=== PATIENT | female | born 1955 | race Caucasian/White ===

== ENCOUNTER → 2018-05-05 07:55 | Outpatient (CLI) | payer OTHER, SELFPAY ==
--- NOTE | 2018-05-05 | DI.MG.S_ITS ---
BILATERAL DIGITAL SCREENING MAMMOGRAM 3D/2D WITH CAD: 05/05/2018 CLINICAL: Routine screening. Family history of breast cancer. Comparison is made to exams dated: 10/22/2016 mammogram and 11/15/2014 mammogram - [facility]. There are scattered fibroglandular elements in both breasts. Current study was also evaluated with a Computer Aided Detection (CAD) system. No significant masses, calcifications, or other findings are seen in either breast. There has been no significant interval change. IMPRESSION: NEGATIVE There is no mammographic evidence of malignancy. A 1 year screening mammogram is recommended. This exam was interpreted at Station ID: [id number]. NOTE: For mammograms, a report in lay terms will be sent to the patient. Approximately 15% of breast malignancies will not be visualized mammographically. In the management of a palpable breast mass, a negative mammogram must not discourage biopsy of a clinically suspicious lesion. Electronically Signed By: Amber ledesma/jodie:05/05/2018 08:57:08 letter sent: Normal Exam ACR BI-RADS Category 1: Negative 3341F
== END ==
PROVIDERS: Family Provider Family Medicine; PCP Family Medicine; Visit Provider Family Medicine
DX: Z12.31 Encounter for screening mammogram for malignant neoplasm of breast (principal); Z80.3 Family history of malignant neoplasm of breast
CPT/HCPCS: 77063; 77067

== ENCOUNTER → 2018-06-30 09:10 | Outpatient (CLI) | payer OTHER, SELFPAY ==
[2018-06-30 09:17] LABS: Bacteria Urine None Seen; RBC Urine None Seen (0-5/HPF)
[2018-06-30 10:08] LABS: Add Manual Diff / Slide Review NO; Eosinophils Percent Auto 2.9 % (2-4); Hematocrit 41.7 % (36-46); Hemoglobin 14.1 g/dL (12.0-16.0); Mean Corpuscular HGB Conc 33.9 % (30-36); Mean Corpuscular Hemoglobin 31.7 PG (26-34); Mean Corpuscular Volume 93.6 fL (80-100); Monocytes Percent Auto 7.4 % (3-14); Neutrophils Absolute Auto 3500 /uL (3000-5900); Neutrophils Percent Auto 55.7 % (50-75); Platelet Count 223 X10^3/uL (150-400); Red Blood Cell Count 4.45 X10^6/uL (4.0-5.2); Red Cell Distribution Width 13.2 % (11.6-14.8); White Blood Cell Count 6.4 X10^3/uL (4.5-11.0)
[2018-06-30 10:52] LABS: Vitamin D 25 Hydroxy (D3) 51.1 ng/mL (30.0-100.0)
[2018-06-30 12:19] LABS: Hemoglobin A1C% w Est Avg Glu 5.8 % (4.0-6.0)
[2018-06-30 12:41] LABS: Thyroid Stimulating Hormone 1.97 uIU/mL (0.47-4.68)
[2018-06-30 12:47] LABS: Ferritin 43.7 ng/mL (11.1-264)
[2018-06-30 13:07] LABS: Free T3, Triiodothyronine Free 3.32 pg/mL (2.77-5.27); Free T4, Direct Thyroxine 1.06 ng/dL (0.78-2.19)
[2018-06-30 13:41] LABS: Appearance Urine UA CLEAR; Bilirubin Urine UA NEGATIVE (NEGATIVE); Color Urine UA YELLOW; Glucose Urine UA NEGATIVE (Normal); Ketones Urine UA NEGATIVE (NEGATIVE); Leukocyte Esterase Urine UA 2+ (NEGATIVE); Nitrite Urine UA NEGATIVE (Negative); Occult Blood Urine UA NEGATIVE (Negative); Protein Urine UA NEGATIVE (Negative); Specific Gravity Urine UA <=1.005 (1.000-1.035); Urobilinogen Urine UA 0.2 E.U./dL (0.2)
[2018-06-30 13:53] LABS: Culture Indicated Urine Specimen Cultured; Squamous Epithelial Cell Urine 1-5 /HPF; WBC Urine 1-5/HPF (0-5/HPF)
[2018-07-01 15:35] LABS: Thyroglobulin Antibodies < 1 IU/mL (< 2); Thyroglobulin Level 36.7 ng/mL (2.8-40.9); Thyroid Peroxidase Antibodies < 1 IU/mL (< 9)
== END ==
PROVIDERS: PCP Family Medicine; Visit Provider Family Medicine
DX: Z00.00 Encounter for general adult medical examination without abnormal findings (principal); E66.9 Obesity, unspecified; M81.0 Age-related osteoporosis without current pathological fracture; Z13.0 Encounter for screening for diseases of the blood and blood-forming organs and certain disorders involving the immune mechanism; Z13.21 Encounter for screening for nutritional disorder; Z13.220 Encounter for screening for lipoid disorders; Z13.29 Encounter for screening for other suspected endocrine disorder
CPT/HCPCS: 36415; 81001; 82306; 82728; 83036; 84432; 84439; 84443; 84481; 85025; 86376; 86800; 87086

== ENCOUNTER → 2018-07-07 07:21 | Outpatient (CLI) | payer OTHER, SELFPAY ==
[2018-07-07 08:37] LABS: Alanine Aminotransferase 34 IU/L (9-52); Albumin 4.2 g/dL (3.5-5.0); Albumin Globulin Ratio 1.4 (1.0-2.8); Alkaline Phosphatase 81 U/L (38-126); Aspartate Aminotransferase 30 IU/L (14-36); BUN Creatinine Ratio 24.3 (6-22); Bilirubin Total 0.4 mg/dL (0.2-1.3); Blood Urea Nitrogen 17 mg/dL (7-17); Calcium 8.9 mg/dL (8.4-10.2); Carbon Dioxide 30 mmol/L (22-32); Chloride 100 mmol/L (98-107); Cholesterol 196 mg/dL (140-199); Estimated Glomerular Filt Rate > 60.0 mL/min (>60); Glucose 90 mg/dL (80-110); HDL Cholesterol 75 mg/dL (40-60); HEMOLYSIS 17 (0-50); LDL Cholesterol Calculated 108 mg/dL (<100); Potassium 3.7 mmol/L (3.4-5.1); Sodium 138 mmol/L (137-145); Total Protein 7.2 g/dL (6.3-8.2); Triglycerides 67 mg/dL (35-150)
== END ==
PROVIDERS: PCP Family Medicine; Visit Provider Family Medicine
DX: Z00.00 Encounter for general adult medical examination without abnormal findings (principal)
CPT/HCPCS: 36415; 80053; 80061

== ENCOUNTER → 2019-06-08 13:56 | Outpatient (CLI) | payer MEDICARE, OTHER, SELFPAY | PROVIDERS: Family Provider Naturopath; PCP Family Medicine; Visit Provider Family Medicine | DX: M81.0 Age-related osteoporosis without current pathological fracture (principal); Z78.0 Asymptomatic menopausal state; Z82.62 Family history of osteoporosis | CPT/HCPCS: 77080 ==

== ENCOUNTER → 2019-07-09 07:27 | Outpatient (CLI) | payer MEDICARE, OTHER, SELFPAY ==
[2019-07-09 07:56] LABS: Hemoglobin A1C% w Est Avg Glu 5.5 % (4.0-6.0)
== END ==
PROVIDERS: Family Medicine; Family Provider Naturopath; PCP Family Medicine; Visit Provider Family Medicine
DX: R73.03 Prediabetes (principal); E55.9 Vitamin D deficiency, unspecified; M81.0 Age-related osteoporosis without current pathological fracture
CPT/HCPCS: 36415; 82306; 83036

== ENCOUNTER → 2019-08-20 07:26 | Outpatient (CLI) | payer MEDICARE, OTHER, SELFPAY | PROVIDERS: Family Provider Naturopath; PCP Family Medicine; Visit Provider Family Medicine | DX: M81.0 Age-related osteoporosis without current pathological fracture (principal) | CPT/HCPCS: 82523; 82570 ==

== ENCOUNTER → 2020-04-26 14:48 | Outpatient (CLI) | payer MEDICARE, OTHER, SELFPAY ==
--- NOTE | 2020-04-26 15:04 | DI.MG.S_ITS ---
Patient Name: HALLE BARNETT date: 1955 Sex: F Attending Physician: Kyra Indications: Date: 04/26/2020 14:56 At the request of: SANJUANITA HOPKINS Procedure: MM screening mammo BI BILATERAL DIGITAL SCREENING MAMMOGRAM 3D/2D WITH CAD: 04/26/2020 CLINICAL: Routine screening. Family history of breast cancer. Comparison is made to exams dated: 05/05/2018 mammogram - [facility], 10/22/2016 mammogram, and 11/15/2014 mammogram - [facility]. There are scattered fibroglandular elements in both breasts. Current study was also evaluated with a Computer Aided Detection (CAD) system. No significant masses, calcifications, or other findings are seen in either breast. There has been no significant interval change. IMPRESSION: NEGATIVE There is no mammographic evidence of malignancy. A 1 year screening mammogram is recommended. This exam was interpreted at Station ID: [id number]. NOTE: For mammograms, a report in lay terms will be sent to the patient. Approximately 15% of breast malignancies will not be visualized mammographically. In the management of a palpable breast mass, a negative mammogram must not discourage biopsy of a clinically suspicious lesion. Electronically Signed By: Glen woods/jodie:04/29/2020 08:46:29 letter sent: Normal Exam ACR BI-RADS Category 1: Negative 3341F
== END ==
PROVIDERS: Family Provider Naturopath; PCP Family Medicine; Referring Provider Family Medicine; Visit Provider Family Medicine
DX: Z12.31 Encounter for screening mammogram for malignant neoplasm of breast (principal); Z80.3 Family history of malignant neoplasm of breast
CPT/HCPCS: 77063; 77067

== ENCOUNTER → 2020-05-27 12:28 | Outpatient (CLI) | payer MEDICARE, OTHER, SELFPAY ==
--- NOTE | 2020-05-27 12:29 | DI.MRI.S_ITS ---
BREAST MRI OF BOTH BREASTS: 05/27/2020 CLINICAL: Breast mass. PROCEDURE: MR BREAST BI WO/W CON INDICATIONS: 6 o'clock lump, family history breast cancer, abnormal thermography TECHNIQUE: The patient was placed prone in a dedicated breast imaging coil. Precontrast axial STIR and 3D FLASH without fat saturation sequences were obtained. Both before and after bolus injection of contrast, sequential 1-minute axial 3D FLASH with fat saturation sequences for 3 time points, with subtraction images and maximum intensity projections (MIP's) generated. Delayed sagittal FLASH images with fat saturation were also obtained. Computer-aided detection, including computer algorithm analysis of MRI image data for lesion detection and characterization, pharmacokinetic analysis, with further physician review for interpretation, was performed. CONTRAST: 20 cc ProHance. COMPARISON: [facility], SCREENING MAMMO BI, 04/26/2020, 15:04. [facility], MM SCREENING MAMMO BI, 05/05/2018, 8:27. Outside Facility, , BILATERAL SCREENING MAMMOGRAM, 10/22/2016, 8:22. Outside Facility, , BILATERAL SCREEING MAMMOGRAM W/ CAD, 11/15/2014, 15:10. Outside Facility, , BILATERAL SCREEING MAMMOGRAM W/ CAD, 01/29/2013, 15:16. FINDINGS: Image quality: Excellent. There is minimal background parenchymal enhancement. Right breast: No mass or significant enhancement. Small T2 hyperintense tiny cysts. Small intramammary lymph node. Left breast: No mass or significant enhancement. Small T2 hyperintense tiny cysts. Small intramammary lymph node. Miscellaneous: No enlarged axillary adenopathy. IMPRESSION: INCOMPLETE: NEEDS ADDITIONAL IMAGING EVALUATION 1. No mass or significant enhancement. A few small cysts. 2. No enlarged adenopathy. BIRADS 0. History reports a lump at 6 o'clock. Laterality is not defined. Although unlikely for a mass to be seen on ultrasound and not on MRI, if there is a palpable abnormality recommend completion of diagnostic workup with targeted ultrasound. Additional diagnostic mammographic views could also be obtained if clinically indicated. COMMENT: The imaging literature indicates that a negative contrast breast MRI examination has a high sensitivity and a moderate specificity for detecting and excluding invasive carcinomas to a detection threshold of 3-5 mm; nonetheless, appropriate clinical and mammographic follow-up are recommended. MRI is not sensitive for detecting DCIS (ductal carcinoma in situ) and may not detect large invasive neoplasms that show only minimal enhancement such as mucinous carcinoma. If there are suspicious calcifications or clinically worrisome palpable masses, then biopsy should still be considered. Invasive neoplasms can be hidden by co-existent and benign enhancement caused by mastitis, hormone therapy effects, radiation therapy, , and recent biopsy or surgery. False positive examinations can occur in a number of circumstances, including breasts that have recently been subject to invasive procedures and those that contain atypical ductal hyperplasia, hormonally stimulated glandular tissue, fat necrosis, or radial scars. Dictated by: Jordan Claudio M.D. on 05/27/2020 at 16:09 This exam was interpreted at Station ID: [id number]. Electronically Signed By: Jordan Claudio M.D. slc/:05/27/2020 16:47:35 letter sent: Additional Imaging Needed ACR BI-RADS Category 0: Incomplete 3340F
== END ==
PROVIDERS: Family Provider Naturopath; PCP Family Medicine; Referring Provider Family Medicine; Visit Provider Family Medicine
DX: N63.0 Unspecified lump in unspecified breast (principal); N60.01 Solitary cyst of right breast; N60.02 Solitary cyst of left breast
CPT/HCPCS: 77049; A9579

== ENCOUNTER → 2020-06-03 14:21 | Outpatient (CLI) | payer MEDICARE, OTHER, SELFPAY ==
--- NOTE | 2020-06-03 14:22 | DI.US.S_ITS ---
LIMITED ULTRASOUND OF LEFT BREAST: 06/03/2020 CLINICAL: Patient returns today to evaluate asymmetry in left breast. Comparison is made to exams dated: 05/27/2020 breast MRI, 04/26/2020 mammogram, and 05/05/2018 mammogram - [facility]. Ultrasound of the left breast 5-7 o'clock region was performed on the area of interest. IMPRESSION: NEGATIVE There is no sonographic evidence of malignancy. There is no mammographic, sonographic, or breast MRI abnormality seen in the left breast to correspond with the palpable abnormality, however, clinical followup is recommended. Return to annual mammogram screening schedule is recommended. This exam was interpreted at Station ID: [id number]. Electronically Signed By: Amber Aburto M.D. lk/:06/03/2020 15:45:50 letter sent: Clinical Evaluation Ultrasound BI-RADS: 1 Negative
== END ==
PROVIDERS: Family Provider Naturopath; PCP Family Medicine; Referring Provider Family Medicine; Visit Provider Family Medicine
DX: N64.89 Other specified disorders of breast (principal); Z80.3 Family history of malignant neoplasm of breast
CPT/HCPCS: 76642

== ENCOUNTER → 2020-09-25 09:47 | Outpatient (CLI) | payer MEDICARE, OTHER, SELFPAY ==
[2020-09-25 10:18] LABS: COVID19 -Nasal RAPID Negative (Negative)
== END ==
PROVIDERS: Family Provider Naturopath; PCP Family Medicine; Visit Provider Surgery
DX: Z01.812 Encounter for preprocedural laboratory examination (principal); Z20.822 Contact with and (suspected) exposure to COVID-19
CPT/HCPCS: 87635; C9803

== ENCOUNTER 2020-09-26 06:28 | Day surgery (SDC) | payer MEDICARE, OTHER, SELFPAY ==
[2020-09-26] VITALS (8 sets, daily range): BP systolic 96–120; BP diastolic 51–71; PULSE 70–80; RESP 11–14; TEMP 36.4; O2SAT 98–100; BMI 19.1
[2020-09-26] MEDS: SODIUM CHLORIDE 0.9% 1,000 ML 200 ML IV (07:18)
--- NOTE | 2020-09-26 07:45 | PM.HP.1 ---
History of Present Illness History of Present Illness Date Patient Seen: 09/26/20 Time Patient Seen: 07:45 Chief complaint: SCREENING COLONOSCOPY Narrative: This is a 64-year-old woman with personal history of colon polyps. She had her last colonoscopy 5 years ago, which some polyps were removed and she was recommended to have a repeat scope in 5 years. She has not had any new symptoms in 5 years, and specifically she denies any melena, hematochezia, unexplained abdominal pain, unexplained weight loss. She reports no family history of colon cancer. She does have a family history of colon polyps. She has a problem with constipation, which she is ?trying to address? with dietary changes and seeing a senior software systems engineer. ROS: Positive for constipation, urinary frequency/urgency, headaches, anxiety. Thirteen system review is otherwise negative other than as mentioned below and in HPI. PE: GENERAL: Well groomed and cooperative. Appears stated age. Answers questions promptly and appropriately. Vital signs noted. HENT: Normocephalic, atraumatic. Hearing intact. EYES: Conjunctiva pink, sclera white, no periorbital swelling. CARDIOVASCULAR: Regular rate. No pedal edema. RESPIRATORY: Non-tachypneic, breathing comfortably on room air. GASTROINTESTINAL: Abdomen soft and non-distended GENITALURINARY: No flank tenderness. MUSCULOSKELETAL: Equal tone and mass bilaterally. SKIN: Warm, dry, soft, appropriate color for ethnicity. No other lesions, rashes, or wounds. NEURO: Alert and Oriented X 3. No gross sensory deficits, or cognitive issues. PSYCH: Appropriate affect and mood. Patient History Medical History Abnormal Pap smear of cervix (~1998) Ankle fracture (~2014) Anxiety (~2003) Benign essential tremor Chicken pox Colon polyps (~2014) Hemorrhoid Measles Mumps Osteopenia Osteoporosis Plantar warts Scoliosis Tinnitus Family & Social History Family History Grandfather Heart disease Grandmother Cancer Grandfather Cancer Social History: household members significant other lives independently Yes caregiver/support person No Tobacco & Substance use: Smoking Status Never smoker alcohol intake current alcohol intake frequency holiday/special occasion Substance Use Type does not use Meds Home Medications and Allergies Home Medications Medication Instructions Recorded Confirmed Type [bone support] 2 tab PO BEDTIME #0 10/13/17 12/14/20 History cyanocobalamin (vitamin B-12) 1 mcg PO DAILY #0 06/03/17 09/26/20 History magnesium oxide 400 mg PO DAILY #0 06/03/17 08/04/20 History progesterone 1 tab PO DAILY 05/12/20 09/26/20 History estradiol 10 mcg vaginal tablet 10 mcg VAGINAL 2XW #24 each 08/04/20 09/26/20 Rx Allergies Allergy/AdvReac Type Severity Reaction Status Date / Time No Known Drug Allergies Allergy Verified 09/26/20 07:10 Exam Vital Signs (past 8 hours): - 09/26/20 07:18 Temperature 97.5 F L Pulse Rate 71 Respiratory Rate 14 Blood Pressure 120/71 Pulse Oximetry 100 Oxygen Delivery Method Room Air Assessment & Plan Assessment and plan (1) Personal history of colonic polyps: Status: Acute (2) Constipation: Status: Acute Assessment & Plan narrative: Risks and benefits of screening colonoscopy and possible polypectomy were discussed with the patient including risk of bleeding, perforation, need for additional procedures, risks of anesthesia. The patient desires to proceed with the colonoscopy procedure. COVID-19 COVID-19 status: Negative Result date/Date tested (Pos, Neg/Pending): 09/25/20 Time Spent With Patient Time with patient: 15-24 minutes Quality VTE Deep Vein Thrombosis/Pulmonary Embolism Present on Admission: No
--- NOTE | 2020-09-26 07:55 | P.OP.ENDO_ITS ---
Operative Date/Time/Diagnoses Date of procedure: 09/26/20 Time of procedure: 07:55 Pre-op diagnosis: personal history of colon polyps Post-op diagnosis: other (No polyps found on today's exam) Procedure & Clinicians Study performed: Colonoscopy procedural sedation performed by the endoscopist Same procedure as scheduled: Yes Indications: Personal history of colon polyps; due for surviellance scope Surgeon: Sabrina Tena Procedure Notes SCOAP/Timeout: Performed Procedure in detail: The patient was brought to the room and placed in left lateral decubitus position with all bony prominences padded. A time-out was performed and then the patient was given procedural sedation starting with 3 mg of Versed and 100 mcg of fentanyl. A total of 4 mg of Versed and 150 micro g of fentanyl were given for the entire procedure. Vitals were monitored throughout the procedure and remained stable. Once adequately sedated, the procedure was begun. A rectal exam was performed revealing no abnormalities. The colonoscope was then introduced to the rectum and advanced to the cecum in the usual fashion. The cecum was identified by the appendiceal orifice, the mucosal tri- fold, and the ileocecal valve. The scope was then retracted while rotating side to side and examining each mucosal fold. At the conclusion of the procedure small grade 1-2 internal hemorrhoids without stigmata of bleeding were seen. The scope was then withdrawn from the rectum the procedure was concluded. The patient tolerated the procedure well and was transferred to the PACU in stable condition. Scope withdrawal time: 9 Sedation minutes: 23 Specimen(s): none sent Complications: none Impression: No polyps found on today's exam Post-procedure Recommendations: Colonscopy in 5 years (Due to personal history of colon polyps) Follow up: as needed Disposition: PACU
[2020-09-26] MEDS: fentaNYL 250 MCG/5 ML INJ IV (08:01)
[2020-09-26] MEDS: MIDAZOLAM 5 MG/5 ML VIAL IV (08:01)
== END 2020-09-26 09:00 | disposition home or self-care (01) ==
PROVIDERS: Family Provider Naturopath; PCP Family Medicine; Referring Provider Family Medicine; Visit Provider Surgery
PROC: 0DJD8ZZ Inspection of Lower Intestinal Tract, Via Natural or Artificial Opening Endoscopic (ICD-10-PCS; CPT 45378; principal; 2020-09-26 07:45)
DX: Z12.11 Encounter for screening for malignant neoplasm of colon (principal); Z86.010 Personal history of colon polyps; K64.0 First degree hemorrhoids
CPT/HCPCS: G0105; 99152; J2250; J3010

== ENCOUNTER 2020-10-22 14:15 | Outpatient (RCR) | payer MEDICARE, OTHER, SELFPAY ==
--- NOTE | 2020-09-19 11:46 | PT.OTN ---
Current Diagnoses Other female genital prolapse (09/19/20) Physical Therapy Treatment Note PT-OP-A Visit Information Start: 09/19/20 08:57 Freq: Status: Active Protocol: Document 09/19/20 11:00 AMB (Rec: 09/19/20 11:46 AMB [email or web address]) Out-Patient Physical Therapy Visit Information Visit Information Visit Type Initial Evaluation Visit Start Time 11:00 Visit Stop Time 11:50 Total Visit Minutes 50 Visit Number 1 PT-OP-B Current Condition Start: 09/19/20 08:57 Freq: Status: Active Protocol: Document 09/19/20 10:15 AMB (Rec: 09/19/20 10:32 AMB [id number]) Current Condition History of Current Condition Onset Date chronic Current Complaints pelvic heaviness, urgency History of Current Condition Feels heaviness in pelvic floor, hard to relax because of heaviness. Does have difficulty with urgency. Hasn 't found a trigger per se. No child history, but does have chronic constipation. [place] has been painful, is taking estradiol. Prior Functional Status Baseline Function- ADL's Independent Baseline Function- Mobility Independent Personal Factors Other Personal Factors That May Effect Osteoporosis Therapy/Recovery PT-OP-C Subjective Start: 09/19/20 08:57 Freq: Status: Active Protocol: Document 09/19/20 11:00 AMB (Rec: 09/19/20 11:46 AMB [email or web address]) Patient Questionnaires Pelvic Pain and Urgency/Frequency Patient Symptom Scale Pelvic Pain Score 15 PT-OP-I Pelvic Floor Start: 09/19/20 08:57 Freq: Status: Active Protocol: Document 09/19/20 11:00 AMB (Rec: 09/19/20 11:46 AMB [email or web address]) Pelvic Floor Assessment Urine Pelvic Floor Surgery No Urinary Symptoms Urge Sensation,Prolapse Leakage Size Small Leakage Cause Urge Other Leakage Causes very infrequent, denies triggers Nocturia 1 Bowel Bowel Symptoms Constipation Pelvic Clock Pelvic Clock 12-3 Tightness Pelvic Clock 3-6 Tightness Pelvic Clock 6-9 Tightness Pelvic Clock 9-12 Tightness Pelvic Clock Other mild tightness throughout, pt denies pain Prolapse Urethrocele Grade 2 Perineal Descent Resting Absent Bearing Present Contraction Ability Voluntary Contraction Weak Voluntary Relaxation Weak Manual Muscle Testing Left 2 Manual Muscle Testing Right 2 Manual Muscle Testing Anterior 2 Manual Muscle Testing Posterior 2 Muscle Endurance (Seconds) 5 Number of Quick Contractions In 10 3 Seconds Comments Pelvic Floor Comments Tends to over use adductors PT-OP-T Assessment and Plan Start: 09/19/20 08:57 Freq: Status: Active Protocol: Document 09/19/20 11:00 AMB (Rec: 09/19/20 11:46 AMB [email or web address]) Physical Therapy Assessment Rehab Potential Rehabilitation Potential Good Evaluation Complexity Number of Personal Factors/Comorbidities 1-2 Number of Body Systems Impaired 3 Clinical Presentation at Evaluation Stable Impairments Impairments Activity Tolerance,Functional Activities,Functional Mobility Goals Two Impairment Prolapse Short Term Goal (STG) Olivia will be consistent and independent with an exercise program to improve her pelvic floor strength. STG Duration 4 weeks Crabbing Machine Operator Goal (LTG) Olivia will report decreased pelvic heaviness with Robin Chi and Chi Gong. LTG Duration 8 weeks One Impairment Urgency Short Term Goal (STG) Olivia will increase the time between voids to at least 2 hours. STG Duration 4 weeks Assessment Summary Assessment Olivia attends physical therapy with a history of pelvic heaviness. She was able to contract her pelvic floor, but did tend to overuse her adductors. She also has a history of urgency, but was unable to describe triggers that cause her to feel urgent, may be more of a frequency issue. She did have mild tension, but no pain upon assessment. She will benefit from physical therapy to improve her pelvic floor strength to decrease her heaviness and behavioral treatment to decrease her frequency/urgency. Physical Therapy Plan Frequency and Duration Frequency of Treatment 1x/Week Duration of Treatment 8 weeks Plan of Care Start Date 09/19/20 Plan of Care End Date 11/14/20 Therapeutic Interventions Therapeutic Interventions Home Exercise Program,Manual Therapy,Neuromuscular Re- education,Self-Care/Home Management,Therapeutic Activities,Therapeutic Exercises Modalities Biofeedback,Electric Stimulation Next Visit Focus/Plan Next Note Type Treatment Note Next Visit Plan sEMG progress HEP, follow up on urgency, size of voids
--- NOTE | 2020-09-19 11:47 | PT.OPPOC ---
Physical, Occupational & Speech Therapy At [facility] Current Diagnoses Other female genital prolapse (09/19/20) Visit Care Team Role Provider Type Shahzad Sauceda ND Family Provider Non-Staff Specialty: Naturopathy Address: [address] [place], [address] Email: Queta Rae MD Attending Provider Physician Primary Care Provider Referring Provider Specialty: Family Practice Address: [facility], [facility] [place], [address] Email: [email or web address] Plan Of Care PT-OP-T Assessment and Plan Start: 09/19/20 08:57 Freq: Status: Active Protocol: Document 09/19/20 11:00 AMB (Rec: 09/19/20 11:46 AMB [email or web address]) Physical Therapy Assessment Rehab Potential Rehabilitation Potential Good Evaluation Complexity Number of Personal Factors/Comorbidities 1-2 Number of Body Systems Impaired 3 Clinical Presentation at Evaluation Stable Impairments Impairments Activity Tolerance,Functional Activities,Functional Mobility Goals Two Impairment Prolapse Short Term Goal (STG) Olivia will be consistent and independent with an exercise program to improve her pelvic floor strength. STG Duration 4 weeks Respiratory Assistant Goal (LTG) Olivia will report decreased pelvic heaviness with Robin Chi and Chi Gong. LTG Duration 8 weeks One Impairment Urgency Short Term Goal (STG) Olivia will increase the time between voids to at least 2 hours. STG Duration 4 weeks Assessment Summary Assessment Olivia attends physical therapy with a history of pelvic heaviness. She was able to contract her pelvic floor, but did tend to overuse her adductors. She also has a history of urgency, but was unable to describe triggers that cause her to feel urgent, may be more of a frequency issue. She did have mild tension, but no pain upon assessment. She will benefit from physical therapy to improve her pelvic floor strength to decrease her heaviness and behavioral treatment to decrease her frequency/urgency. Physical Therapy Plan Frequency and Duration Frequency of Treatment 1x/Week Duration of Treatment 8 weeks Plan of Care Start Date 09/19/20 Plan of Care End Date 11/14/20 Therapeutic Interventions Therapeutic Interventions Home Exercise Program,Manual Therapy,Neuromuscular Re- education,Self-Care/Home Management,Therapeutic Activities,Therapeutic Exercises Modalities Biofeedback,Electric Stimulation Next Visit Focus/Plan Next Note Type Treatment Note Next Visit Plan sEMG progress HEP, follow up on urgency, size of voids Plan of Care Dates Plan of Care Start Date 09/19/20 Plan of Care End Date 11/14/20 Electronically Signed by: Mariah Thurston, PT 09/19/20 1052 Please Sign and Return: I have reviewed this Plan of Care and certify that the skilled therapy services above are required to meet the patient?s needs. Physician Signature Date Printed Name and Credentials Clinical Instructor Signature Printed Name and Credentials
--- NOTE | 2020-09-19 15:37 | PT.OIE ---
Current Diagnoses Other female genital prolapse (09/19/20) Past Medical History (Last Reviewed 09/26/20 @ 07:48 by Sabrina Tena MD) Abnormal Pap smear of cervix (~1998) Ankle fracture (~2014) Anxiety (~2003) Benign essential tremor Chicken pox Colon polyps (~2014) Hemorrhoid Measles Mumps Osteopenia Osteoporosis Plantar warts Scoliosis Tinnitus Visit Care Team Role Provider Type Shahzad Sauceda ND Family Provider Non-Staff Specialty: Naturopathy Address: [address] [place], [address] Email: Queta Rae MD Attending Provider Physician Primary Care Provider Referring Provider Specialty: Family Practice Address: [facility], [place], [address] Email: [email or web address] Physical Therapy Initial Evaluation PT-OP-A Visit Information Start: 09/19/20 08:57 Freq: Status: Active Protocol: Document 09/19/20 11:00 AMB (Rec: 09/19/20 11:46 AMB [email or web address]) Out-Patient Physical Therapy Visit Information Visit Information Visit Type Initial Evaluation Visit Start Time 11:00 Visit Stop Time 11:50 Total Visit Minutes 50 Visit Number 1 PT-OP-B Current Condition Start: 09/19/20 08:57 Freq: Status: Active Protocol: Document 09/19/20 10:15 AMB (Rec: 09/19/20 10:32 AMB [id number]) Current Condition History of Current Condition Onset Date chronic Current Complaints pelvic heaviness, urgency History of Current Condition Feels heaviness in pelvic floor, hard to relax because of heaviness. Does have difficulty with urgency. Hasn 't found a trigger per se. No child history, but does have chronic constipation. [place] has been painful, is taking estradiol. Prior Functional Status Baseline Function- ADL's Independent Baseline Function- Mobility Independent Personal Factors Other Personal Factors That May Effect Osteoporosis Therapy/Recovery PT-OP-C Subjective Start: 09/19/20 08:57 Freq: Status: Active Protocol: Document 09/19/20 11:00 AMB (Rec: 09/19/20 11:46 AMB [email or web address]) Patient Questionnaires Pelvic Pain and Urgency/Frequency Patient Symptom Scale Pelvic Pain Score 15 PT-OP-I Pelvic Floor Start: 09/19/20 08:57 Freq: Status: Active Protocol: Document 09/19/20 11:00 AMB (Rec: 09/19/20 11:46 AMB [email or web address]) Pelvic Floor Assessment Urine Pelvic Floor Surgery No Urinary Symptoms Urge Sensation,Prolapse Leakage Size Small Leakage Cause Urge Other Leakage Causes very infrequent, denies triggers Nocturia 1 Bowel Bowel Symptoms Constipation Pelvic Clock Pelvic Clock 12-3 Tightness Pelvic Clock 3-6 Tightness Pelvic Clock 6-9 Tightness Pelvic Clock 9-12 Tightness Pelvic Clock Other mild tightness throughout, pt denies pain Prolapse Urethrocele Grade 2 Perineal Descent Resting Absent Bearing Present Contraction Ability Voluntary Contraction Weak Voluntary Relaxation Weak Manual Muscle Testing Left 2 Manual Muscle Testing Right 2 Manual Muscle Testing Anterior 2 Manual Muscle Testing Posterior 2 Muscle Endurance (Seconds) 5 Number of Quick Contractions In 10 3 Seconds Comments Pelvic Floor Comments Tends to over use adductors PT-OP-T Assessment and Plan Start: 09/19/20 08:57 Freq: Status: Active Protocol: Document 09/19/20 11:00 AMB (Rec: 09/19/20 11:46 AMB [email or web address]) Physical Therapy Assessment Rehab Potential Rehabilitation Potential Good Evaluation Complexity Number of Personal Factors/Comorbidities 1-2 Number of Body Systems Impaired 3 Clinical Presentation at Evaluation Stable Impairments Impairments Activity Tolerance,Functional Activities,Functional Mobility Goals Two Impairment Prolapse Short Term Goal (STG) Olivia will be consistent and independent with an exercise program to improve her pelvic floor strength. STG Duration 4 weeks Mcc Goal (LTG) Olivia will report decreased pelvic heaviness with Robin Chi and Chi Gong. LTG Duration 8 weeks One Impairment Urgency Short Term Goal (STG) Olivia will increase the time between voids to at least 2 hours. STG Duration 4 weeks Assessment Summary Assessment Olivia attends physical therapy with a history of pelvic heaviness. She was able to contract her pelvic floor, but did tend to overuse her adductors. She also has a history of urgency, but was unable to describe triggers that cause her to feel urgent, may be more of a frequency issue. She did have mild tension, but no pain upon assessment. She will benefit from physical therapy to improve her pelvic floor strength to decrease her heaviness and behavioral treatment to decrease her frequency/urgency. Physical Therapy Plan Frequency and Duration Frequency of Treatment 1x/Week Duration of Treatment 8 weeks Plan of Care Start Date 09/19/20 Plan of Care End Date 11/14/20 Therapeutic Interventions Therapeutic Interventions Home Exercise Program,Manual Therapy,Neuromuscular Re- education,Self-Care/Home Management,Therapeutic Activities,Therapeutic Exercises Modalities Biofeedback,Electric Stimulation Next Visit Focus/Plan Next Note Type Treatment Note Next Visit Plan sEMG progress HEP, follow up on urgency, size of voids
--- NOTE | 2020-10-01 15:50 | PT.OTN ---
Current Diagnoses Other female genital prolapse (10/01/20) Physical Therapy Treatment Note PT-OP-A Visit Information Start: 09/19/20 08:57 Freq: Status: Active Protocol: Document 10/01/20 07:30 AMB (Rec: 10/01/20 08:19 AMB [id number]) Out-Patient Physical Therapy Visit Information Visit Information Visit Type Treatment Note Visit Start Time 07:30 Visit Stop Time 08:15 PT-OP-B Current Condition Start: 09/19/20 08:57 Freq: Status: Active Protocol: Document 09/19/20 10:15 AMB (Rec: 09/19/20 10:32 AMB [id number]) Current Condition History of Current Condition Onset Date chronic Current Complaints pelvic heaviness, urgency History of Current Condition Feels heaviness in pelvic floor, hard to relax because of heaviness. Does have difficulty with urgency. Hasn 't found a trigger per se. No child history, but does have chronic constipation. [place] has been painful, is taking estradiol. Prior Functional Status Baseline Function- ADL's Independent Baseline Function- Mobility Independent Personal Factors Other Personal Factors That May Effect Osteoporosis Therapy/Recovery PT-OP-C Subjective Start: 09/19/20 08:57 Freq: Status: Active Protocol: Document 10/01/20 07:30 AMB (Rec: 10/01/20 15:50 AMB [id number]) OP-PT Subjective Patient Comments Patient Comments Olivia has been doing her exercises at least 2 if not 3 times a day. PT-OP-I Pelvic Floor Start: 09/19/20 08:57 Freq: Status: Active Protocol: Document 09/19/20 11:00 AMB (Rec: 09/19/20 11:46 AMB [email or web address]) Pelvic Floor Assessment Urine Pelvic Floor Surgery No Urinary Symptoms Urge Sensation,Prolapse Leakage Size Small Leakage Cause Urge Other Leakage Causes very infrequent, denies triggers Nocturia 1 Bowel Bowel Symptoms Constipation Pelvic Clock Pelvic Clock 12-3 Tightness Pelvic Clock 3-6 Tightness Pelvic Clock 6-9 Tightness Pelvic Clock 9-12 Tightness Pelvic Clock Other mild tightness throughout, pt denies pain Prolapse Urethrocele Grade 2 Perineal Descent Resting Absent Bearing Present Contraction Ability Voluntary Contraction Weak Voluntary Relaxation Weak Manual Muscle Testing Left 2 Manual Muscle Testing Right 2 Manual Muscle Testing Anterior 2 Manual Muscle Testing Posterior 2 Muscle Endurance (Seconds) 5 Number of Quick Contractions In 10 3 Seconds Comments Pelvic Floor Comments Tends to over use adductors PT-OP-Q Treatments Start: 09/19/20 08:57 Freq: Status: Active Protocol: Document 10/01/20 07:30 AMB (Rec: 10/01/20 15:50 AMB [id number]) Therapeutic Exercises Supine Exercises 1 Supine Exercise Name quick flicks and long holds Comments supine and then seated Sitting Exercises 1 Sitting Exercise Name roll in Comments challenging Standing Exercises 1 Standing Exercise Name partial squat with pelvic floor contraction Comments challenging PT-OP-T Assessment and Plan Start: 09/19/20 08:57 Freq: Status: Active Protocol: Document 10/01/20 07:30 AMB (Rec: 10/01/20 15:50 AMB [id number]) Physical Therapy Assessment Assessment Summary Assessment Progressed Olivia's HEP today but did not do sEMG because of time limitations. Pt with good understanding of concept of continuing to work on pelvic floor during functional activities/ has been doing yoga previously. Physical Therapy Plan Next Visit Focus/Plan Next Note Type Treatment Note Next Visit Plan sEMG progress HEP, follow up on urgency, pt's main concern is prolapse
--- NOTE | 2020-10-08 15:46 | PT.OTN ---
Current Diagnoses Other female genital prolapse (10/08/20) Physical Therapy Treatment Note PT-OP-A Visit Information Start: 09/19/20 08:57 Freq: Status: Active Protocol: Document 10/08/20 13:30 AMB (Rec: 10/08/20 14:06 AMB [id number]) Out-Patient Physical Therapy Visit Information Visit Information Visit Type Treatment Note Visit Start Time 13:30 Visit Stop Time 14:15 Total Visit Minutes 45 Visit Number 3 PT-OP-B Current Condition Start: 09/19/20 08:57 Freq: Status: Active Protocol: Document 09/19/20 10:15 AMB (Rec: 09/19/20 10:32 AMB [id number]) Current Condition History of Current Condition Onset Date chronic Current Complaints pelvic heaviness, urgency History of Current Condition Feels heaviness in pelvic floor, hard to relax because of heaviness. Does have difficulty with urgency. Hasn 't found a trigger per se. No child history, but does have chronic constipation. [place] has been painful, is taking estradiol. Prior Functional Status Baseline Function- ADL's Independent Baseline Function- Mobility Independent Personal Factors Other Personal Factors That May Effect Osteoporosis Therapy/Recovery PT-OP-C Subjective Start: 09/19/20 08:57 Freq: Status: Active Protocol: Document 10/08/20 13:30 AMB (Rec: 10/10/20 15:46 AMB [email or web address]) OP-PT Subjective Patient Comments Patient Comments Pt has been very mindful of her exercises and is having a hard time utilizing all of her pelvic floor muscles, most aware of 6 and 12 oclock. PT-OP-I Pelvic Floor Start: 09/19/20 08:57 Freq: Status: Active Protocol: Document 09/19/20 11:00 AMB (Rec: 09/19/20 11:46 AMB [email or web address]) Pelvic Floor Assessment Urine Pelvic Floor Surgery No Urinary Symptoms Urge Sensation,Prolapse Leakage Size Small Leakage Cause Urge Other Leakage Causes very infrequent, denies triggers Nocturia 1 Bowel Bowel Symptoms Constipation Pelvic Clock Pelvic Clock 12-3 Tightness Pelvic Clock 3-6 Tightness Pelvic Clock 6-9 Tightness Pelvic Clock 9-12 Tightness Pelvic Clock Other mild tightness throughout, pt denies pain Prolapse Urethrocele Grade 2 Perineal Descent Resting Absent Bearing Present Contraction Ability Voluntary Contraction Weak Voluntary Relaxation Weak Manual Muscle Testing Left 2 Manual Muscle Testing Right 2 Manual Muscle Testing Anterior 2 Manual Muscle Testing Posterior 2 Muscle Endurance (Seconds) 5 Number of Quick Contractions In 10 3 Seconds Comments Pelvic Floor Comments Tends to over use adductors PT-OP-Q Treatments Start: 09/19/20 08:57 Freq: Status: Active Protocol: Document 10/08/20 13:30 AMB (Rec: 10/10/20 15:46 AMB [email or web address]) Therapeutic Exercises Supine Exercises 2 Supine Exercise Name long holds with NMES Comments 10 second hold 1 Supine Exercise Name quick flicks and long holds Comments with sEMG Sitting Exercises 1 Sitting Exercise Name roll in/ roll out Comments challenging with breath PT-OP-T Assessment and Plan Start: 09/19/20 08:57 Freq: Status: Active Protocol: Document 10/08/20 13:30 AMB (Rec: 10/08/20 14:06 AMB [id number]) Physical Therapy Assessment Assessment Summary Assessment Avg 16.1, max 27.7 with sEMG- did not find NMES especially more helpful to utilize all pelvic floor muscles. Did like roll in roll out exercises. Physical Therapy Plan Next Visit Focus/Plan Next Note Type Treatment Note Next Visit Plan sEMG progress HEP, follow up on urgency, pt's main concern is prolapse
--- NOTE | 2020-10-15 16:18 | PT.OTN ---
Current Diagnoses Other female genital prolapse (10/15/20) Physical Therapy Treatment Note PT-OP-A Visit Information Start: 09/19/20 08:57 Freq: Status: Active Protocol: Document 10/15/20 14:15 AMB (Rec: 10/15/20 15:31 AMB [id number]) Out-Patient Physical Therapy Visit Information Visit Information Visit Type Treatment Note Visit Start Time 14:15 Visit Stop Time 15:00 Total Visit Minutes 45 Visit Number 4 PT-OP-B Current Condition Start: 09/19/20 08:57 Freq: Status: Active Protocol: Document 09/19/20 10:15 AMB (Rec: 09/19/20 10:32 AMB [id number]) Current Condition History of Current Condition Onset Date chronic Current Complaints pelvic heaviness, urgency History of Current Condition Feels heaviness in pelvic floor, hard to relax because of heaviness. Does have difficulty with urgency. Hasn 't found a trigger per se. No child history, but does have chronic constipation. [place] has been painful, is taking estradiol. Prior Functional Status Baseline Function- ADL's Independent Baseline Function- Mobility Independent Personal Factors Other Personal Factors That May Effect Osteoporosis Therapy/Recovery PT-OP-C Subjective Start: 09/19/20 08:57 Freq: Status: Active Protocol: Document 10/15/20 14:15 AMB (Rec: 10/15/20 15:31 AMB [id number]) OP-PT Subjective Patient Comments Patient Comments Pt had a bit more urgency in the last week, had increased sx after using sensor without lubricant at last visit because didn't want to have our lubricant with parabens in it. PT-OP-I Pelvic Floor Start: 09/19/20 08:57 Freq: Status: Active Protocol: Document 09/19/20 11:00 AMB (Rec: 09/19/20 11:46 AMB [email or web address]) Pelvic Floor Assessment Urine Pelvic Floor Surgery No Urinary Symptoms Urge Sensation,Prolapse Leakage Size Small Leakage Cause Urge Other Leakage Causes very infrequent, denies triggers Nocturia 1 Bowel Bowel Symptoms Constipation Pelvic Clock Pelvic Clock 12-3 Tightness Pelvic Clock 3-6 Tightness Pelvic Clock 6-9 Tightness Pelvic Clock 9-12 Tightness Pelvic Clock Other mild tightness throughout, pt denies pain Prolapse Urethrocele Grade 2 Perineal Descent Resting Absent Bearing Present Contraction Ability Voluntary Contraction Weak Voluntary Relaxation Weak Manual Muscle Testing Left 2 Manual Muscle Testing Right 2 Manual Muscle Testing Anterior 2 Manual Muscle Testing Posterior 2 Muscle Endurance (Seconds) 5 Number of Quick Contractions In 10 3 Seconds Comments Pelvic Floor Comments Tends to over use adductors PT-OP-Q Treatments Start: 09/19/20 08:57 Freq: Status: Active Protocol: Document 10/15/20 14:15 AMB (Rec: 10/15/20 16:18 AMB [id number]) Therapeutic Exercises Standing Exercises 2 Standing Exercise Name partial lunge Comments with quick flick/long hold- more challenging 1 Standing Exercise Name partial squat with pelvic floor contraction Comments better Other Exercises 1 Other Exercise Name cat/cow Comments with long hold PT-OP-T Assessment and Plan Start: 09/19/20 08:57 Freq: Status: Active Protocol: Document 10/15/20 14:15 AMB (Rec: 10/15/20 16:18 AMB [id number]) Physical Therapy Assessment Assessment Summary Assessment Spent considerable time today educating Olivia on nature of pelvic floor education, expectations of future prolapse sx. Added cat cow and lunges with pelvic floor contract to HEP. Physical Therapy Plan Next Visit Focus/Plan Next Note Type Treatment Note Next Visit Plan Consider d/c next visit if doing well, either way, recheck pelvic floor/ prolapse sx.
--- NOTE | 2020-10-22 16:00 | PT.OTN ---
Current Diagnoses Other female genital prolapse (10/22/20) Physical Therapy Treatment Note PT-OP-A Visit Information Start: 09/19/20 08:57 Freq: Status: Active Protocol: Document 10/22/20 14:15 AMB (Rec: 10/24/20 08:11 AMB [email or web address]) Out-Patient Physical Therapy Visit Information Visit Information Visit Type Discharge Summary Visit Start Time 14:15 Visit Stop Time 15:00 Total Visit Minutes 45 Visit Number 5 PT-OP-B Current Condition Start: 09/19/20 08:57 Freq: Status: Active Protocol: Document 09/19/20 10:15 AMB (Rec: 09/19/20 10:32 AMB [id number]) Current Condition History of Current Condition Onset Date chronic Current Complaints pelvic heaviness, urgency History of Current Condition Feels heaviness in pelvic floor, hard to relax because of heaviness. Does have difficulty with urgency. Hasn 't found a trigger per se. No child history, but does have chronic constipation. [place] has been painful, is taking estradiol. Prior Functional Status Baseline Function- ADL's Independent Baseline Function- Mobility Independent Personal Factors Other Personal Factors That May Effect Osteoporosis Therapy/Recovery PT-OP-C Subjective Start: 09/19/20 08:57 Freq: Status: Active Protocol: Document 10/22/20 14:15 AMB (Rec: 10/24/20 08:11 AMB [email or web address]) OP-PT Subjective Patient Comments Patient Comments Olivia feels ready to be discharged, she is able to do her exercises and is going to find ways to incorporate them into her daily activities. PT-OP-I Pelvic Floor Start: 09/19/20 08:57 Freq: Status: Active Protocol: Document 09/19/20 11:00 AMB (Rec: 09/19/20 11:46 AMB [email or web address]) Pelvic Floor Assessment Urine Pelvic Floor Surgery No Urinary Symptoms Urge Sensation,Prolapse Leakage Size Small Leakage Cause Urge Other Leakage Causes very infrequent, denies triggers Nocturia 1 Bowel Bowel Symptoms Constipation Pelvic Clock Pelvic Clock 12-3 Tightness Pelvic Clock 3-6 Tightness Pelvic Clock 6-9 Tightness Pelvic Clock 9-12 Tightness Pelvic Clock Other mild tightness throughout, pt denies pain Prolapse Urethrocele Grade 2 Perineal Descent Resting Absent Bearing Present Contraction Ability Voluntary Contraction Weak Voluntary Relaxation Weak Manual Muscle Testing Left 2 Manual Muscle Testing Right 2 Manual Muscle Testing Anterior 2 Manual Muscle Testing Posterior 2 Muscle Endurance (Seconds) 5 Number of Quick Contractions In 10 3 Seconds Comments Pelvic Floor Comments Tends to over use adductors PT-OP-Q Treatments Start: 09/19/20 08:57 Freq: Status: Active Protocol: Document 10/22/20 14:15 AMB (Rec: 10/24/20 08:11 AMB [email or web address]) Therapeutic Exercises Sitting Exercises 1 Sitting Exercise Name roll in/ roll out Comments challenging with breath Standing Exercises 2 Standing Exercise Name partial lunge Comments with quick flick/long hold- more challenging 1 Standing Exercise Name partial squat with pelvic floor contraction Comments better Neuro Re-Education Treatment Other Activities 1 Details sEMG Comments long holds and quick flicks- continued difficulty holding strong contraction for length of long hold PT-OP-T Assessment and Plan Start: 09/19/20 08:57 Freq: Status: Active Protocol: Document 10/22/20 14:24 AMB (Rec: 10/22/20 15:06 AMB [id number]) Physical Therapy Assessment Goals Two Impairment Prolapse Short Term Goal (STG) Olivia will be consistent and independent with an exercise program to improve her pelvic floor strength. STG Duration MET Snf Goal (LTG) Olivia will report decreased pelvic heaviness with Robin Chi and Chi Gong. LTG Duration MET One Impairment Urgency Short Term Goal (STG) Olivia will increase the time between voids to at least 2 hours. STG Duration intermittent Assessment Summary Assessment Pt feels ready to be discharged at this time. Her sx are better, although her strength has not improved considerably. Physical Therapy Plan Discharge Physical Therapy Discharge Reasons Goals Met
--- NOTE | 2020-10-24 08:11 | PT.OTN ---
Current Diagnoses Other female genital prolapse (10/22/20) Physical Therapy Treatment Note PT-OP-A Visit Information Start: 09/19/20 08:57 Freq: Status: Active Protocol: Document 10/22/20 14:15 AMB (Rec: 10/24/20 08:11 AMB [email or web address]) Out-Patient Physical Therapy Visit Information Visit Information Visit Type Discharge Summary Visit Start Time 14:15 Visit Stop Time 15:00 Total Visit Minutes 45 Visit Number 5 PT-OP-B Current Condition Start: 09/19/20 08:57 Freq: Status: Active Protocol: Document 09/19/20 10:15 AMB (Rec: 09/19/20 10:32 AMB [id number]) Current Condition History of Current Condition Onset Date chronic Current Complaints pelvic heaviness, urgency History of Current Condition Feels heaviness in pelvic floor, hard to relax because of heaviness. Does have difficulty with urgency. Hasn 't found a trigger per se. No child history, but does have chronic constipation. [place] has been painful, is taking estradiol. Prior Functional Status Baseline Function- ADL's Independent Baseline Function- Mobility Independent Personal Factors Other Personal Factors That May Effect Osteoporosis Therapy/Recovery PT-OP-C Subjective Start: 09/19/20 08:57 Freq: Status: Active Protocol: Document 10/22/20 14:15 AMB (Rec: 10/24/20 08:11 AMB [email or web address]) OP-PT Subjective Patient Comments Patient Comments Olivia feels ready to be discharged, she is able to do her exercises and is going to find ways to incorporate them into her daily activities. PT-OP-I Pelvic Floor Start: 09/19/20 08:57 Freq: Status: Active Protocol: Document 09/19/20 11:00 AMB (Rec: 09/19/20 11:46 AMB [email or web address]) Pelvic Floor Assessment Urine Pelvic Floor Surgery No Urinary Symptoms Urge Sensation,Prolapse Leakage Size Small Leakage Cause Urge Other Leakage Causes very infrequent, denies triggers Nocturia 1 Bowel Bowel Symptoms Constipation Pelvic Clock Pelvic Clock 12-3 Tightness Pelvic Clock 3-6 Tightness Pelvic Clock 6-9 Tightness Pelvic Clock 9-12 Tightness Pelvic Clock Other mild tightness throughout, pt denies pain Prolapse Urethrocele Grade 2 Perineal Descent Resting Absent Bearing Present Contraction Ability Voluntary Contraction Weak Voluntary Relaxation Weak Manual Muscle Testing Left 2 Manual Muscle Testing Right 2 Manual Muscle Testing Anterior 2 Manual Muscle Testing Posterior 2 Muscle Endurance (Seconds) 5 Number of Quick Contractions In 10 3 Seconds Comments Pelvic Floor Comments Tends to over use adductors PT-OP-Q Treatments Start: 09/19/20 08:57 Freq: Status: Active Protocol: Document 10/22/20 14:15 AMB (Rec: 10/24/20 08:11 AMB [email or web address]) Therapeutic Exercises Sitting Exercises 1 Sitting Exercise Name roll in/ roll out Comments challenging with breath Standing Exercises 2 Standing Exercise Name partial lunge Comments with quick flick/long hold- more challenging 1 Standing Exercise Name partial squat with pelvic floor contraction Comments better Neuro Re-Education Treatment Other Activities 1 Details sEMG Comments long holds and quick flicks- continued difficulty holding strong contraction for length of long hold PT-OP-T Assessment and Plan Start: 09/19/20 08:57 Freq: Status: Active Protocol: Document 10/22/20 14:24 AMB (Rec: 10/22/20 15:06 AMB [id number]) Physical Therapy Assessment Goals Two Impairment Prolapse Short Term Goal (STG) Olivia will be consistent and independent with an exercise program to improve her pelvic floor strength. STG Duration MET Shelter Goal (LTG) Olivia will report decreased pelvic heaviness with Robin Chi and Chi Gong. LTG Duration MET One Impairment Urgency Short Term Goal (STG) Olivia will increase the time between voids to at least 2 hours. STG Duration intermittent Assessment Summary Assessment Pt feels ready to be discharged at this time. Her sx are better, although her strength has not improved considerably. Physical Therapy Plan Discharge Physical Therapy Discharge Reasons Goals Met
== END 2020-10-24 11:35 | disposition home or self-care (01) ==
LOC: PHYS 14:15
PROVIDERS: Family Provider Naturopath; PCP Family Medicine; Referring Provider Family Medicine; Visit Provider Family Medicine
DX: N81.89 Other female genital prolapse (principal)
CPT/HCPCS: 97110; 97112; 97161

== ENCOUNTER → 2020-11-17 07:09 | Outpatient (CLI) | payer MEDICARE, OTHER, SELFPAY ==
[2020-11-17 07:57] LABS: Hematocrit 39.1 % (36-46); Hemoglobin 13.1 g/dL (12.0-16.0); Mean Corpuscular HGB Conc 33.4 % (30-36); Mean Corpuscular Hemoglobin 31.7 PG (26-34); Platelet Count 213 X10^3/uL (150-400); Red Blood Cell Count 4.11 X10^6/uL (4.0-5.2); Red Cell Distribution Width 12.5 % (11.6-14.8); White Blood Cell Count 8.6 X10^3/uL (4.5-11.0)
[2020-11-17 08:07] LABS: Hemoglobin A1C% w Est Avg Glu 5.5 % (4.0-6.0)
[2020-11-17 08:18] LABS: Neutrophils Absolute Manual 4558 /uL (3000-5900); Total Cells Counted 100
[2020-11-17 08:19] LABS: RBC Morphology Normal Morphology
[2020-11-17 08:21] LABS: Alanine Aminotransferase 22 IU/L (<35); Albumin 4.3 g/dL (3.5-5.0); Albumin Globulin Ratio 1.3 (1.0-2.8); Alkaline Phosphatase 97 U/L (38-126); Aspartate Aminotransferase 31 IU/L (14-36); BUN Creatinine Ratio 19.2 (6-22); Bilirubin Total 0.4 mg/dL (0.2-1.3); Blood Urea Nitrogen 14 mg/dL (7-17); Calcium 9.4 mg/dL (8.4-10.2); Carbon Dioxide 29 mmol/L (22-32); Chloride 100 mmol/L (98-107); Cholesterol 184 mg/dL (140-199); Estimated Glomerular Filt Rate > 60.0 mL/min (>60); Globulin 3.2 g/dL (1.7-4.1); Glucose 102 mg/dL (80-110); HDL Cholesterol 94 mg/dL (40-60); HEMOLYSIS < 15 (0-50); LDL Cholesterol Calculated 76 mg/dL (<100); Magnesium 2.2 mg/dL (1.6-2.3); Potassium 3.9 mmol/L (3.4-5.1); Sodium 137 mmol/L (137-145); Total Protein 7.5 g/dL (6.3-8.2); Triglycerides 69 mg/dL (35-150)
[2020-11-17 08:38] LABS: Free T3, Triiodothyronine Free 3.47 pg/mL (2.77-5.27); Free T4, Direct Thyroxine 1.21 ng/dL (0.78-2.19)
[2020-11-17 08:51] LABS: Thyroid Stimulating Hormone 4.51 uIU/mL (0.47-4.68)
[2020-11-17 09:09] LABS: Vitamin B12 > 1000 pg/mL (239-931)
== END ==
PROVIDERS: Family Provider Naturopath; PCP Family Medicine; Referring Provider Family Medicine; Visit Provider Family Medicine
DX: E16.2 Hypoglycemia, unspecified (principal); R63.4 Abnormal weight loss; R20.2 Paresthesia of skin
CPT/HCPCS: 36415; 80053; 80061; 82607; 83036; 83735; 84439; 84443; 84481; 85025

== ENCOUNTER → 2020-12-29 10:12 | Outpatient (CLI) | payer MEDICARE, OTHER, SELFPAY ==
[2020-12-29 11:53] LABS: High Sensitivity CRP - Cardiac 0.7 mg/L (1.0-3.0)
[2020-12-30 05:14] LABS: IGA 311 mg/dL (87-352); IGG 1004 mg/dL (586-1602); IGM 79 mg/dL (26-217)
[2020-12-30 12:53] LABS: EBV Virus IgM Ab < 36.0 U/mL (0.0-35.9)
[2020-12-30 17:12] LABS: Arsenic 2 ug/L (2-23); Cadmium, Blood None Detected ug/L (0.0-1.2); Lead, Blood < 1 ug/dL (0-4); Mercury, Blood 1.1 ug/L (0.0-14.9)
[2021-01-01 15:04] LABS: B. henselae IgG Negative titer (Neg:<1:320); B. henselae IgM Negative titer (Neg:<1:100); B. quintana IgG Negative titer (Neg:<1:320); B. quintana IgM Negative titer (Neg:<1:100); Babesia microti IgG <1:10 (Neg:<1:10); Babesia microti IgM <1:10 (Neg:<1:10)
[2021-01-05 15:05] LABS: M pneumoniae IgG Ab 193
[2021-01-05 23:48] LABS: 18 kD IgG Band Absent (.); 23 kD IgG Band Absent (.); 28 kD IgG Band Absent (.); 30 kD IgG Band Absent (.); 39 kD IgG Band Absent (.); 41 kD IgG Bands Present (.); 45 kD IgG Band Absent (.); 58 kD IgG Band Absent (.); 66 kD IgG Band Absent (.); IgG P93 AB Absent (.); IgM P23 AB Present (.); IgM P39 AB Absent (.); IgM P41 AB Absent (.); Lyme IgG Line Blot Interpretat Negative (.); Lyme IgM Line Blot Interpretat Negative (.)
[2021-01-06 13:34] LABS: EBV Early Antigen AB,IgG >150.0
[2021-01-08 14:00] LABS: B burgdorferi PCR SEE LYME BLOT RESULT
== END ==
PROVIDERS: Family Provider Naturopath; PCP Family Medicine; Referring Provider Family Medicine; Visit Provider Family Medicine
DX: G47.9 Sleep disorder, unspecified (principal); R25.1 Tremor, unspecified; F41.9 Anxiety disorder, unspecified; R53.83 Other fatigue
CPT/HCPCS: 36415; 82175; 82300; 82784; 83655; 83825; 86140; 86611; 86617; 86663; 86664; 86665; 86738; 86753; 86790; 87471; 87476; 87798

== ENCOUNTER → 2021-01-01 09:58 | Outpatient (CLI) | payer MEDICARE, OTHER, SELFPAY ==
--- NOTE | 2021-01-01 16:49 | DIET.PN ---
Dietary Progress Note Assessment: 65y F c severe acute bout of anxiety attending nutrition visit for help with recent weight loss secondary to her anxiety. HT: 5'3 WT: 101# (-8% in 3mo, severe) UBW:110-112# BMI: 17.9 (underweight) Pt attends visit c her . Pt reports having crippling anxiety for the past 2mo c resulting 10# weight loss because of loss of appetite and slow gut motility. Pt has loved to cook her entire life but does not have the energy or focus to cook since October. Pt has not been exercising like normal because of sensory overload. Pt has seen pullman car repairer in [place] who suggests bitters to stimulate appetite among other recommendations. 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 Pt has always had trouble eating at restaurants or friends houses over lack of control of the ingredients and cooking methods. Pt has never participated in formal therapy to address this. At baseline pt has BMI of 18.5 and exercises several times per day with mostly plant-based diet (no gluten or dairy). Pt used to exercise 2-3hours daily and now taking a walk maybe once daily. Before this anxiety situation pt would eat three meals per day and spend hours making food from scratch. Pt has little desire to eat and does not feel sensory pleasure from food. Pt is constipated and using Miralax daily which she does not feel happy about. Pt is worried she has malabsorption. RD Impression: Pt is having sx of anxiety which limits her desire to eat and pleasure with eating. 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 Pt desires to gain back the weight she has lost and wants guidance on doing it in a healthy way. Pt desires energy to cook at home again. Nutrition Diagnosis: Severe Acute Protein Calorie Malnutrition r/t reduced appetite and desire to eat secondary to anxiety aeb 8% unintentional weight loss in 8w (severe), BMI 17.9 (severe for age), pt eating high fiber plant based diet. Interventions: 1. Discussed role of appetite stimulant to assist pt c appetite until she starts to get her appetite back. Pt resistant to more medications but would like to discuss this with her doctor as she desires to not lose more weight. Discussed some medications as a temporary tool to achieve goals. 2. Discussed pt focusing intake on protein foods and liquid plant fats/nut butters to support her PCM and encourage caloric excess without indulging in unhealthy foods. Provided handout on protein content of foods with goal of 55-65g/d. Encouraged pt to eat on a schedule for now and to snack on tablespoon of nut butter to support intake. 3. Educated pt on role of excessive fiber blocking nutrient absorption and leading to early satiety and total satisfaction. Encouraged pt to simplify diet and to make high fiber foods secondary to high PRO/fat foods for now until appetite returns. 4. Fielded questions on soaking grains and nuts. Encouraged pt to be gentle with herself and her food rules in order to focus on not losing further weight. Introduced pt and spouse to [email or web address] program in case they need assistance with healthy, organic meal delivery service. 5. Encouraged pt to resume Natural Calm magnesium supplement to help with her stress, sleep, and loosening her bowels. Pt would prefer this to taking daily Miralax. Monitoring/Evaluations: Pt will implement suggestions and check in c her doctor and this RD as needed.
== END ==
PROVIDERS: Family Provider Naturopath; PCP Family Medicine; Referring Provider Family Medicine; Visit Provider Family Medicine
DX: E43 Unspecified severe protein-calorie malnutrition (principal); Z68.1 Body mass index [BMI] 19.9 or less, adult
CPT/HCPCS: 97802

== ENCOUNTER → 2021-01-27 06:58 | Outpatient (CLI) | payer MEDICARE, OTHER, SELFPAY ==
[2021-01-27 09:12] LABS: Vitamin D 25 Hydroxy (D3) 60.2 ng/mL (30.0-100.0)
[2021-01-27 09:22] LABS: Cortisol AM (Before 10AM) 14.1 ug/dL (4.46-22.7)
== END ==
PROVIDERS: Family Provider Naturopath; PCP Family Medicine; Referring Provider Family Medicine; Visit Provider Family Medicine
DX: E63.9 Nutritional deficiency, unspecified (principal); F41.9 Anxiety disorder, unspecified; G47.9 Sleep disorder, unspecified
CPT/HCPCS: 36415; 82306; 82533

== ENCOUNTER → 2021-01-27 12:38 | Outpatient (CLI) | payer MEDICARE, OTHER, SELFPAY ==
--- NOTE | 2021-01-27 13:25 | DIET.PN ---
Dietary Progress Note 65y F followed by ROQUE, integrative MD, PCP family doc, and therapist through [facility] program attending f/u nutrition visit for help with IBS type symptoms. Pt understands her anxiety is strong factor in alternating constipation/diarrhea c bloating sx, her partner is doing a low FODMAP diet for SIBO and they would like further instruction in them being able to eat the same meals to sooth GI sx while promoting weight gain for her. Interventions: 1. Provided pt Niurka Nicole RD website and cookbook information for recipes for low FODMAP diet with instructions for her to modify recipes to double animal proteins and plant based fats (olive and avocado oil) and to eat high end of acceptable nuts/seeds/nut butters to promote weight gain. 2. Discussed current fiber supplement which pt feels is necessary for more normal BM. Psyllium is low FODMAP and pt can eat up to 2 TBS flaxseeds daily. 3. Reiterated pt not worrying about other food rules while dealing with this crisis situation as weight gain and anxiety management are imperative to her health. Discussed bringing her back to a more plant based diet with more scratch cooking once she feels better regulated weight and emotion antonio. Pt and spouse happy with advice and resources. Will schedule f/u's as needed to support healthy weight gain.
== END ==
PROVIDERS: Family Provider Naturopath; PCP Family Medicine; Referring Provider Family Medicine; Visit Provider Family Medicine
DX: F41.9 Anxiety disorder, unspecified (principal); K59.00 Constipation, unspecified; R19.7 Diarrhea, unspecified; R14.0 Abdominal distension (gaseous); Z71.3 Dietary counseling and surveillance
CPT/HCPCS: 97803

== ENCOUNTER → 2021-02-11 11:09 | Outpatient (CLI) | payer MEDICARE, OTHER, SELFPAY | PROVIDERS: Family Provider Naturopath; PCP Family Medicine; Referring Provider Family Medicine; Visit Provider Family Medicine | DX: F41.9 Anxiety disorder, unspecified (principal); G47.9 Sleep disorder, unspecified; K59.00 Constipation, unspecified | CPT/HCPCS: 82533 ==

== ENCOUNTER → 2021-02-19 15:57 | Outpatient (CLI) | payer MEDICARE, OTHER, SELFPAY ==
--- NOTE | 2021-02-19 16:01 | DI.MRI.S_ITS ---
PROCEDURE: MR HEAD/BRAIN WO CON INDICATIONS: tremors TECHNIQUE: Noncontrast axial T1 spin echo, axial T2 fast spin echo, sagittal and axial FLAIR, coronal T2 fast spin echo, axial gradient echo, axial diffusion and ADC through the brain. COMPARISON: None. FINDINGS: Image quality: Excellent. CSF Spaces: Basal cisterns are patent. No extra-axial fluid collections. Ventricles are normal in size and shape. Brain: No intracranial masses or hemorrhage. Rehman/white matter interface is normal. Brainstem appears normal. Diffusion-weighted images demonstrate no acute ischemic insult. No chronic ischemic insults. Normal intravascular flow voids are present. Skull and face: Calvarium has normal marrow signal. Orbits appear normal. Sinuses: Sinuses and mastoids are clear. IMPRESSION: 1. No acute intracranial process. Dictated by: Noy Bang M.D. on 02/19/2021 at 17:09 Approved by: Noy Bang M.D. on 02/19/2021 at 17:09
== END ==
PROVIDERS: Family Provider Naturopath; PCP Family Medicine; Referring Provider Family Medicine; Visit Provider Family Medicine
DX: R25.1 Tremor, unspecified (principal)
CPT/HCPCS: 70551

== ENCOUNTER → 2021-02-24 12:43 | Outpatient (CLI) | payer MEDICARE, OTHER, SELFPAY | PROVIDERS: Family Provider Naturopath; PCP Family Medicine; Visit Provider Family Medicine | DX: N89.8 Other specified noninflammatory disorders of vagina (principal) | CPT/HCPCS: 87070; 87205; 87210 ==

== ENCOUNTER → 2021-03-11 19:44 | Outpatient (CLI) | payer MEDICARE, OTHER, SELFPAY | PROVIDERS: Family Provider Naturopath; PCP Family Medicine; Referring Provider Physician Assistant; Visit Provider Physician Assistant | DX: R35.0 Frequency of micturition (principal) | CPT/HCPCS: 87086 ==

== ENCOUNTER → 2021-03-16 12:42 | Outpatient (CLI) | payer MEDICARE, OTHER, SELFPAY | PROVIDERS: Family Provider Naturopath; PCP Family Medicine; Referring Provider Family Medicine; Visit Provider Family Medicine | DX: M81.0 Age-related osteoporosis without current pathological fracture (principal); Z78.0 Asymptomatic menopausal state; Z82.62 Family history of osteoporosis | CPT/HCPCS: 77080 ==

== ENCOUNTER → 2021-03-20 07:11 | Outpatient (CLI) | payer MEDICARE, OTHER, SELFPAY ==
[2021-03-20 09:40] LABS: Cortisol AM (Before 10AM) 1.88 ug/dL (4.46-22.7)
[2021-03-27 20:07] LABS: Dexamethasone, Serum 204 ng/dL (.)
== END ==
PROVIDERS: Family Provider Naturopath; PCP Family Medicine; Referring Provider Internal Medicine; Visit Provider Internal Medicine
DX: R79.89 Other specified abnormal findings of blood chemistry (principal); R94.7 Abnormal results of other endocrine function studies
CPT/HCPCS: 36415; 80375; 82533

== ENCOUNTER → 2021-03-23 13:03 | Outpatient (CLI) | payer MEDICARE, OTHER, SELFPAY ==
--- NOTE | 2021-03-23 13:05 | DI.RAD.S_ITS ---
PROCEDURE: XR LUMBAR SPINE 2-3V INDICATIONS: low back pain, severe osteoporosis TECHNIQUE: 3 views of the lumbar spine were acquired. COMPARISON: None. FINDINGS: There are age-indeterminate compression deformities of the L3 and L4 vertebral bodies. There is also some anterior wedging at L1 which is age indeterminate. Diffuse osseous demineralization is noted. Lumbar scoliosis is present. No significant listhesis identified. Degenerative changes at every level in the lumbar spine, overall moderate. IMPRESSION: Age-indeterminate compression deformities at L1, L3, and L4. Correlate for point tenderness. Consider an MRI to assess for bone marrow edema which would indicate acuity as well as assessing for associated spinal canal or neural foraminal narrowing. Dictated by: Stone Harrison M.D. on 03/23/2021 at 15:26 Approved by: Stone Harrison M.D. on 03/23/2021 at 15:29
--- NOTE | 2021-03-23 13:05 | DI.RAD.S_ITS ---
PROCEDURE: XR HIP W PEL IF DONE LT 2V COMPARISON: None. INDICATIONS: left hip pain, severe osteoporosis FINDINGS: AP view of the pelvis and lateral view of the left hip was performed. There is no fracture or dislocation. Both hips have mild degenerative changes. Pelvic phleboliths are seen. A large amount of stool is seen throughout the large bowel consistent with severe constipation. IMPRESSION: 1. Mild degenerative changes of both hips. 2. Severe constipation. Dictated by: Andrea Lopez M.D. on 03/23/2021 at 16:28 Approved by: Andrea Lopez M.D. on 03/23/2021 at 16:29
== END ==
PROVIDERS: Family Provider Naturopath; PCP Family Medicine; Referring Provider Family Medicine; Visit Provider Family Medicine
DX: M81.0 Age-related osteoporosis without current pathological fracture (principal); M54.5 Low back pain; M25.552 Pain in left hip; K59.00 Constipation, unspecified
CPT/HCPCS: 72100; 73502

== ENCOUNTER → 2021-03-27 13:35 | Outpatient (CLI) | payer MEDICARE, OTHER, SELFPAY ==
[2021-03-27 14:28] LABS: Calcium 9.3 mg/dL (8.4-10.2)
[2021-03-28 21:41] LABS: Deamidated Gliadin Ab IgA 5 units (0-19); Deamidated Gliadin Ab IgG <1 units (0-19); Immunoglobulin A,Qn 277 mg/dL (87-352); t-Transglutaminase IgA <2 U/mL (0-3)
[2021-03-30 14:08] LABS: Albumin 3.5 g/dL (2.9-4.4); Alpha-1-Globulin 0.2 g/dL (0.0-0.4); Alpha-2-Globulin 0.8 g/dL (0.4-1.0); Gamma Globulin 0.9 g/dL (0.4-1.8); Protein, Total 6.5 g/dL (6.0-8.5)
== END ==
PROVIDERS: Family Provider Naturopath; PCP Family Medicine; Referring Provider Family Medicine; Visit Provider Family Medicine
DX: Z13.820 Encounter for screening for osteoporosis (principal)
CPT/HCPCS: 36415; 82310; 82397; 82784; 83516; 84100; 84155; 84165

== ENCOUNTER → 2021-03-28 11:32 | Outpatient (CLI) | payer MEDICARE, OTHER, SELFPAY | PROVIDERS: Family Provider Naturopath; PCP Family Medicine; Referring Provider Family Medicine; Visit Provider Family Medicine | DX: S32.000A Wedge compression fracture of unspecified lumbar vertebra, initial encounter for closed fracture (principal); Z53.9 Procedure and treatment not carried out, unspecified reason ==

== ENCOUNTER 2021-03-28 11:43 | Emergency (ER) | payer MEDICARE, OTHER, SELFPAY ==
[2021-03-28] VITALS (12 sets, daily range): BP systolic 98–109; BP diastolic 54–60; PULSE 60–74; RESP 14–17; TEMP 36.5; O2SAT 97–100; BMI 18.3
--- NOTE | 2021-03-28 11:59 | ED.ABDPAIN ---
HPI - Abdominal Pain General Chief Complaint: Abdominal Pain Stated Complaint: constipation/over drugged ?/ not sleeping Time Seen by Provider: 03/28/21 11:53 Source: patient Mode of arrival: Ambulatory Limitations: no limitations History of Present Illness HPI narrative: 65-year-old female nonsmoker presents with a chief complaint of multiple symptoms over the past weeks to months. Patient states that over quite some time she has been having increased difficulties which have thus far been related to the possibility of underlying anxiety and various medications that she has tried of thus far proven unsuccessful. She continues to have difficulty with sleep and at times goes the entire night without sleeping. Additionally, she has had increasing difficulty producing stools and has developed mild but persistent generalized abdominal discomfort. She has had no fever or chills. She denies any dysuria, frequency or urgency. She has been taking stool softeners without much in the way of relief. Related Data Home Medications Medication Instructions Recorded Confirmed [bone support] 2 tab PO BEDTIME #0 06/03/17 03/30/21 cyanocobalamin (vitamin B-12) 1 mcg PO DAILY #0 06/03/17 03/30/21 1,000 mcg tablet,extended release progesterone 2 tab PO DAILY 03/25/21 03/30/21 trazodone 50 mg tablet See Rx Instructions PO BEDTIME PRN 03/25/21 03/30/21 tab Previous Rx's Medication Instructions Recorded estradiol 10 mcg vaginal tablet 10 mcg VAGINAL 2XW #24 each 11/27/20 (Yuvafem) estradiol 1 g VAGINAL DAILY #42.5 g 02/25/21 fluoxetine 10 mg tablet 10 mg PO DAILY #30 tab 03/06/21 clonazepam 1 mg tablet 2 mg PO BEDTIME #60 tab 03/19/21 Allergies Allergy/AdvReac Type Severity Reaction Status Date / Time No Known Drug Allergies Allergy Verified 03/25/21 09:21 Review of Systems Review of Systems Narrative: GENERAL: See HPI HEENT: Denies sinus pain, ear pain, sore throat, difficulty swallowing, dizziness. RESPIRATORY: Denies dyspnea, cough, wheezing, hemoptysis, sputum. CARDIOVASCULAR: Denies chest pain, palpitations, orthopnea, edema, GASTROINTESTINAL: See HPI : Denies dysuria, frequency, incontinence, hematuria, urinary retention. MUSCULOSKELETAL: denies weakness, joint pain, or bony pain SKIN: Denies rash, skin lesions, or other NEUROLOGIC: Denies weakness, headache, numbness, change in speech, confusion, seizures, incoordination. PSYCHIATRIC: See HPI 12 point review of systems is negative except for those stated above Patient History Medical History Abnormal Pap smear of cervix (~1998) Ankle fracture (~2014) Anxiety (~2003) Benign essential tremor Cervical somatic dysfunction Chicken pox Chronic left shoulder pain Chronic pain of left elbow Colon polyps (~2014) Hemorrhoid Measles Mumps Osteopenia Osteoporosis Plantar warts Postmenopausal atrophic vaginitis Scoliosis Tinnitus Upper extremity somatic dysfunction Family History Grandfather Heart disease Grandmother Cancer Grandfather Cancer Social History marital status: unmarried,living together number of children: 0 household members: significant other lives independently: Yes caregiver/support person: No housing: house Smoking Status: Never smoker second hand exposure: No alcohol intake: current substance use type: does not use Smoking Status: Never smoker alcohol intake frequency: holidays/special occasions only Substance Use Type: does not use Exam Narrative Exam Narrative: GENERAL: [65] year old patient appears stated age. Well-developed patient, in mild distress. Appears tired, fatigued and frustrated HEAD: Atraumatic. Normocephalic. EYES: Pupils equal round and reactive. Extraocular motions intact. No scleral icterus. No injection or drainage. ENT: Nose without bleeding, purulent drainage. Throat without erythema, tonsillar hypertrophy or exudate. Airway patent. NECK: Trachea midline. Non tender CARDIOVASCULAR: Regular rate and rhythm without murmurs, gallops, or rubs. RESPIRATORY: Clear to auscultation. Breath sounds equal bilaterally. No wheezes, rales, or rhonchi. GASTROINTESTINAL: Abdomen soft, non-tender, nondistended. Bowel sounds present in all 4 quadrants EXTREMITIES: No edema or joint tenderness. BACK: Nontender without deformity or crepitance. No flank tenderness. NEURO: AOx3. SKIN: No rash or erythema of visible areas Initial Vital Signs Initial Vital Signs: Vital Signs Temperature 97.7 F 03/28/21 11:48 Pulse Rate 62 03/28/21 11:48 Respiratory Rate 14 03/28/21 11:48 Blood Pressure 109/57 L 03/28/21 11:48 Pulse Oximetry 100 03/28/21 11:48 Course Orders Ordered: Discontinued Medications Bisacodyl (Bisacodyl 10 Mg Supp) 10 mg MS NOW ONE Stop: 03/28/21 13:30 Last Admin: 03/28/21 13:46 Dose: 10 mg Documented by: RADHA Sodium Chloride (Normal Saline 0.9%) 1,000 mls @ 1,000 mls/hr IV BOLUS ONE Stop: 03/28/21 14:28 Last Infusion: 03/28/21 14:35 Dose: 0 mls/hr Documented by: Admin: 03/28/21 13:47 Dose: 1,000 mls/hr Documented by: RADHA Reevaluation(s) Reevaluation #1: Patient did produce a moderate stool with above-stated therapies. Vital Signs Vital signs: Vital Signs - 8 hr 03/28/21 11:48 03/28/21 11:49 03/28/21 11:50 Temperature 97.7 F Pulse Rate 62 74 Respiratory Rate 14 Blood Pressure 109/57 L 109/57 L Pulse Oximetry 100 99 03/28/21 12:00 03/28/21 12:01 03/28/21 12:37 Temperature Pulse Rate 65 64 60 Respiratory Rate Blood Pressure 100/54 L Pulse Oximetry 100 99 97 03/28/21 13:00 03/28/21 13:10 03/28/21 13:30 Temperature Pulse Rate 60 61 63 Respiratory Rate Blood Pressure 101/58 L 100/56 L Pulse Oximetry 99 99 97 03/28/21 13:51 03/28/21 14:58 Temperature Pulse Rate 70 Respiratory Rate Blood Pressure 98/55 L 103/59 L Pulse Oximetry 97 100 MDM - Abdominal Pain Lab Data Result diagrams: 03/28/21 11:57 03/28/21 11:57 Labs: Lab Results 03/28/21 03/28/21 Range/Units 11:57 11:57 WBC 8.9 (4.5-11.0) X10^3/uL RBC 4.09 (4.0-5.2) X10^6/uL Hgb 12.9 (12.0-16.0) g/dL Hct 38.5 (36-46) % MCV 94.2 (80-100) fL MCH 31.6 (26-34) PG MCHC 33.5 (30-36) % RDW 12.5 (11.6-14.8) % Plt Count 247 (150-400) X10^3/uL Neut % (Auto) 68.6 (50-75) % Lymph % (Auto) 22.4 L (25-40) % [place] % (Auto) 6.8 (3-14) % Eos % (Auto) 1.4 L (2-4) % Baso % (Auto) 0.8 (0-2) % Neut # (Auto) 6100 (8358-4939) /uL Lymph # (Auto) 2000 (6876-1813) /uL [place] # (Auto) 600 (0-900) /uL Eos # (Auto) 100 (0-450) /uL Baso # (Auto) 100 (0-100) /uL Sodium 134 L (137-145) mmol/L Potassium 4.5 (3.4-5.1) mmol/L Chloride 98 (98-107) mmol/L Carbon Dioxide 31 (22-32) mmol/L BUN 17 (7-17) mg/dL Creatinine 0.80 (0.52-1.04) mg/dL Estimated GFR > 60.0 (>60) mL/min BUN/Creatinine Ratio 21.3 (6-22) Glucose 105 (80-110) mg/dL Calcium 9.5 (8.4-10.2) mg/dL Point of care testing: Urine Dip Bedside Urine Glucose Negative Bedside Urine Bilirubin - Negative Bedside Urine Ketone - Negative Urine Specific [place] 1.010 Bedside Urine Occult Blood - Negative Bedside Urine pH 6.5 Bedside Urine Protein - Negative Bedside Urine Urobilinogen - Negative Bedside Urine Nitrite - Negative Bedside Urine Leukocytes - Negative Esterase Imaging Data Abdominal x-ray: Radiologist's Impression: [address] [id number] ReportSigned Patient: Olivia Kennedy [facility]#: [id number]: 4Acct:[id number]/Sex: 65 / FDate of Service: 03/28/21Loc: EDAccession Number: [id number] Procedure: XR acute abdomen series Ordering Provider: Woodrow Alexis D.O. PROCEDURE: XR ACUTE ABDOMEN SERIES INDICATIONS: constipation, abdominal pain TECHNIQUE: One view chest and two views of the abdomen were acquired. COMPARISON: [facility], CR, XR HIP W PEL IF DONE LT 2V, 03/23/2021, 13:13. [facility], CR, XR LUMBAR SPINE 2-3V, 03/23/2021, 13:13. FINDINGS: Surgical changes and devices: None. Chest: Lungs are clear. Heart size is normal. No pleural effusions. No pneumoperitoneum. Abdomen: Bowel gas pattern is normal. There is a moderate amount of stool seen within the ascending colon. No suspicious calcifications. Visualized solid organ contours appear normal. Bones: No suspicious bony lesions. S-shaped scoliotic curvature is seen. Age-appropriate bony degenerative changes are seen. IMPRESSION: A moderate amount of stool is seen within the ascending colon, which is consistent with the given clinical history of constipation. Dictated by: Armani Kay M.D. on 03/28/2021 at 11:39 Approved by: Armani Kay M.D. on 03/28/2021 at 11:40 MDM Narrative Medical decision making narrative: 65-year-old female presents with concerns about her chronic medications playing a role with her difficulties with sleep, bowel movements and generally feeling unwell. Her physical exam, labs and imaging are reassuring. There does not appear to be any immediate life-threatening underlying cause which would require specific intervention. We discussed at length the (likely) multifactorial presentation she has and how the combination of medications, stress and others are likely feeding into this cycle. We discussed possible [id number] regimens for helping with her bowels including staying well hydrated, increasing her activity, foods high in fiber and various laxatives. Return precautions have been given and questions were answered to her apparent satisfaction Discharge Plan Departure Patient Disposition: Home Clinical Impression: Constipation Qualifiers: Constipation type: unspecified constipation type Qualified Code(s): K59.00 - Constipation, unspecified Instructions: DI for Constipation Activity Restrictions/Additional Instructions: *You have been diagnosed with [ abdominal pain due to constipation ] *What to do: *Take over the counter medications as directed: 1. Metamucil - is a bulk forming laxative and adds fiber 2. Colace - softens your stool 3. Dulcolax suppository - stimulates your bowels *Follow up with your primary care provider in 2-3 days, call for appointment *Return to ER if you should have any new, worsening or concerning symptoms *Drink plenty of water and eat foods high in fiber *Stay as active as you can as this helps move your bowels as well Prescriptions: No Action progesterone 100 mg capsule 2 tab PO DAILY RF: 0 fluoxetine 10 mg tablet 10 mg PO DAILY Qty: 30 RF: 2 [bone support] 2 tab PO BEDTIME Qty: 0 RF: 0 cyanocobalamin (vitamin B-12) 1,000 MCG tablet extended release 1 mcg PO DAILY Qty: 0 RF: 0 estradiol [Yuvafem] 10 mcg tablet 10 mcg Vaginal 2XW Qty: 24 RF: 3 clonazepam 1 mg tablet 2 mg PO BEDTIME Qty: 60 RF: 0 estradiol 0.01 % (0.1 mg/gram) cream 1 g vaginal DAILY Qty: 42.5 RF: 2 trazodone 50 mg tablet See Rx Instructions PO BEDTIME PRN (Reason: insomnia) RF: 0 Referrals: Queta Rae MD [Primary Care Provider] -
[2021-03-28 13:43] LABS: BUN Creatinine Ratio 21.3 (6-22); Blood Urea Nitrogen 17 mg/dL (7-17); Calcium 9.5 mg/dL (8.4-10.2); Carbon Dioxide 31 mmol/L (22-32); Chloride 98 mmol/L (98-107); Estimated Glomerular Filt Rate > 60.0 mL/min (>60); Glucose 105 mg/dL (80-110); HEMOLYSIS 21 (0-50); Potassium 4.5 mmol/L (3.4-5.1); Sodium 134 mmol/L (137-145)
[2021-03-28 13:45] LABS: Add Manual Diff / Slide Review NO; Basophils Absolute Auto 100 /uL (0-100); Basophils Percent Auto 0.8 % (0-2); Eosinophils Absolute Auto 100 /uL (0-450); Eosinophils Percent Auto 1.4 % (2-4); Hematocrit 38.5 % (36-46); Hemoglobin 12.9 g/dL (12.0-16.0); Lymphocytes Absolute Auto 2000 /uL (1100-4500); Lymphocytes Percent Auto 22.4 % (25-40); Mean Corpuscular HGB Conc 33.5 % (30-36); Mean Corpuscular Hemoglobin 31.6 PG (26-34); Mean Corpuscular Volume 94.2 fL (80-100); Monocytes Absolute Auto 600 /uL (0-900); Monocytes Percent Auto 6.8 % (3-14); Neutrophils Absolute Auto 6100 /uL (1500-7000); Neutrophils Percent Auto 68.6 % (50-75); Platelet Count 247 X10^3/uL (150-400); Red Blood Cell Count 4.09 X10^6/uL (4.0-5.2); Red Cell Distribution Width 12.5 % (11.6-14.8); White Blood Cell Count 8.9 X10^3/uL (4.5-11.0)
[2021-03-28] MEDS: BISACODYL 10 MG SUPP PR (13:46)
[2021-03-28] MEDS: SODIUM CHLORIDE 0.9% 1,000 ML 1000 ML IV (13:47)
== END 2021-03-28 16:31 | disposition home or self-care (01) ==
PROVIDERS: Emergency Provider Emergency Medicine; Family Provider Naturopath; PCP Family Medicine
DX: K59.00 Constipation, unspecified (principal)
CPT/HCPCS: 36415; 74022; 80048; 81003; 85025; 96360; 99284

== ENCOUNTER → 2021-03-30 11:41 | Outpatient (CLI) | payer MEDICARE, OTHER, SELFPAY ==
[2021-03-30 15:08] LABS: Collection Time Urine 24 Hours; Creatinine 24 Hour Urine 904 mg/day (800-1800); Creatinine Urine Random 24.1 mg/dL; Total Volume Urine 3750 mL
[2021-03-30 15:26] LABS: Calcium 24 Hour Urine 308 mg/day (100-300); Calcium Urine Random 8.2 mg/dL; Collection Time Urine 24 Hours; Total Volume Urine 3750 mL
[2021-04-01 12:36] LABS: Albumin 33.7 % (.); M-Spike % Not Observed % (Not Observed); Protein, Total, 24 hr urine <150 mg/24 hr (30-150); Total Urine Protein < 4.0 mg/dL (Not Estab.)
== END ==
PROVIDERS: Family Provider Naturopath; PCP Family Medicine; Referring Provider Family Medicine; Visit Provider Family Medicine
DX: Z13.820 Encounter for screening for osteoporosis (principal)
CPT/HCPCS: 82340; 82570; 84156; 84166

== ENCOUNTER → 2021-04-02 15:28 | Outpatient (CLI) | payer MEDICARE, OTHER, SELFPAY ==
--- NOTE | 2021-04-02 16:33 | DI.MRI.S_ITS ---
PROCEDURE: MR LUMBAR SPINE WO/W CON INDICATIONS: low back pain TECHNIQUE: Noncontrast sagittal T1 spin echo and T2 fast spin echo, sagittal STIR, axial T1 and T2 fast spin echo through the lumbar spine. In cases with scoliosis, additional coronal T2 fast spin echo may be performed. After the administration of contrast, sagittal and axial T1 spin echo with fat saturation through the lumbar spine. COMPARISON: [facility], CR, XR ACUTE ABDOMEN SERIES, 03/28/2021, 12:18. [facility], CR, XR LUMBAR SPINE 2-3V, 03/23/2021, 13:13. FINDINGS: These images demonstrate acute compression fractures at L1, L3, and L4. At L1, there is a mild superior endplate compression deformity posteriorly resulting in no greater than 10% height loss. At L3, there is approximately 40% height loss centrally with extensive marrow edema. At L4 there is also approximately 40% height loss with diffuse edema in the vertebral body. The edema slightly extends into the pedicles on the left at L3 and L4. Postcontrast images demonstrate enhancement throughout the vertebral bodies corresponding to the areas of edema. There is no suspicious focal low T1 marrow signal intensity or suspicious focal enhancement to suggest metastatic disease. Alignment is within normal limits. Normal position and appearance of the conus. Prevertebral and paraspinous soft tissues are within normal limits. The included retroperitoneal visceral structures demonstrate no acute abnormality. T12-L1: No spinal canal or neural foraminal stenosis. L1-L2: No spinal canal or neural foraminal stenosis. L2-L3: Diffuse disc bulge flattens the ventral thecal sac. No mass effect upon the traversing L3 nerve roots. Foraminal components of the disc bulge contribute to mild bilateral neural foraminal narrowing. L3-L4: Diffuse disc bulge and a superimposed broad-based posterior disc protrusion result in overall moderate-severe spinal canal stenosis with displacement of the descending L4 nerve roots. There is contribution from bulky facet hypertrophy and buckling of the ligamentum flavum. There is overall mild bilateral neural foraminal narrowing due to foraminal components of the disc bulge and facet hypertrophy. L4-L5: Diffuse disc bulge flattens the ventral thecal sac with displacement of the descending L5 nerve roots in both subarticular zones, with overall mild subarticular zone and spinal canal stenosis. Mild bilateral neural foraminal narrowing. L5-S1: Diffuse disc bulge with displacement of the descending S1 nerve roots bilaterally. Mild bilateral neural foraminal stenosis. IMPRESSION: Acute compression fractures at L1, L3, and L4, with edematous marrow signal at each level. No associated osseous retropulsion. No underlying low T1 signal intensity or suspicious enhancement to suggest metastatic disease or pathologic element to the fractures. Overall moderate lower lumbar spine degenerative changes with areas of potential focal nerve root impingement. Findings are worst at L3-L4 with there is moderate-severe spinal canal stenosis. Dictated by: Stone Harrison M.D. on 04/02/2021 at 16:44 Approved by: Stone Harrison M.D. on 04/02/2021 at 16:51
== END ==
PROVIDERS: Family Provider Family Medicine; PCP Family Medicine; Referring Provider Family Medicine; Visit Provider Family Medicine
DX: M54.5 Low back pain (principal); M48.56XA Collapsed vertebra, not elsewhere classified, lumbar region, initial encounter for fracture; M47.816 Spondylosis without myelopathy or radiculopathy, lumbar region
CPT/HCPCS: 72158; A9579

== ENCOUNTER → 2021-04-07 14:18 | Outpatient (CLI) | payer MEDICARE, OTHER, SELFPAY ==
--- NOTE | 2021-04-07 14:22 | DI.RAD.S_ITS ---
PROCEDURE: XR ACUTE ABDOMEN SERIES INDICATIONS: constipation TECHNIQUE: One view chest and two views of the abdomen were acquired. COMPARISON: [facility], , XR ACUTE ABDOMEN SERIES, 03/28/2021, 12:18. FINDINGS: Surgical changes and devices: None. Chest: Lungs are abnormal with a 1.5 cm faint Ann marginated radiodensity within the lateral left midlung, seen in retrospect on the prior plain film imaging from 03/28/21.. Heart size is normal. No pleural effusions. No pneumoperitoneum. Abdomen: Bowel gas pattern is normal. No suspicious calcifications. Visualized solid organ contours appear normal. Bones: No suspicious bony lesions. IMPRESSION: Nonspecific bowel gas pattern, no evidence of intestinal obstruction or perforation. No significant colonic obstipation is found. There is mild convex rightward lumbosacral scoliosis and mild convex leftward thoracolumbar spine levoscoliosis. Possible lateral left midlung mass, superimposed on the outer aspect of the lung parenchyma. This is faint in its visualization and can be seen in retrospect to a slight degree on the comparison study from 1 week earlier. Dedicated two view chest is recommended to confirm presence of this abnormality and if it persists follow-up CT scanning may become necessary. Dictated by: Guy Bojorquez M.D. on 04/07/2021 at 15:41 Approved by: Guy Bojorquez M.D. on 04/07/2021 at 15:44
== END ==
PROVIDERS: PCP Family Medicine; Referring Provider Family Medicine; Visit Provider Family Medicine
DX: K59.00 Constipation, unspecified (principal); M41.87 Other forms of scoliosis, lumbosacral region; M41.85 Other forms of scoliosis, thoracolumbar region
CPT/HCPCS: 74022

== ENCOUNTER → 2021-04-08 11:29 | Outpatient (CLI) | payer MEDICARE, OTHER, SELFPAY ==
--- NOTE | 2021-04-08 11:31 | DI.RAD.S_ITS ---
PROCEDURE: XR CHEST 2V INDICATIONS: abnormal CXR TECHNIQUE: 2 views of the chest were acquired. COMPARISON: [facility], CR, XR ACUTE ABDOMEN SERIES, 04/07/2021, 14:21. FINDINGS: Surgical changes and devices: None. Lungs and pleura: Lungs are clear, aside from mid left lung nodular opacity.. No pleural effusions or pneumothorax. Mediastinum: Mediastinal contours are normal. Heart size is normal. Bones and chest wall: No suspicious bony abnormalities. Soft tissues appear unremarkable. IMPRESSION: Persistent mid left lung nodular opacity. Lung mass cannot be excluded and chest CT is recommended for further characterization. Dictated by: Rishabh Joaquin RR Interpreted: Guy Bojorquez MD on 04/08/2021 at 11:58 Transcribed by: JOAO on 04/08/2021 at 12:00 Approved by: Guy Bojorquez M.D. on 04/08/2021 at 13:36
== END ==
PROVIDERS: PCP Family Medicine; Referring Provider Family Medicine; Visit Provider Family Medicine
DX: R91.8 Other nonspecific abnormal finding of lung field (principal)
CPT/HCPCS: 71046

== ENCOUNTER → 2021-04-13 15:14 | Outpatient (CLI) | payer MEDICARE, OTHER, SELFPAY ==
[2021-04-13 17:09] LABS: BUN Creatinine Ratio 21.9 (6-22); Blood Urea Nitrogen 14 mg/dL (7-17); Calcium 9.6 mg/dL (8.4-10.2); Carbon Dioxide 31 mmol/L (22-32); Chloride 100 mmol/L (98-107); Estimated Glomerular Filt Rate > 60.0 mL/min (>60); Glucose 114 mg/dL (80-110); HEMOLYSIS < 15 (0-50); Potassium 3.7 mmol/L (3.4-5.1); Sodium 137 mmol/L (137-145)
== END ==
PROVIDERS: PCP Family Medicine; Referring Provider Family Medicine; Visit Provider Family Medicine
DX: Z01.812 Encounter for preprocedural laboratory examination (principal)
CPT/HCPCS: 36415; 80048

== ENCOUNTER → 2021-04-14 11:38 | Outpatient (CLI) | payer MEDICARE, OTHER, SELFPAY ==
--- NOTE | 2021-04-14 11:48 | DI.CT.S_ITS ---
PROCEDURE: CT CHEST W CON INDICATIONS: left lung mass on chest XR TECHNIQUE: After the administration of intravenous contrast, 5 mm thick sections acquired from the pulmonary apices to the posterior costophrenic angles. 1 mm axial lung, 5 mm thick coronal and sagittal reformats and 7 mm axial MIP were acquired. For radiation dose reduction, the following was used: automated exposure control, adjustment of mA and/or kV according to patient size. COMPARISON: [facility], CR, XR LUMBAR SPINE 2-3V, 03/23/2021, 13:13. [facility], CR, XR CHEST 2V, 04/08/2021, 11:34. FINDINGS: Image quality: Excellent. Lungs and pleura: No acute air space opacities. No pleural effusions or pneumothorax. Central and peripheral airways are patent and normal in caliber. Mediastinum: Heart size is normal. No pericardial effusion. No mediastinal or hilar adenopathy by size criteria. Thoracic aorta and central pulmonary arteries are normal in size. Esophagus is normal in caliber. No hiatal hernia. Bones and chest wall: No suspicious bony lesions. Mild L1 vertebral body compression fracture. No axillary or supraclavicular adenopathy by size criteria. Thyroid gland is normal. Abdomen: Visualized upper abdominal solid organs appear normal. Upper abdominal bowel loops are normal in caliber. IMPRESSION: 1. No pulmonary mass to suggest lung cancer. 2. The nodular density seen on the chest x-ray in the left chest is likely caused by a subacute fracture with callus formation involving the anterior aspect of the left 5th rib. 3. Mild compression fracture of L1 of indeterminate chronicity. If clinically indicated, MRI may be helpful. Dictated by: Patel Buck M.D. on 04/14/2021 at 16:56 Approved by: Patel Buck M.D. on 04/14/2021 at 17:06
== END ==
PROVIDERS: PCP Family Medicine; Referring Provider Family Medicine; Visit Provider Family Medicine
DX: R91.8 Other nonspecific abnormal finding of lung field (principal); M48.56XA Collapsed vertebra, not elsewhere classified, lumbar region, initial encounter for fracture
CPT/HCPCS: 71260; Q9967

== ENCOUNTER → 2021-05-02 13:23 | Outpatient (CLI) | payer MEDICARE, OTHER, SELFPAY ==
--- NOTE | 2021-05-02 13:24 | DI.MG.S_ITS ---
BILATERAL DIGITAL SCREENING MAMMOGRAM 3D/2D WITH CAD: 05/02/2021 CLINICAL: Routine screening. Family history of breast cancer. Comparison is made to exams dated: 05/27/2020 breast MRI, 04/26/2020 mammogram, and 05/05/2018 mammogram - [facility]. There are scattered fibroglandular elements in both breasts. Current study was also evaluated with a Computer Aided Detection (CAD) system. There is a mole marker on the left breast. No significant masses, calcifications, or other findings are seen in either breast. There has been no significant interval change. IMPRESSION: NEGATIVE There is no mammographic evidence of malignancy. A 1 year screening mammogram is recommended. This exam was interpreted at Station ID: [id number]. NOTE: For mammograms, a report in lay terms will be sent to the patient. Approximately 15% of breast malignancies will not be visualized mammographically. In the management of a palpable breast mass, a negative mammogram must not discourage biopsy of a clinically suspicious lesion. Electronically Signed By: Andrea Lopez acr/jodie:05/04/2021 08:08:12 letter sent: Normal Exam ACR BI-RADS Category 1: Negative [id number]
== END ==
PROVIDERS: PCP Family Medicine; Referring Provider Family Medicine; Visit Provider Family Medicine
DX: Z12.31 Encounter for screening mammogram for malignant neoplasm of breast (principal); Z80.3 Family history of malignant neoplasm of breast
CPT/HCPCS: 77063; 77067

== ENCOUNTER 2021-05-14 09:45 | Outpatient (RCR) | payer MEDICARE, OTHER, SELFPAY ==
--- NOTE | 2021-04-15 17:28 | PT.OIE ---
Current Diagnoses Low back pain (04/15/21) Past Medical History (Last Reviewed 03/30/21 @ 13:45 by Woodrow Alexis DO) Abnormal Pap smear of cervix (~1998) Ankle fracture (~2014) Anxiety (~2003) Benign essential tremor Cervical somatic dysfunction Chicken pox Chronic left shoulder pain Chronic pain of left elbow Colon polyps (~2014) Hemorrhoid Measles Mumps Osteopenia Osteoporosis Plantar warts Postmenopausal atrophic vaginitis Scoliosis Tinnitus Upper extremity somatic dysfunction Visit Care Team Role Provider Type Queta Rae MD Attending Provider Physician Primary Care Provider Referring Provider Specialty: Family Practice Address: [address] [place] [address], [facility] Email: [email or web address] Physical Therapy Initial Evaluation PT-OP-A Visit Information Start: 04/15/21 16:16 Freq: Status: Active Protocol: Document 04/15/21 16:32 (Rec: 04/15/21 17:26 [email or web address]) Out-Patient Physical Therapy Visit Information Visit Information Visit Type Initial Evaluation Visit Note attended session Visit Start Time 14:30 Visit Stop Time 15:15 Total Visit Minutes 45 Visit Number 09/09 Number of SCIENTIFIC EDITOR Visits 0 Evaluation Information Evaluation Date 04/15/21 Precautions Precautions osteoporosis Tscore =-3.5 depression anxiety insomnia PT-OP-B Current Condition Start: 04/15/21 16:16 Freq: Status: Active Protocol: Document 04/15/21 16:32 (Rec: 04/15/21 17:26 [email or web address]) Current Condition History of Current Condition Onset Date since october Current Complaints generalized pain @shoulder and back, decreased in balance History of Current Condition Olivia is a 65 yo female here for generalized pain at shoulders and back and decrease in balance. Pt has been treated by different providers for ongoing her anxiety, insomnia. Her Dexa scan shows T-score at -3.5 on 03/16/21 = osteoporotic with high fracture risk. She also recently dx with compression fx at L1-L3 via L/S MRI on 08/11. Her major c/o at this point localized back pain across lumbar spine. Denies tingling and numbness/ radiating pain. Transfer such as supine to sit/ change of position tend to increase her back pain. Her balance has been getting worse since early this year, along with new onset of tremors R >L. Her PCP is aware of that as pt stated . She states she is very wobbly and can only climb stairs with step to pattern and use of railing. Pt also c/ o increase in fatigue level who cannot tolerate much of physical activity. She also has lost 13 lbs since early this year. Pt was very active before October as she stated who was able to participate yoga 3x/wk, walk couple miles a day and hiking occasionally. Prior Treatments and Tests T score= -3.5 (february) L1-L3 compression fx (04/02/21) see EMR Pt participated an online PT class for balance training which includes, walking in tandem, heel raises, heel walking, toe walking, squat with dumbell, snow lele. Future Testing and Treatments Planned schedule neuro psychological eval with Dr. Cailin Delacruz in June. Treatment Goals Patient/Caregiver Goals 1. to know which movements are safe to do without causing fracture. 2. to strengthen her LE muscles 3. to improve her overall balance Prior Functional Status Baseline Function- Other Pt was very active before October as she stated who was able to participate yoga 3x/wk , walk couple miles a day and hiking occasionally. Current Functional Impairments (Reported) Functional Limitations- Other Patient/partner report that patient continues to be forgetful and experiencing cognitive challenges which include difficulty reading, tremors, poor balance, changes in writing, difficulty tracking finances, etc, and that overall this is worse in the morning and a bit improved in the afternoon - Personal Factors Other Personal Factors That May Effect osteoporosis Tscore =-3.5 Therapy/Recovery depression anxiety insomnia medication list [bone support] 2 tab PO BEDTIME #0 06/03/17 [History Confirmed 03/30/21] cyanocobalamin (vitamin B-12) 1,000 mcg tablet,extended release 1 mcg PO DAILY #0 [History Confirmed 03/30] estradiol 10 mcg vaginal tablet (Yuvafem) 10 mcg VAGINAL 2XW #24 each 11/27/20 [Rx Confirmed 03/30/21] estradiol 1 g VAGINAL DAILY # 42.5 g 02/25/21 [Rx Confirmed 03/30/21] fluoxetine 10 mg tablet 10 mg PO DAILY #30 tab 03/06/21 [Rx Confirmed 03/30/21] clonazepam 1 mg tablet 2 mg PO BEDTIME #60 tab 03/19/21 [Rx Confirmed 03/30/21] progesterone 2 tab PO DAILY [History Confirmed 05/12] trazodone 50 mg tablet See Rx Instructions PO BEDTIME PRN # 60 tab 04/15/21 [Rx] PT-OP-C Subjective Start: 04/15/21 16:16 Freq: Status: Active Protocol: Document 04/15/21 16:32 (Rec: 04/15/21 17:26 [email or web address]) Patient Questionnaires Oswestry Low Back Index Oswestry Score 44 Oswestry Impairment 40 to 59% Impaired (Score 40- 59) OP-PT Pain Assessment Location generalized pain Pain Location Details bilateral hips, L/S, bilateral shoulders Intensity 4 Scale Used Numeric (0 - 10) Description Aching,Tightness Frequency Frequent Pain Aggravating Factors Position,Activity,Exercise, Standing,Walking,Bending, Lifting Pain Alleviating Factors Inactivity PT-OP-D Balance Start: 04/15/21 16:16 Freq: Status: Active Protocol: Document 04/15/21 16:32 (Rec: 04/15/21 17:26 [email or web address]) Balance Tests Romberg Romberg WFL Single Limb Standing Single Limb- Right >30, less stable Single Limb- Left >30 Tandem Tandem Standing >60, less stable with L foot placed in front Other Other Balance Tests Performed EC in romberg = excessive sway SLS with EC = < 3s PT-OP-H Neuro Start: 04/15/21 16:16 Freq: Status: Active Protocol: Document 04/15/21 16:32 (Rec: 04/15/21 17:26 [email or web address]) Sensation Evaluation Gross Sensation Gross Sensation WNL Deep Tendon Reflex & Clonus Assessment Deep Tendon Reflex Bilateral Achilles Deep Tendon Reflex 2+ Normal Bilateral Patellar Deep Tendon Reflex 2+ Normal Muscle Tone Tone Assessment Right Lower Extremity Muscle Tone Comments tremors noted during resistive LE mvoements. worse than L Left Upper Extremity Muscle Tone Comments tremors noted during fine motor movements Left Lower Extremity Muscle Tone Comments tremors noted during resistive LE movements.. Right Upper Extremity Muscle Tone Comments tremors noted during fine motor movements. worse than L PT-OP-K Range of Motion Start: 04/15/21 16:16 Freq: Status: Active Protocol: Document 04/15/21 16:32 HH (Rec: 04/15/21 17:26 [email or web address]) Hip Goniometric Range of Motion Hip Right Active Hip ROM WFL Yes Left Active Hip ROM WFL Yes PT-OP-M Strength Start: 04/15/21 16:16 Freq: Status: Active Protocol: Document 04/15/21 16:32 HH (Rec: 04/15/21 17:26 [email or web address]) Hip Strength Hip Manual Muscle Testing Right Flexion (L2) 3+ Fair+ Extension (S1) 3+ Fair+ Abduction 3+ Fair+ Adduction 3+ Fair+ Left Flexion (L2) 4- Good- Extension (S1) 4- Good- Abduction 4- Good- Adduction 4- Good- Knee Strength Knee Manual Muscle Testing Right Flexion (S2) 3+ Fair+ Extension (L3) 3+ Fair+ Comments tremors during resistive movements. Left Flexion (S2) 4- Good- Extension (L3) 4- Good- Ankle/Foot Strength Ankle and Foot Manual Muscle Testing Right Dorsiflexion (L4) 4+ Good+ Plantarflexion (S1) 4+ Good+ Left Dorsiflexion (L4) 4+ Good+ Plantarflexion (S1) 4+ Good+ PT-OP-Q Treatments Start: 04/15/21 16:16 Freq: Status: Active Protocol: Document 04/15/21 16:32 HH (Rec: 04/15/21 17:26 [email or web address]) Therapeutic Activity Therapeutic Activity hip hinge Comments to reduce trunk flexion during bending over activities. bed mobility Name log roll Comments pt reports reduced back pain after using log roll Self-Care/Home Management Treatment Education Patient Education Body Mechanics,Home Exercise Program,Joint Protection,Pain Management,Posture,Safety Other Education spent time educating pt on managing osteoporosis by 1. avoiding high intensity and high impact activities. 2. building muscle strength through low impact exercises 3 . minimize movements at lumbar spine and promote trunk stabilization for her compression fx at L1-L3 4. using log roll and hip hinge pattern for pain management during transfer and bend over activities. PT-OP-T Assessment and Plan Start: 04/15/21 16:16 Freq: Status: Active Protocol: Document 04/15/21 16:32 HH (Rec: 04/15/21 17:26 [email or web address]) Physical Therapy Assessment Rehab Potential Rehabilitation Potential Good Evaluation Complexity Number of Personal Factors/Comorbidities 3 or More Number of Body Systems Impaired 4 or More Clinical Presentation at Evaluation Stable Impairments Impairments Activity Tolerance,Balance, Functional Activities, Functional Mobility,Gait,Pain, Posture,ROM,Soft Tissue Mobility,Strength,Transfers Goals LE strength Impairment bilateral LE weakness R>L Short Term Goal (STG) pt will show increase in LE strength by 1 MMT grade by performing low impact exercises. STG Duration 4 weeks Fpc Goal (LTG) Pt will show improved LE strength and balance to be able to climb stairs reciprocally without the use of railing LTG Duration 8 weeks return to hobby Impairment unable to participate long walks, yoga, taichi Short Term Goal (STG) pt will show improved activity tolerance to be able to walk 2 miles up to 3 times a week. STG Duration 5 weeks Manager Nicu Goal (LTG) pt will show improved activity tolerance to be able to tolerate a combination of 2 miles walking and yoga up to 4 per week. LTG Duration 10 weeks oswestry Impairment pt scores 44 on Owestry Short Term Goal (STG) pt will show overall improvements of her quality of life by scoring <35 on Owestry STG Duration 5 weeks Fpc Goal (LTG) pt will show overall improvements of her quality of life by scoring <25 on Owestry LTG Duration 10 weeks Assessment Summary Assessment Olivia is a 65 yo female with a history of anxiety, insomnia and Osteoporosis who is here for generalized pain at shoulders and back and decrease in balance. Pt has been treated by different providers for ongoing her anxiety, insomnia and will have neuro consult for her decrease in attention, memory and tremors R>L. Her Dexa recent scan shows T-score at - 3.5 on 03/16/21 ( osteoporotic with high fracture risk. ) She also recently dx with compression fx at L1-L3 via L/ S MRI on 04/02/21. Upon assessment, pt overall has good flexibility but does have LE weakness R>L, tender at lumbar paraspinals and upper trap, along with decrease in balance.(particularly in SL stance/ EC) She appears to be very discouraging at this point with her current condition compared to her prior active lifestyle. I spent time educating pt regarding joint protection, body mechanics during transfers, building muscle/bone strength via low impact exercises. Pt shows good understanding and I believe pt can benefit from skilled therapy to address aforementioned impairment but this can be a long course of rehab d/t her other personal factors. Physical Therapy Plan Frequency and Duration Frequency of Treatment 1-2x/wk Duration of Treatment 10 weeks Plan of Care Start Date 04/15/21 Plan of Care End Date 06/29/21 Therapeutic Interventions Therapeutic Interventions Aquatic Therapy,Balance Training,Gait Training,Home Exercise Program,Joint Mobilizations,Manual Therapy, Neuromuscular Re-education, Patient/Caregiver Education, Self-Care/Home Management,Soft Tissue Mobilization,Taping, Therapeutic Activities, Therapeutic Exercises Modalities Cold Pack/Ice Massage,Electric Stimulation,Hot Packs, Infrared Therapy,Ultrasound Next Visit Focus/Plan Next Note Type Treatment Note Next Visit Plan STM to paraspinals if needed OP education on body mechanics , joint protection during activity, backpack carrying, lifting initiate low impact ex, biking , body weight ex, leg press if yuri
--- NOTE | 2021-04-15 17:30 | PT.OPPOC ---
Physical, Occupational & Speech Therapy At [facility] Current Diagnoses Low back pain (04/15/21) Visit Care Team Role Provider Type Queta Rae MD Attending Provider Physician Primary Care Provider Referring Provider Specialty: Family Practice Address: [address] [place] [address], [place], [address] Email: [email or web address] Plan Of Care PT-OP-T Assessment and Plan Start: 04/15/21 16:16 Freq: Status: Active Protocol: Document 04/15/21 16:32 HH (Rec: 04/15/21 17:26 HH [email or web address]) Physical Therapy Assessment Rehab Potential Rehabilitation Potential Good Evaluation Complexity Number of Personal Factors/Comorbidities 3 or More Number of Body Systems Impaired 4 or More Clinical Presentation at Evaluation Stable Impairments Impairments Activity Tolerance,Balance, Functional Activities, Functional Mobility,Gait,Pain, Posture,ROM,Soft Tissue Mobility,Strength,Transfers Goals LE strength Impairment bilateral LE weakness R>L Short Term Goal (STG) pt will show increase in LE strength by 1 MMT grade by performing low impact exercises. STG Duration 4 weeks Senior Care Goal (LTG) Pt will show improved LE strength and balance to be able to climb stairs reciprocally without the use of railing LTG Duration 8 weeks return to hobby Impairment unable to participate long walks, yoga, taichi Short Term Goal (STG) pt will show improved activity tolerance to be able to walk 2 miles up to 3 times a week. STG Duration 5 weeks Retail Product Demo Specialist Goal (LTG) pt will show improved activity tolerance to be able to tolerate a combination of 2 miles walking and yoga up to 4 per week. LTG Duration 10 weeks oswestry Impairment pt scores 44 on Owestry Short Term Goal (STG) pt will show overall improvements of her quality of life by scoring <35 on Owestry STG Duration 5 weeks Retail Product Demo Specialist Goal (LTG) pt will show overall improvements of her quality of life by scoring <25 on Owestry LTG Duration 10 weeks Assessment Summary Assessment Olivia is a 65 yo female with a history of anxiety, insomnia and Osteoporosis who is here for generalized pain at shoulders and back and decrease in balance. Pt has been treated by different providers for ongoing her anxiety, insomnia and will have neuro consult for her decrease in attention, memory and tremors R>L. Her Dexa recent scan shows T-score at - 3.5 on 03/16/21 ( osteoporotic with high fracture risk. ) She also recently dx with compression fx at L1-L3 via L/ S MRI on 04/02/21. Upon assessment, pt overall has good flexibility but does have LE weakness R>L, tender at lumbar paraspinals and upper trap, along with decrease in balance. She appears to be very discouraging at this point compared to her prior active lifestyle. I spent time educating pt regarding joint protection, body mechanics during transfers, building muscle/bone strength via low impact exercises. Pt shows good understandning and I believe pt can benefit from skilled therapy to address aforementioned impairment but this can be a long course of rehab d/t her other personal factors. Physical Therapy Plan Frequency and Duration Frequency of Treatment 1-2x/wk Duration of Treatment 10 weeks Plan of Care Start Date 04/15/21 Plan of Care End Date 06/29/21 Therapeutic Interventions Therapeutic Interventions Aquatic Therapy,Balance Training,Gait Training,Home Exercise Program,Joint Mobilizations,Manual Therapy, Neuromuscular Re-education, Patient/Caregiver Education, Self-Care/Home Management,Soft Tissue Mobilization,Taping, Therapeutic Activities, Therapeutic Exercises Modalities Cold Pack/Ice Massage,Electric Stimulation,Hot Packs, Infrared Therapy,Ultrasound Next Visit Focus/Plan Next Note Type Treatment Note Next Visit Plan STM to paraspinals if needed OP education on body mechanics , joint protection during activity, backpack carrying, lifting initiate low impact ex, biking , body weight ex, leg press if yuri Plan of Care Dates Plan of Care Start Date 04/15/21 Plan of Care End Date 06/29/21 Electronically Signed by: Melissa Huddleston, PT 04/15/21 0239 Please Sign and Return: I have reviewed this Plan of Care and certify that the skilled therapy services above are required to meet the patient?s needs. Physician Signature Date Printed Name and Credentials Clinical Instructor Signature Printed Name and Credentials
--- NOTE | 2021-04-22 15:08 | PT.OTN ---
Current Diagnoses Low back pain (04/22/21) Physical Therapy Treatment Note PT-OP-A Visit Information Start: 04/15/21 16:16 Freq: Status: Active Protocol: Document 04/22/21 10:15 AMB (Rec: 04/22/21 12:00 AMB [id number]) Out-Patient Physical Therapy Visit Information Visit Information Visit Type Treatment Note Visit Start Time 10:15 Visit Stop Time 11:05 Total Visit Minutes 50 Visit Number 2 PT-OP-B Current Condition Start: 04/15/21 16:16 Freq: Status: Active Protocol: Document 04/15/21 16:32 HH (Rec: 04/15/21 17:26 HH [email or web address]) Current Condition History of Current Condition Onset Date since october Current Complaints generalized pain @shoulder and back, decreased in balance History of Current Condition Olivia is a 65 yo female here for generalized pain at shoulders and back and decrease in balance. Pt has been treated by different providers for ongoing her anxiety, insomnia. Her Dexa scan shows T-score at -3.5 on 03/16/21 = osteoporotic with high fracture risk. She also recently dx with compression fx at L1-L3 via L/S MRI on 08/11. Her major c/o at this point localized back pain across lumbar spine. Denies tingling and numbness/ radiating pain. Transfer such as supine to sit/ change of position tend to increase her back pain. Her balance has been getting worse since early this year, along with new onset of tremors R >L. Her PCP is aware of that as pt stated . She states she is very wobbly and can only climb stairs with step to pattern and use of railing. Pt also c/ o increase in fatigue level who cannot tolerate much of physical activity. She also has lost 13 lbs since early this year. Pt was very active before October as she stated who was able to participate yoga 3x/wk, walk couple miles a day and hiking occasionally. Prior Treatments and Tests T score= -3.5 (february) L1-L3 compression fx (04/02/21) see EMR Pt participated an online PT class for balance training which includes, walking in tandem, heel raises, heel walking, toe walking, squat with dumbell, snow lele. Future Testing and Treatments Planned schedule neuro psychological eval with Dr. Cailin Delacruz in June. Treatment Goals Patient/Caregiver Goals 1. to know which movements are safe to do without causing fracture. 2. to strengthen her LE muscles 3. to improve her overall balance Prior Functional Status Baseline Function- Other Pt was very active before October as she stated who was able to participate yoga 3x/wk , walk couple miles a day and hiking occasionally. Current Functional Impairments (Reported) Functional Limitations- Other Patient/partner report that patient continues to be forgetful and experiencing cognitive challenges which include difficulty reading, tremors, poor balance, changes in writing, difficulty tracking finances, etc, and that overall this is worse in the morning and a bit improved in the afternoon - Personal Factors Other Personal Factors That May Effect osteoporosis Tscore =-3.5 Therapy/Recovery depression anxiety insomnia medication list [bone support] 2 tab PO BEDTIME #0 06/03/17 [History Confirmed 03/30/21] cyanocobalamin (vitamin B-12) 1,000 mcg tablet,extended release 1 mcg PO DAILY #0 [History Confirmed 03/30] estradiol 10 mcg vaginal tablet (Yuvafem) 10 mcg VAGINAL 2XW #24 each 11/27/20 [Rx Confirmed 03/30/21] estradiol 1 g VAGINAL DAILY # 42.5 g 02/25/21 [Rx Confirmed 03/30/21] fluoxetine 10 mg tablet 10 mg PO DAILY #30 tab 03/06/21 [Rx Confirmed 03/30/21] clonazepam 1 mg tablet 2 mg PO BEDTIME #60 tab 03/19/21 [Rx Confirmed 03/30/21] progesterone 2 tab PO DAILY [History Confirmed 05/12] trazodone 50 mg tablet See Rx Instructions PO BEDTIME PRN # 60 tab 04/15/21 [Rx] PT-OP-C Subjective Start: 04/15/21 16:16 Freq: Status: Active Protocol: Document 04/22/21 10:15 AMB (Rec: 04/22/21 15:07 AMB [email or web address]) OP-PT Subjective Patient Comments Patient Comments Brie brings in an exercise sheet that she has been doing a little bit of, but feels weak and concerned about her balance. PT-OP-D Balance Start: 04/15/21 16:16 Freq: Status: Active Protocol: Document 04/15/21 16:32 HH (Rec: 04/15/21 17:26 [email or web address]) Balance Tests Romberg Romberg WFL Single Limb Standing Single Limb- Right >30, less stable Single Limb- Left >30 Tandem Tandem Standing >60, less stable with L foot placed in front Other Other Balance Tests Performed EC in romberg = excessive sway SLS with EC = < 3s PT-OP-H Neuro Start: 04/15/21 16:16 Freq: Status: Active Protocol: Document 04/15/21 16:32 HH (Rec: 04/15/21 17:26 [email or web address]) Sensation Evaluation Gross Sensation Gross Sensation WNL Deep Tendon Reflex & Clonus Assessment Deep Tendon Reflex Bilateral Achilles Deep Tendon Reflex 2+ Normal Bilateral Patellar Deep Tendon Reflex 2+ Normal Muscle Tone Tone Assessment Right Lower Extremity Muscle Tone Comments tremors noted during resistive LE mvoements. worse than L Left Upper Extremity Muscle Tone Comments tremors noted during fine motor movements Left Lower Extremity Muscle Tone Comments tremors noted during resistive LE movements.. Right Upper Extremity Muscle Tone Comments tremors noted during fine motor movements. worse than L PT-OP-K Range of Motion Start: 04/15/21 16:16 Freq: Status: Active Protocol: Document 04/15/21 16:32 HH (Rec: 04/15/21 17:26 [email or web address]) Hip Goniometric Range of Motion Hip Right Active Hip ROM WFL Yes Left Active Hip ROM WFL Yes PT-OP-M Strength Start: 04/15/21 16:16 Freq: Status: Active Protocol: Document 04/15/21 16:32 HH (Rec: 04/15/21 17:26 [email or web address]) Hip Strength Hip Manual Muscle Testing Right Flexion (L2) 3+ Fair+ Extension (S1) 3+ Fair+ Abduction 3+ Fair+ Adduction 3+ Fair+ Left Flexion (L2) 4- Good- Extension (S1) 4- Good- Abduction 4- Good- Adduction 4- Good- Knee Strength Knee Manual Muscle Testing Right Flexion (S2) 3+ Fair+ Extension (L3) 3+ Fair+ Comments tremors during resistive movements. Left Flexion (S2) 4- Good- Extension (L3) 4- Good- Ankle/Foot Strength Ankle and Foot Manual Muscle Testing Right Dorsiflexion (L4) 4+ Good+ Plantarflexion (S1) 4+ Good+ Left Dorsiflexion (L4) 4+ Good+ Plantarflexion (S1) 4+ Good+ PT-OP-Q Treatments Start: 04/15/21 16:16 Freq: Status: Active Protocol: Document 04/22/21 10:15 AMB (Rec: 04/22/21 15:07 AMB [email or web address]) Therapeutic Exercises Supine Exercises pec stretch Supine Exercise Name 30x2 Side bilateral hamstring stretch Supine Exercise Name 30x4 Side bilateral hip flexor stretch Supine Exercise Name 30x4 Side bilateral Standing Exercises rows Standing Exercise Name t band Side bilateral Resistance #3 Reps/Minutes 2x10 Therapeutic Activity Therapeutic Activity hip hinge Comments to reduce trunk flexion during bending over activities, extensive education in avoiding bending and lifting activities bed mobility Name log roll PT-OP-T Assessment and Plan Start: 04/15/21 16:16 Freq: Status: Active Protocol: Document 04/22/21 10:15 AMB (Rec: 04/22/21 12:00 AMB [id number]) Physical Therapy Assessment Assessment Summary Assessment Brie had significant questions regarding body mechanics. Answered, but pt requesting written information on activities to avoid, will need to provide next visit. Physical Therapy Plan Next Visit Focus/Plan Next Note Type Treatment Note Next Visit Plan HEP: t band rows, standing hip flexor stretch, standing pec stretch
--- NOTE | 2021-04-24 12:03 | PT.OTN ---
Current Diagnoses Low back pain (04/24/21) Physical Therapy Treatment Note PT-OP-A Visit Information Start: 04/15/21 16:16 Freq: Status: Active Protocol: Document 04/24/21 11:00 AMB (Rec: 04/24/21 12:02 AMB [email or web address]) Out-Patient Physical Therapy Visit Information Visit Information Visit Type Treatment Note Visit Note attended session Visit Start Time 11:00 Visit Stop Time 11:50 Total Visit Minutes 50 Visit Number 3 PT-OP-B Current Condition Start: 04/15/21 16:16 Freq: Status: Active Protocol: Document 04/15/21 16:32 HH (Rec: 04/15/21 17:26 HH [email or web address]) Current Condition History of Current Condition Onset Date since october Current Complaints generalized pain @shoulder and back, decreased in balance History of Current Condition Olivia is a 65 yo female here for generalized pain at shoulders and back and decrease in balance. Pt has been treated by different providers for ongoing her anxiety, insomnia. Her Dexa scan shows T-score at -3.5 on 03/16/21 = osteoporotic with high fracture risk. She also recently dx with compression fx at L1-L3 via L/S MRI on 08/11. Her major c/o at this point localized back pain across lumbar spine. Denies tingling and numbness/ radiating pain. Transfer such as supine to sit/ change of position tend to increase her back pain. Her balance has been getting worse since early this year, along with new onset of tremors R >L. Her PCP is aware of that as pt stated . She states she is very wobbly and can only climb stairs with step to pattern and use of railing. Pt also c/ o increase in fatigue level who cannot tolerate much of physical activity. She also has lost 13 lbs since early this year. Pt was very active before October as she stated who was able to participate yoga 3x/wk, walk couple miles a day and hiking occasionally. Prior Treatments and Tests T score= -3.5 (february) L1-L3 compression fx (04/02/21) see EMR Pt participated an online PT class for balance training which includes, walking in tandem, heel raises, heel walking, toe walking, squat with dumbell, snow lele. Future Testing and Treatments Planned schedule neuro psychological eval with Dr. Cailin Delacruz in June. Treatment Goals Patient/Caregiver Goals 1. to know which movements are safe to do without causing fracture. 2. to strengthen her LE muscles 3. to improve her overall balance Prior Functional Status Baseline Function- Other Pt was very active before October as she stated who was able to participate yoga 3x/wk , walk couple miles a day and hiking occasionally. Current Functional Impairments (Reported) Functional Limitations- Other Patient/partner report that patient continues to be forgetful and experiencing cognitive challenges which include difficulty reading, tremors, poor balance, changes in writing, difficulty tracking finances, etc, and that overall this is worse in the morning and a bit improved in the afternoon - Personal Factors Other Personal Factors That May Effect osteoporosis Tscore =-3.5 Therapy/Recovery depression anxiety insomnia medication list [bone support] 2 tab PO BEDTIME #0 06/03/17 [History Confirmed 03/30/21] cyanocobalamin (vitamin B-12) 1,000 mcg tablet,extended release 1 mcg PO DAILY #0 [History Confirmed 03/30] estradiol 10 mcg vaginal tablet (Yuvafem) 10 mcg VAGINAL 2XW #24 each 11/27/20 [Rx Confirmed 03/30/21] estradiol 1 g VAGINAL DAILY # 42.5 g 02/25/21 [Rx Confirmed 03/30/21] fluoxetine 10 mg tablet 10 mg PO DAILY #30 tab 03/06/21 [Rx Confirmed 03/30/21] clonazepam 1 mg tablet 2 mg PO BEDTIME #60 tab 03/19/21 [Rx Confirmed 03/30/21] progesterone 2 tab PO DAILY [History Confirmed 05/12] trazodone 50 mg tablet See Rx Instructions PO BEDTIME PRN # 60 tab 04/15/21 [Rx] PT-OP-C Subjective Start: 04/15/21 16:16 Freq: Status: Active Protocol: Document 04/24/21 11:00 AMB (Rec: 04/24/21 12:02 AMB [email or web address]) OP-PT Subjective Patient Comments Patient Comments Brie and her have a lot of questions in regards to what activities are safe for her PT-OP-D Balance Start: 04/15/21 16:16 Freq: Status: Active Protocol: Document 04/15/21 16:32 HH (Rec: 04/15/21 17:26 HH [email or web address]) Balance Tests Romberg Romberg WFL Single Limb Standing Single Limb- Right >30, less stable Single Limb- Left >30 Tandem Tandem Standing >60, less stable with L foot placed in front Other Other Balance Tests Performed EC in romberg = excessive sway SLS with EC = < 3s PT-OP-H Neuro Start: 04/15/21 16:16 Freq: Status: Active Protocol: Document 04/15/21 16:32 HH (Rec: 04/15/21 17:26 [email or web address]) Sensation Evaluation Gross Sensation Gross Sensation WNL Deep Tendon Reflex & Clonus Assessment Deep Tendon Reflex Bilateral Achilles Deep Tendon Reflex 2+ Normal Bilateral Patellar Deep Tendon Reflex 2+ Normal Muscle Tone Tone Assessment Right Lower Extremity Muscle Tone Comments tremors noted during resistive LE mvoements. worse than L Left Upper Extremity Muscle Tone Comments tremors noted during fine motor movements Left Lower Extremity Muscle Tone Comments tremors noted during resistive LE movements.. Right Upper Extremity Muscle Tone Comments tremors noted during fine motor movements. worse than L PT-OP-K Range of Motion Start: 04/15/21 16:16 Freq: Status: Active Protocol: Document 04/15/21 16:32 HH (Rec: 04/15/21 17:26 [email or web address]) Hip Goniometric Range of Motion Hip Right Active Hip ROM WFL Yes Left Active Hip ROM WFL Yes PT-OP-M Strength Start: 04/15/21 16:16 Freq: Status: Active Protocol: Document 04/15/21 16:32 HH (Rec: 04/15/21 17:26 [email or web address]) Hip Strength Hip Manual Muscle Testing Right Flexion (L2) 3+ Fair+ Extension (S1) 3+ Fair+ Abduction 3+ Fair+ Adduction 3+ Fair+ Left Flexion (L2) 4- Good- Extension (S1) 4- Good- Abduction 4- Good- Adduction 4- Good- Knee Strength Knee Manual Muscle Testing Right Flexion (S2) 3+ Fair+ Extension (L3) 3+ Fair+ Comments tremors during resistive movements. Left Flexion (S2) 4- Good- Extension (L3) 4- Good- Ankle/Foot Strength Ankle and Foot Manual Muscle Testing Right Dorsiflexion (L4) 4+ Good+ Plantarflexion (S1) 4+ Good+ Left Dorsiflexion (L4) 4+ Good+ Plantarflexion (S1) 4+ Good+ PT-OP-Q Treatments Start: 04/15/21 16:16 Freq: Status: Active Protocol: Document 04/24/21 11:00 AMB (Rec: 04/24/21 12:02 AMB [email or web address]) Therapeutic Exercises Supine Exercises pec stretch Supine Exercise Name 30x2 Side bilateral Standing Exercises rows Standing Exercise Name t band Side bilateral Resistance #3 Reps/Minutes 2x10 Therapeutic Activity Therapeutic Activity 1 Name lifting training Comments challenged by 5#, able to lift 2# from floor to waist. Extensive education re safety with lifting groceries, body mechanics, and transfers re hip hinge vs spinal flexion PT-OP-T Assessment and Plan Start: 04/15/21 16:16 Freq: Status: Active Protocol: Document 04/24/21 11:00 AMB (Rec: 04/24/21 12:02 AMB [email or web address]) Physical Therapy Assessment Assessment Summary Assessment Pt quite anxious today, but encouraged it is ok to move, and there is a difference between loaded spinal flexion and moving off of the couch, but to be mindful of body mechanics and either raise things up or squat down rather than flexing spine. Physical Therapy Plan Next Visit Focus/Plan Next Note Type Treatment Note Next Visit Plan HEP: t band rows, standing hip flexor stretch, standing pec stretch Balance assessment next visit
--- NOTE | 2021-04-28 11:57 | PT.OTN ---
Current Diagnoses Low back pain (04/28/21) Physical Therapy Treatment Note PT-OP-A Visit Information Start: 04/15/21 16:16 Freq: Status: Active Protocol: Document 04/28/21 09:45 AMB (Rec: 04/28/21 10:30 AMB [id number]) Out-Patient Physical Therapy Visit Information Visit Information Visit Type Treatment Note Visit Start Time 09:45 Visit Stop Time 10:30 Total Visit Minutes 45 Visit Number 4 PT-OP-B Current Condition Start: 04/15/21 16:16 Freq: Status: Active Protocol: Document 04/15/21 16:32 HH (Rec: 04/15/21 17:26 HH [email or web address]) Current Condition History of Current Condition Onset Date since october Current Complaints generalized pain @shoulder and back, decreased in balance History of Current Condition Olivia is a 65 yo female here for generalized pain at shoulders and back and decrease in balance. Pt has been treated by different providers for ongoing her anxiety, insomnia. Her Dexa scan shows T-score at -3.5 on 03/16/21 = osteoporotic with high fracture risk. She also recently dx with compression fx at L1-L3 via L/S MRI on 08/11. Her major c/o at this point localized back pain across lumbar spine. Denies tingling and numbness/ radiating pain. Transfer such as supine to sit/ change of position tend to increase her back pain. Her balance has been getting worse since early this year, along with new onset of tremors R >L. Her PCP is aware of that as pt stated . She states she is very wobbly and can only climb stairs with step to pattern and use of railing. Pt also c/ o increase in fatigue level who cannot tolerate much of physical activity. She also has lost 13 lbs since early this year. Pt was very active before October as she stated who was able to participate yoga 3x/wk, walk couple miles a day and hiking occasionally. Prior Treatments and Tests T score= -3.5 (february) L1-L3 compression fx (04/02/21) see EMR Pt participated an online PT class for balance training which includes, walking in tandem, heel raises, heel walking, toe walking, squat with dumbell, snow lele. Future Testing and Treatments Planned schedule neuro psychological eval with Dr. Cailin Delacruz in June. Treatment Goals Patient/Caregiver Goals 1. to know which movements are safe to do without causing fracture. 2. to strengthen her LE muscles 3. to improve her overall balance Prior Functional Status Baseline Function- Other Pt was very active before October as she stated who was able to participate yoga 3x/wk , walk couple miles a day and hiking occasionally. Current Functional Impairments (Reported) Functional Limitations- Other Patient/partner report that patient continues to be forgetful and experiencing cognitive challenges which include difficulty reading, tremors, poor balance, changes in writing, difficulty tracking finances, etc, and that overall this is worse in the morning and a bit improved in the afternoon - Personal Factors Other Personal Factors That May Effect osteoporosis Tscore =-3.5 Therapy/Recovery depression anxiety insomnia medication list [bone support] 2 tab PO BEDTIME #0 06/03/17 [History Confirmed 03/30/21] cyanocobalamin (vitamin B-12) 1,000 mcg tablet,extended release 1 mcg PO DAILY #0 [History Confirmed 03/30] estradiol 10 mcg vaginal tablet (Yuvafem) 10 mcg VAGINAL 2XW #24 each 11/27/20 [Rx Confirmed 03/30/21] estradiol 1 g VAGINAL DAILY # 42.5 g 02/25/21 [Rx Confirmed 03/30/21] fluoxetine 10 mg tablet 10 mg PO DAILY #30 tab 03/06/21 [Rx Confirmed 03/30/21] clonazepam 1 mg tablet 2 mg PO BEDTIME #60 tab 03/19/21 [Rx Confirmed 03/30/21] progesterone 2 tab PO DAILY [History Confirmed 05/12] trazodone 50 mg tablet See Rx Instructions PO BEDTIME PRN # 60 tab 04/15/21 [Rx] PT-OP-C Subjective Start: 04/15/21 16:16 Freq: Status: Active Protocol: Document 04/28/21 09:45 AMB (Rec: 04/28/21 11:56 AMB [email or web address]) OP-PT Subjective Patient Comments Patient Comments Brie had difficulty doing hip flexor stretch at home. Wondering about positioning for mammogram. PT-OP-D Balance Start: 04/15/21 16:16 Freq: Status: Active Protocol: Document 04/15/21 16:32 HH (Rec: 04/15/21 17:26 HH [email or web address]) Balance Tests Romberg Romberg WFL Single Limb Standing Single Limb- Right >30, less stable Single Limb- Left >30 Tandem Tandem Standing >60, less stable with L foot placed in front Other Other Balance Tests Performed EC in romberg = excessive sway SLS with EC = < 3s PT-OP-H Neuro Start: 04/15/21 16:16 Freq: Status: Active Protocol: Document 04/15/21 16:32 (Rec: 04/15/21 17:26 [email or web address]) Sensation Evaluation Gross Sensation Gross Sensation WNL Deep Tendon Reflex & Clonus Assessment Deep Tendon Reflex Bilateral Achilles Deep Tendon Reflex 2+ Normal Bilateral Patellar Deep Tendon Reflex 2+ Normal Muscle Tone Tone Assessment Right Lower Extremity Muscle Tone Comments tremors noted during resistive LE mvoements. worse than L Left Upper Extremity Muscle Tone Comments tremors noted during fine motor movements Left Lower Extremity Muscle Tone Comments tremors noted during resistive LE movements.. Right Upper Extremity Muscle Tone Comments tremors noted during fine motor movements. worse than L PT-OP-K Range of Motion Start: 04/15/21 16:16 Freq: Status: Active Protocol: Document 04/15/21 16:32 (Rec: 04/15/21 17:26 [email or web address]) Hip Goniometric Range of Motion Hip Right Active Hip ROM WFL Yes Left Active Hip ROM WFL Yes PT-OP-M Strength Start: 04/15/21 16:16 Freq: Status: Active Protocol: Document 04/15/21 16:32 (Rec: 04/15/21 17:26 [email or web address]) Hip Strength Hip Manual Muscle Testing Right Flexion (L2) 3+ Fair+ Extension (S1) 3+ Fair+ Abduction 3+ Fair+ Adduction 3+ Fair+ Left Flexion (L2) 4- Good- Extension (S1) 4- Good- Abduction 4- Good- Adduction 4- Good- Knee Strength Knee Manual Muscle Testing Right Flexion (S2) 3+ Fair+ Extension (L3) 3+ Fair+ Comments tremors during resistive movements. Left Flexion (S2) 4- Good- Extension (L3) 4- Good- Ankle/Foot Strength Ankle and Foot Manual Muscle Testing Right Dorsiflexion (L4) 4+ Good+ Plantarflexion (S1) 4+ Good+ Left Dorsiflexion (L4) 4+ Good+ Plantarflexion (S1) 4+ Good+ PT-OP-Q Treatments Start: 04/15/21 16:16 Freq: Status: Active Protocol: Document 04/28/21 09:45 AMB (Rec: 04/28/21 11:56 AMB [email or web address]) Therapeutic Exercises Standing Exercises hip extension Standing Exercise Name t band Resistance #2 Reps/Minutes 2x10 hip flexor stretch Standing Exercise Name standing with UE support Reps/Minutes 30x2 Neuro Re-Education Treatment Balance Activities 1 Details tandem Comments horizontal head turns- pt subjectively feels head turns are challenging but looks appropriate Other Activities 1 Details DGI Comments PT-OP-T Assessment and Plan Start: 04/15/21 16:16 Freq: Status: Active Protocol: Document 04/28/21 09:45 AMB (Rec: 04/28/21 11:56 AMB [email or web address]) Physical Therapy Assessment Assessment Summary Assessment Reassurred Brie that her balance is ok. DGI score of 22/24 today with stairs and stop and turn being the biggest issues. mCTSB also ok with shaking with 30 seconds eyes closed on foam, but able to complete. Reassured her that she can go on walks without holding her husbands hand as long as they are walking on even terrain. Physical Therapy Plan Next Visit Focus/Plan Next Note Type Treatment Note Next Visit Plan HEP: hip extension t band, standing hip flexor stretch, standing balance (modified tandem head turns.)
--- NOTE | 2021-05-01 10:35 | PT.OTN ---
Current Diagnoses Low back pain (05/01/21) Physical Therapy Treatment Note PT-OP-A Visit Information Start: 04/15/21 16:16 Freq: Status: Active Protocol: Document 05/01/21 09:00 AMB (Rec: 05/01/21 09:35 AMB [id number]) Out-Patient Physical Therapy Visit Information Visit Information Visit Type Treatment Note Visit Start Time 09:00 Visit Stop Time 09:45 Total Visit Minutes 45 Visit Number 5 PT-OP-B Current Condition Start: 04/15/21 16:16 Freq: Status: Active Protocol: Document 04/15/21 16:32 HH (Rec: 04/15/21 17:26 HH [email or web address]) Current Condition History of Current Condition Onset Date since october Current Complaints generalized pain @shoulder and back, decreased in balance History of Current Condition Olivia is a 65 yo female here for generalized pain at shoulders and back and decrease in balance. Pt has been treated by different providers for ongoing her anxiety, insomnia. Her Dexa scan shows T-score at -3.5 on 03/16/21 = osteoporotic with high fracture risk. She also recently dx with compression fx at L1-L3 via L/S MRI on 08/11. Her major c/o at this point localized back pain across lumbar spine. Denies tingling and numbness/ radiating pain. Transfer such as supine to sit/ change of position tend to increase her back pain. Her balance has been getting worse since early this year, along with new onset of tremors R >L. Her PCP is aware of that as pt stated . She states she is very wobbly and can only climb stairs with step to pattern and use of railing. Pt also c/ o increase in fatigue level who cannot tolerate much of physical activity. She also has lost 13 lbs since early this year. Pt was very active before October as she stated who was able to participate yoga 3x/wk, walk couple miles a day and hiking occasionally. Prior Treatments and Tests T score= -3.5 (february) L1-L3 compression fx (04/02/21) see EMR Pt participated an online PT class for balance training which includes, walking in tandem, heel raises, heel walking, toe walking, squat with dumbell, snow lele. Future Testing and Treatments Planned schedule neuro psychological eval with Dr. Cailin Delacruz in June. Treatment Goals Patient/Caregiver Goals 1. to know which movements are safe to do without causing fracture. 2. to strengthen her LE muscles 3. to improve her overall balance Prior Functional Status Baseline Function- Other Pt was very active before October as she stated who was able to participate yoga 3x/wk , walk couple miles a day and hiking occasionally. Current Functional Impairments (Reported) Functional Limitations- Other Patient/partner report that patient continues to be forgetful and experiencing cognitive challenges which include difficulty reading, tremors, poor balance, changes in writing, difficulty tracking finances, etc, and that overall this is worse in the morning and a bit improved in the afternoon - Personal Factors Other Personal Factors That May Effect osteoporosis Tscore =-3.5 Therapy/Recovery depression anxiety insomnia medication list [bone support] 2 tab PO BEDTIME #0 06/03/17 [History Confirmed 03/30/21] cyanocobalamin (vitamin B-12) 1,000 mcg tablet,extended release 1 mcg PO DAILY #0 [History Confirmed 03/30] estradiol 10 mcg vaginal tablet (Yuvafem) 10 mcg VAGINAL 2XW #24 each 11/27/20 [Rx Confirmed 03/30/21] estradiol 1 g VAGINAL DAILY # 42.5 g 02/25/21 [Rx Confirmed 03/30/21] fluoxetine 10 mg tablet 10 mg PO DAILY #30 tab 03/06/21 [Rx Confirmed 03/30/21] clonazepam 1 mg tablet 2 mg PO BEDTIME #60 tab 03/19/21 [Rx Confirmed 03/30/21] progesterone 2 tab PO DAILY [History Confirmed 05/12] trazodone 50 mg tablet See Rx Instructions PO BEDTIME PRN # 60 tab 04/15/21 [Rx] PT-OP-C Subjective Start: 04/15/21 16:16 Freq: Status: Active Protocol: Document 05/01/21 09:00 AMB (Rec: 05/01/21 09:35 AMB [id number]) OP-PT Subjective Patient Comments Patient Comments Pt continues to have fatigue. PT-OP-D Balance Start: 04/15/21 16:16 Freq: Status: Active Protocol: Document 04/15/21 16:32 HH (Rec: 04/15/21 17:26 HH [email or web address]) Balance Tests Romberg Romberg WFL Single Limb Standing Single Limb- Right >30, less stable Single Limb- Left >30 Tandem Tandem Standing >60, less stable with L foot placed in front Other Other Balance Tests Performed EC in romberg = excessive sway SLS with EC = < 3s PT-OP-H Neuro Start: 04/15/21 16:16 Freq: Status: Active Protocol: Document 04/15/21 16:32 HH (Rec: 04/15/21 17:26 [email or web address]) Sensation Evaluation Gross Sensation Gross Sensation WNL Deep Tendon Reflex & Clonus Assessment Deep Tendon Reflex Bilateral Achilles Deep Tendon Reflex 2+ Normal Bilateral Patellar Deep Tendon Reflex 2+ Normal Muscle Tone Tone Assessment Right Lower Extremity Muscle Tone Comments tremors noted during resistive LE mvoements. worse than L Left Upper Extremity Muscle Tone Comments tremors noted during fine motor movements Left Lower Extremity Muscle Tone Comments tremors noted during resistive LE movements.. Right Upper Extremity Muscle Tone Comments tremors noted during fine motor movements. worse than L PT-OP-K Range of Motion Start: 04/15/21 16:16 Freq: Status: Active Protocol: Document 04/15/21 16:32 HH (Rec: 04/15/21 17:26 [email or web address]) Hip Goniometric Range of Motion Hip Right Active Hip ROM WFL Yes Left Active Hip ROM WFL Yes PT-OP-M Strength Start: 04/15/21 16:16 Freq: Status: Active Protocol: Document 04/15/21 16:32 HH (Rec: 04/15/21 17:26 [email or web address]) Hip Strength Hip Manual Muscle Testing Right Flexion (L2) 3+ Fair+ Extension (S1) 3+ Fair+ Abduction 3+ Fair+ Adduction 3+ Fair+ Left Flexion (L2) 4- Good- Extension (S1) 4- Good- Abduction 4- Good- Adduction 4- Good- Knee Strength Knee Manual Muscle Testing Right Flexion (S2) 3+ Fair+ Extension (L3) 3+ Fair+ Comments tremors during resistive movements. Left Flexion (S2) 4- Good- Extension (L3) 4- Good- Ankle/Foot Strength Ankle and Foot Manual Muscle Testing Right Dorsiflexion (L4) 4+ Good+ Plantarflexion (S1) 4+ Good+ Left Dorsiflexion (L4) 4+ Good+ Plantarflexion (S1) 4+ Good+ PT-OP-Q Treatments Start: 04/15/21 16:16 Freq: Status: Active Protocol: Document 05/01/21 10:30 AMB (Rec: 05/01/21 10:33 AMB [email or web address]) Therapeutic Exercises Supine Exercises SLR Supine Exercise Name with TA and PF Reps/Minutes 10 Self-Care/Home Management Treatment Education Other Education Reviewed MRI compression fractures and disc bulges that are compression on nerve roots. Educated more in body mechanics. Reviewed HEP Activities Self-Care/Home Management Activities Sleeping postures for back/hip pain relief. PT-OP-T Assessment and Plan Start: 04/15/21 16:16 Freq: Status: Active Protocol: Document 05/01/21 09:00 AMB (Rec: 05/01/21 09:35 AMB [id number]) Physical Therapy Assessment Assessment Summary Assessment Brie did well with positioning for back pain relief, better understanding of body mechanics. Physical Therapy Plan Next Visit Focus/Plan Next Note Type Treatment Note Next Visit Plan HEP: hip extension t band, standing hip flexor stretch, standing balance (modified tandem head turns.)
--- NOTE | 2021-05-04 16:10 | PT.OTN ---
Current Diagnoses Low back pain (05/04/21) Physical Therapy Treatment Note PT-OP-A Visit Information Start: 04/15/21 16:16 Freq: Status: Active Protocol: Document 05/04/21 09:45 AMB (Rec: 05/04/21 16:10 AMB [email or web address]) Out-Patient Physical Therapy Visit Information Visit Information Visit Type Treatment Note Visit Start Time 09:45 Visit Stop Time 10:30 Total Visit Minutes 45 Visit Number 6 PT-OP-B Current Condition Start: 04/15/21 16:16 Freq: Status: Active Protocol: Document 04/15/21 16:32 HH (Rec: 04/15/21 17:26 HH [email or web address]) Current Condition History of Current Condition Onset Date since october Current Complaints generalized pain @shoulder and back, decreased in balance History of Current Condition Olivia is a 65 yo female here for generalized pain at shoulders and back and decrease in balance. Pt has been treated by different providers for ongoing her anxiety, insomnia. Her Dexa scan shows T-score at -3.5 on 03/16/21 = osteoporotic with high fracture risk. She also recently dx with compression fx at L1-L3 via L/S MRI on 08/11. Her major c/o at this point localized back pain across lumbar spine. Denies tingling and numbness/ radiating pain. Transfer such as supine to sit/ change of position tend to increase her back pain. Her balance has been getting worse since early this year, along with new onset of tremors R >L. Her PCP is aware of that as pt stated . She states she is very wobbly and can only climb stairs with step to pattern and use of railing. Pt also c/ o increase in fatigue level who cannot tolerate much of physical activity. She also has lost 13 lbs since early this year. Pt was very active before October as she stated who was able to participate yoga 3x/wk, walk couple miles a day and hiking occasionally. Prior Treatments and Tests T score= -3.5 (february) L1-L3 compression fx (04/02/21) see EMR Pt participated an online PT class for balance training which includes, walking in tandem, heel raises, heel walking, toe walking, squat with dumbell, snow lele. Future Testing and Treatments Planned schedule neuro psychological eval with Dr. Cailin Delacruz in June. Treatment Goals Patient/Caregiver Goals 1. to know which movements are safe to do without causing fracture. 2. to strengthen her LE muscles 3. to improve her overall balance Prior Functional Status Baseline Function- Other Pt was very active before October as she stated who was able to participate yoga 3x/wk , walk couple miles a day and hiking occasionally. Current Functional Impairments (Reported) Functional Limitations- Other Patient/partner report that patient continues to be forgetful and experiencing cognitive challenges which include difficulty reading, tremors, poor balance, changes in writing, difficulty tracking finances, etc, and that overall this is worse in the morning and a bit improved in the afternoon - Personal Factors Other Personal Factors That May Effect osteoporosis Tscore =-3.5 Therapy/Recovery depression anxiety insomnia medication list [bone support] 2 tab PO BEDTIME #0 06/03/17 [History Confirmed 03/30/21] cyanocobalamin (vitamin B-12) 1,000 mcg tablet,extended release 1 mcg PO DAILY #0 [History Confirmed 03/30] estradiol 10 mcg vaginal tablet (Yuvafem) 10 mcg VAGINAL 2XW #24 each 11/27/20 [Rx Confirmed 03/30/21] estradiol 1 g VAGINAL DAILY # 42.5 g 02/25/21 [Rx Confirmed 03/30/21] fluoxetine 10 mg tablet 10 mg PO DAILY #30 tab 03/06/21 [Rx Confirmed 03/30/21] clonazepam 1 mg tablet 2 mg PO BEDTIME #60 tab 03/19/21 [Rx Confirmed 03/30/21] progesterone 2 tab PO DAILY [History Confirmed 05/12] trazodone 50 mg tablet See Rx Instructions PO BEDTIME PRN # 60 tab 04/15/21 [Rx] PT-OP-C Subjective Start: 04/15/21 16:16 Freq: Status: Active Protocol: Document 05/04/21 09:45 AMB (Rec: 05/04/21 16:10 AMB [email or web address]) OP-PT Subjective Patient Comments Patient Comments Brie is wondering about body mechanics for washing the dishes PT-OP-D Balance Start: 04/15/21 16:16 Freq: Status: Active Protocol: Document 04/15/21 16:32 HH (Rec: 04/15/21 17:26 HH [email or web address]) Balance Tests Romberg Romberg WFL Single Limb Standing Single Limb- Right >30, less stable Single Limb- Left >30 Tandem Tandem Standing >60, less stable with L foot placed in front Other Other Balance Tests Performed EC in romberg = excessive sway SLS with EC = < 3s PT-OP-H Neuro Start: 04/15/21 16:16 Freq: Status: Active Protocol: Document 04/15/21 16:32 HH (Rec: 04/15/21 17:26 [email or web address]) Sensation Evaluation Gross Sensation Gross Sensation WNL Deep Tendon Reflex & Clonus Assessment Deep Tendon Reflex Bilateral Achilles Deep Tendon Reflex 2+ Normal Bilateral Patellar Deep Tendon Reflex 2+ Normal Muscle Tone Tone Assessment Right Lower Extremity Muscle Tone Comments tremors noted during resistive LE mvoements. worse than L Left Upper Extremity Muscle Tone Comments tremors noted during fine motor movements Left Lower Extremity Muscle Tone Comments tremors noted during resistive LE movements.. Right Upper Extremity Muscle Tone Comments tremors noted during fine motor movements. worse than L PT-OP-K Range of Motion Start: 04/15/21 16:16 Freq: Status: Active Protocol: Document 04/15/21 16:32 HH (Rec: 04/15/21 17:26 [email or web address]) Hip Goniometric Range of Motion Hip Right Active Hip ROM WFL Yes Left Active Hip ROM WFL Yes PT-OP-M Strength Start: 04/15/21 16:16 Freq: Status: Active Protocol: Document 04/15/21 16:32 HH (Rec: 04/15/21 17:26 [email or web address]) Hip Strength Hip Manual Muscle Testing Right Flexion (L2) 3+ Fair+ Extension (S1) 3+ Fair+ Abduction 3+ Fair+ Adduction 3+ Fair+ Left Flexion (L2) 4- Good- Extension (S1) 4- Good- Abduction 4- Good- Adduction 4- Good- Knee Strength Knee Manual Muscle Testing Right Flexion (S2) 3+ Fair+ Extension (L3) 3+ Fair+ Comments tremors during resistive movements. Left Flexion (S2) 4- Good- Extension (L3) 4- Good- Ankle/Foot Strength Ankle and Foot Manual Muscle Testing Right Dorsiflexion (L4) 4+ Good+ Plantarflexion (S1) 4+ Good+ Left Dorsiflexion (L4) 4+ Good+ Plantarflexion (S1) 4+ Good+ PT-OP-Q Treatments Start: 04/15/21 16:16 Freq: Status: Active Protocol: Document 05/04/21 09:45 AMB (Rec: 05/04/21 16:10 AMB [email or web address]) Therapeutic Exercises Supine Exercises supine march Reps/Minutes 2x10 Standing Exercises bilat scap Standing Exercise Name scaption Side bilateral Resistance 2# Comments to shoulder height wall squat Reps/Minutes 4 Comments 15 hold heel raise Standing Exercise Name single leg Reps/Minutes 10 Therapeutic Activity Therapeutic Activity washing dishes Name squatting to get down to sink Comments avoiding lift/twist bend all in combo 1 Name floor transfer PT-OP-T Assessment and Plan Start: 04/15/21 16:16 Freq: Status: Active Protocol: Document 05/04/21 09:45 AMB (Rec: 05/04/21 16:10 AMB [email or web address]) Physical Therapy Assessment Assessment Summary Assessment Brie is very mindful about her movements to try to avoid further compression fractures. She continues to have hip pain at night. Physical Therapy Plan Next Visit Focus/Plan Next Note Type Treatment Note Next Visit Plan HEP: hip extension t band, standing hip flexor stretch, standing balance (modified tandem head turns.) Heel raise, wall squat, bilat scaption.
--- NOTE | 2021-05-06 15:30 | PT.OTN ---
Current Diagnoses Low back pain (05/06/21) Physical Therapy Treatment Note PT-OP-A Visit Information Start: 04/15/21 16:16 Freq: Status: Active Protocol: Document 05/06/21 14:30 AMB (Rec: 05/06/21 15:15 AMB [id number]) Out-Patient Physical Therapy Visit Information Visit Information Visit Type Treatment Note Visit Start Time 14:30 Visit Stop Time 15:15 Total Visit Minutes 45 Visit Number 7 PT-OP-B Current Condition Start: 04/15/21 16:16 Freq: Status: Active Protocol: Document 04/15/21 16:32 HH (Rec: 04/15/21 17:26 HH [email or web address]) Current Condition History of Current Condition Onset Date since october Current Complaints generalized pain @shoulder and back, decreased in balance History of Current Condition Olivia is a 65 yo female here for generalized pain at shoulders and back and decrease in balance. Pt has been treated by different providers for ongoing her anxiety, insomnia. Her Dexa scan shows T-score at -3.5 on 03/16/21 = osteoporotic with high fracture risk. She also recently dx with compression fx at L1-L3 via L/S MRI on 08/11. Her major c/o at this point localized back pain across lumbar spine. Denies tingling and numbness/ radiating pain. Transfer such as supine to sit/ change of position tend to increase her back pain. Her balance has been getting worse since early this year, along with new onset of tremors R >L. Her PCP is aware of that as pt stated . She states she is very wobbly and can only climb stairs with step to pattern and use of railing. Pt also c/ o increase in fatigue level who cannot tolerate much of physical activity. She also has lost 13 lbs since early this year. Pt was very active before October as she stated who was able to participate yoga 3x/wk, walk couple miles a day and hiking occasionally. Prior Treatments and Tests T score= -3.5 (february) L1-L3 compression fx (04/02/21) see EMR Pt participated an online PT class for balance training which includes, walking in tandem, heel raises, heel walking, toe walking, squat with dumbell, snow lele. Future Testing and Treatments Planned schedule neuro psychological eval with Dr. Cailin Delacruz in June. Treatment Goals Patient/Caregiver Goals 1. to know which movements are safe to do without causing fracture. 2. to strengthen her LE muscles 3. to improve her overall balance Prior Functional Status Baseline Function- Other Pt was very active before October as she stated who was able to participate yoga 3x/wk , walk couple miles a day and hiking occasionally. Current Functional Impairments (Reported) Functional Limitations- Other Patient/partner report that patient continues to be forgetful and experiencing cognitive challenges which include difficulty reading, tremors, poor balance, changes in writing, difficulty tracking finances, etc, and that overall this is worse in the morning and a bit improved in the afternoon - Personal Factors Other Personal Factors That May Effect osteoporosis Tscore =-3.5 Therapy/Recovery depression anxiety insomnia medication list [bone support] 2 tab PO BEDTIME #0 06/03/17 [History Confirmed 03/30/21] cyanocobalamin (vitamin B-12) 1,000 mcg tablet,extended release 1 mcg PO DAILY #0 [History Confirmed 03/30] estradiol 10 mcg vaginal tablet (Yuvafem) 10 mcg VAGINAL 2XW #24 each 11/27/20 [Rx Confirmed 03/30/21] estradiol 1 g VAGINAL DAILY # 42.5 g 02/25/21 [Rx Confirmed 03/30/21] fluoxetine 10 mg tablet 10 mg PO DAILY #30 tab 03/06/21 [Rx Confirmed 03/30/21] clonazepam 1 mg tablet 2 mg PO BEDTIME #60 tab 03/19/21 [Rx Confirmed 03/30/21] progesterone 2 tab PO DAILY [History Confirmed 05/12] trazodone 50 mg tablet See Rx Instructions PO BEDTIME PRN # 60 tab 04/15/21 [Rx] PT-OP-C Subjective Start: 04/15/21 16:16 Freq: Status: Active Protocol: Document 05/06/21 14:30 AMB (Rec: 05/06/21 15:15 AMB [id number]) OP-PT Subjective Patient Comments Patient Comments Left hip worse than right, difficult PT-OP-D Balance Start: 04/15/21 16:16 Freq: Status: Active Protocol: Document 04/15/21 16:32 HH (Rec: 04/15/21 17:26 HH [email or web address]) Balance Tests Romberg Romberg WFL Single Limb Standing Single Limb- Right >30, less stable Single Limb- Left >30 Tandem Tandem Standing >60, less stable with L foot placed in front Other Other Balance Tests Performed EC in romberg = excessive sway SLS with EC = < 3s PT-OP-H Neuro Start: 04/15/21 16:16 Freq: Status: Active Protocol: Document 04/15/21 16:32 HH (Rec: 04/15/21 17:26 [email or web address]) Sensation Evaluation Gross Sensation Gross Sensation WNL Deep Tendon Reflex & Clonus Assessment Deep Tendon Reflex Bilateral Achilles Deep Tendon Reflex 2+ Normal Bilateral Patellar Deep Tendon Reflex 2+ Normal Muscle Tone Tone Assessment Right Lower Extremity Muscle Tone Comments tremors noted during resistive LE mvoements. worse than L Left Upper Extremity Muscle Tone Comments tremors noted during fine motor movements Left Lower Extremity Muscle Tone Comments tremors noted during resistive LE movements.. Right Upper Extremity Muscle Tone Comments tremors noted during fine motor movements. worse than L PT-OP-K Range of Motion Start: 04/15/21 16:16 Freq: Status: Active Protocol: Document 04/15/21 16:32 HH (Rec: 04/15/21 17:26 [email or web address]) Hip Goniometric Range of Motion Hip Right Active Hip ROM WFL Yes Left Active Hip ROM WFL Yes PT-OP-M Strength Start: 04/15/21 16:16 Freq: Status: Active Protocol: Document 04/15/21 16:32 HH (Rec: 04/15/21 17:26 [email or web address]) Hip Strength Hip Manual Muscle Testing Right Flexion (L2) 3+ Fair+ Extension (S1) 3+ Fair+ Abduction 3+ Fair+ Adduction 3+ Fair+ Left Flexion (L2) 4- Good- Extension (S1) 4- Good- Abduction 4- Good- Adduction 4- Good- Knee Strength Knee Manual Muscle Testing Right Flexion (S2) 3+ Fair+ Extension (L3) 3+ Fair+ Comments tremors during resistive movements. Left Flexion (S2) 4- Good- Extension (L3) 4- Good- Ankle/Foot Strength Ankle and Foot Manual Muscle Testing Right Dorsiflexion (L4) 4+ Good+ Plantarflexion (S1) 4+ Good+ Left Dorsiflexion (L4) 4+ Good+ Plantarflexion (S1) 4+ Good+ PT-OP-Q Treatments Start: 04/15/21 16:16 Freq: Status: Active Protocol: Document 05/06/21 14:30 AMB (Rec: 05/06/21 15:30 AMB [email or web address]) Therapeutic Exercises Standing Exercises 1 Standing Exercise Name hip abd t band Reps/Minutes 2x10 bilat scap Standing Exercise Name scaption Side bilateral Resistance 2# Comments to shoulder height rows Standing Exercise Name t band Side bilateral Resistance #2 Reps/Minutes 2x10 Other Exercises 3 Other Exercise Name quadruped LE abd Comments challenging on L 2 Other Exercise Name quadruped LE extension Reps/Minutes 2x10 1 Other Exercise Name quadruped UE flexion Reps/Minutes 10 Therapeutic Activity Therapeutic Activity 2 Name body mechanics with floor transfer Neuro Re-Education Treatment Balance Activities 1 Details tandem Comments horizontal head turns, then no head turns but EC PT-OP-T Assessment and Plan Start: 04/15/21 16:16 Freq: Status: Active Protocol: Document 05/06/21 14:30 AMB (Rec: 05/06/21 15:30 AMB [email or web address]) Physical Therapy Assessment Goals LE strength Impairment bilateral LE weakness R>L Short Term Goal (STG) pt will show increase in LE strength by 1 MMT grade by performing low impact exercises. STG Duration 4 weeks Phosphoric Acid Operator Goal (LTG) Pt will show improved LE strength and balance to be able to climb stairs reciprocally without the use of railing LTG Duration 8 weeks return to hobby Impairment unable to participate long walks, yoga, taichi Short Term Goal (STG) pt will show improved activity tolerance to be able to walk 2 miles up to 3 times a week. STG Duration 5 weeks [facility] Goal (LTG) pt will show improved activity tolerance to be able to tolerate a combination of 2 miles walking and yoga up to 4 per week. LTG Duration 10 weeks oswestry Impairment pt scores 44 on [employer] Short Term Goal (STG) pt will show overall improvements of her quality of life by scoring <35 on [employer] STG Duration 5 weeks Phosphoric Acid Operator Goal (LTG) pt will show overall improvements of her quality of life by scoring <25 on [employer] LTG Duration 10 weeks Assessment Summary Assessment Added quadruped hip extension, t band hip abduction, and quadruped UE flexion to HEP. Physical Therapy Plan Next Visit Focus/Plan Next Note Type Treatment Note Next Visit Plan HEP: hip extension t band, standing hip flexor stretch, standing balance (modified tandem head turns.) Heel raise, wall squat, bilat scaption.
--- NOTE | 2021-05-11 14:02 | PT.OTN ---
Current Diagnoses Low back pain (05/11/21) Physical Therapy Treatment Note PT-OP-A Visit Information Start: 04/15/21 16:16 Freq: Status: Active Protocol: Document 05/11/21 11:15 AMB (Rec: 05/11/21 11:46 AMB [id number]) Out-Patient Physical Therapy Visit Information Visit Information Visit Type Treatment Note Visit Start Time 11:15 Visit Stop Time 12:00 Total Visit Minutes 45 Visit Number 8 PT-OP-B Current Condition Start: 04/15/21 16:16 Freq: Status: Active Protocol: Document 04/15/21 16:32 HH (Rec: 04/15/21 17:26 HH [email or web address]) Current Condition History of Current Condition Onset Date since october Current Complaints generalized pain @shoulder and back, decreased in balance History of Current Condition Olivia is a 65 yo female here for generalized pain at shoulders and back and decrease in balance. Pt has been treated by different providers for ongoing her anxiety, insomnia. Her Dexa scan shows T-score at -3.5 on 03/16/21 = osteoporotic with high fracture risk. She also recently dx with compression fx at L1-L3 via L/S MRI on 08/11. Her major c/o at this point localized back pain across lumbar spine. Denies tingling and numbness/ radiating pain. Transfer such as supine to sit/ change of position tend to increase her back pain. Her balance has been getting worse since early this year, along with new onset of tremors R >L. Her PCP is aware of that as pt stated . She states she is very wobbly and can only climb stairs with step to pattern and use of railing. Pt also c/ o increase in fatigue level who cannot tolerate much of physical activity. She also has lost 13 lbs since early this year. Pt was very active before October as she stated who was able to participate yoga 3x/wk, walk couple miles a day and hiking occasionally. Prior Treatments and Tests T score= -3.5 (february) L1-L3 compression fx (04/02/21) see EMR Pt participated an online PT class for balance training which includes, walking in tandem, heel raises, heel walking, toe walking, squat with dumbell, snow lele. Future Testing and Treatments Planned schedule neuro psychological eval with Dr. Cailin Delacruz in June. Treatment Goals Patient/Caregiver Goals 1. to know which movements are safe to do without causing fracture. 2. to strengthen her LE muscles 3. to improve her overall balance Prior Functional Status Baseline Function- Other Pt was very active before October as she stated who was able to participate yoga 3x/wk , walk couple miles a day and hiking occasionally. Current Functional Impairments (Reported) Functional Limitations- Other Patient/partner report that patient continues to be forgetful and experiencing cognitive challenges which include difficulty reading, tremors, poor balance, changes in writing, difficulty tracking finances, etc, and that overall this is worse in the morning and a bit improved in the afternoon - Personal Factors Other Personal Factors That May Effect osteoporosis Tscore =-3.5 Therapy/Recovery depression anxiety insomnia medication list [bone support] 2 tab PO BEDTIME #0 06/03/17 [History Confirmed 03/30/21] cyanocobalamin (vitamin B-12) 1,000 mcg tablet,extended release 1 mcg PO DAILY #0 [History Confirmed 03/30] estradiol 10 mcg vaginal tablet (Yuvafem) 10 mcg VAGINAL 2XW #24 each 11/27/20 [Rx Confirmed 03/30/21] estradiol 1 g VAGINAL DAILY # 42.5 g 02/25/21 [Rx Confirmed 03/30/21] fluoxetine 10 mg tablet 10 mg PO DAILY #30 tab 03/06/21 [Rx Confirmed 03/30/21] clonazepam 1 mg tablet 2 mg PO BEDTIME #60 tab 03/19/21 [Rx Confirmed 03/30/21] progesterone 2 tab PO DAILY [History Confirmed 05/12] trazodone 50 mg tablet See Rx Instructions PO BEDTIME PRN # 60 tab 04/15/21 [Rx] PT-OP-C Subjective Start: 04/15/21 16:16 Freq: Status: Active Protocol: Document 05/11/21 11:15 AMB (Rec: 05/11/21 11:46 AMB [id number]) OP-PT Subjective Patient Comments Patient Comments Noticing more upper back pain but better with low back while sleeping. PT-OP-D Balance Start: 04/15/21 16:16 Freq: Status: Active Protocol: Document 04/15/21 16:32 HH (Rec: 04/15/21 17:26 HH [email or web address]) Balance Tests Romberg Romberg WFL Single Limb Standing Single Limb- Right >30, less stable Single Limb- Left >30 Tandem Tandem Standing >60, less stable with L foot placed in front Other Other Balance Tests Performed EC in romberg = excessive sway SLS with EC = < 3s PT-OP-H Neuro Start: 04/15/21 16:16 Freq: Status: Active Protocol: Document 04/15/21 16:32 HH (Rec: 04/15/21 17:26 HH [email or web address]) Sensation Evaluation Gross Sensation Gross Sensation WNL Deep Tendon Reflex & Clonus Assessment Deep Tendon Reflex Bilateral Achilles Deep Tendon Reflex 2+ Normal Bilateral Patellar Deep Tendon Reflex 2+ Normal Muscle Tone Tone Assessment Right Lower Extremity Muscle Tone Comments tremors noted during resistive LE mvoements. worse than L Left Upper Extremity Muscle Tone Comments tremors noted during fine motor movements Left Lower Extremity Muscle Tone Comments tremors noted during resistive LE movements.. Right Upper Extremity Muscle Tone Comments tremors noted during fine motor movements. worse than L PT-OP-K Range of Motion Start: 04/15/21 16:16 Freq: Status: Active Protocol: Document 04/15/21 16:32 HH (Rec: 04/15/21 17:26 [email or web address]) Hip Goniometric Range of Motion Hip Right Active Hip ROM WFL Yes Left Active Hip ROM WFL Yes PT-OP-M Strength Start: 04/15/21 16:16 Freq: Status: Active Protocol: Document 04/15/21 16:32 HH (Rec: 04/15/21 17:26 [email or web address]) Hip Strength Hip Manual Muscle Testing Right Flexion (L2) 3+ Fair+ Extension (S1) 3+ Fair+ Abduction 3+ Fair+ Adduction 3+ Fair+ Left Flexion (L2) 4- Good- Extension (S1) 4- Good- Abduction 4- Good- Adduction 4- Good- Knee Strength Knee Manual Muscle Testing Right Flexion (S2) 3+ Fair+ Extension (L3) 3+ Fair+ Comments tremors during resistive movements. Left Flexion (S2) 4- Good- Extension (L3) 4- Good- Ankle/Foot Strength Ankle and Foot Manual Muscle Testing Right Dorsiflexion (L4) 4+ Good+ Plantarflexion (S1) 4+ Good+ Left Dorsiflexion (L4) 4+ Good+ Plantarflexion (S1) 4+ Good+ PT-OP-Q Treatments Start: 04/15/21 16:16 Freq: Status: Active Protocol: Document 05/11/21 11:15 AMB (Rec: 05/11/21 11:46 AMB [id number]) Therapeutic Exercises Supine Exercises 2 Supine Exercise Name scapular protraction Reps/Minutes 2x10 1 Supine Exercise Name counter top push up Reps/Minutes 10 pec stretch Supine Exercise Name 30x2 Side bilateral hamstring stretch Supine Exercise Name 30x4 Side bilateral Sidelying Exercises 1 Sidelying Exercise Name open book Reps/Minutes 30x2 Standing Exercises 1 Standing Exercise Name hip abd AROM Reps/Minutes 2x10 rows Standing Exercise Name t band Side bilateral Resistance #2 Reps/Minutes 2x10 Other Exercises 3 Other Exercise Name quadruped LE abd Comments challenging on L 2 Other Exercise Name quadruped LE extension Reps/Minutes 2x10 1 Other Exercise Name quadruped UE flexion Reps/Minutes 10 PT-OP-T Assessment and Plan Start: 04/15/21 16:16 Freq: Status: Active Protocol: Document 05/11/21 11:15 AMB (Rec: 05/11/21 11:46 AMB [id number]) Physical Therapy Assessment Assessment Summary Assessment Could do hip abd without the theraband if theraband is increasing hip pain. Pt instructed in upper back strengthening today. Pt interested in high level balance training. Physical Therapy Plan Next Visit Focus/Plan Next Note Type Treatment Note Next Visit Plan HEP: hip extension t band, standing hip flexor stretch, standing balance (modified tandem head turns.) Heel raise, wall squat, bilat scaption.
--- NOTE | 2021-05-14 14:52 | PT.OTN ---
Current Diagnoses Low back pain (05/14/21) Physical Therapy Treatment Note PT-OP-A Visit Information Start: 04/15/21 16:16 Freq: Status: Active Protocol: Document 05/14/21 09:45 AMB (Rec: 05/14/21 10:16 AMB [id number]) Out-Patient Physical Therapy Visit Information Visit Information Visit Type Treatment Note Visit Start Time 09:45 Visit Stop Time 10:30 Total Visit Minutes 45 Visit Number 9 PT-OP-B Current Condition Start: 04/15/21 16:16 Freq: Status: Active Protocol: Document 04/15/21 16:32 HH (Rec: 04/15/21 17:26 HH [email or web address]) Current Condition History of Current Condition Onset Date since october Current Complaints generalized pain @shoulder and back, decreased in balance History of Current Condition Olivia is a 65 yo female here for generalized pain at shoulders and back and decrease in balance. Pt has been treated by different providers for ongoing her anxiety, insomnia. Her Dexa scan shows T-score at -3.5 on 03/16/21 = osteoporotic with high fracture risk. She also recently dx with compression fx at L1-L3 via L/S MRI on 08/11. Her major c/o at this point localized back pain across lumbar spine. Denies tingling and numbness/ radiating pain. Transfer such as supine to sit/ change of position tend to increase her back pain. Her balance has been getting worse since early this year, along with new onset of tremors R >L. Her PCP is aware of that as pt stated . She states she is very wobbly and can only climb stairs with step to pattern and use of railing. Pt also c/ o increase in fatigue level who cannot tolerate much of physical activity. She also has lost 13 lbs since early this year. Pt was very active before October as she stated who was able to participate yoga 3x/wk, walk couple miles a day and hiking occasionally. Prior Treatments and Tests T score= -3.5 (february) L1-L3 compression fx (04/02/21) see EMR Pt participated an online PT class for balance training which includes, walking in tandem, heel raises, heel walking, toe walking, squat with dumbell, snow lele. Future Testing and Treatments Planned schedule neuro psychological eval with Dr. Cailin Delacruz in June. Treatment Goals Patient/Caregiver Goals 1. to know which movements are safe to do without causing fracture. 2. to strengthen her LE muscles 3. to improve her overall balance Prior Functional Status Baseline Function- Other Pt was very active before October as she stated who was able to participate yoga 3x/wk , walk couple miles a day and hiking occasionally. Current Functional Impairments (Reported) Functional Limitations- Other Patient/partner report that patient continues to be forgetful and experiencing cognitive challenges which include difficulty reading, tremors, poor balance, changes in writing, difficulty tracking finances, etc, and that overall this is worse in the morning and a bit improved in the afternoon - Personal Factors Other Personal Factors That May Effect osteoporosis Tscore =-3.5 Therapy/Recovery depression anxiety insomnia medication list [bone support] 2 tab PO BEDTIME #0 06/03/17 [History Confirmed 03/30/21] cyanocobalamin (vitamin B-12) 1,000 mcg tablet,extended release 1 mcg PO DAILY #0 [History Confirmed 03/30] estradiol 10 mcg vaginal tablet (Yuvafem) 10 mcg VAGINAL 2XW #24 each 11/27/20 [Rx Confirmed 03/30/21] estradiol 1 g VAGINAL DAILY # 42.5 g 02/25/21 [Rx Confirmed 03/30/21] fluoxetine 10 mg tablet 10 mg PO DAILY #30 tab 03/06/21 [Rx Confirmed 03/30/21] clonazepam 1 mg tablet 2 mg PO BEDTIME #60 tab 03/19/21 [Rx Confirmed 03/30/21] progesterone 2 tab PO DAILY [History Confirmed 05/12] trazodone 50 mg tablet See Rx Instructions PO BEDTIME PRN # 60 tab 04/15/21 [Rx] PT-OP-C Subjective Start: 04/15/21 16:16 Freq: Status: Active Protocol: Document 05/14/21 09:45 AMB (Rec: 05/14/21 10:16 AMB [id number]) OP-PT Subjective Patient Comments Patient Comments Hasn't slept very well which is challenging. PT-OP-D Balance Start: 04/15/21 16:16 Freq: Status: Active Protocol: Document 04/15/21 16:32 HH (Rec: 04/15/21 17:26 HH [email or web address]) Balance Tests Romberg Romberg WFL Single Limb Standing Single Limb- Right >30, less stable Single Limb- Left >30 Tandem Tandem Standing >60, less stable with L foot placed in front Other Other Balance Tests Performed EC in romberg = excessive sway SLS with EC = < 3s PT-OP-H Neuro Start: 04/15/21 16:16 Freq: Status: Active Protocol: Document 04/15/21 16:32 HH (Rec: 04/15/21 17:26 [email or web address]) Sensation Evaluation Gross Sensation Gross Sensation WNL Deep Tendon Reflex & Clonus Assessment Deep Tendon Reflex Bilateral Achilles Deep Tendon Reflex 2+ Normal Bilateral Patellar Deep Tendon Reflex 2+ Normal Muscle Tone Tone Assessment Right Lower Extremity Muscle Tone Comments tremors noted during resistive LE mvoements. worse than L Left Upper Extremity Muscle Tone Comments tremors noted during fine motor movements Left Lower Extremity Muscle Tone Comments tremors noted during resistive LE movements.. Right Upper Extremity Muscle Tone Comments tremors noted during fine motor movements. worse than L PT-OP-K Range of Motion Start: 04/15/21 16:16 Freq: Status: Active Protocol: Document 04/15/21 16:32 HH (Rec: 04/15/21 17:26 [email or web address]) Hip Goniometric Range of Motion Hip Right Active Hip ROM WFL Yes Left Active Hip ROM WFL Yes PT-OP-M Strength Start: 04/15/21 16:16 Freq: Status: Active Protocol: Document 04/15/21 16:32 HH (Rec: 04/15/21 17:26 [email or web address]) Hip Strength Hip Manual Muscle Testing Right Flexion (L2) 3+ Fair+ Extension (S1) 3+ Fair+ Abduction 3+ Fair+ Adduction 3+ Fair+ Left Flexion (L2) 4- Good- Extension (S1) 4- Good- Abduction 4- Good- Adduction 4- Good- Knee Strength Knee Manual Muscle Testing Right Flexion (S2) 3+ Fair+ Extension (L3) 3+ Fair+ Comments tremors during resistive movements. Left Flexion (S2) 4- Good- Extension (L3) 4- Good- Ankle/Foot Strength Ankle and Foot Manual Muscle Testing Right Dorsiflexion (L4) 4+ Good+ Plantarflexion (S1) 4+ Good+ Left Dorsiflexion (L4) 4+ Good+ Plantarflexion (S1) 4+ Good+ PT-OP-Q Treatments Start: 04/15/21 16:16 Freq: Status: Active Protocol: Document 05/14/21 09:45 AMB (Rec: 05/14/21 14:52 AMB [email or web address]) Therapeutic Exercises Sitting Exercises 1 Sitting Exercise Name toe tapping alternating Reps/Minutes 20 Standing Exercises 1 Standing Exercise Name hip abd t band Resistance #1 t band Reps/Minutes 2x10 heel raise Standing Exercise Name single leg Reps/Minutes 10 hip extension Standing Exercise Name t band Resistance #2 Reps/Minutes 2x10 Neuro Re-Education Treatment Balance Activities 1 Details tandem, semi tandem, NBOS Comments horizontal head turns, then no head turns but EC PT-OP-T Assessment and Plan Start: 04/15/21 16:16 Freq: Status: Active Protocol: Document 05/14/21 09:45 AMB (Rec: 05/14/21 11:01 AMB [email or web address]) Physical Therapy Assessment Assessment Summary Assessment Brie continues to be concerned about her balance, it sounds like the balance is the worst in the morning and the tremor contributes to it. She also had a more difficult time with VOR than I would have expected. She does feel like her vision has changed, but had an eye exam a few months ago and it was fine. Physical Therapy Plan Next Visit Focus/Plan Next Note Type Treatment Note Next Visit Plan Follow up on balance exercises
--- NOTE | 2021-05-26 10:18 | PT.OTN ---
Current Diagnoses Low back pain (05/26/21) Physical Therapy Treatment Note PT-OP-A Visit Information Start: 04/15/21 16:16 Freq: Status: Active Protocol: Document 05/26/21 09:01 AMB (Rec: 05/26/21 09:14 AMB [id number]) Out-Patient Physical Therapy Visit Information Visit Information Visit Type Progress Note Visit Start Time 09:00 Visit Stop Time 09:45 Total Visit Minutes 45 Visit Number 10 PT-OP-B Current Condition Start: 04/15/21 16:16 Freq: Status: Active Protocol: Document 04/15/21 16:32 HH (Rec: 04/15/21 17:26 HH [email or web address]) Current Condition History of Current Condition Onset Date since october Current Complaints generalized pain @shoulder and back, decreased in balance History of Current Condition Olivia is a 65 yo female here for generalized pain at shoulders and back and decrease in balance. Pt has been treated by different providers for ongoing her anxiety, insomnia. Her Dexa scan shows T-score at -3.5 on 03/16/21 = osteoporotic with high fracture risk. She also recently dx with compression fx at L1-L3 via L/S MRI on 08/11. Her major c/o at this point localized back pain across lumbar spine. Denies tingling and numbness/ radiating pain. Transfer such as supine to sit/ change of position tend to increase her back pain. Her balance has been getting worse since early this year, along with new onset of tremors R >L. Her PCP is aware of that as pt stated . She states she is very wobbly and can only climb stairs with step to pattern and use of railing. Pt also c/ o increase in fatigue level who cannot tolerate much of physical activity. She also has lost 13 lbs since early this year. Pt was very active before October as she stated who was able to participate yoga 3x/wk, walk couple miles a day and hiking occasionally. Prior Treatments and Tests T score= -3.5 (february) L1-L3 compression fx (04/02/21) see EMR Pt participated an online PT class for balance training which includes, walking in tandem, heel raises, heel walking, toe walking, squat with dumbell, snow lele. Future Testing and Treatments Planned schedule neuro psychological eval with Dr. Cailin Delacruz in June. Treatment Goals Patient/Caregiver Goals 1. to know which movements are safe to do without causing fracture. 2. to strengthen her LE muscles 3. to improve her overall balance Prior Functional Status Baseline Function- Other Pt was very active before October as she stated who was able to participate yoga 3x/wk , walk couple miles a day and hiking occasionally. Current Functional Impairments (Reported) Functional Limitations- Other Patient/partner report that patient continues to be forgetful and experiencing cognitive challenges which include difficulty reading, tremors, poor balance, changes in writing, difficulty tracking finances, etc, and that overall this is worse in the morning and a bit improved in the afternoon - Personal Factors Other Personal Factors That May Effect osteoporosis Tscore =-3.5 Therapy/Recovery depression anxiety insomnia medication list [bone support] 2 tab PO BEDTIME #0 06/03/17 [History Confirmed 03/30/21] cyanocobalamin (vitamin B-12) 1,000 mcg tablet,extended release 1 mcg PO DAILY #0 [History Confirmed 03/30] estradiol 10 mcg vaginal tablet (Yuvafem) 10 mcg VAGINAL 2XW #24 each 11/27/20 [Rx Confirmed 03/30/21] estradiol 1 g VAGINAL DAILY # 42.5 g 02/25/21 [Rx Confirmed 03/30/21] fluoxetine 10 mg tablet 10 mg PO DAILY #30 tab 03/06/21 [Rx Confirmed 03/30/21] clonazepam 1 mg tablet 2 mg PO BEDTIME #60 tab 03/19/21 [Rx Confirmed 03/30/21] progesterone 2 tab PO DAILY [History Confirmed 05/12] trazodone 50 mg tablet See Rx Instructions PO BEDTIME PRN # 60 tab 04/15/21 [Rx] PT-OP-C Subjective Start: 04/15/21 16:16 Freq: Status: Active Protocol: Document 05/26/21 09:01 AMB (Rec: 05/26/21 09:14 AMB [id number]) OP-PT Subjective Patient Comments Patient Comments Sleep has been very challenging over the last week . Back pain isn't as bad during the day, but at night it is still a limiting factor, mid back and left hip. PT-OP-D Balance Start: 04/15/21 16:16 Freq: Status: Active Protocol: Document 04/15/21 16:32 HH (Rec: 04/15/21 17:26 [email or web address]) Balance Tests Romberg Romberg WFL Single Limb Standing Single Limb- Right >30, less stable Single Limb- Left >30 Tandem Tandem Standing >60, less stable with L foot placed in front Other Other Balance Tests Performed EC in romberg = excessive sway SLS with EC = < 3s PT-OP-H Neuro Start: 04/15/21 16:16 Freq: Status: Active Protocol: Document 04/15/21 16:32 HH (Rec: 04/15/21 17:26 [email or web address]) Sensation Evaluation Gross Sensation Gross Sensation WNL Deep Tendon Reflex & Clonus Assessment Deep Tendon Reflex Bilateral Achilles Deep Tendon Reflex 2+ Normal Bilateral Patellar Deep Tendon Reflex 2+ Normal Muscle Tone Tone Assessment Right Lower Extremity Muscle Tone Comments tremors noted during resistive LE mvoements. worse than L Left Upper Extremity Muscle Tone Comments tremors noted during fine motor movements Left Lower Extremity Muscle Tone Comments tremors noted during resistive LE movements.. Right Upper Extremity Muscle Tone Comments tremors noted during fine motor movements. worse than L PT-OP-K Range of Motion Start: 04/15/21 16:16 Freq: Status: Active Protocol: Document 04/15/21 16:32 HH (Rec: 04/15/21 17:26 [email or web address]) Hip Goniometric Range of Motion Hip Right Active Hip ROM WFL Yes Left Active Hip ROM WFL Yes PT-OP-M Strength Start: 04/15/21 16:16 Freq: Status: Active Protocol: Document 04/15/21 16:32 HH (Rec: 04/15/21 17:26 [email or web address]) Hip Strength Hip Manual Muscle Testing Right Flexion (L2) 3+ Fair+ Extension (S1) 3+ Fair+ Abduction 3+ Fair+ Adduction 3+ Fair+ Left Flexion (L2) 4- Good- Extension (S1) 4- Good- Abduction 4- Good- Adduction 4- Good- Knee Strength Knee Manual Muscle Testing Right Flexion (S2) 3+ Fair+ Extension (L3) 3+ Fair+ Comments tremors during resistive movements. Left Flexion (S2) 4- Good- Extension (L3) 4- Good- Ankle/Foot Strength Ankle and Foot Manual Muscle Testing Right Dorsiflexion (L4) 4+ Good+ Plantarflexion (S1) 4+ Good+ Left Dorsiflexion (L4) 4+ Good+ Plantarflexion (S1) 4+ Good+ PT-OP-Q Treatments Start: 04/15/21 16:16 Freq: Status: Active Protocol: Document 05/26/21 09:00 AMB (Rec: 05/26/21 10:14 AMB [email or web address]) Therapeutic Exercises Standing Exercises standing Y Reps/Minutes 30 hamstring stretch Reps/Minutes 30x2 heel raise Standing Exercise Name single leg Reps/Minutes 10 Other Exercises 3 Other Exercise Name quadruped LE abd Comments challenging on L 2 Other Exercise Name quadruped LE extension Reps/Minutes 2x10 1 Other Exercise Name quadruped UE flexion Reps/Minutes 10 PT-OP-T Assessment and Plan Start: 04/15/21 16:16 Freq: Status: Active Protocol: Document 05/26/21 09:01 AMB (Rec: 05/26/21 09:14 AMB [id number]) Physical Therapy Assessment Goals LE strength Impairment bilateral LE weakness R>L Short Term Goal (STG) pt will show increase in LE strength by 1 MMT grade by performing low impact exercises. STG Duration - progress limited by lack of sleep Mcfp Goal (LTG) Pt will show improved LE strength and balance to be able to climb stairs reciprocally without the use of railing LTG Duration 8 weeks return to hobby Impairment unable to participate long walks, yoga, taichi Short Term Goal (STG) pt will show improved activity tolerance to be able to walk 2 miles up to 3 times a week. STG Duration 5 weeks Social Services Designee Goal (LTG) pt will show improved activity tolerance to be able to tolerate a combination of 2 miles walking and yoga up to 4 per week. LTG Duration 10 weeks oswestry Impairment pt scores 44 on Owestry Short Term Goal (STG) pt will show overall improvements of her quality of life by scoring <35 on Owestry STG Duration 5 weeks- low back pain worst with sleeping Social Services Designee Goal (LTG) pt will show overall improvements of her quality of life by scoring <25 on Owestry LTG Duration 10 weeks Assessment Summary Assessment Brie has shown some improvement so far in physical therapy. She continues to be limited by lack of sleep. She does have a better understanding of appropriate exercises and body mechanics. Her back pain is slightly improved. She would continue to benefit from physical therapy as she is anxious about side effects from her new osteoporosis medication and would benefit from continued progression of her exercise program. Physical Therapy Plan Next Visit Focus/Plan Next Note Type Treatment Note Next Visit Plan Follow up on balance exercises
--- NOTE | 2021-06-01 15:55 | PT.OTN ---
Current Diagnoses Low back pain (06/01/21) Physical Therapy Treatment Note PT-OP-A Visit Information Start: 04/15/21 16:16 Freq: Status: Active Protocol: Document 06/01/21 13:45 AMB (Rec: 06/01/21 14:16 AMB [id number]) Out-Patient Physical Therapy Visit Information Visit Information Visit Type Treatment Note Visit Start Time 13:45 Visit Stop Time 14:30 Total Visit Minutes 45 Visit Number 11 PT-OP-B Current Condition Start: 04/15/21 16:16 Freq: Status: Active Protocol: Document 04/15/21 16:32 HH (Rec: 04/15/21 17:26 HH [email or web address]) Current Condition History of Current Condition Onset Date since october Current Complaints generalized pain @shoulder and back, decreased in balance History of Current Condition Olivia is a 65 yo female here for generalized pain at shoulders and back and decrease in balance. Pt has been treated by different providers for ongoing her anxiety, insomnia. Her Dexa scan shows T-score at -3.5 on 03/16/21 = osteoporotic with high fracture risk. She also recently dx with compression fx at L1-L3 via L/S MRI on 08/11. Her major c/o at this point localized back pain across lumbar spine. Denies tingling and numbness/ radiating pain. Transfer such as supine to sit/ change of position tend to increase her back pain. Her balance has been getting worse since early this year, along with new onset of tremors R >L. Her PCP is aware of that as pt stated . She states she is very wobbly and can only climb stairs with step to pattern and use of railing. Pt also c/ o increase in fatigue level who cannot tolerate much of physical activity. She also has lost 13 lbs since early this year. Pt was very active before October as she stated who was able to participate yoga 3x/wk, walk couple miles a day and hiking occasionally. Prior Treatments and Tests T score= -3.5 (february) L1-L3 compression fx (04/02/21) see EMR Pt participated an online PT class for balance training which includes, walking in tandem, heel raises, heel walking, toe walking, squat with dumbell, snow lele. Future Testing and Treatments Planned schedule neuro psychological eval with Dr. Cailin Delacruz in June. Treatment Goals Patient/Caregiver Goals 1. to know which movements are safe to do without causing fracture. 2. to strengthen her LE muscles 3. to improve her overall balance Prior Functional Status Baseline Function- Other Pt was very active before October as she stated who was able to participate yoga 3x/wk , walk couple miles a day and hiking occasionally. Current Functional Impairments (Reported) Functional Limitations- Other Patient/partner report that patient continues to be forgetful and experiencing cognitive challenges which include difficulty reading, tremors, poor balance, changes in writing, difficulty tracking finances, etc, and that overall this is worse in the morning and a bit improved in the afternoon - Personal Factors Other Personal Factors That May Effect osteoporosis Tscore =-3.5 Therapy/Recovery depression anxiety insomnia medication list [bone support] 2 tab PO BEDTIME #0 06/03/17 [History Confirmed 03/30/21] cyanocobalamin (vitamin B-12) 1,000 mcg tablet,extended release 1 mcg PO DAILY #0 [History Confirmed 03/30] estradiol 10 mcg vaginal tablet (Yuvafem) 10 mcg VAGINAL 2XW #24 each 11/27/20 [Rx Confirmed 03/30/21] estradiol 1 g VAGINAL DAILY # 42.5 g 02/25/21 [Rx Confirmed 03/30/21] fluoxetine 10 mg tablet 10 mg PO DAILY #30 tab 03/06/21 [Rx Confirmed 03/30/21] clonazepam 1 mg tablet 2 mg PO BEDTIME #60 tab 03/19/21 [Rx Confirmed 03/30/21] progesterone 2 tab PO DAILY [History Confirmed 05/12] trazodone 50 mg tablet See Rx Instructions PO BEDTIME PRN # 60 tab 04/15/21 [Rx] PT-OP-C Subjective Start: 04/15/21 16:16 Freq: Status: Active Protocol: Document 06/01/21 13:45 AMB (Rec: 06/02/21 15:55 AMB [email or web address]) OP-PT Subjective Patient Comments Patient Comments Pt's partner had a small TX yesterday and he is at [facility] in [place] getting stents, so she didn't sleep at all last night. This makes exercise challenging. PT-OP-D Balance Start: 04/15/21 16:16 Freq: Status: Active Protocol: Document 04/15/21 16:32 HH (Rec: 04/15/21 17:26 [email or web address]) Balance Tests Romberg Romberg WFL Single Limb Standing Single Limb- Right >30, less stable Single Limb- Left >30 Tandem Tandem Standing >60, less stable with L foot placed in front Other Other Balance Tests Performed EC in romberg = excessive sway SLS with EC = < 3s PT-OP-H Neuro Start: 04/15/21 16:16 Freq: Status: Active Protocol: Document 04/15/21 16:32 HH (Rec: 04/15/21 17:26 [email or web address]) Sensation Evaluation Gross Sensation Gross Sensation WNL Deep Tendon Reflex & Clonus Assessment Deep Tendon Reflex Bilateral Achilles Deep Tendon Reflex 2+ Normal Bilateral Patellar Deep Tendon Reflex 2+ Normal Muscle Tone Tone Assessment Right Lower Extremity Muscle Tone Comments tremors noted during resistive LE mvoements. worse than L Left Upper Extremity Muscle Tone Comments tremors noted during fine motor movements Left Lower Extremity Muscle Tone Comments tremors noted during resistive LE movements.. Right Upper Extremity Muscle Tone Comments tremors noted during fine motor movements. worse than L PT-OP-K Range of Motion Start: 04/15/21 16:16 Freq: Status: Active Protocol: Document 04/15/21 16:32 HH (Rec: 04/15/21 17:26 [email or web address]) Hip Goniometric Range of Motion Hip Right Active Hip ROM WFL Yes Left Active Hip ROM WFL Yes PT-OP-M Strength Start: 04/15/21 16:16 Freq: Status: Active Protocol: Document 04/15/21 16:32 HH (Rec: 04/15/21 17:26 [email or web address]) Hip Strength Hip Manual Muscle Testing Right Flexion (L2) 3+ Fair+ Extension (S1) 3+ Fair+ Abduction 3+ Fair+ Adduction 3+ Fair+ Left Flexion (L2) 4- Good- Extension (S1) 4- Good- Abduction 4- Good- Adduction 4- Good- Knee Strength Knee Manual Muscle Testing Right Flexion (S2) 3+ Fair+ Extension (L3) 3+ Fair+ Comments tremors during resistive movements. Left Flexion (S2) 4- Good- Extension (L3) 4- Good- Ankle/Foot Strength Ankle and Foot Manual Muscle Testing Right Dorsiflexion (L4) 4+ Good+ Plantarflexion (S1) 4+ Good+ Left Dorsiflexion (L4) 4+ Good+ Plantarflexion (S1) 4+ Good+ PT-OP-Q Treatments Start: 04/15/21 16:16 Freq: Status: Active Protocol: Document 06/01/21 13:45 AMB (Rec: 06/02/21 15:55 AMB [email or web address]) Therapeutic Exercises Supine Exercises pec stretch Supine Exercise Name 30x2 Side bilateral Comments on foam roll Standing Exercises standing Y Comments off wall wall squat Reps/Minutes 4 Comments 15 hold heel raise Standing Exercise Name single leg Reps/Minutes 10 hip flexor stretch Standing Exercise Name standing with UE support Reps/Minutes 30x2 rows Standing Exercise Name t band Side bilateral Resistance #2 Reps/Minutes 2x10 Neuro Re-Education Treatment Balance Activities 1 Details tandem, semi tandem, NBOS Comments horizontal head turns, then no head turns but EC PT-OP-T Assessment and Plan Start: 04/15/21 16:16 Freq: Status: Active Protocol: Document 06/01/21 13:45 AMB (Rec: 06/02/21 15:55 AMB [email or web address]) Physical Therapy Assessment Assessment Summary Assessment Continued to encourage pt in keeping up her mobility and working as she can given her lack of sleep, she states she has lost a few more pounds, so this has not been helpful. Physical Therapy Plan Next Visit Focus/Plan Next Note Type Treatment Note Next Visit Plan Follow up on balance exercises
--- NOTE | 2021-06-09 16:01 | PT.OTN ---
Current Diagnoses Low back pain (06/09/21) Physical Therapy Treatment Note PT-OP-A Visit Information Start: 04/15/21 16:16 Freq: Status: Active Protocol: Document 06/09/21 13:45 AMB (Rec: 06/09/21 14:25 AMB [id number]) Out-Patient Physical Therapy Visit Information Visit Information Visit Type Treatment Note Visit Start Time 13:45 Visit Stop Time 14:30 Total Visit Minutes 45 Visit Number 12 PT-OP-B Current Condition Start: 04/15/21 16:16 Freq: Status: Active Protocol: Document 04/15/21 16:32 HH (Rec: 04/15/21 17:26 HH [email or web address]) Current Condition History of Current Condition Onset Date since october Current Complaints generalized pain @shoulder and back, decreased in balance History of Current Condition Olivia is a 65 yo female here for generalized pain at shoulders and back and decrease in balance. Pt has been treated by different providers for ongoing her anxiety, insomnia. Her Dexa scan shows T-score at -3.5 on 03/16/21 = osteoporotic with high fracture risk. She also recently dx with compression fx at L1-L3 via L/S MRI on 08/11. Her major c/o at this point localized back pain across lumbar spine. Denies tingling and numbness/ radiating pain. Transfer such as supine to sit/ change of position tend to increase her back pain. Her balance has been getting worse since early this year, along with new onset of tremors R >L. Her PCP is aware of that as pt stated . She states she is very wobbly and can only climb stairs with step to pattern and use of railing. Pt also c/ o increase in fatigue level who cannot tolerate much of physical activity. She also has lost 13 lbs since early this year. Pt was very active before October as she stated who was able to participate yoga 3x/wk, walk couple miles a day and hiking occasionally. Prior Treatments and Tests T score= -3.5 (february) L1-L3 compression fx (04/02/21) see EMR Pt participated an online PT class for balance training which includes, walking in tandem, heel raises, heel walking, toe walking, squat with dumbell, snow lele. Future Testing and Treatments Planned schedule neuro psychological eval with Dr. Cailin Delacruz in June. Treatment Goals Patient/Caregiver Goals 1. to know which movements are safe to do without causing fracture. 2. to strengthen her LE muscles 3. to improve her overall balance Prior Functional Status Baseline Function- Other Pt was very active before October as she stated who was able to participate yoga 3x/wk , walk couple miles a day and hiking occasionally. Current Functional Impairments (Reported) Functional Limitations- Other Patient/partner report that patient continues to be forgetful and experiencing cognitive challenges which include difficulty reading, tremors, poor balance, changes in writing, difficulty tracking finances, etc, and that overall this is worse in the morning and a bit improved in the afternoon - Personal Factors Other Personal Factors That May Effect osteoporosis Tscore =-3.5 Therapy/Recovery depression anxiety insomnia medication list [bone support] 2 tab PO BEDTIME #0 06/03/17 [History Confirmed 03/30/21] cyanocobalamin (vitamin B-12) 1,000 mcg tablet,extended release 1 mcg PO DAILY #0 [History Confirmed 03/30] estradiol 10 mcg vaginal tablet (Yuvafem) 10 mcg VAGINAL 2XW #24 each 11/27/20 [Rx Confirmed 03/30/21] estradiol 1 g VAGINAL DAILY # 42.5 g 02/25/21 [Rx Confirmed 03/30/21] fluoxetine 10 mg tablet 10 mg PO DAILY #30 tab 03/06/21 [Rx Confirmed 03/30/21] clonazepam 1 mg tablet 2 mg PO BEDTIME #60 tab 03/19/21 [Rx Confirmed 03/30/21] progesterone 2 tab PO DAILY [History Confirmed 05/12] trazodone 50 mg tablet See Rx Instructions PO BEDTIME PRN # 60 tab 04/15/21 [Rx] PT-OP-C Subjective Start: 04/15/21 16:16 Freq: Status: Active Protocol: Document 06/09/21 13:45 AMB (Rec: 06/09/21 14:25 AMB [id number]) OP-PT Subjective Patient Comments Patient Comments Pt notes continued weight loss and sleep disturbance. Most of the pain is at night. PT-OP-D Balance Start: 04/15/21 16:16 Freq: Status: Active Protocol: Document 04/15/21 16:32 HH (Rec: 04/15/21 17:26 HH [email or web address]) Balance Tests Romberg Romberg WFL Single Limb Standing Single Limb- Right >30, less stable Single Limb- Left >30 Tandem Tandem Standing >60, less stable with L foot placed in front Other Other Balance Tests Performed EC in romberg = excessive sway SLS with EC = < 3s PT-OP-H Neuro Start: 04/15/21 16:16 Freq: Status: Active Protocol: Document 04/15/21 16:32 HH (Rec: 04/15/21 17:26 [email or web address]) Sensation Evaluation Gross Sensation Gross Sensation WNL Deep Tendon Reflex & Clonus Assessment Deep Tendon Reflex Bilateral Achilles Deep Tendon Reflex 2+ Normal Bilateral Patellar Deep Tendon Reflex 2+ Normal Muscle Tone Tone Assessment Right Lower Extremity Muscle Tone Comments tremors noted during resistive LE mvoements. worse than L Left Upper Extremity Muscle Tone Comments tremors noted during fine motor movements Left Lower Extremity Muscle Tone Comments tremors noted during resistive LE movements.. Right Upper Extremity Muscle Tone Comments tremors noted during fine motor movements. worse than L PT-OP-K Range of Motion Start: 04/15/21 16:16 Freq: Status: Active Protocol: Document 04/15/21 16:32 HH (Rec: 04/15/21 17:26 [email or web address]) Hip Goniometric Range of Motion Hip Right Active Hip ROM WFL Yes Left Active Hip ROM WFL Yes PT-OP-M Strength Start: 04/15/21 16:16 Freq: Status: Active Protocol: Document 04/15/21 16:32 HH (Rec: 04/15/21 17:26 [email or web address]) Hip Strength Hip Manual Muscle Testing Right Flexion (L2) 3+ Fair+ Extension (S1) 3+ Fair+ Abduction 3+ Fair+ Adduction 3+ Fair+ Left Flexion (L2) 4- Good- Extension (S1) 4- Good- Abduction 4- Good- Adduction 4- Good- Knee Strength Knee Manual Muscle Testing Right Flexion (S2) 3+ Fair+ Extension (L3) 3+ Fair+ Comments tremors during resistive movements. Left Flexion (S2) 4- Good- Extension (L3) 4- Good- Ankle/Foot Strength Ankle and Foot Manual Muscle Testing Right Dorsiflexion (L4) 4+ Good+ Plantarflexion (S1) 4+ Good+ Left Dorsiflexion (L4) 4+ Good+ Plantarflexion (S1) 4+ Good+ PT-OP-Q Treatments Start: 04/15/21 16:16 Freq: Status: Active Protocol: Document 06/09/21 13:45 AMB (Rec: 06/09/21 15:59 AMB [email or web address]) Therapeutic Exercises Standing Exercises 4 Standing Exercise Name quad stretch Reps/Minutes 2x30 3 Standing Exercise Name [address] way biceps Reps/Minutes 3 pound dumbells 2 Standing Exercise Name shlder ER Resistance #2 Comments 10 shldr ext Standing Exercise Name band Side bilateral Resistance #2 Reps/Minutes 2x10 rows Standing Exercise Name t band Side bilateral Resistance #2 Reps/Minutes 2x10 PT-OP-T Assessment and Plan Start: 04/15/21 16:16 Freq: Status: Active Protocol: Document 06/09/21 13:45 AMB (Rec: 06/09/21 14:25 AMB [id number]) Physical Therapy Assessment Goals LE strength Impairment bilateral LE weakness R>L Short Term Goal (STG) pt will show increase in LE strength by 1 MMT grade by performing low impact exercises. STG Duration - progress limited by lack of sleep Chcf Goal (LTG) Pt will show improved LE strength and balance to be able to climb stairs reciprocally without the use of railing LTG Duration 8 weeks return to hobby Impairment unable to participate long walks, yoga, taichi Short Term Goal (STG) pt will show improved activity tolerance to be able to walk 2 miles up to 3 times a week. STG Duration 5 weeks Chcf Goal (LTG) pt will show improved activity tolerance to be able to tolerate a combination of 2 miles walking and yoga up to 4 per week. LTG Duration 10 weeks oswestry Impairment pt scores 44 on Owestry Short Term Goal (STG) pt will show overall improvements of her quality of life by scoring <35 on Owestry STG Duration 5 weeks- low back pain worst with sleeping Vice President Of Development Goal (LTG) pt will show overall improvements of her quality of life by scoring <25 on Owestry LTG Duration 10 weeks Assessment Summary Assessment Brie is continuing to do well with her form, but her energy level is a big issue for her with her ability to do her HEP . Physical Therapy Plan Next Visit Focus/Plan Next Note Type Treatment Note Next Visit Plan Finalize HEP
--- NOTE | 2021-06-16 16:00 | PT.OTN ---
Current Diagnoses Low back pain (06/16/21) Physical Therapy Treatment Note PT-OP-A Visit Information Start: 04/15/21 16:16 Freq: Status: Active Protocol: Document 06/16/21 13:47 AMB (Rec: 06/16/21 14:06 AMB [id number]) Out-Patient Physical Therapy Visit Information Visit Information Visit Type Treatment Note Visit Start Time 13:45 Visit Stop Time 14:30 Total Visit Minutes 45 Visit Number 13 PT-OP-B Current Condition Start: 04/15/21 16:16 Freq: Status: Active Protocol: Document 04/15/21 16:32 HH (Rec: 04/15/21 17:26 HH [email or web address]) Current Condition History of Current Condition Onset Date since october Current Complaints generalized pain @shoulder and back, decreased in balance History of Current Condition Olivia is a 65 yo female here for generalized pain at shoulders and back and decrease in balance. Pt has been treated by different providers for ongoing her anxiety, insomnia. Her Dexa scan shows T-score at -3.5 on 03/16/21 = osteoporotic with high fracture risk. She also recently dx with compression fx at L1-L3 via L/S MRI on 08/11. Her major c/o at this point localized back pain across lumbar spine. Denies tingling and numbness/ radiating pain. Transfer such as supine to sit/ change of position tend to increase her back pain. Her balance has been getting worse since early this year, along with new onset of tremors R >L. Her PCP is aware of that as pt stated . She states she is very wobbly and can only climb stairs with step to pattern and use of railing. Pt also c/ o increase in fatigue level who cannot tolerate much of physical activity. She also has lost 13 lbs since early this year. Pt was very active before October as she stated who was able to participate yoga 3x/wk, walk couple miles a day and hiking occasionally. Prior Treatments and Tests T score= -3.5 (february) L1-L3 compression fx (04/02/21) see EMR Pt participated an online PT class for balance training which includes, walking in tandem, heel raises, heel walking, toe walking, squat with dumbell, snow lele. Future Testing and Treatments Planned schedule neuro psychological eval with Dr. Cailin Delacruz in June. Treatment Goals Patient/Caregiver Goals 1. to know which movements are safe to do without causing fracture. 2. to strengthen her LE muscles 3. to improve her overall balance Prior Functional Status Baseline Function- Other Pt was very active before October as she stated who was able to participate yoga 3x/wk , walk couple miles a day and hiking occasionally. Current Functional Impairments (Reported) Functional Limitations- Other Patient/partner report that patient continues to be forgetful and experiencing cognitive challenges which include difficulty reading, tremors, poor balance, changes in writing, difficulty tracking finances, etc, and that overall this is worse in the morning and a bit improved in the afternoon - Personal Factors Other Personal Factors That May Effect osteoporosis Tscore =-3.5 Therapy/Recovery depression anxiety insomnia medication list [bone support] 2 tab PO BEDTIME #0 06/03/17 [History Confirmed 03/30/21] cyanocobalamin (vitamin B-12) 1,000 mcg tablet,extended release 1 mcg PO DAILY #0 [History Confirmed 03/30] estradiol 10 mcg vaginal tablet (Yuvafem) 10 mcg VAGINAL 2XW #24 each 11/27/20 [Rx Confirmed 03/30/21] estradiol 1 g VAGINAL DAILY # 42.5 g 02/25/21 [Rx Confirmed 03/30/21] fluoxetine 10 mg tablet 10 mg PO DAILY #30 tab 03/06/21 [Rx Confirmed 03/30/21] clonazepam 1 mg tablet 2 mg PO BEDTIME #60 tab 03/19/21 [Rx Confirmed 03/30/21] progesterone 2 tab PO DAILY [History Confirmed 05/12] trazodone 50 mg tablet See Rx Instructions PO BEDTIME PRN # 60 tab 04/15/21 [Rx] PT-OP-C Subjective Start: 04/15/21 16:16 Freq: Status: Active Protocol: Document 06/16/21 13:45 AMB (Rec: 06/18/21 09:39 AMB [email or web address]) OP-PT Subjective Patient Comments Patient Comments pt hasn't been walking as much due to the health concerns of her partner. PT-OP-D Balance Start: 04/15/21 16:16 Freq: Status: Active Protocol: Document 04/15/21 16:32 HH (Rec: 04/15/21 17:26 HH [email or web address]) Balance Tests Romberg Romberg WFL Single Limb Standing Single Limb- Right >30, less stable Single Limb- Left >30 Tandem Tandem Standing >60, less stable with L foot placed in front Other Other Balance Tests Performed EC in romberg = excessive sway SLS with EC = < 3s PT-OP-H Neuro Start: 04/15/21 16:16 Freq: Status: Active Protocol: Document 04/15/21 16:32 HH (Rec: 04/15/21 17:26 [email or web address]) Sensation Evaluation Gross Sensation Gross Sensation WNL Deep Tendon Reflex & Clonus Assessment Deep Tendon Reflex Bilateral Achilles Deep Tendon Reflex 2+ Normal Bilateral Patellar Deep Tendon Reflex 2+ Normal Muscle Tone Tone Assessment Right Lower Extremity Muscle Tone Comments tremors noted during resistive LE mvoements. worse than L Left Upper Extremity Muscle Tone Comments tremors noted during fine motor movements Left Lower Extremity Muscle Tone Comments tremors noted during resistive LE movements.. Right Upper Extremity Muscle Tone Comments tremors noted during fine motor movements. worse than L PT-OP-K Range of Motion Start: 04/15/21 16:16 Freq: Status: Active Protocol: Document 04/15/21 16:32 HH (Rec: 04/15/21 17:26 [email or web address]) Hip Goniometric Range of Motion Hip Right Active Hip ROM WFL Yes Left Active Hip ROM WFL Yes PT-OP-M Strength Start: 04/15/21 16:16 Freq: Status: Active Protocol: Document 04/15/21 16:32 HH (Rec: 04/15/21 17:26 [email or web address]) Hip Strength Hip Manual Muscle Testing Right Flexion (L2) 3+ Fair+ Extension (S1) 3+ Fair+ Abduction 3+ Fair+ Adduction 3+ Fair+ Left Flexion (L2) 4- Good- Extension (S1) 4- Good- Abduction 4- Good- Adduction 4- Good- Knee Strength Knee Manual Muscle Testing Right Flexion (S2) 3+ Fair+ Extension (L3) 3+ Fair+ Comments tremors during resistive movements. Left Flexion (S2) 4- Good- Extension (L3) 4- Good- Ankle/Foot Strength Ankle and Foot Manual Muscle Testing Right Dorsiflexion (L4) 4+ Good+ Plantarflexion (S1) 4+ Good+ Left Dorsiflexion (L4) 4+ Good+ Plantarflexion (S1) 4+ Good+ PT-OP-Q Treatments Start: 04/15/21 16:16 Freq: Status: Active Protocol: Document 06/16/21 13:45 AMB (Rec: 06/18/21 09:39 AMB [email or web address]) Therapeutic Exercises Supine Exercises IT band stretch Reps/Minutes 30x3 Comments with strap Standing Exercises shldr ext Standing Exercise Name band Side bilateral Resistance #2 Reps/Minutes 2x10 heel raise Standing Exercise Name single leg Reps/Minutes 10 hip flexor stretch Standing Exercise Name standing with UE support Reps/Minutes 30x2 rows Standing Exercise Name t band Side bilateral Resistance #2 Reps/Minutes 2x10 PT-OP-T Assessment and Plan Start: 04/15/21 16:16 Freq: Status: Active Protocol: Document 06/16/21 13:45 AMB (Rec: 06/18/21 09:39 AMB [email or web address]) Physical Therapy Assessment Goals LE strength Impairment bilateral LE weakness R>L Short Term Goal (STG) pt will show increase in LE strength by 1 MMT grade by performing low impact exercises. STG Duration - progress limited by lack of sleep Loom Tuner Goal (LTG) Pt will show improved LE strength and balance to be able to climb stairs reciprocally without the use of railing LTG Duration 8 weeks return to hobby Impairment unable to participate long walks, yoga, taichi Short Term Goal (STG) pt will show improved activity tolerance to be able to walk 2 miles up to 3 times a week. STG Duration 5 weeks Loom Tuner Goal (LTG) pt will show improved activity tolerance to be able to tolerate a combination of 2 miles walking and yoga up to 4 per week. LTG Duration 10 weeks oswestry Impairment pt scores 44 on Owestry Short Term Goal (STG) pt will show overall improvements of her quality of life by scoring <35 on Owestry STG Duration 5 weeks- low back pain worst with sleeping Loom Tuner Goal (LTG) pt will show overall improvements of her quality of life by scoring <25 on Owestry LTG Duration 10 weeks Assessment Summary Assessment Encouraged Brie in return to yoga, she feels like she has to modify everything so it would be difficult to do a class, but she could hire a personal financial representative if she feels like she needs that level of instruciton ,she has been instructed in a lot of exercises with PT at this point and says that she has plenty of exercises to keep her busy and work on her back pain which continues to be worst at night. Physical Therapy Plan Next Visit Focus/Plan Next Note Type Discharge Summary Next Visit Plan Reassess goals
--- NOTE | 2021-06-22 15:05 | PT.OTN ---
Current Diagnoses Low back pain (06/22/21) Physical Therapy Treatment Note PT-OP-A Visit Information Start: 04/15/21 16:16 Freq: Status: Active Protocol: Document 06/22/21 13:45 AMB (Rec: 06/22/21 15:39 AMB [email or web address]) Out-Patient Physical Therapy Visit Information Visit Information Visit Type Treatment Note Visit Start Time 13:45 Visit Stop Time 14:30 Total Visit Minutes 45 Visit Number 14 PT-OP-B Current Condition Start: 04/15/21 16:16 Freq: Status: Active Protocol: Document 04/15/21 16:32 HH (Rec: 04/15/21 17:26 HH [email or web address]) Current Condition History of Current Condition Onset Date since october Current Complaints generalized pain @shoulder and back, decreased in balance History of Current Condition Olivia is a 65 yo female here for generalized pain at shoulders and back and decrease in balance. Pt has been treated by different providers for ongoing her anxiety, insomnia. Her Dexa scan shows T-score at -3.5 on 03/16/21 = osteoporotic with high fracture risk. She also recently dx with compression fx at L1-L3 via L/S MRI on 08/11. Her major c/o at this point localized back pain across lumbar spine. Denies tingling and numbness/ radiating pain. Transfer such as supine to sit/ change of position tend to increase her back pain. Her balance has been getting worse since early this year, along with new onset of tremors R >L. Her PCP is aware of that as pt stated . She states she is very wobbly and can only climb stairs with step to pattern and use of railing. Pt also c/ o increase in fatigue level who cannot tolerate much of physical activity. She also has lost 13 lbs since early this year. Pt was very active before October as she stated who was able to participate yoga 3x/wk, walk couple miles a day and hiking occasionally. Prior Treatments and Tests T score= -3.5 (february) L1-L3 compression fx (04/02/21) see EMR Pt participated an online PT class for balance training which includes, walking in tandem, heel raises, heel walking, toe walking, squat with dumbell, snow lele. Future Testing and Treatments Planned schedule neuro psychological eval with Dr. Cailin Delacruz in June. Treatment Goals Patient/Caregiver Goals 1. to know which movements are safe to do without causing fracture. 2. to strengthen her LE muscles 3. to improve her overall balance Prior Functional Status Baseline Function- Other Pt was very active before October as she stated who was able to participate yoga 3x/wk , walk couple miles a day and hiking occasionally. Current Functional Impairments (Reported) Functional Limitations- Other Patient/partner report that patient continues to be forgetful and experiencing cognitive challenges which include difficulty reading, tremors, poor balance, changes in writing, difficulty tracking finances, etc, and that overall this is worse in the morning and a bit improved in the afternoon - Personal Factors Other Personal Factors That May Effect osteoporosis Tscore =-3.5 Therapy/Recovery depression anxiety insomnia medication list [bone support] 2 tab PO BEDTIME #0 06/03/17 [History Confirmed 03/30/21] cyanocobalamin (vitamin B-12) 1,000 mcg tablet,extended release 1 mcg PO DAILY #0 [History Confirmed 03/30] estradiol 10 mcg vaginal tablet (Yuvafem) 10 mcg VAGINAL 2XW #24 each 11/27/20 [Rx Confirmed 03/30/21] estradiol 1 g VAGINAL DAILY # 42.5 g 02/25/21 [Rx Confirmed 03/30/21] fluoxetine 10 mg tablet 10 mg PO DAILY #30 tab 03/06/21 [Rx Confirmed 03/30/21] clonazepam 1 mg tablet 2 mg PO BEDTIME #60 tab 03/19/21 [Rx Confirmed 03/30/21] progesterone 2 tab PO DAILY [History Confirmed 05/12] trazodone 50 mg tablet See Rx Instructions PO BEDTIME PRN # 60 tab 04/15/21 [Rx] PT-OP-C Subjective Start: 04/15/21 16:16 Freq: Status: Active Protocol: Document 06/22/21 13:45 AMB (Rec: 06/25/21 14:59 AMB [email or web address]) OP-PT Subjective Patient Comments Patient Comments Brie reports she is doing better as far as her pain goes , she is still having a lot of difficulty with her sleep. PT-OP-D Balance Start: 04/15/21 16:16 Freq: Status: Active Protocol: Document 04/15/21 16:32 HH (Rec: 04/15/21 17:26 HH [email or web address]) Balance Tests Romberg Romberg WFL Single Limb Standing Single Limb- Right >30, less stable Single Limb- Left >30 Tandem Tandem Standing >60, less stable with L foot placed in front Other Other Balance Tests Performed EC in romberg = excessive sway SLS with EC = < 3s PT-OP-H Neuro Start: 04/15/21 16:16 Freq: Status: Active Protocol: Document 04/15/21 16:32 HH (Rec: 04/15/21 17:26 [email or web address]) Sensation Evaluation Gross Sensation Gross Sensation WNL Deep Tendon Reflex & Clonus Assessment Deep Tendon Reflex Bilateral Achilles Deep Tendon Reflex 2+ Normal Bilateral Patellar Deep Tendon Reflex 2+ Normal Muscle Tone Tone Assessment Right Lower Extremity Muscle Tone Comments tremors noted during resistive LE mvoements. worse than L Left Upper Extremity Muscle Tone Comments tremors noted during fine motor movements Left Lower Extremity Muscle Tone Comments tremors noted during resistive LE movements.. Right Upper Extremity Muscle Tone Comments tremors noted during fine motor movements. worse than L PT-OP-K Range of Motion Start: 04/15/21 16:16 Freq: Status: Active Protocol: Document 04/15/21 16:32 HH (Rec: 04/15/21 17:26 [email or web address]) Hip Goniometric Range of Motion Hip Right Active Hip ROM WFL Yes Left Active Hip ROM WFL Yes PT-OP-M Strength Start: 04/15/21 16:16 Freq: Status: Active Protocol: Document 04/15/21 16:32 HH (Rec: 04/15/21 17:26 [email or web address]) Hip Strength Hip Manual Muscle Testing Right Flexion (L2) 3+ Fair+ Extension (S1) 3+ Fair+ Abduction 3+ Fair+ Adduction 3+ Fair+ Left Flexion (L2) 4- Good- Extension (S1) 4- Good- Abduction 4- Good- Adduction 4- Good- Knee Strength Knee Manual Muscle Testing Right Flexion (S2) 3+ Fair+ Extension (L3) 3+ Fair+ Comments tremors during resistive movements. Left Flexion (S2) 4- Good- Extension (L3) 4- Good- Ankle/Foot Strength Ankle and Foot Manual Muscle Testing Right Dorsiflexion (L4) 4+ Good+ Plantarflexion (S1) 4+ Good+ Left Dorsiflexion (L4) 4+ Good+ Plantarflexion (S1) 4+ Good+ PT-OP-Q Treatments Start: 04/15/21 16:16 Freq: Status: Active Protocol: Document 06/22/21 13:45 AMB (Rec: 06/25/21 14:59 AMB [email or web address]) Therapeutic Exercises Standing Exercises lateral step up Reps/Minutes 6, 2x10 2 Standing Exercise Name shlder ER Resistance #2 Comments 10 shldr ext Standing Exercise Name band Side bilateral Resistance #2 Reps/Minutes 2x10 rows Standing Exercise Name t band Side bilateral Resistance #2 Reps/Minutes 2x10 Neuro Re-Education Treatment Balance Activities 1 Details tandem, semi tandem, NBOS Comments horizontal head turns, then no head turns but EC PT-OP-T Assessment and Plan Start: 04/15/21 16:16 Freq: Status: Active Protocol: Document 06/22/21 13:45 AMB (Rec: 06/22/21 14:00 AMB [id number]) Physical Therapy Assessment Goals LE strength Impairment bilateral LE weakness R>L Short Term Goal (STG) pt will show increase in LE strength by 1 MMT grade by performing low impact exercises. STG Duration - progress limited by lack of sleep Mcfp Goal (LTG) Pt will show improved LE strength and balance to be able to climb stairs reciprocally without the use of railing LTG Duration MET return to hobby Impairment unable to participate long walks, yoga, taichi Short Term Goal (STG) pt will show improved activity tolerance to be able to walk 2 miles up to 3 times a week. STG Duration PROGRESS MADE Net Technical Architect Goal (LTG) pt will show improved activity tolerance to be able to tolerate a combination of 2 miles walking and yoga up to 4 per week. LTG Duration PROGRESS MADE oswestry Impairment pt scores 44 on Owestry Short Term Goal (STG) pt will show overall improvements of her quality of life by scoring <35 on Owestry STG Duration MET Net Technical Architect Goal (LTG) pt will show overall improvements of her quality of life by scoring <25 on Owestry 06/22: 22 LTG Duration MET Assessment Summary Assessment Pt's back and osteoporosis are currently managable for her. Her sleep is continuing to be a limiting factor with her energy level. She has been trained extensively in body mechanics for her strengthening with her osteoporosis diagnosis and an appropriate HEP. She is wanting to do physical therapy for her shoulder pain and would need a separate referral for that. Physical Therapy Plan Discharge Physical Therapy Discharge Reasons Patient Request
== END 2021-05-21 14:40 ==
LOC: PHYS 09:45
PROVIDERS: PCP Family Medicine; Referring Provider Family Medicine; Visit Provider Family Medicine
DX: M54.5 Low back pain (principal)
CPT/HCPCS: 97110; 97112; 97163; 97530; 97535

== ENCOUNTER → 2021-06-16 11:26 | Outpatient (CLI) | payer MEDICARE, OTHER, SELFPAY ==
[2021-06-16 13:16] LABS: BUN Creatinine Ratio 21.7 (6-22); Blood Urea Nitrogen 13 mg/dL (7-17); Calcium 9.6 mg/dL (8.4-10.2); Carbon Dioxide 32 mmol/L (22-32); Chloride 96 mmol/L (98-107); Estimated Glomerular Filt Rate > 60.0 mL/min (>60); Glucose 100 mg/dL (80-110); HEMOLYSIS < 15 (0-50); Potassium 4.3 mmol/L (3.4-5.1); Sodium 134 mmol/L (137-145)
== END ==
PROVIDERS: PCP Family Medicine; Referring Provider Internal Medicine; Visit Provider Internal Medicine
DX: M81.0 Age-related osteoporosis without current pathological fracture (principal)
CPT/HCPCS: 36415; 80048

== ENCOUNTER 2021-06-22 13:45 | Outpatient (RCR) | payer MEDICARE, OTHER, SELFPAY | END 2021-06-26 09:10 | LOC: PHYS 13:45 | PROVIDERS: PCP Family Medicine; Referring Provider Family Medicine; Visit Provider Family Medicine | DX: M54.50 Low back pain, unspecified (principal) | CPT/HCPCS: 97110 ==

== ENCOUNTER → 2021-08-03 15:25 | Outpatient (CLI) | payer MEDICARE, OTHER, SELFPAY ==
[2021-08-03 16:46] LABS: BUN Creatinine Ratio 16.5 (6-22); Blood Urea Nitrogen 15 mg/dL (7-17); Calcium 9.9 mg/dL (8.4-10.2); Carbon Dioxide 32 mmol/L (22-32); Chloride 101 mmol/L (98-107); Estimated Glomerular Filt Rate > 60.0 mL/min (>60); Glucose 100 mg/dL (80-110); HEMOLYSIS < 15 (0-50); Potassium 3.8 mmol/L (3.4-5.1); Sodium 137 mmol/L (137-145)
[2021-08-04 09:00] LABS: Parathyroid Hormone Int 20 pg/mL (15-65)
== END ==
PROVIDERS: PCP Family Medicine; Referring Provider Internal Medicine; Visit Provider Internal Medicine
DX: M81.0 Age-related osteoporosis without current pathological fracture (principal)
CPT/HCPCS: 36415; 80048; 83970

== ENCOUNTER → 2021-10-11 09:19 | Outpatient (CLI) | payer MEDICARE, OTHER, SELFPAY ==
[2021-10-11 09:47] LABS: COVID19 -Nasal RAPID Negative (Negative)
== END ==
PROVIDERS: PCP Family Medicine; Visit Provider Physician Assistant
DX: Z20.822 Contact with and (suspected) exposure to COVID-19 (principal)
CPT/HCPCS: 87635

== ENCOUNTER 2021-10-17 08:41 | Emergency (ER) | payer MEDICARE, OTHER, SELFPAY ==
[2021-10-17 09:02] VITALS: PULSE 99; RESP 23; O2SAT 96
[2021-10-17 09:05] VITALS: BP 111/57; PULSE 101; RESP 22; TEMP 36.1; O2SAT 99; BMI 17.1
--- NOTE | 2021-10-17 09:26 | DI.RAD.S_ITS ---
PROCEDURE: XR CHEST 1V INDICATIONS: chest pain TECHNIQUE: One view of the chest was acquired. COMPARISON: [facility], CT, CT CHEST W CON, 04/14/2021, 11:51. [facility], CR, XR CHEST 2V, 04/08/2021, 11:34. FINDINGS: Surgical changes and devices: None. Lungs and pleura: On this semiupright portable chest examination, no large pneumothorax or large pleural effusions are seen. No focal infiltrates are seen. Mediastinum: Mediastinal contours appear normal. Heart size is normal. Bones and chest wall: No suspicious bony lesions. Age-appropriate bony degenerative changes are seen. Levoconvex thoracolumbar scoliosis is seen. Overlying soft tissues appear unremarkable. IMPRESSION: No acute cardiopulmonary process is seen. Dictated by: Armani Kay M.D. on 10/17/2021 at 9:23 Approved by: Armani Kay M.D. on 10/17/2021 at 9:24
[2021-10-17 09:30] VITALS: BP 109/61; PULSE 84; RESP 22; O2SAT 95
[2021-10-17 09:47] LABS: Add Manual Diff / Slide Review NO; Basophils Absolute Auto 100 /uL (0-100); Basophils Percent Auto 0.8 % (0-2); Eosinophils Absolute Auto 0 /uL (0-450); Eosinophils Percent Auto 0.5 % (2-4); Hemoglobin 13.8 g/dL (12.0-16.0); Lymphocytes Absolute Auto 1500 /uL (1100-4500); Mean Corpuscular HGB Conc 33.7 % (30-36); Mean Corpuscular Hemoglobin 32.1 PG (26-34); Mean Corpuscular Volume 95.2 fL (80-100); Monocytes Absolute Auto 500 /uL (0-900); Monocytes Percent Auto 5.3 % (3-14); Neutrophils Absolute Auto 6600 /uL (1500-7000); Neutrophils Percent Auto 76.4 % (50-75); Platelet Count 243 X10^3/uL (150-400); Red Cell Distribution Width 13.3 % (11.6-14.8); White Blood Cell Count 8.7 X10^3/uL (4.5-11.0)
[2021-10-17 09:49] LABS: Alanine Aminotransferase 27 IU/L (<35); Albumin 4.5 g/dL (3.5-5.0); Albumin Globulin Ratio 1.3 (1.0-2.8); Alkaline Phosphatase 49 U/L (38-126); Aspartate Aminotransferase 35 IU/L (14-36); BUN Creatinine Ratio 29.5 (6-22); Bilirubin Total 0.3 mg/dL (0.2-1.3); Blood Urea Nitrogen 18 mg/dL (7-17); Calcium 9.2 mg/dL (8.4-10.2); Carbon Dioxide 29 mmol/L (22-32); Chloride 102 mmol/L (98-107); Creatine Kinase 24 U/L (30-135); Estimated Glomerular Filt Rate > 60.0 mL/min (>60); Globulin 3.4 g/dL (1.7-4.1); Glucose 158 mg/dL (80-110); HEMOLYSIS < 15 (0-50); Lipase 74 U/L (23-300); Magnesium 2.3 mg/dL (1.6-2.3); Potassium 3.9 mmol/L (3.4-5.1); Sodium 136 mmol/L (137-145); Total Protein 7.9 g/dL (6.3-8.2)
[2021-10-17 10:00] VITALS: BP 111/58; PULSE 80; RESP 15; O2SAT 97
[2021-10-17 10:00] LABS: Troponin I < 0.012 ng/mL (0.01-0.034)
--- NOTE | 2021-10-17 10:05 | ED.CHESTPAIN ---
HPI - Chest Pain General Chief Complaint: Chest Pain Stated Complaint: Chills, sweats , stomach pain Time Seen by Provider: 10/17/21 08:58 Source: patient Mode of arrival: Family Vehicle Limitations: no limitations Limitations: no limitations History of Present Illness HPI narrative: This is a 65-year-old female comes in with 10 days of, sweats, nausea but no vomiting, epigastric pain that radiates up to her chest and feels similar to prior GERD. Patient has not had any shortness of breath. She states that she had similar symptoms prior to taking omeprazole. That seemed to resolve the symptoms but she stopped taking it. She denies any lower abdominal or back discomfort. She had some intermittent diarrhea for several days but that has resolved and she is having normal stools now. No melena hematochezia. No dysuria, urgency or frequency. No vaginal bleeding or discharge. No passing out. Patient notes that she had significant depression about a year ago, she was on multiple psychiatric medications and medications to help with insomnia. She has stopped majority these except for her clonazepam which she takes 1 mg daily she was decreasing her dosage by 0.1 mg per week over the past 10 weeks. She also takes Lunesta. And she does Prolia injections for osteoporosis. Patient is also on a low-dose naltrexone prescribed by her an atrial path/GROUP SALES COORDINATOR in [place].since she has been feeling ill for the last 10 days she has had increasing insomnia again. She does note that she self enrolled in a sleep study through [facility]. States that since she has been feeling her depression feels like it has been flaring but she actually thought she had improved significantly she states before she was nonfunctional not even able to drive. Patient primary care is Sherin salazar, she was feeling Dr. Licona but no longer sees her. She has stopped all the psychiatric medications that she was taking. She denies other medical issues but notes weight loss over several months. No prior surgeries. No allergies to medications. No tobacco, no alcohol or illicit. She is accompanied by her . Related Data Home Medications Medication Instructions Recorded Confirmed [bone support] 2 tab PO BEDTIME #0 06/03/17 10/06/21 cyanocobalamin (vitamin B-12) 1 mcg PO DAILY #0 06/03/17 10/06/21 1,000 mcg tablet,extended release omeprazole 40 mg capsule,delayed 40 mg PO DAILY 04/21/21 10/06/21 release naltrexone 50 mg tablet 50 mg PO DAILY 04/30/21 10/06/21 eszopiclone 1 mg tablet (Lunesta) 1 mg PO BEDTIME 05/25/21 10/06/21 tizanidine 2 mg capsule 2 mg PO BEDTIME 05/25/21 10/06/21 Previous Rx's Medication Instructions Recorded trazodone 50 mg tablet See Rx Instructions PO BEDTIME PRN 04/22/21 #60 tab fluoxetine 10 mg capsule 10 mg PO DAILY #30 cap 05/11/21 clonazepam 1 mg tablet 2 mg PO BEDTIME #60 tab 05/20/21 estradiol 1 g VAGINAL DAILY #42.5 g 07/10/21 estradiol 10 mcg vaginal tablet 10 mcg VAGINAL 2XW #24 each 07/10/21 (Yuvafem) Allergies Allergy/AdvReac Type Severity Reaction Status Date / Time No Known Drug Allergies Allergy Verified 10/17/21 09:31 Review of Systems Review of Systems ROS Unobtainable: All systems reviewed & are unremarkable except as noted in HPI and below Patient History Medical History Abnormal Pap smear of cervix (~1998) Ankle fracture (~2014) Anxiety (~2003) Benign essential tremor Cervical somatic dysfunction Chicken pox Chronic left shoulder pain Chronic pain of left elbow Colon polyps (~2014) GERD (gastroesophageal reflux disease) Hemorrhoid Measles Mumps Osteopenia Osteoporosis Plantar warts Postmenopausal atrophic vaginitis Scoliosis Tinnitus Upper extremity somatic dysfunction Family History Grandfather Heart disease Grandmother Cancer Grandfather Cancer Social History marital status: unmarried,living together number of children: 0 household members: significant other lives independently: Yes caregiver/support person: No housing: house Smoking Status: Never smoker second hand exposure: No alcohol intake: current substance use type: does not use Smoking Status: Never smoker alcohol intake frequency: holidays/special occasions only Substance Use Type: does not use Exam Narrative Exam Narrative: GENERAL: Alert and oriented x three, thin female in mild distress. HEENT: Head normocephalic, atraumatic, EOMI, pupils reactive, face symmetric, moist mucous membranes NECK: Supple, full range of motion CARDIOVASCULAR: Regular rate and rhythm without murmurs, rubs or gallops. RESPIRATORY: Breath sounds equal bilaterally, no wheezes rales or rhonchi. ABDOMEN: Soft, nontender. Normoactive bowel sounds all 4 quadrants. No guarding or rebound, rigidity, no mass : No CVA tenderness EXTREMITIES: Normal range of motion, no edema. Neurovascularly intact. NEUROLOGICAL: Cranial nerves II through XII grossly intact. Moving all extremities. Normal gait. SKIN: Warm, dry, no petechiae, no rashes or lesions. PSYCH: Patient expresses depressive thoughts but not persistent depression of symptoms recently. Insomnia. No thoughts of harming self or others. Initial Vital Signs Initial Vital Signs: Vital Signs Pulse Rate 99 H 10/17/21 09:02 Respiratory Rate 23 10/17/21 09:02 Pulse Oximetry 96 10/17/21 09:02 Course Orders Ordered: ED Orders 10/17/21 09:00 Complete Blood Count AUTO DIFF Stat Comprehensive Metabolic Panel Stat Lipase Stat Magnesium Stat TSH [Thyroid Stimulating Hormone] Stat Troponin & CK Cardiac Panel Stat 10/17/21 09:04 COVID19 -Nasal swab/Pre-Proc Stat 10/17/21 09:26 XR chest 1V Stat EKG-12 Lead Stat Reevaluation(s) Reevaluation #1: Reviewed patient's labs, imaging and findings today. We discussed I suspect some of her symptoms are from GERD reflux and possibly restart her omeprazole as this seemed to be helpful in the past. In terms of her insomnia possibly needing with CBT which she was told would be helpful she met with someone but they told her to stop her medications and then return to see them. She stopped all of them except for her clonazepam and has been weaning this down to 1 mg with a plan to wean down by 0.1 mg weekly which I think is very appropriate. We discussed may be returning to see them she is in active counseling as well. Also discussed that continuing to look for other organic causes and if she is having persistent upper GI discomfort an EGD or even colonoscopy and further evaluation. They expressed interest in following up with the Internal Medicine physician specifically and referral was given. Time: 11:01 Vital Signs Vital signs: Vital Signs - 8 hr 10/17/21 09:02 10/17/21 09:05 10/17/21 09:30 Temperature 96.9 F L Pulse Rate 99 H 101 H 84 Respiratory Rate 23 22 22 Blood Pressure 111/57 L 109/61 Pulse Oximetry 96 99 95 10/17/21 10:00 10/17/21 11:26 Temperature Pulse Rate 80 75 Respiratory Rate 15 Blood Pressure 111/58 L 117/61 Pulse Oximetry 97 94 MDM - Chest Pain Lab Data Result diagrams: 10/17/21 09:00 10/17/21 09:00 Labs: Lab Results 10/17/21 10/17/21 10/17/21 Range/Units 09:00 09:00 09:00 WBC 8.7 (4.5-11.0) X10^3/uL RBC 4.30 (4.0-5.2) X10^6/uL Hgb 13.8 (12.0-16.0) g/dL Hct 41.0 (36-46) % MCV 95.2 (80-100) fL MCH 32.1 (26-34) PG MCHC 33.7 (30-36) % RDW 13.3 (11.6-14.8) % Plt Count 243 (150-400) X10^3/uL Neut % (Auto) 76.4 H (50-75) % Lymph % (Auto) 17.0 L (25-40) % [place] % (Auto) 5.3 (3-14) % Eos % (Auto) 0.5 L (2-4) % Baso % (Auto) 0.8 (0-2) % Neut # (Auto) 6600 (2554-5215) /uL Lymph # (Auto) 1500 (9764-6381) /uL [place] # (Auto) 500 (0-900) /uL Eos # (Auto) 0 (0-450) /uL Baso # (Auto) 100 (0-100) /uL Sodium 136 L (137-145) mmol/L Potassium 3.9 (3.4-5.1) mmol/L Chloride 102 (98-107) mmol/L Carbon Dioxide 29 (22-32) mmol/L BUN 18 H (7-17) mg/dL Creatinine 0.61 (0.52-1.04) mg/dL Estimated GFR > 60.0 (>60) mL/min BUN/Creatinine Ratio 29.5 H (6-22) Glucose 158 H (80-110) mg/dL Calcium 9.2 (8.4-10.2) mg/dL Magnesium 2.3 (1.6-2.3) mg/dL Total Bilirubin 0.3 (0.2-1.3) mg/dL AST 35 (14-36) IU/L ALT 27 (<35) IU/L Alkaline Phosphatase 49 (38-126) U/L Total Creatine Kinase 24 L (30-135) U/L CK-MB (CK-2) TNP CK-MB (CK-2) Rel Index TNP Troponin I < 0.012 (0.01-0.034) ng/mL Total Protein 7.9 (6.3-8.2) g/dL Albumin 4.5 (3.5-5.0) g/dL Globulin 3.4 (1.7-4.1) g/dL Albumin/Globulin Ratio 1.3 (1.0-2.8) Lipase 74 (23-300) U/L TSH 1.78 (0.47-4.68) uIU/mL SARS-CoV-2 (PCR) (Negative) 10/17/21 Range/Units 09:04 WBC (4.5-11.0) X10^3/uL RBC (4.0-5.2) X10^6/uL Hgb (12.0-16.0) g/dL Hct (36-46) % MCV (80-100) fL MCH (26-34) PG MCHC (30-36) % RDW (11.6-14.8) % Plt Count (150-400) X10^3/uL Neut % (Auto) (50-75) % Lymph % (Auto) (25-40) % [place] % (Auto) (3-14) % Eos % (Auto) (2-4) % Baso % (Auto) (0-2) % Neut # (Auto) (4735-7233) /uL Lymph # (Auto) (2120-9686) /uL [place] # (Auto) (0-900) /uL Eos # (Auto) (0-450) /uL Baso # (Auto) (0-100) /uL Sodium (137-145) mmol/L Potassium (3.4-5.1) mmol/L Chloride (98-107) mmol/L Carbon Dioxide (22-32) mmol/L BUN (7-17) mg/dL Creatinine (0.52-1.04) mg/dL Estimated GFR (>60) mL/min BUN/Creatinine Ratio (6-22) Glucose (80-110) mg/dL Calcium (8.4-10.2) mg/dL Magnesium (1.6-2.3) mg/dL Total Bilirubin (0.2-1.3) mg/dL AST (14-36) IU/L ALT (<35) IU/L Alkaline Phosphatase (38-126) U/L Total Creatine Kinase (30-135) U/L CK-MB (CK-2) CK-MB (CK-2) Rel Index Troponin I (0.01-0.034) ng/mL Total Protein (6.3-8.2) g/dL Albumin (3.5-5.0) g/dL Globulin (1.7-4.1) g/dL Albumin/Globulin Ratio (1.0-2.8) Lipase (23-300) U/L TSH (0.47-4.68) uIU/mL SARS-CoV-2 (PCR) Negative (Negative) Urine Dip Bedside Urine Glucose Negative Bedside Urine Bilirubin - Negative Bedside Urine Ketone - Negative Urine Specific [place] 1.005 Bedside Urine Occult Blood - Negative Bedside Urine pH 6.0 Bedside Urine Protein - Negative Bedside Urine Urobilinogen - Negative Bedside Urine Nitrite - Negative Bedside Urine Leukocytes - Negative Esterase ECG Data Attestation: I personally reviewed and interpreted this ECG as follows: Prior ECG tracings: not available for review Interpretation: Sinus rhythm rate of 78 MI 114 QRS 84 and QTC 442. No acute ST changes appreciated. No priors available for comparison. MDM Narrative Medical decision making narrative: This is a 65-year-old who comes in with complaint of chronic insomnia and history of significant major depression. Patient had improved but has had epigastric GI symptoms consistent with what she had in the past. She had found omeprazole helpful but stopped it trying to decrease her medications. She has been weaning down her clonazepam but very slowly and is less likely cause of her symptomatology. Patient EKG and labs do not show any other causes, her abdominal labs are reassuring today. I would recommend patient return to her omeprazole or similar medication. Follow-up with her physician or preferred provider. I would also recommend CBT if patient has not pursued this as she is reluctant to pursue any psychiatric medications for her depression or additional medications for her insomnia. Patient is open to adding her omeprazole. We discussed Carafate but she would like to defer at this time. We discussed if she thought CBT would be helpful she does see a counselor and had met with someone at that time they counseled her that she should stop her other medications before receiving CBT therapy and patient and I discussed this would likely be appropriate at this time. We also discussed following up for other organic causes all questions answered. Patient feels that her insomnia is adding to her depressive symptoms but does not feel significantly depressed at this time. Discharge Plan Departure Patient Disposition: Home Clinical Impression: Nausea, Insomnia Instructions: DI for Nausea -- Adult Activity Restrictions/Additional Instructions: I would recommend returning to your omeprazole to see if this is helpful for your epigastric discomfort. You can start at 20 mg daily but can increase to 40 mg or 2 tablets. Your labs today show some mild dehydration but no other major changes. This medication typically takes several weeks to be fully effective. Please return for new chest pain, shortness of breath, lightheadedness or passing out, persistent worsening abdominal, back or flank pain, persistent vomiting, black or bloody stools or other new or concerning symptoms. Prescriptions: No Action eszopiclone [Lunesta] 1 mg tablet 1 mg PO BEDTIME 0RF tizanidine 2 mg capsule 2 mg PO BEDTIME 0RF [bone support] 2 tab PO BEDTIME Qty: 0 0RF cyanocobalamin (vitamin B-12) 1,000 MCG tablet extended release 1 mcg PO DAILY Qty: 0 0RF omeprazole 40 mg capsule,delayed release(DR/EC) 40 mg PO DAILY 0RF trazodone 50 mg tablet See Rx Instructions PO BEDTIME PRN (Reason: insomnia) Qty: 60 0RF Rx Instructions: Take 2 at bedtime as needed for sleep...PATIENT IS NOW WEANING DOWN USING TRAZADONE DROPS TO DECREASE DOSE BY 10% EVERY 5 DAYS 04/21/21 naltrexone 50 mg tablet 50 mg PO DAILY 0RF Label Comments: This is prescribed by Bridget Gomez GROUP SALES COORDINATOR 5mg/ml taking .1ml nightly for 1 week, increasing by .1ml nightly each week until taking .9mls nightly per [facility] 04/30/21 fluoxetine 10 mg capsule 10 mg PO DAILY Qty: 30 2RF clonazepam 1 mg tablet 2 mg PO BEDTIME Qty: 60 0RF Rx Instructions: administer 30 minutes before bedtime estradiol [Yuvafem] 10 mcg tablet 10 mcg Vaginal 2XW Qty: 24 3RF estradiol 0.01 % (0.1 mg/gram) cream 1 g vaginal DAILY Qty: 42.5 2RF Rx Instructions: Apply a small dab of cream to the opening of the urethra each evening at bedtime Referrals: Salvador Velazquez MD [Non-Staff] - Queta Rae MD [Primary Care Provider] -
[2021-10-17 10:09] LABS: COVID19 -Nasal RAPID Negative (Negative)
[2021-10-17 10:30] LABS: Thyroid Stimulating Hormone 1.78 uIU/mL (0.47-4.68)
[2021-10-17 11:26] VITALS: BP 117/61; PULSE 75; O2SAT 94
== END 2021-10-17 11:44 | disposition home or self-care (01) ==
PROVIDERS: Emergency Provider Emergency Medicine; PCP Family Medicine
DX: R10.13 Epigastric pain (principal); R11.0 Nausea; G47.00 Insomnia, unspecified; R03.1 Nonspecific low blood-pressure reading; Z20.822 Contact with and (suspected) exposure to COVID-19
CPT/HCPCS: 36415; 71045; 80053; 81003; 82550; 83690; 83735; 84443; 84484; 85025; 87635; 93005; 99283; 99284; C9803

== ENCOUNTER 2021-10-19 10:30 | Outpatient (RCR) | payer MEDICARE, OTHER, SELFPAY ==
--- NOTE | 2021-07-15 16:23 | PT.OIE ---
Current Diagnoses Other chronic pain (07/15/21) Pain in left shoulder (07/15/21) Pain in left elbow (07/15/21) Past Medical History (Last Updated 05/20/21 @ 02:22 by Shefali Solis) Abnormal Pap smear of cervix (~1998) Ankle fracture (~2014) Anxiety (~2003) Benign essential tremor Cervical somatic dysfunction Chicken pox Chronic left shoulder pain Chronic pain of left elbow Colon polyps (~2014) GERD (gastroesophageal reflux disease) Hemorrhoid Measles Mumps Osteopenia Osteoporosis Plantar warts Postmenopausal atrophic vaginitis Scoliosis Tinnitus Upper extremity somatic dysfunction Visit Care Team Role Provider Type Queta Rae MD Primary Care Provider Physician Specialty: [facility] Practice Address: [address] [place] [address], [facility] Email: [email or web address] Fabiano Jimenez DO Attending Provider Physician Referring Provider Specialty: [facility] Address: [address] [place] [address], [facility] Email: Physical Therapy Initial Evaluation PT-OP-A Visit Information Start: 07/15/21 08:16 Freq: Status: Active Protocol: Document 07/15/21 08:15 AMB (Rec: 07/15/21 10:29 AMB [email or web address]) Out-Patient Physical Therapy Visit Information Visit Information Visit Type Treatment Note Visit Start Time 08:15 Visit Stop Time 09:00 Total Visit Minutes 45 Visit Number 1 PT-OP-B Current Condition Start: 07/15/21 08:16 Freq: Status: Active Protocol: Document 07/15/21 08:15 AMB (Rec: 07/15/21 08:25 AMB [id number]) Current Condition History of Current Condition Onset Date 10 months ago Current Complaints L shoulder pain History of Current Condition 10 months ago shoulder pain started, now interfering with strengthening. Worsening over the last 10 months. Interferes with sleep- sleeping on that arm is painful. Deep ache with and reaching, driving- putting the seat belt on. Weightbearing and theraband exercises have stopped because of the pain. Treatment Goals Patient/Caregiver Goals Drive, reach without pain Prior Functional Status Baseline Function- ADL's Modified Independent Baseline Function- Mobility Modified Independent Personal Factors Other Personal Factors That May Effect osteoporosis, recent weight Therapy/Recovery loss PT-OP-C Subjective Start: 07/15/21 08:16 Freq: Status: Active Protocol: Document 07/15/21 08:15 AMB (Rec: 07/15/21 16:03 AMB [email or web address]) Patient Questionnaires Quick Dash- Upper Extremity Quick Dash UE Score 36 Quick Dash UE Impairment 20 to 39% Impaired (Score 20- 39) OP-PT Pain Assessment Comments Pain Comments -02/28 PT-OP-J Posture/Palpation/Skin Start: 07/15/21 08:16 Freq: Status: Active Protocol: Document 07/15/21 08:15 AMB (Rec: 07/15/21 16:03 AMB [email or web address]) Posture Evaluation Comments Posture Comments forward head, increased thoracic kyphosis Palpation Assessment Location One Palpation Location L shoulder Palpation Details Tenderness at posterior and anterior GH joint, over biceps tendon, 1st rib, pain tends to radiate down arm but more tenderness at GH joint than at elbow. PT-OP-K Range of Motion Start: 07/15/21 08:16 Freq: Status: Active Protocol: Document 07/15/21 08:15 AMB (Rec: 07/15/21 08:36 AMB [id number]) Shoulder Goniometric Range of Motion Shoulder Left Passive Testing Position Supine Flexion 130 Abduction 88 External Rotation at 90 degrees 13 Abduction Internal Rotation 45 PT-OP-M Strength Start: 07/15/21 08:16 Freq: Status: Active Protocol: Document 07/15/21 08:15 AMB (Rec: 07/15/21 16:03 AMB [email or web address]) Shoulder Strength Shoulder Manual Muscle Testing Left Flexion 4 Good Extension 4+ Good+ Abduction (C5) 3 Fair External Rotation 3- Fair- Internal Rotation 3- Fair- Elbow/Forearm Strength Elbow and Forearm Manual Muscle Testing Left Flexion (C6) 5 Normal Extension (C7) 5 Normal PT-OP-T Assessment and Plan Start: 07/15/21 08:16 Freq: Status: Active Protocol: Document 07/15/21 08:15 AMB (Rec: 07/15/21 16:20 AMB [email or web address]) Physical Therapy Assessment Rehab Potential Rehabilitation Potential Good Evaluation Complexity Number of Personal Factors/Comorbidities 1-2 Number of Body Systems Impaired 4 or More Clinical Presentation at Evaluation Evolving Impairments Impairments Pain,Posture,ROM,Soft Tissue Mobility,Strength Goals Two Impairment Pain Short Term Goal (STG) Brie will sleep on her left shoulder without an increase in pain. STG Duration 4 weeks Product Architect Goal (LTG) Brie will lift a plate into her cabinet without shoulder pain. LTG Duration 8 weeks One Impairment ROM Short Term Goal (STG) Brie will improve her left shoulder flexion PROM to 150 degrees. STG Duration 4 weeks Product Architect Goal (LTG) Brie will improve her left shoulder abduction PROM to 120 degrees. LTG Duration 8 weeks Assessment Summary Assessment Brie attends physical therapy with 10 month history of worsening left shoulder pain that is now limiting her ability to raise her arm or lift much. She has significantly restricted passive range of motion, worst into external rotation and weakness in the shoulder as well. The pain seems to be radiating from the shoulder down the arm. She will benefit from physical therapy to improve her ROM and reduce her pain. Physical Therapy Plan Frequency and Duration Frequency of Treatment 2x/Week Duration of Treatment 10 weeks Plan of Care Start Date 07/15/21 Plan of Care End Date 09/23/21 Therapeutic Interventions Therapeutic Interventions Home Exercise Program,Joint Mobilizations,Manual Therapy, Neuromuscular Re-education, Self-Care/Home Management,Soft Tissue Mobilization, Therapeutic Activities, Therapeutic Exercises Modalities Cold Pack/Ice Massage,Electric Stimulation,Hot Packs, Ultrasound Next Visit Focus/Plan Next Note Type Treatment Note Next Visit Plan written HEP
--- NOTE | 2021-07-15 16:24 | PT.OPPOC ---
Physical, Occupational & Speech Therapy At [facility] Current Diagnoses Other chronic pain (07/15/21) Pain in left shoulder (07/15/21) Pain in left elbow (07/15/21) Visit Care Team Role Provider Type Queta Rae MD Primary Care Provider Physician Specialty: Family Practice Address: [address] [place] [address], [place], [address] Email: [email or web address] Fabiano Jimenez DO Attending Provider Physician Referring Provider Specialty: [facility] Address: [address] [place] [address], [id number] Email: Plan Of Care PT-OP-T Assessment and Plan Start: 07/15/21 08:16 Freq: Status: Active Protocol: Document 07/15/21 08:15 AMB (Rec: 07/15/21 16:20 AMB [email or web address]) Physical Therapy Assessment Rehab Potential Rehabilitation Potential Good Evaluation Complexity Number of Personal Factors/Comorbidities 1-2 Number of Body Systems Impaired 4 or More Clinical Presentation at Evaluation Evolving Impairments Impairments Pain,Posture,ROM,Soft Tissue Mobility,Strength Goals Two Impairment Pain Short Term Goal (STG) Brie will sleep on her left shoulder without an increase in pain. STG Duration 4 weeks Mcc Goal (LTG) Brie will lift a plate into her cabinet without shoulder pain. LTG Duration 8 weeks One Impairment ROM Short Term Goal (STG) Brie will improve her left shoulder flexion PROM to 150 degrees. STG Duration 4 weeks Counting Machine Operator Goal (LTG) Brie will improve her left shoulder abduction PROM to 120 degrees. LTG Duration 8 weeks Assessment Summary Assessment Brie attends physical therapy with 10 month history of worsening left shoulder pain that is now limiting her ability to raise her arm or lift much. She has significantly restricted passive range of motion, worst into external rotation and weakness in the shoulder as well. The pain seems to be radiating from the shoulder down the arm. She will benefit from physical therapy to improve her ROM and reduce her pain. Physical Therapy Plan Frequency and Duration Frequency of Treatment 2x/Week Duration of Treatment 10 weeks Plan of Care Start Date 07/15/21 Plan of Care End Date 09/23/21 Therapeutic Interventions Therapeutic Interventions Home Exercise Program,Joint Mobilizations,Manual Therapy, Neuromuscular Re-education, Self-Care/Home Management,Soft Tissue Mobilization, Therapeutic Activities, Therapeutic Exercises Modalities Cold Pack/Ice Massage,Electric Stimulation,Hot Packs, Ultrasound Next Visit Focus/Plan Next Note Type Treatment Note Next Visit Plan written HEP Plan of Care Dates Plan of Care Start Date 07/15/21 Plan of Care End Date 09/23/21 Electronically Signed by: Mariah Thurston, PT 07/15/21 [id number] Please Sign and Return: I have reviewed this Plan of Care and certify that the skilled therapy services above are required to meet the patient?s needs. Physician Signature Date Printed Name and Credentials Clinical Instructor Signature Printed Name and Credentials
--- NOTE | 2021-07-20 15:50 | PT.OTN ---
Current Diagnoses Other chronic pain (07/20/21) Pain in left shoulder (07/20/21) Pain in left elbow (07/20/21) Physical Therapy Treatment Note PT-OP-A Visit Information Start: 07/15/21 08:16 Freq: Status: Active Protocol: Document 07/20/21 14:34 AMB (Rec: 07/20/21 15:13 AMB [id number]) Out-Patient Physical Therapy Visit Information Visit Information Visit Type Treatment Note Visit Start Time 14:30 Visit Stop Time 15:15 Total Visit Minutes 45 Visit Number 2 PT-OP-B Current Condition Start: 07/15/21 08:16 Freq: Status: Active Protocol: Document 07/15/21 08:15 AMB (Rec: 07/15/21 08:25 AMB [id number]) Current Condition History of Current Condition Onset Date 10 months ago Current Complaints L shoulder pain History of Current Condition 10 months ago shoulder pain started, now interfering with strengthening. Worsening over the last 10 months. Interferes with sleep- sleeping on that arm is painful. Deep ache with and reaching, driving- putting the seat belt on. Weightbearing and theraband exercises have stopped because of the pain. Treatment Goals Patient/Caregiver Goals Drive, reach without pain Prior Functional Status Baseline Function- ADL's Modified Independent Baseline Function- Mobility Modified Independent Personal Factors Other Personal Factors That May Effect osteoporosis, recent weight Therapy/Recovery loss PT-OP-C Subjective Start: 07/15/21 08:16 Freq: Status: Active Protocol: Document 07/20/21 14:34 AMB (Rec: 07/20/21 15:13 AMB [id number]) OP-PT Subjective Patient Comments Patient Comments A little sore after last visit , doing wall crawl, Robin Chi, PT-OP-J Posture/Palpation/Skin Start: 07/15/21 08:16 Freq: Status: Active Protocol: Document 07/15/21 08:15 AMB (Rec: 07/15/21 16:03 AMB [email or web address]) Posture Evaluation Comments Posture Comments forward head, increased thoracic kyphosis Palpation Assessment Location One Palpation Location L shoulder Palpation Details Tenderness at posterior and anterior GH joint, over biceps tendon, 1st rib, pain tends to radiate down arm but more tenderness at GH joint than at elbow. PT-OP-K Range of Motion Start: 07/15/21 08:16 Freq: Status: Active Protocol: Document 07/15/21 08:15 AMB (Rec: 07/15/21 08:36 AMB [id number]) Shoulder Goniometric Range of Motion Shoulder Left Passive Testing Position Supine Flexion 130 Abduction 88 External Rotation at 90 degrees 13 Abduction Internal Rotation 45 PT-OP-M Strength Start: 07/15/21 08:16 Freq: Status: Active Protocol: Document 07/15/21 08:15 AMB (Rec: 07/15/21 16:03 AMB [email or web address]) Shoulder Strength Shoulder Manual Muscle Testing Left Flexion 4 Good Extension 4+ Good+ Abduction (C5) 3 Fair External Rotation 3- Fair- Internal Rotation 3- Fair- Elbow/Forearm Strength Elbow and Forearm Manual Muscle Testing Left Flexion (C6) 5 Normal Extension (C7) 5 Normal PT-OP-Q Treatments Start: 07/15/21 08:16 Freq: Status: Active Protocol: Document 07/20/21 14:30 AMB (Rec: 07/20/21 15:50 AMB [email or web address]) Therapeutic Exercises Supine Exercises 1 Supine Exercise Name supine punch at 90 degrees flexion Reps/Minutes 2x10 Sidelying Exercises ER AROM Reps/Minutes 2x10 Sitting Exercises 1 Sitting Exercise Name IR isometric Reps/Minutes 5x5 Manual Therapy Treatment Joint Mobilizations GH AP Grade II Manual Traction shoulder Comments with shoulder flexion, abduction PT-OP-T Assessment and Plan Start: 07/15/21 08:16 Freq: Status: Active Protocol: Document 07/20/21 14:30 AMB (Rec: 07/20/21 15:50 AMB [email or web address]) Physical Therapy Assessment Goals Two Impairment Pain Short Term Goal (STG) Brie will sleep on her left shoulder without an increase in pain. STG Duration 4 weeks Mine Boss Goal (LTG) Brie will lift a plate into her cabinet without shoulder pain. LTG Duration 8 weeks One Impairment ROM Short Term Goal (STG) Brie will improve her left shoulder flexion PROM to 150 degrees. STG Duration 4 weeks Mine Boss Goal (LTG) Brie will improve her left shoulder abduction PROM to 120 degrees. LTG Duration 8 weeks Assessment Summary Assessment Brie did well with joint distraction with stretching, pain with abduction, but tolerated isometric IR and ER AROM well. ER isometric seemed to increase pain. Physical Therapy Plan Next Visit Focus/Plan Next Visit Plan Follow up on tolerance to kinesiotape, written HEP of isometric IR and ER AROM
--- NOTE | 2021-07-23 11:02 | PT.OTN ---
Current Diagnoses Other chronic pain (07/23/21) Pain in left shoulder (07/23/21) Pain in left elbow (07/23/21) Physical Therapy Treatment Note PT-OP-A Visit Information Start: 07/15/21 08:16 Freq: Status: Active Protocol: Document 07/23/21 08:15 AMB (Rec: 07/23/21 09:02 AMB [id number]) Out-Patient Physical Therapy Visit Information Visit Information Visit Type Treatment Note Visit Start Time 08:15 Visit Stop Time 09:00 Total Visit Minutes 45 Visit Number 3 PT-OP-B Current Condition Start: 07/15/21 08:16 Freq: Status: Active Protocol: Document 07/15/21 08:15 AMB (Rec: 07/15/21 08:25 AMB [id number]) Current Condition History of Current Condition Onset Date 10 months ago Current Complaints L shoulder pain History of Current Condition 10 months ago shoulder pain started, now interfering with strengthening. Worsening over the last 10 months. Interferes with sleep- sleeping on that arm is painful. Deep ache with and reaching, driving- putting the seat belt on. Weightbearing and theraband exercises have stopped because of the pain. Treatment Goals Patient/Caregiver Goals Drive, reach without pain Prior Functional Status Baseline Function- ADL's Modified Independent Baseline Function- Mobility Modified Independent Personal Factors Other Personal Factors That May Effect osteoporosis, recent weight Therapy/Recovery loss PT-OP-C Subjective Start: 07/15/21 08:16 Freq: Status: Active Protocol: Document 07/23/21 10:15 AMB (Rec: 07/23/21 11:02 AMB [email or web address]) OP-PT Subjective Patient Comments Patient Comments Wondering about quadruped activities PT-OP-J Posture/Palpation/Skin Start: 07/15/21 08:16 Freq: Status: Active Protocol: Document 07/15/21 08:15 AMB (Rec: 07/15/21 16:03 AMB [email or web address]) Posture Evaluation Comments Posture Comments forward head, increased thoracic kyphosis Palpation Assessment Location One Palpation Location L shoulder Palpation Details Tenderness at posterior and anterior GH joint, over biceps tendon, 1st rib, pain tends to radiate down arm but more tenderness at GH joint than at elbow. PT-OP-K Range of Motion Start: 07/15/21 08:16 Freq: Status: Active Protocol: Document 07/15/21 08:15 AMB (Rec: 07/15/21 08:36 AMB [id number]) Shoulder Goniometric Range of Motion Shoulder Left Passive Testing Position Supine Flexion 130 Abduction 88 External Rotation at 90 degrees 13 Abduction Internal Rotation 45 PT-OP-M Strength Start: 07/15/21 08:16 Freq: Status: Active Protocol: Document 07/15/21 08:15 AMB (Rec: 07/15/21 16:03 AMB [email or web address]) Shoulder Strength Shoulder Manual Muscle Testing Left Flexion 4 Good Extension 4+ Good+ Abduction (C5) 3 Fair External Rotation 3- Fair- Internal Rotation 3- Fair- Elbow/Forearm Strength Elbow and Forearm Manual Muscle Testing Left Flexion (C6) 5 Normal Extension (C7) 5 Normal PT-OP-Q Treatments Start: 07/15/21 08:16 Freq: Status: Active Protocol: Document 07/23/21 10:15 AMB (Rec: 07/23/21 11:02 AMB [email or web address]) Therapeutic Exercises Supine Exercises 2 Supine Exercise Name flexion AAROM then AROM controlling down Reps/Minutes 10 1 Supine Exercise Name supine punch at 90 degrees flexion Reps/Minutes 2x10 Sidelying Exercises 1 Sidelying Exercise Name abduction- small range AROM Reps/Minutes 10 Comments 0-30 degrees ER AROM Reps/Minutes 2x10 Sitting Exercises 1 Sitting Exercise Name IR isometric Reps/Minutes 5x5 Other Exercises 1 Other Exercise Name quadruped on ball Comments to decrease pain Manual Therapy Treatment Soft Tissue Mobilization 1 Body Location scapula Mobilization Type Myofascial Release,Strumming, Sustained Pressure Intensity/Depth Superficial Body Position Sidelying Joint Mobilizations GH AP Grade II Manual Traction shoulder Comments with shoulder flexion, abduction PT-OP-T Assessment and Plan Start: 07/15/21 08:16 Freq: Status: Active Protocol: Document 07/23/21 10:15 AMB (Rec: 07/23/21 11:02 AMB [email or web address]) Physical Therapy Assessment Goals Two Impairment Pain Short Term Goal (STG) Brie will sleep on her left shoulder without an increase in pain. STG Duration 4 weeks Consultative Sales Associate Goal (LTG) Brie will lift a plate into her cabinet without shoulder pain. LTG Duration 8 weeks One Impairment ROM Short Term Goal (STG) Brie will improve her left shoulder flexion PROM to 150 degrees. STG Duration 4 weeks Custodial Goal (LTG) Brie will improve her left shoulder abduction PROM to 120 degrees. LTG Duration 8 weeks Assessment Summary Assessment Brie continues to have pain/ weakness but is able to do her exercises without significant pain. Physical Therapy Plan Next Visit Focus/Plan Next Note Type Treatment Note Next Visit Plan follow up on new exercises of shoulder flexion and abduction
--- NOTE | 2021-07-27 16:00 | PT.OTN ---
Current Diagnoses Other chronic pain (07/27/21) Pain in left shoulder (07/27/21) Pain in left elbow (07/27/21) Physical Therapy Treatment Note PT-OP-A Visit Information Start: 07/15/21 08:16 Freq: Status: Active Protocol: Document 07/27/21 14:30 AMB (Rec: 07/29/21 10:15 AMB [email or web address]) Out-Patient Physical Therapy Visit Information Visit Information Visit Type Treatment Note Visit Start Time 14:40 Visit Stop Time 15:20 Total Visit Minutes 40 Visit Number 4 PT-OP-B Current Condition Start: 07/15/21 08:16 Freq: Status: Active Protocol: Document 07/15/21 08:15 AMB (Rec: 07/15/21 08:25 AMB [id number]) Current Condition History of Current Condition Onset Date 10 months ago Current Complaints L shoulder pain History of Current Condition 10 months ago shoulder pain started, now interfering with strengthening. Worsening over the last 10 months. Interferes with sleep- sleeping on that arm is painful. Deep ache with and reaching, driving- putting the seat belt on. Weightbearing and theraband exercises have stopped because of the pain. Treatment Goals Patient/Caregiver Goals Drive, reach without pain Prior Functional Status Baseline Function- ADL's Modified Independent Baseline Function- Mobility Modified Independent Personal Factors Other Personal Factors That May Effect osteoporosis, recent weight Therapy/Recovery loss PT-OP-C Subjective Start: 07/15/21 08:16 Freq: Status: Active Protocol: Document 07/27/21 14:30 AMB (Rec: 07/29/21 10:15 AMB [email or web address]) OP-PT Subjective Patient Comments Patient Comments Feels like range improving a bit, still painful though PT-OP-J Posture/Palpation/Skin Start: 07/15/21 08:16 Freq: Status: Active Protocol: Document 07/15/21 08:15 AMB (Rec: 07/15/21 16:03 AMB [email or web address]) Posture Evaluation Comments Posture Comments forward head, increased thoracic kyphosis Palpation Assessment Location One Palpation Location L shoulder Palpation Details Tenderness at posterior and anterior GH joint, over biceps tendon, 1st rib, pain tends to radiate down arm but more tenderness at GH joint than at elbow. PT-OP-K Range of Motion Start: 07/15/21 08:16 Freq: Status: Active Protocol: Document 07/15/21 08:15 AMB (Rec: 07/15/21 08:36 AMB [id number]) Shoulder Goniometric Range of Motion Shoulder Left Passive Testing Position Supine Flexion 130 Abduction 88 External Rotation at 90 degrees 13 Abduction Internal Rotation 45 PT-OP-M Strength Start: 07/15/21 08:16 Freq: Status: Active Protocol: Document 07/15/21 08:15 AMB (Rec: 07/15/21 16:03 AMB [email or web address]) Shoulder Strength Shoulder Manual Muscle Testing Left Flexion 4 Good Extension 4+ Good+ Abduction (C5) 3 Fair External Rotation 3- Fair- Internal Rotation 3- Fair- Elbow/Forearm Strength Elbow and Forearm Manual Muscle Testing Left Flexion (C6) 5 Normal Extension (C7) 5 Normal PT-OP-Q Treatments Start: 07/15/21 08:16 Freq: Status: Active Protocol: Document 07/27/21 14:30 AMB (Rec: 07/29/21 10:15 AMB [email or web address]) Therapeutic Exercises Supine Exercises 1 Supine Exercise Name supine punch at 90 degrees flexion Reps/Minutes 2x10 Sidelying Exercises 1 Sidelying Exercise Name abduction- small range AROM Reps/Minutes 10 Comments 0-30 degrees ER AROM Reps/Minutes 2x10 Manual Therapy Treatment Soft Tissue Mobilization 1 Body Location scapula Mobilization Type Myofascial Release,Strumming, Sustained Pressure Intensity/Depth Superficial Body Position Sidelying Joint Mobilizations 1 Joint inferior glides Grade IV GH AP Grade IV Manual Traction shoulder Comments with shoulder flexion, abduction Manual Techniques 1 Type GH PROM Body Position Hooklying PT-OP-T Assessment and Plan Start: 07/15/21 08:16 Freq: Status: Active Protocol: Document 07/27/21 14:30 AMB (Rec: 07/29/21 10:15 AMB [email or web address]) Physical Therapy Assessment Goals Two Impairment Pain Short Term Goal (STG) Brie will sleep on her left shoulder without an increase in pain. STG Duration 4 weeks [facility] Goal (LTG) Brie will lift a plate into her cabinet without shoulder pain. LTG Duration 8 weeks One Impairment ROM Short Term Goal (STG) Brie will improve her left shoulder flexion PROM to 150 degrees. STG Duration 4 weeks Sliver Handler Goal (LTG) Brie will improve her left shoulder abduction PROM to 120 degrees. LTG Duration 8 weeks Assessment Summary Assessment Encouraged pt in forearm, biceps exercises. Was more agressive with manual therapy today, so pt might be sore but encouraged in icing to manage any inflammatory response and continue to move shoulder as possible. Physical Therapy Plan Next Visit Focus/Plan Next Note Type Treatment Note Next Visit Plan follow up on new exercises of shoulder flexion and abduction
--- NOTE | 2021-07-30 15:43 | PT.OTN ---
Current Diagnoses Other chronic pain (07/30/21) Pain in left shoulder (07/30/21) Pain in left elbow (07/30/21) Physical Therapy Treatment Note PT-OP-A Visit Information Start: 07/15/21 08:16 Freq: Status: Active Protocol: Document 07/30/21 14:30 AMB (Rec: 07/30/21 15:28 AMB [id number]) Out-Patient Physical Therapy Visit Information Visit Information Visit Type Treatment Note Visit Start Time 14:30 Visit Stop Time 15:15 Total Visit Minutes 40 Visit Number 5 PT-OP-B Current Condition Start: 07/15/21 08:16 Freq: Status: Active Protocol: Document 07/15/21 08:15 AMB (Rec: 07/15/21 08:25 AMB [id number]) Current Condition History of Current Condition Onset Date 10 months ago Current Complaints L shoulder pain History of Current Condition 10 months ago shoulder pain started, now interfering with strengthening. Worsening over the last 10 months. Interferes with sleep- sleeping on that arm is painful. Deep ache with and reaching, driving- putting the seat belt on. Weightbearing and theraband exercises have stopped because of the pain. Treatment Goals Patient/Caregiver Goals Drive, reach without pain Prior Functional Status Baseline Function- ADL's Modified Independent Baseline Function- Mobility Modified Independent Personal Factors Other Personal Factors That May Effect osteoporosis, recent weight Therapy/Recovery loss PT-OP-C Subjective Start: 07/15/21 08:16 Freq: Status: Active Protocol: Document 07/30/21 14:30 AMB (Rec: 07/30/21 15:43 AMB [email or web address]) OP-PT Subjective Patient Comments Patient Comments Feels better after her massage . PT-OP-J Posture/Palpation/Skin Start: 07/15/21 08:16 Freq: Status: Active Protocol: Document 07/15/21 08:15 AMB (Rec: 07/15/21 16:03 AMB [email or web address]) Posture Evaluation Comments Posture Comments forward head, increased thoracic kyphosis Palpation Assessment Location One Palpation Location L shoulder Palpation Details Tenderness at posterior and anterior GH joint, over biceps tendon, 1st rib, pain tends to radiate down arm but more tenderness at GH joint than at elbow. PT-OP-K Range of Motion Start: 07/15/21 08:16 Freq: Status: Active Protocol: Document 07/15/21 08:15 AMB (Rec: 07/15/21 08:36 AMB [id number]) Shoulder Goniometric Range of Motion Shoulder Left Passive Testing Position Supine Flexion 130 Abduction 88 External Rotation at 90 degrees 13 Abduction Internal Rotation 45 PT-OP-M Strength Start: 07/15/21 08:16 Freq: Status: Active Protocol: Document 07/15/21 08:15 AMB (Rec: 07/15/21 16:03 AMB [email or web address]) Shoulder Strength Shoulder Manual Muscle Testing Left Flexion 4 Good Extension 4+ Good+ Abduction (C5) 3 Fair External Rotation 3- Fair- Internal Rotation 3- Fair- Elbow/Forearm Strength Elbow and Forearm Manual Muscle Testing Left Flexion (C6) 5 Normal Extension (C7) 5 Normal PT-OP-Q Treatments Start: 07/15/21 08:16 Freq: Status: Active Protocol: Document 07/30/21 14:30 AMB (Rec: 07/30/21 15:43 AMB [email or web address]) Therapeutic Exercises Supine Exercises 1 Supine Exercise Name supine punch at 90 degrees flexion Reps/Minutes 2x10 Sitting Exercises mechelle Comments flexion and scaption Standing Exercises 3 Standing Exercise Name IR wiht dowel Reps/Minutes 10 2 Standing Exercise Name t band IR Equipment Used #2 Reps/Minutes 10 1 Standing Exercise Name t band ER Equipment Used #2 Reps/Minutes 10 Manual Therapy Treatment Soft Tissue Mobilization 1 Body Location scapula Mobilization Type Myofascial Release,Strumming, Sustained Pressure Intensity/Depth Superficial Body Position Sidelying Joint Mobilizations 1 Joint inferior glides Grade IV GH AP Grade IV Manual Techniques 1 Type GH PROM Body Position Hooklying PT-OP-T Assessment and Plan Start: 07/15/21 08:16 Freq: Status: Active Protocol: Document 07/30/21 14:30 AMB (Rec: 07/30/21 15:43 AMB [email or web address]) Physical Therapy Assessment Assessment Summary Assessment Brie came in and had not done many exercises yet today, so upon initial ROM measurement measured 130 of flexion and 82 of abduction. Did improve after manual therapy and exercise to 90 degrees of abduction. Physical Therapy Plan Next Visit Focus/Plan Next Note Type Treatment Note Next Visit Plan follow up on new exercises of t band ER and IR
--- NOTE | 2021-08-03 15:34 | PT.OTN ---
Current Diagnoses Other chronic pain (08/03/21) Pain in left shoulder (08/03/21) Pain in left elbow (08/03/21) Physical Therapy Treatment Note PT-OP-A Visit Information Start: 07/15/21 08:16 Freq: Status: Active Protocol: Document 08/03/21 14:31 AMB (Rec: 08/03/21 15:14 AMB [id number]) Out-Patient Physical Therapy Visit Information Visit Information Visit Type Treatment Note Visit Start Time 14:30 Visit Stop Time 15:15 Total Visit Minutes 45 Visit Number 6 PT-OP-B Current Condition Start: 07/15/21 08:16 Freq: Status: Active Protocol: Document 07/15/21 08:15 AMB (Rec: 07/15/21 08:25 AMB [id number]) Current Condition History of Current Condition Onset Date 10 months ago Current Complaints L shoulder pain History of Current Condition 10 months ago shoulder pain started, now interfering with strengthening. Worsening over the last 10 months. Interferes with sleep- sleeping on that arm is painful. Deep ache with and reaching, driving- putting the seat belt on. Weightbearing and theraband exercises have stopped because of the pain. Treatment Goals Patient/Caregiver Goals Drive, reach without pain Prior Functional Status Baseline Function- ADL's Modified Independent Baseline Function- Mobility Modified Independent Personal Factors Other Personal Factors That May Effect osteoporosis, recent weight Therapy/Recovery loss PT-OP-C Subjective Start: 07/15/21 08:16 Freq: Status: Active Protocol: Document 08/03/21 14:31 AMB (Rec: 08/03/21 15:14 AMB [id number]) OP-PT Subjective Patient Comments Patient Comments [place] ok after last tx, got a massage this morning. PT-OP-J Posture/Palpation/Skin Start: 07/15/21 08:16 Freq: Status: Active Protocol: Document 07/15/21 08:15 AMB (Rec: 07/15/21 16:03 AMB [email or web address]) Posture Evaluation Comments Posture Comments forward head, increased thoracic kyphosis Palpation Assessment Location One Palpation Location L shoulder Palpation Details Tenderness at posterior and anterior GH joint, over biceps tendon, 1st rib, pain tends to radiate down arm but more tenderness at GH joint than at elbow. PT-OP-K Range of Motion Start: 07/15/21 08:16 Freq: Status: Active Protocol: Document 07/15/21 08:15 AMB (Rec: 07/15/21 08:36 AMB [id number]) Shoulder Goniometric Range of Motion Shoulder Left Passive Testing Position Supine Flexion 130 Abduction 88 External Rotation at 90 degrees 13 Abduction Internal Rotation 45 PT-OP-M Strength Start: 07/15/21 08:16 Freq: Status: Active Protocol: Document 07/15/21 08:15 AMB (Rec: 07/15/21 16:03 AMB [email or web address]) Shoulder Strength Shoulder Manual Muscle Testing Left Flexion 4 Good Extension 4+ Good+ Abduction (C5) 3 Fair External Rotation 3- Fair- Internal Rotation 3- Fair- Elbow/Forearm Strength Elbow and Forearm Manual Muscle Testing Left Flexion (C6) 5 Normal Extension (C7) 5 Normal PT-OP-Q Treatments Start: 07/15/21 08:16 Freq: Status: Active Protocol: Document 08/03/21 14:31 AMB (Rec: 08/03/21 15:14 AMB [id number]) Cardio Equipment Upper Body Ergometer (UBE) Duration (Minutes) 5 Other fwd/backward Therapeutic Exercises Sitting Exercises mechelle Reps/Minutes 5 min Comments flexion and scaption Standing Exercises 2 Standing Exercise Name t band IR Equipment Used #2 Reps/Minutes 2xx10 1 Standing Exercise Name t band ER Equipment Used #2 Reps/Minutes 2x10 Manual Therapy Treatment Joint Mobilizations 1 Joint inferior glides Grade IV GH AP Grade IV Manual Techniques 1 Type GH PROM Body Position Hooklying PT-OP-T Assessment and Plan Start: 07/15/21 08:16 Freq: Status: Active Protocol: Document 08/03/21 14:31 AMB (Rec: 08/03/21 15:14 AMB [id number]) Physical Therapy Assessment Assessment Summary Assessment Continues to have reduced ROM in above shoulder height, but did well with pulleys and UBE. Better after manual and exercise wiht active flexion. Physical Therapy Plan Next Visit Focus/Plan Next Note Type Treatment Note
--- NOTE | 2021-08-06 16:00 | PT.OTN ---
Current Diagnoses Other chronic pain (08/06/21) Pain in left shoulder (08/06/21) Pain in left elbow (08/06/21) Physical Therapy Treatment Note PT-OP-A Visit Information Start: 07/15/21 08:16 Freq: Status: Active Protocol: Document 08/06/21 13:00 AMB (Rec: 08/06/21 13:49 AMB [id number]) Out-Patient Physical Therapy Visit Information Visit Information Visit Type Treatment Note Visit Start Time 13:00 Visit Stop Time 13:45 Total Visit Minutes 45 Visit Number 7 PT-OP-B Current Condition Start: 07/15/21 08:16 Freq: Status: Active Protocol: Document 07/15/21 08:15 AMB (Rec: 07/15/21 08:25 AMB [id number]) Current Condition History of Current Condition Onset Date 10 months ago Current Complaints L shoulder pain History of Current Condition 10 months ago shoulder pain started, now interfering with strengthening. Worsening over the last 10 months. Interferes with sleep- sleeping on that arm is painful. Deep ache with and reaching, driving- putting the seat belt on. Weightbearing and theraband exercises have stopped because of the pain. Treatment Goals Patient/Caregiver Goals Drive, reach without pain Prior Functional Status Baseline Function- ADL's Modified Independent Baseline Function- Mobility Modified Independent Personal Factors Other Personal Factors That May Effect osteoporosis, recent weight Therapy/Recovery loss PT-OP-C Subjective Start: 07/15/21 08:16 Freq: Status: Active Protocol: Document 08/06/21 13:00 AMB (Rec: 08/07/21 09:44 AMB [id number]) OP-PT Subjective Patient Comments Patient Comments Brie tried to push her range and has been sore since. PT-OP-J Posture/Palpation/Skin Start: 07/15/21 08:16 Freq: Status: Active Protocol: Document 07/15/21 08:15 AMB (Rec: 07/15/21 16:03 AMB [email or web address]) Posture Evaluation Comments Posture Comments forward head, increased thoracic kyphosis Palpation Assessment Location One Palpation Location L shoulder Palpation Details Tenderness at posterior and anterior GH joint, over biceps tendon, 1st rib, pain tends to radiate down arm but more tenderness at GH joint than at elbow. PT-OP-K Range of Motion Start: 07/15/21 08:16 Freq: Status: Active Protocol: Document 07/15/21 08:15 AMB (Rec: 07/15/21 08:36 AMB [id number]) Shoulder Goniometric Range of Motion Shoulder Left Passive Testing Position Supine Flexion 130 Abduction 88 External Rotation at 90 degrees 13 Abduction Internal Rotation 45 PT-OP-M Strength Start: 07/15/21 08:16 Freq: Status: Active Protocol: Document 07/15/21 08:15 AMB (Rec: 07/15/21 16:03 AMB [email or web address]) Shoulder Strength Shoulder Manual Muscle Testing Left Flexion 4 Good Extension 4+ Good+ Abduction (C5) 3 Fair External Rotation 3- Fair- Internal Rotation 3- Fair- Elbow/Forearm Strength Elbow and Forearm Manual Muscle Testing Left Flexion (C6) 5 Normal Extension (C7) 5 Normal PT-OP-Q Treatments Start: 07/15/21 08:16 Freq: Status: Active Protocol: Document 08/06/21 13:00 AMB (Rec: 08/08/21 10:46 AMB [id number]) Cardio Equipment Upper Body Ergometer (UBE) Duration (Minutes) 5 Other fwd/backward Therapeutic Exercises Supine Exercises 1 Supine Exercise Name supine punch at 90 degrees flexion Reps/Minutes 2x10 Sitting Exercises mechelle Reps/Minutes 5 min Comments flexion and scaption Standing Exercises 4 Standing Exercise Name rows Resistance #2 t band Reps/Minutes 2x10 2 Standing Exercise Name t band IR Equipment Used #2 Reps/Minutes 2xx10 1 Standing Exercise Name t band ER Equipment Used #2 Reps/Minutes 2x10 Manual Therapy Treatment Soft Tissue Mobilization 1 Body Location scapula Mobilization Type Myofascial Release,Strumming, Sustained Pressure Intensity/Depth Superficial Body Position Sidelying Manual Techniques 1 Type GH PROM Body Position Hooklying Comments becky working into abduction with stabilizing scap. PT-OP-T Assessment and Plan Start: 07/15/21 08:16 Freq: Status: Active Protocol: Document 08/06/21 13:00 AMB (Rec: 08/07/21 09:44 AMB [id number]) Physical Therapy Assessment Goals Two Impairment Pain Short Term Goal (STG) Brie will sleep on her left shoulder without an increase in pain. STG Duration 4 weeks Intermediate Goal (LTG) Brie will lift a plate into her cabinet without shoulder pain. LTG Duration 8 weeks One Impairment ROM Short Term Goal (STG) Brie will improve her left shoulder flexion PROM to 150 degrees. STG Duration 4 weeks Rn Clinical Appeals Goal (LTG) Brie will improve her left shoulder abduction PROM to 120 degrees. LTG Duration 8 weeks Assessment Summary Assessment Brie was sore with end range especially abduction today. Encouraged to continue with rotator cuff strengthening and gently work end range but not to force. Continue to be gentle with over shoulder height AROM. Physical Therapy Plan Next Visit Focus/Plan Next Note Type Treatment Note Next Visit Plan Review HEP strengthening
--- NOTE | 2021-08-10 14:46 | PT.OTN ---
Current Diagnoses Other chronic pain (08/10/21) Pain in left shoulder (08/10/21) Pain in left elbow (08/10/21) Physical Therapy Treatment Note PT-OP-A Visit Information Start: 07/15/21 08:16 Freq: Status: Active Protocol: Document 08/10/21 13:00 AMB (Rec: 08/10/21 13:15 AMB [id number]) Out-Patient Physical Therapy Visit Information Visit Information Visit Type Treatment Note Visit Start Time 13:00 Visit Stop Time 13:45 Total Visit Minutes 45 Visit Number 8 PT-OP-B Current Condition Start: 07/15/21 08:16 Freq: Status: Active Protocol: Document 07/15/21 08:15 AMB (Rec: 07/15/21 08:25 AMB [id number]) Current Condition History of Current Condition Onset Date 10 months ago Current Complaints L shoulder pain History of Current Condition 10 months ago shoulder pain started, now interfering with strengthening. Worsening over the last 10 months. Interferes with sleep- sleeping on that arm is painful. Deep ache with and reaching, driving- putting the seat belt on. Weightbearing and theraband exercises have stopped because of the pain. Treatment Goals Patient/Caregiver Goals Drive, reach without pain Prior Functional Status Baseline Function- ADL's Modified Independent Baseline Function- Mobility Modified Independent Personal Factors Other Personal Factors That May Effect osteoporosis, recent weight Therapy/Recovery loss PT-OP-C Subjective Start: 07/15/21 08:16 Freq: Status: Active Protocol: Document 08/10/21 13:00 AMB (Rec: 08/10/21 13:15 AMB [id number]) OP-PT Subjective Patient Comments Patient Comments Brie took a rest day yesterday and felt that was helpful. PT-OP-J Posture/Palpation/Skin Start: 07/15/21 08:16 Freq: Status: Active Protocol: Document 07/15/21 08:15 AMB (Rec: 07/15/21 16:03 AMB [email or web address]) Posture Evaluation Comments Posture Comments forward head, increased thoracic kyphosis Palpation Assessment Location One Palpation Location L shoulder Palpation Details Tenderness at posterior and anterior GH joint, over biceps tendon, 1st rib, pain tends to radiate down arm but more tenderness at GH joint than at elbow. PT-OP-K Range of Motion Start: 07/15/21 08:16 Freq: Status: Active Protocol: Document 08/10/21 13:00 AMB (Rec: 08/10/21 13:45 AMB [id number]) Shoulder Goniometric Range of Motion Shoulder Left Passive Flexion 120 Abduction 95 External Rotation at 90 degrees 25 Abduction PT-OP-M Strength Start: 07/15/21 08:16 Freq: Status: Active Protocol: Document 07/15/21 08:15 AMB (Rec: 07/15/21 16:03 AMB [email or web address]) Shoulder Strength Shoulder Manual Muscle Testing Left Flexion 4 Good Extension 4+ Good+ Abduction (C5) 3 Fair External Rotation 3- Fair- Internal Rotation 3- Fair- Elbow/Forearm Strength Elbow and Forearm Manual Muscle Testing Left Flexion (C6) 5 Normal Extension (C7) 5 Normal PT-OP-Q Treatments Start: 07/15/21 08:16 Freq: Status: Active Protocol: Document 08/10/21 13:00 AMB (Rec: 08/10/21 14:45 AMB [id number]) Cardio Equipment Upper Body Ergometer (UBE) Duration (Minutes) 5 Other fwd/backward Manual Therapy Treatment Joint Mobilizations 1 Joint inferior glides Grade IV GH AP Grade IV Manual Traction shoulder Comments with shoulder flexion, abduction Taping 1 Body Location L shoulder Treatment Focus GH support Type of Tape kinesiotape Comments I and Y Manual Techniques 1 Type GH PROM Body Position Hooklying Comments becky working into abduction with stabilizing scap. PT-OP-T Assessment and Plan Start: 07/15/21 08:16 Freq: Status: Active Protocol: Document 08/10/21 13:00 AMB (Rec: 08/10/21 14:45 AMB [id number]) Physical Therapy Assessment Assessment Summary Assessment Brie tolerated PROM well today , but continues to have tightness/restriction. Doubled ER range in comparison to ruben, and notices decreased pain with dressing. Physical Therapy Plan Next Visit Focus/Plan Next Note Type Treatment Note Next Visit Plan Review HEP strengthening, progress range
--- NOTE | 2021-08-12 15:09 | PT.OTN ---
Current Diagnoses Other chronic pain (08/12/21) Pain in left shoulder (08/12/21) Pain in left elbow (08/12/21) Physical Therapy Treatment Note PT-OP-A Visit Information Start: 07/15/21 08:16 Freq: Status: Active Protocol: Document 08/12/21 12:55 AMB (Rec: 08/12/21 13:49 AMB [id number]) Out-Patient Physical Therapy Visit Information Visit Information Visit Type Treatment Note Visit Start Time 13:00 Visit Stop Time 13:45 Total Visit Minutes 45 Visit Number 9 PT-OP-B Current Condition Start: 07/15/21 08:16 Freq: Status: Active Protocol: Document 07/15/21 08:15 AMB (Rec: 07/15/21 08:25 AMB [id number]) Current Condition History of Current Condition Onset Date 10 months ago Current Complaints L shoulder pain History of Current Condition 10 months ago shoulder pain started, now interfering with strengthening. Worsening over the last 10 months. Interferes with sleep- sleeping on that arm is painful. Deep ache with and reaching, driving- putting the seat belt on. Weightbearing and theraband exercises have stopped because of the pain. Treatment Goals Patient/Caregiver Goals Drive, reach without pain Prior Functional Status Baseline Function- ADL's Modified Independent Baseline Function- Mobility Modified Independent Personal Factors Other Personal Factors That May Effect osteoporosis, recent weight Therapy/Recovery loss PT-OP-C Subjective Start: 07/15/21 08:16 Freq: Status: Active Protocol: Document 08/12/21 13:00 AMB (Rec: 08/12/21 15:09 AMB [id number]) OP-PT Subjective Patient Comments Patient Comments Pt was sore after last visit, for about a day. PT-OP-J Posture/Palpation/Skin Start: 07/15/21 08:16 Freq: Status: Active Protocol: Document 07/15/21 08:15 AMB (Rec: 07/15/21 16:03 AMB [email or web address]) Posture Evaluation Comments Posture Comments forward head, increased thoracic kyphosis Palpation Assessment Location One Palpation Location L shoulder Palpation Details Tenderness at posterior and anterior GH joint, over biceps tendon, 1st rib, pain tends to radiate down arm but more tenderness at GH joint than at elbow. PT-OP-K Range of Motion Start: 07/15/21 08:16 Freq: Status: Active Protocol: Document 08/10/21 13:00 AMB (Rec: 08/10/21 13:45 AMB [id number]) Shoulder Goniometric Range of Motion Shoulder Left Passive Flexion 120 Abduction 95 External Rotation at 90 degrees 25 Abduction PT-OP-M Strength Start: 07/15/21 08:16 Freq: Status: Active Protocol: Document 07/15/21 08:15 AMB (Rec: 07/15/21 16:03 AMB [email or web address]) Shoulder Strength Shoulder Manual Muscle Testing Left Flexion 4 Good Extension 4+ Good+ Abduction (C5) 3 Fair External Rotation 3- Fair- Internal Rotation 3- Fair- Elbow/Forearm Strength Elbow and Forearm Manual Muscle Testing Left Flexion (C6) 5 Normal Extension (C7) 5 Normal PT-OP-Q Treatments Start: 07/15/21 08:16 Freq: Status: Active Protocol: Document 08/12/21 13:00 AMB (Rec: 08/12/21 15:09 AMB [id number]) Cardio Equipment Upper Body Ergometer (UBE) Duration (Minutes) 5 Other fwd/backward Therapeutic Exercises Supine Exercises 3 Supine Exercise Name tricep extension Resistance 1# Reps/Minutes 2x10 Comments shoulder at 90 2 Supine Exercise Name flexion Resistance 1#, 2# Reps/Minutes 2x10 Comments 0-45 1 Supine Exercise Name supine punch at 90 degrees flexion Reps/Minutes 2x10 Sidelying Exercises 1 Sidelying Exercise Name abduction- small range AROM Resistance 1# Reps/Minutes 2x10 Comments 0-30 degrees ER AROM Resistance 1# Reps/Minutes 2x10 Manual Therapy Treatment Joint Mobilizations 2 Joint scapulothoracic Comments all planes 1 Joint inferior glides Grade IV GH AP Grade IV PT-OP-T Assessment and Plan Start: 07/15/21 08:16 Freq: Status: Active Protocol: Document 08/12/21 12:55 AMB (Rec: 08/12/21 13:49 AMB [id number]) Physical Therapy Assessment Assessment Summary Assessment Flexion and abduction continue to fatigue quickly, but was able to progress to 1# weights today. Physical Therapy Plan Next Visit Focus/Plan Next Note Type Progress Note Next Visit Plan Review HEP strengthening, progress range
--- NOTE | 2021-08-19 14:27 | PT.OTN ---
Current Diagnoses Other chronic pain (08/19/21) Pain in left shoulder (08/19/21) Pain in left elbow (08/19/21) Physical Therapy Treatment Note PT-OP-A Visit Information Start: 07/15/21 08:16 Freq: Status: Active Protocol: Document 08/19/21 13:00 AMB (Rec: 08/19/21 13:19 AMB [id number]) Out-Patient Physical Therapy Visit Information Visit Information Visit Type Progress Note Visit Start Time 13:00 Visit Stop Time 13:45 Total Visit Minutes 45 Visit Number 10 PT-OP-B Current Condition Start: 07/15/21 08:16 Freq: Status: Active Protocol: Document 07/15/21 08:15 AMB (Rec: 07/15/21 08:25 AMB [id number]) Current Condition History of Current Condition Onset Date 10 months ago Current Complaints L shoulder pain History of Current Condition 10 months ago shoulder pain started, now interfering with strengthening. Worsening over the last 10 months. Interferes with sleep- sleeping on that arm is painful. Deep ache with and reaching, driving- putting the seat belt on. Weightbearing and theraband exercises have stopped because of the pain. Treatment Goals Patient/Caregiver Goals Drive, reach without pain Prior Functional Status Baseline Function- ADL's Modified Independent Baseline Function- Mobility Modified Independent Personal Factors Other Personal Factors That May Effect osteoporosis, recent weight Therapy/Recovery loss PT-OP-C Subjective Start: 07/15/21 08:16 Freq: Status: Active Protocol: Document 08/19/21 13:00 AMB (Rec: 08/19/21 13:19 AMB [id number]) OP-PT Subjective Patient Comments Patient Comments Has been using 2# weights at home. PT-OP-J Posture/Palpation/Skin Start: 07/15/21 08:16 Freq: Status: Active Protocol: Document 07/15/21 08:15 AMB (Rec: 07/15/21 16:03 AMB [email or web address]) Posture Evaluation Comments Posture Comments forward head, increased thoracic kyphosis Palpation Assessment Location One Palpation Location L shoulder Palpation Details Tenderness at posterior and anterior GH joint, over biceps tendon, 1st rib, pain tends to radiate down arm but more tenderness at GH joint than at elbow. PT-OP-K Range of Motion Start: 07/15/21 08:16 Freq: Status: Active Protocol: Document 08/10/21 13:00 AMB (Rec: 12/20/21 13:45 AMB [id number]) Shoulder Goniometric Range of Motion Shoulder Left Passive Flexion 120 Abduction 95 External Rotation at 90 degrees 25 Abduction PT-OP-M Strength Start: 07/15/21 08:16 Freq: Status: Active Protocol: Document 07/15/21 08:15 AMB (Rec: 07/15/21 16:03 AMB [email or web address]) Shoulder Strength Shoulder Manual Muscle Testing Left Flexion 4 Good Extension 4+ Good+ Abduction (C5) 3 Fair External Rotation 3- Fair- Internal Rotation 3- Fair- Elbow/Forearm Strength Elbow and Forearm Manual Muscle Testing Left Flexion (C6) 5 Normal Extension (C7) 5 Normal PT-OP-Q Treatments Start: 07/15/21 08:16 Freq: Status: Active Protocol: Document 08/19/21 13:00 AMB (Rec: 08/19/21 14:22 AMB [id number]) Cardio Equipment Upper Body Ergometer (UBE) Duration (Minutes) 5 Other fwd/backward Therapeutic Exercises Supine Exercises 2 Supine Exercise Name flexion Resistance 1#, 2# Reps/Minutes 2x10 Comments 0-80 1 Supine Exercise Name supine punch at 90 degrees flexion Reps/Minutes 2x10 Sidelying Exercises 1 Sidelying Exercise Name abduction- small range AROM Resistance 2# Reps/Minutes 2x10 Comments 0-80 degrees ER AROM Resistance 1# Reps/Minutes 2x10 Sitting Exercises mechelle Reps/Minutes 5 min Comments flexion and scaption Manual Therapy Treatment Joint Mobilizations 2 Joint scapulothoracic Comments all planes Manual Traction shoulder Comments with shoulder flexion, abduction Manual Techniques 1 Type GH PROM Body Position Hooklying Comments becky working into abduction with stabilizing scap. PT-OP-T Assessment and Plan Start: 07/15/21 08:16 Freq: Status: Active Protocol: Document 08/19/21 13:00 AMB (Rec: 08/19/21 13:19 AMB [id number]) Physical Therapy Assessment Goals Two Impairment Pain Short Term Goal (STG) Brie will sleep on her left shoulder without an increase in pain. STG Duration PARTIALLY MET Alarm Mechanism Adjuster Goal (LTG) Brie will lift a plate into her cabinet without shoulder pain. LTG Duration 8 weeks One Impairment ROM Short Term Goal (STG) Brie will improve her left shoulder flexion PROM to 150 degrees. STG Duration 4 weeks Alarm Mechanism Adjuster Goal (LTG) Brie will improve her left shoulder abduction PROM to 120 degrees. LTG Duration 8 weeks Assessment Summary Assessment Brie is improving with her range of motion, but soreness at end range continues. Strengthening is progressing. Overhead motion continues to be limited, but pain is decreasing. Physical Therapy Plan Frequency and Duration Frequency of Treatment 2x/Week Duration of Treatment 10 weeks Plan of Care Start Date 07/15/21 Plan of Care End Date 09/23/21 Therapeutic Interventions Therapeutic Interventions Home Exercise Program,Joint Mobilizations,Manual Therapy, Neuromuscular Re-education, Self-Care/Home Management,Soft Tissue Mobilization, Therapeutic Activities, Therapeutic Exercises Modalities Cold Pack/Ice Massage,Electric Stimulation,Hot Packs, Ultrasound
--- NOTE | 2021-08-24 15:28 | PT.OTN ---
Current Diagnoses Other chronic pain (08/24/21) Pain in left shoulder (08/24/21) Pain in left elbow (08/24/21) Physical Therapy Treatment Note PT-OP-A Visit Information Start: 07/15/21 08:16 Freq: Status: Active Protocol: Document 08/24/21 13:00 AMB (Rec: 08/24/21 13:43 AMB [id number]) Out-Patient Physical Therapy Visit Information Visit Information Visit Type Treatment Note Visit Start Time 13:00 Visit Stop Time 13:45 Total Visit Minutes 45 Visit Number 11 PT-OP-B Current Condition Start: 07/15/21 08:16 Freq: Status: Active Protocol: Document 07/15/21 08:15 AMB (Rec: 07/15/21 08:25 AMB [id number]) Current Condition History of Current Condition Onset Date 10 months ago Current Complaints L shoulder pain History of Current Condition 10 months ago shoulder pain started, now interfering with strengthening. Worsening over the last 10 months. Interferes with sleep- sleeping on that arm is painful. Deep ache with and reaching, driving- putting the seat belt on. Weightbearing and theraband exercises have stopped because of the pain. Treatment Goals Patient/Caregiver Goals Drive, reach without pain Prior Functional Status Baseline Function- ADL's Modified Independent Baseline Function- Mobility Modified Independent Personal Factors Other Personal Factors That May Effect osteoporosis, recent weight Therapy/Recovery loss PT-OP-C Subjective Start: 07/15/21 08:16 Freq: Status: Active Protocol: Document 08/24/21 13:00 AMB (Rec: 08/24/21 13:43 AMB [id number]) OP-PT Subjective Patient Comments Patient Comments Pt had oral surgery on Tuesday and has not been using weights since. Told not to use weights until Tuesday. PT-OP-J Posture/Palpation/Skin Start: 07/15/21 08:16 Freq: Status: Active Protocol: Document 07/15/21 08:15 AMB (Rec: 07/15/21 16:03 AMB [email or web address]) Posture Evaluation Comments Posture Comments forward head, increased thoracic kyphosis Palpation Assessment Location One Palpation Location L shoulder Palpation Details Tenderness at posterior and anterior GH joint, over biceps tendon, 1st rib, pain tends to radiate down arm but more tenderness at GH joint than at elbow. PT-OP-K Range of Motion Start: 07/15/21 08:16 Freq: Status: Active Protocol: Document 08/10/21 13:00 AMB (Rec: 08/10/21 13:45 AMB [id number]) Shoulder Goniometric Range of Motion Shoulder Left Passive Flexion 120 Abduction 95 External Rotation at 90 degrees 25 Abduction PT-OP-M Strength Start: 07/15/21 08:16 Freq: Status: Active Protocol: Document 07/15/21 08:15 AMB (Rec: 07/15/21 16:03 AMB [email or web address]) Shoulder Strength Shoulder Manual Muscle Testing Left Flexion 4 Good Extension 4+ Good+ Abduction (C5) 3 Fair External Rotation 3- Fair- Internal Rotation 3- Fair- Elbow/Forearm Strength Elbow and Forearm Manual Muscle Testing Left Flexion (C6) 5 Normal Extension (C7) 5 Normal PT-OP-Q Treatments Start: 07/15/21 08:16 Freq: Status: Active Protocol: Document 08/24/21 13:00 AMB (Rec: 08/24/21 15:28 AMB [id number]) Therapeutic Exercises Supine Exercises 1 Supine Exercise Name supine punch at 90 degrees flexion Reps/Minutes 2x10 Standing Exercises 1 Standing Exercise Name alternating isometrics Reps/Minutes at 90 degrees flexion Manual Therapy Treatment Soft Tissue Mobilization 1 Body Location scapula Mobilization Type Myofascial Release,Strumming, Sustained Pressure,Trigger Point Release Intensity/Depth Superficial Body Position Sidelying Comments supraspinatus and infraspinatus TrP Joint Mobilizations GH AP Grade IV Reps/Duration 2x10 Manual Traction shoulder Comments with shoulder flexion, abduction Manual Techniques 1 Type GH PROM Body Position Hooklying Comments becky working into abduction with stabilizing scap. PT-OP-T Assessment and Plan Start: 07/15/21 08:16 Freq: Status: Active Protocol: Document 08/24/21 13:00 AMB (Rec: 08/24/21 15:28 AMB [id number]) Physical Therapy Assessment Goals Two Impairment Pain Short Term Goal (STG) Brie will sleep on her left shoulder without an increase in pain. STG Duration PARTIALLY MET Mixer Lever Operator Goal (LTG) Brie will lift a plate into her cabinet without shoulder pain. LTG Duration 8 weeks One Impairment ROM Short Term Goal (STG) Brie will improve her left shoulder flexion PROM to 150 degrees. STG Duration 4 weeks Mixer Lever Operator Goal (LTG) Brie will improve her left shoulder abduction PROM to 120 degrees. LTG Duration 8 weeks Assessment Summary Assessment Brie continues to have painful ROM with over shoulder motion , does improve with manual therapy, but continues to be stiff in the beginning of appt . Physical Therapy Plan Frequency and Duration Frequency of Treatment 2x/Week Duration of Treatment 10 weeks Plan of Care Start Date 07/15/21 Plan of Care End Date 09/23/21 Therapeutic Interventions Therapeutic Interventions Home Exercise Program,Joint Mobilizations,Manual Therapy, Neuromuscular Re-education, Self-Care/Home Management,Soft Tissue Mobilization, Therapeutic Activities, Therapeutic Exercises Modalities Cold Pack/Ice Massage,Electric Stimulation,Hot Packs, Ultrasound Next Visit Focus/Plan Next Note Type Treatment Note Next Visit Plan Review HEP strengthening, progress range
--- NOTE | 2021-08-28 14:08 | PT.OTN ---
Current Diagnoses Other chronic pain (08/28/21) Pain in left shoulder (08/28/21) Pain in left elbow (08/28/21) Physical Therapy Treatment Note PT-OP-A Visit Information Start: 07/15/21 08:16 Freq: Status: Active Protocol: Document 08/28/21 13:00 AMB (Rec: 08/28/21 14:07 AMB [id number]) Out-Patient Physical Therapy Visit Information Visit Information Visit Type Treatment Note Visit Start Time 13:00 Visit Stop Time 13:45 Total Visit Minutes 45 Visit Number 12 PT-OP-B Current Condition Start: 07/15/21 08:16 Freq: Status: Active Protocol: Document 07/15/21 08:15 AMB (Rec: 07/15/21 08:25 AMB [id number]) Current Condition History of Current Condition Onset Date 10 months ago Current Complaints L shoulder pain History of Current Condition 10 months ago shoulder pain started, now interfering with strengthening. Worsening over the last 10 months. Interferes with sleep- sleeping on that arm is painful. Deep ache with and reaching, driving- putting the seat belt on. Weightbearing and theraband exercises have stopped because of the pain. Treatment Goals Patient/Caregiver Goals Drive, reach without pain Prior Functional Status Baseline Function- ADL's Modified Independent Baseline Function- Mobility Modified Independent Personal Factors Other Personal Factors That May Effect osteoporosis, recent weight Therapy/Recovery loss PT-OP-C Subjective Start: 07/15/21 08:16 Freq: Status: Active Protocol: Document 08/28/21 13:00 AMB (Rec: 08/28/21 14:07 AMB [id number]) OP-PT Subjective Patient Comments Patient Comments Pt feels like ROM is improving , continues to have pain down in arm at night. PT-OP-J Posture/Palpation/Skin Start: 07/15/21 08:16 Freq: Status: Active Protocol: Document 07/15/21 08:15 AMB (Rec: 07/15/21 16:03 AMB [email or web address]) Posture Evaluation Comments Posture Comments forward head, increased thoracic kyphosis Palpation Assessment Location One Palpation Location L shoulder Palpation Details Tenderness at posterior and anterior GH joint, over biceps tendon, 1st rib, pain tends to radiate down arm but more tenderness at GH joint than at elbow. PT-OP-K Range of Motion Start: 07/15/21 08:16 Freq: Status: Active Protocol: Document 08/10/21 13:00 AMB (Rec: 08/10/21 13:45 AMB [id number]) Shoulder Goniometric Range of Motion Shoulder Left Passive Flexion 120 Abduction 95 External Rotation at 90 degrees 25 Abduction PT-OP-M Strength Start: 07/15/21 08:16 Freq: Status: Active Protocol: Document 07/15/21 08:15 AMB (Rec: 07/15/21 16:03 AMB [email or web address]) Shoulder Strength Shoulder Manual Muscle Testing Left Flexion 4 Good Extension 4+ Good+ Abduction (C5) 3 Fair External Rotation 3- Fair- Internal Rotation 3- Fair- Elbow/Forearm Strength Elbow and Forearm Manual Muscle Testing Left Flexion (C6) 5 Normal Extension (C7) 5 Normal PT-OP-Q Treatments Start: 07/15/21 08:16 Freq: Status: Active Protocol: Document 08/28/21 13:00 AMB (Rec: 08/28/21 14:07 AMB [id number]) Cardio Equipment Upper Body Ergometer (UBE) Duration (Minutes) 5 Other fwd/backward Therapeutic Exercises Supine Exercises 1 Supine Exercise Name supine punch at 90 degrees flexion Reps/Minutes 2x10 Sidelying Exercises 1 Sidelying Exercise Name abduction- small range AROM Resistance 2# Reps/Minutes 2x10 Comments 0-80 degrees ER AROM Resistance 1# Reps/Minutes 2x10 Other Exercises 1 Other Exercise Name quadruped on ball Reps/Minutes 10 ea Comments I, Y, T, row Manual Therapy Treatment Soft Tissue Mobilization 1 Body Location scapula Mobilization Type Myofascial Release,Strumming, Sustained Pressure,Trigger Point Release Intensity/Depth Superficial Body Position Sidelying Comments supraspinatus and infraspinatus TrP Joint Mobilizations GH AP Grade IV Reps/Duration 2x10 Manual Traction shoulder Comments with shoulder flexion, abduction PT-OP-T Assessment and Plan Start: 07/15/21 08:16 Freq: Status: Active Protocol: Document 08/28/21 13:00 AMB (Rec: 08/28/21 14:07 AMB [id number]) Physical Therapy Assessment Assessment Summary Assessment Brie is showing improved scapular mobility and range of motion passively. active motion continues to be limited to approx 120 degrees before UT substitution starts. Physical Therapy Plan Frequency and Duration Frequency of Treatment 2x/Week Duration of Treatment 10 weeks Plan of Care Start Date 07/15/21 Plan of Care End Date 09/23/21 Therapeutic Interventions Therapeutic Interventions Home Exercise Program,Joint Mobilizations,Manual Therapy, Neuromuscular Re-education, Self-Care/Home Management,Soft Tissue Mobilization, Therapeutic Activities, Therapeutic Exercises Modalities Cold Pack/Ice Massage,Electric Stimulation,Hot Packs, Ultrasound Next Visit Focus/Plan Next Note Type Treatment Note Next Visit Plan Review HEP strengthening, progress range
--- NOTE | 2021-08-31 16:00 | PT.OTN ---
Current Diagnoses Other chronic pain (08/31/21) Pain in left shoulder (08/31/21) Pain in left elbow (08/31/21) Physical Therapy Treatment Note PT-OP-A Visit Information Start: 07/15/21 08:16 Freq: Status: Active Protocol: Document 08/31/21 14:30 AMB (Rec: 09/01/21 08:10 AMB [id number]) Out-Patient Physical Therapy Visit Information Visit Information Visit Type Treatment Note Visit Start Time 14:30 Visit Stop Time 15:15 Total Visit Minutes 45 Visit Number 13 PT-OP-B Current Condition Start: 07/15/21 08:16 Freq: Status: Active Protocol: Document 07/15/21 08:15 AMB (Rec: 07/15/21 08:25 AMB [id number]) Current Condition History of Current Condition Onset Date 10 months ago Current Complaints L shoulder pain History of Current Condition 10 months ago shoulder pain started, now interfering with strengthening. Worsening over the last 10 months. Interferes with sleep- sleeping on that arm is painful. Deep ache with and reaching, driving- putting the seat belt on. Weightbearing and theraband exercises have stopped because of the pain. Treatment Goals Patient/Caregiver Goals Drive, reach without pain Prior Functional Status Baseline Function- ADL's Modified Independent Baseline Function- Mobility Modified Independent Personal Factors Other Personal Factors That May Effect osteoporosis, recent weight Therapy/Recovery loss PT-OP-C Subjective Start: 07/15/21 08:16 Freq: Status: Active Protocol: Document 08/31/21 14:30 AMB (Rec: 09/01/21 10:59 AMB [id number]) OP-PT Subjective Patient Comments Patient Comments Nighttime pain continues to be a problem, especially after trying to up her weights (used soup cans). PT-OP-J Posture/Palpation/Skin Start: 07/15/21 08:16 Freq: Status: Active Protocol: Document 07/15/21 08:15 AMB (Rec: 07/15/21 16:03 AMB [email or web address]) Posture Evaluation Comments Posture Comments forward head, increased thoracic kyphosis Palpation Assessment Location One Palpation Location L shoulder Palpation Details Tenderness at posterior and anterior GH joint, over biceps tendon, 1st rib, pain tends to radiate down arm but more tenderness at GH joint than at elbow. PT-OP-K Range of Motion Start: 07/15/21 08:16 Freq: Status: Active Protocol: Document 08/10/21 13:00 AMB (Rec: 08/10/21 13:45 AMB [id number]) Shoulder Goniometric Range of Motion Shoulder Left Passive Flexion 120 Abduction 95 External Rotation at 90 degrees 25 Abduction PT-OP-M Strength Start: 07/15/21 08:16 Freq: Status: Active Protocol: Document 07/15/21 08:15 AMB (Rec: 07/15/21 16:03 AMB [email or web address]) Shoulder Strength Shoulder Manual Muscle Testing Left Flexion 4 Good Extension 4+ Good+ Abduction (C5) 3 Fair External Rotation 3- Fair- Internal Rotation 3- Fair- Elbow/Forearm Strength Elbow and Forearm Manual Muscle Testing Left Flexion (C6) 5 Normal Extension (C7) 5 Normal PT-OP-Q Treatments Start: 07/15/21 08:16 Freq: Status: Active Protocol: Document 08/31/21 14:30 AMB (Rec: 09/01/21 10:59 AMB [id number]) Therapeutic Exercises Supine Exercises 1 Supine Exercise Name supine punch at 90 degrees flexion Reps/Minutes 2x10 Manual Therapy Treatment Soft Tissue Mobilization 1 Body Location scapula Mobilization Type Myofascial Release,Strumming, Sustained Pressure,Trigger Point Release Intensity/Depth Superficial Body Position Sidelying Comments supraspinatus and infraspinatus TrP Joint Mobilizations 2 Joint scapulothoracic Comments all planes 1 Joint inferior glides Grade IV GH AP Grade IV Reps/Duration 2x10 PT-OP-T Assessment and Plan Start: 07/15/21 08:16 Freq: Status: Active Protocol: Document 08/31/21 14:30 AMB (Rec: 09/01/21 10:59 AMB [id number]) Physical Therapy Assessment Goals Two Impairment Pain Short Term Goal (STG) Brie will sleep on her left shoulder without an increase in pain. STG Duration PARTIALLY MET Senior Bookkeeper Goal (LTG) Brie will lift a plate into her cabinet without shoulder pain. LTG Duration 8 weeks One Impairment ROM Short Term Goal (STG) Brie will improve her left shoulder flexion PROM to 150 degrees. STG Duration 4 weeks Group Home Goal (LTG) Brie will improve her left shoulder abduction PROM to 120 degrees. LTG Duration 8 weeks Assessment Summary Assessment Brie had more pain and restriction in her scapula today after increasing her lifting some. Did have active TrP in infraspinatus which responded well to manual. Physical Therapy Plan Next Visit Focus/Plan Next Note Type Treatment Note Next Visit Plan Review HEP strengthening, progress range
--- NOTE | 2021-09-04 15:48 | PT.OTN ---
Current Diagnoses Other chronic pain (09/04/21) Pain in left shoulder (09/04/21) Pain in left elbow (09/04/21) Physical Therapy Treatment Note PT-OP-A Visit Information Start: 07/15/21 08:16 Freq: Status: Active Protocol: Document 09/04/21 13:46 AMB (Rec: 09/04/21 13:54 AMB [id number]) Out-Patient Physical Therapy Visit Information Visit Information Visit Type Treatment Note Visit Start Time 13:45 Visit Stop Time 14:30 Total Visit Minutes 45 Visit Number 14 PT-OP-B Current Condition Start: 07/15/21 08:16 Freq: Status: Active Protocol: Document 07/15/21 08:15 AMB (Rec: 07/15/21 08:25 AMB [id number]) Current Condition History of Current Condition Onset Date 10 months ago Current Complaints L shoulder pain History of Current Condition 10 months ago shoulder pain started, now interfering with strengthening. Worsening over the last 10 months. Interferes with sleep- sleeping on that arm is painful. Deep ache with and reaching, driving- putting the seat belt on. Weightbearing and theraband exercises have stopped because of the pain. Treatment Goals Patient/Caregiver Goals Drive, reach without pain Prior Functional Status Baseline Function- ADL's Modified Independent Baseline Function- Mobility Modified Independent Personal Factors Other Personal Factors That May Effect osteoporosis, recent weight Therapy/Recovery loss PT-OP-C Subjective Start: 07/15/21 08:16 Freq: Status: Active Protocol: Document 09/04/21 13:46 AMB (Rec: 09/04/21 13:54 AMB [id number]) OP-PT Subjective Patient Comments Patient Comments REally focused on AROM this week, a little bit of therband but not a lot due to increased discomfort in the shoulder and down into the arm . PT-OP-J Posture/Palpation/Skin Start: 07/15/21 08:16 Freq: Status: Active Protocol: Document 07/15/21 08:15 AMB (Rec: 07/15/21 16:03 AMB [email or web address]) Posture Evaluation Comments Posture Comments forward head, increased thoracic kyphosis Palpation Assessment Location One Palpation Location L shoulder Palpation Details Tenderness at posterior and anterior GH joint, over biceps tendon, 1st rib, pain tends to radiate down arm but more tenderness at GH joint than at elbow. PT-OP-K Range of Motion Start: 07/15/21 08:16 Freq: Status: Active Protocol: Document 08/10/21 13:00 AMB (Rec: 08/10/21 13:45 AMB [id number]) Shoulder Goniometric Range of Motion Shoulder Left Passive Flexion 120 Abduction 95 External Rotation at 90 degrees 25 Abduction PT-OP-M Strength Start: 07/15/21 08:16 Freq: Status: Active Protocol: Document 07/15/21 08:15 AMB (Rec: 07/15/21 16:03 AMB [email or web address]) Shoulder Strength Shoulder Manual Muscle Testing Left Flexion 4 Good Extension 4+ Good+ Abduction (C5) 3 Fair External Rotation 3- Fair- Internal Rotation 3- Fair- Elbow/Forearm Strength Elbow and Forearm Manual Muscle Testing Left Flexion (C6) 5 Normal Extension (C7) 5 Normal PT-OP-Q Treatments Start: 07/15/21 08:16 Freq: Status: Active Protocol: Document 09/04/21 13:45 AMB (Rec: 09/04/21 15:48 AMB [id number]) Therapeutic Exercises Supine Exercises 1 Supine Exercise Name supine punch at 90 degrees flexion Reps/Minutes 2x10 Sidelying Exercises 1 Sidelying Exercise Name abduction- small range AROM Resistance 2# Reps/Minutes 2x10 Comments 0-80 degrees ER AROM Resistance 1# Reps/Minutes 2x10 Manual Therapy Treatment Soft Tissue Mobilization 1 Body Location scapula Mobilization Type Myofascial Release,Strumming, Sustained Pressure,Trigger Point Release Intensity/Depth Superficial Body Position Sidelying Comments supraspinatus and infraspinatus TrP Joint Mobilizations 2 Joint scapulothoracic Comments all planes 1 Joint inferior glides Grade IV GH AP Grade IV Reps/Duration 2x10 Taping 1 Body Location L shoulder Treatment Focus GH support Type of Tape kinesiotape Comments I and Y PT-OP-T Assessment and Plan Start: 07/15/21 08:16 Freq: Status: Active Protocol: Document 09/04/21 13:45 AMB (Rec: 09/04/21 15:48 AMB [id number]) Physical Therapy Assessment Assessment Summary Assessment Held off on progressing strengthening due to pt's continued pain. ROM is improving, but nighttime pain continues to limit. Physical Therapy Plan Next Visit Focus/Plan Next Note Type Treatment Note Next Visit Plan Review HEP strengthening, progress range
--- NOTE | 2021-09-07 15:41 | PT.OTN ---
Current Diagnoses Other chronic pain (09/07/21) Pain in left shoulder (09/07/21) Pain in left elbow (09/07/21) Physical Therapy Treatment Note PT-OP-A Visit Information Start: 07/15/21 08:16 Freq: Status: Active Protocol: Document 09/07/21 14:28 AMB (Rec: 09/07/21 15:41 AMB [id number]) Out-Patient Physical Therapy Visit Information Visit Information Visit Type Treatment Note Visit Start Time 14:30 Visit Stop Time 15:15 Total Visit Minutes 45 Visit Number 15 PT-OP-B Current Condition Start: 07/15/21 08:16 Freq: Status: Active Protocol: Document 07/15/21 08:15 AMB (Rec: 07/15/21 08:25 AMB [id number]) Current Condition History of Current Condition Onset Date 10 months ago Current Complaints L shoulder pain History of Current Condition 10 months ago shoulder pain started, now interfering with strengthening. Worsening over the last 10 months. Interferes with sleep- sleeping on that arm is painful. Deep ache with and reaching, driving- putting the seat belt on. Weightbearing and theraband exercises have stopped because of the pain. Treatment Goals Patient/Caregiver Goals Drive, reach without pain Prior Functional Status Baseline Function- ADL's Modified Independent Baseline Function- Mobility Modified Independent Personal Factors Other Personal Factors That May Effect osteoporosis, recent weight Therapy/Recovery loss PT-OP-C Subjective Start: 07/15/21 08:16 Freq: Status: Active Protocol: Document 09/07/21 14:28 AMB (Rec: 09/07/21 15:41 AMB [id number]) OP-PT Subjective Patient Comments Patient Comments Brie has not had pain that has woken her up from sleep this weekend, continues to be limited in internal rotation behind back. PT-OP-J Posture/Palpation/Skin Start: 07/15/21 08:16 Freq: Status: Active Protocol: Document 07/15/21 08:15 AMB (Rec: 07/15/21 16:03 AMB [email or web address]) Posture Evaluation Comments Posture Comments forward head, increased thoracic kyphosis Palpation Assessment Location One Palpation Location L shoulder Palpation Details Tenderness at posterior and anterior GH joint, over biceps tendon, 1st rib, pain tends to radiate down arm but more tenderness at GH joint than at elbow. PT-OP-K Range of Motion Start: 07/15/21 08:16 Freq: Status: Active Protocol: Document 08/10/21 13:00 AMB (Rec: 08/10/21 13:45 AMB [id number]) Shoulder Goniometric Range of Motion Shoulder Left Passive Flexion 120 Abduction 95 External Rotation at 90 degrees 25 Abduction PT-OP-M Strength Start: 07/15/21 08:16 Freq: Status: Active Protocol: Document 07/15/21 08:15 AMB (Rec: 07/15/21 16:03 AMB [email or web address]) Shoulder Strength Shoulder Manual Muscle Testing Left Flexion 4 Good Extension 4+ Good+ Abduction (C5) 3 Fair External Rotation 3- Fair- Internal Rotation 3- Fair- Elbow/Forearm Strength Elbow and Forearm Manual Muscle Testing Left Flexion (C6) 5 Normal Extension (C7) 5 Normal PT-OP-Q Treatments Start: 07/15/21 08:16 Freq: Status: Active Protocol: Document 09/07/21 14:28 AMB (Rec: 09/07/21 15:41 AMB [id number]) Cardio Equipment Upper Body Ergometer (UBE) Duration (Minutes) 5 Other fwd/backward Therapeutic Exercises Standing Exercises 5 Standing Exercise Name t band abduction Reps/Minutes 2x10 Comments 0-45 deg 4 Standing Exercise Name rows Resistance #2 t band Reps/Minutes 2x10 2 Standing Exercise Name t band IR Equipment Used #2 Reps/Minutes 2xx10 Manual Therapy Treatment Soft Tissue Mobilization 1 Body Location scapula Mobilization Type Myofascial Release,Strumming, Sustained Pressure,Trigger Point Release Intensity/Depth Superficial Body Position Sidelying Comments supraspinatus and infraspinatus TrP Joint Mobilizations 2 Joint scapulothoracic Comments all planes 1 Joint inferior glides Grade IV Manual Traction shoulder Comments with shoulder flexion, abduction PT-OP-T Assessment and Plan Start: 07/15/21 08:16 Freq: Status: Active Protocol: Document 09/07/21 14:28 AMB (Rec: 09/07/21 15:41 AMB [id number]) Physical Therapy Assessment Goals Two Impairment Pain Short Term Goal (STG) Brie will sleep on her left shoulder without an increase in pain. STG Duration PARTIALLY MET Custodial Goal (LTG) Brie will lift a plate into her cabinet without shoulder pain. LTG Duration 8 weeks One Impairment ROM Short Term Goal (STG) Brie will improve her left shoulder flexion PROM to 150 degrees. STG Duration 4 weeks Manager Analytical Goal (LTG) Brie will improve her left shoulder abduction PROM to 120 degrees. LTG Duration 8 weeks Assessment Summary Assessment Pt tolerated increased resistance training. Abduction continues to be challenging, but flexion is coming along nicely.
--- NOTE | 2021-09-09 11:53 | PT.OTN ---
Current Diagnoses Other chronic pain (09/09/21) Pain in left shoulder (09/09/21) Pain in left elbow (09/09/21) Physical Therapy Treatment Note PT-OP-A Visit Information Start: 07/15/21 08:16 Freq: Status: Active Protocol: Document 09/09/21 11:36 AMB (Rec: 09/09/21 11:53 AMB [id number]) Out-Patient Physical Therapy Visit Information Visit Information Visit Type Treatment Note Visit Start Time 09:00 Visit Stop Time 09:45 Total Visit Minutes 45 Visit Number 16 PT-OP-B Current Condition Start: 07/15/21 08:16 Freq: Status: Active Protocol: Document 07/15/21 08:15 AMB (Rec: 07/15/21 08:25 AMB [id number]) Current Condition History of Current Condition Onset Date 10 months ago Current Complaints L shoulder pain History of Current Condition 10 months ago shoulder pain started, now interfering with strengthening. Worsening over the last 10 months. Interferes with sleep- sleeping on that arm is painful. Deep ache with and reaching, driving- putting the seat belt on. Weightbearing and theraband exercises have stopped because of the pain. Treatment Goals Patient/Caregiver Goals Drive, reach without pain Prior Functional Status Baseline Function- ADL's Modified Independent Baseline Function- Mobility Modified Independent Personal Factors Other Personal Factors That May Effect osteoporosis, recent weight Therapy/Recovery loss PT-OP-C Subjective Start: 07/15/21 08:16 Freq: Status: Active Protocol: Document 09/09/21 11:36 AMB (Rec: 09/09/21 11:53 AMB [id number]) OP-PT Subjective Patient Comments Patient Comments Brie is getting a massage later today. going to start dry needling with Dr. Jimenez in another month. PT-OP-J Posture/Palpation/Skin Start: 07/15/21 08:16 Freq: Status: Active Protocol: Document 07/15/21 08:15 AMB (Rec: 07/15/21 16:03 AMB [email or web address]) Posture Evaluation Comments Posture Comments forward head, increased thoracic kyphosis Palpation Assessment Location One Palpation Location L shoulder Palpation Details Tenderness at posterior and anterior GH joint, over biceps tendon, 1st rib, pain tends to radiate down arm but more tenderness at GH joint than at elbow. PT-OP-K Range of Motion Start: 07/15/21 08:16 Freq: Status: Active Protocol: Document 08/10/21 13:00 AMB (Rec: 08/10/21 13:45 AMB [id number]) Shoulder Goniometric Range of Motion Shoulder Left Passive Flexion 120 Abduction 95 External Rotation at 90 degrees 25 Abduction PT-OP-M Strength Start: 07/15/21 08:16 Freq: Status: Active Protocol: Document 07/15/21 08:15 AMB (Rec: 07/15/21 16:03 AMB [email or web address]) Shoulder Strength Shoulder Manual Muscle Testing Left Flexion 4 Good Extension 4+ Good+ Abduction (C5) 3 Fair External Rotation 3- Fair- Internal Rotation 3- Fair- Elbow/Forearm Strength Elbow and Forearm Manual Muscle Testing Left Flexion (C6) 5 Normal Extension (C7) 5 Normal PT-OP-Q Treatments Start: 07/15/21 08:16 Freq: Status: Active Protocol: Document 09/09/21 11:36 AMB (Rec: 09/09/21 11:53 AMB [id number]) Cardio Equipment Upper Body Ergometer (UBE) Duration (Minutes) 5 Other fwd/backward Therapeutic Exercises Standing Exercises 5 Standing Exercise Name t band abduction Reps/Minutes 2x10 Comments 0-45 deg 4 Standing Exercise Name rows Resistance #2 t band Reps/Minutes 2x10 2 Standing Exercise Name t band IR Equipment Used #2 Reps/Minutes 2xx10 Manual Therapy Treatment Soft Tissue Mobilization 1 Body Location scapula Mobilization Type Myofascial Release,Strumming, Sustained Pressure,Trigger Point Release Intensity/Depth Superficial Body Position Sidelying Comments supraspinatus and infraspinatus TrP Joint Mobilizations 1 Joint inferior glides Grade IV Manual Traction shoulder Comments with shoulder flexion, abduction PT-OP-T Assessment and Plan Start: 07/15/21 08:16 Freq: Status: Active Protocol: Document 09/09/21 11:36 AMB (Rec: 09/09/21 11:53 AMB [id number]) Physical Therapy Assessment Assessment Summary Assessment Ok to try biceps curls with up to 2#, t band rows and ER. then if that goes wel over the weekend we could consider more strengthening. Physical Therapy Plan Frequency and Duration Frequency of Treatment 2x/Week Duration of Treatment 10 weeks Plan of Care Start Date 07/15/21 Plan of Care End Date 09/23/21 Therapeutic Interventions Therapeutic Interventions Home Exercise Program,Joint Mobilizations,Manual Therapy, Neuromuscular Re-education, Self-Care/Home Management,Soft Tissue Mobilization, Therapeutic Activities, Therapeutic Exercises Modalities Cold Pack/Ice Massage,Electric Stimulation,Hot Packs, Ultrasound Next Visit Focus/Plan Next Note Type Treatment Note Next Visit Plan Review HEP strengthening, progress range
--- NOTE | 2021-09-14 13:00 | PT.OTN ---
Current Diagnoses Other chronic pain (09/14/21) Pain in left shoulder (09/14/21) Pain in left elbow (09/14/21) Physical Therapy Treatment Note PT-OP-A Visit Information Start: 07/15/21 08:16 Freq: Status: Active Protocol: Document 09/14/21 13:00 AMB (Rec: 09/14/21 13:50 AMB [id number]) Out-Patient Physical Therapy Visit Information Visit Information Visit Type Treatment Note Visit Start Time 13:00 Visit Stop Time 13:45 Total Visit Minutes 45 Visit Number 17 PT-OP-B Current Condition Start: 07/15/21 08:16 Freq: Status: Active Protocol: Document 07/15/21 08:15 AMB (Rec: 07/15/21 08:25 AMB [id number]) Current Condition History of Current Condition Onset Date 10 months ago Current Complaints L shoulder pain History of Current Condition 10 months ago shoulder pain started, now interfering with strengthening. Worsening over the last 10 months. Interferes with sleep- sleeping on that arm is painful. Deep ache with and reaching, driving- putting the seat belt on. Weightbearing and theraband exercises have stopped because of the pain. Treatment Goals Patient/Caregiver Goals Drive, reach without pain Prior Functional Status Baseline Function- ADL's Modified Independent Baseline Function- Mobility Modified Independent Personal Factors Other Personal Factors That May Effect osteoporosis, recent weight Therapy/Recovery loss PT-OP-C Subjective Start: 07/15/21 08:16 Freq: Status: Active Protocol: Document 09/14/21 13:00 AMB (Rec: 09/14/21 13:50 AMB [id number]) OP-PT Subjective Patient Comments Patient Comments Brie did well this last week. PT-OP-J Posture/Palpation/Skin Start: 07/15/21 08:16 Freq: Status: Active Protocol: Document 07/15/21 08:15 AMB (Rec: 07/15/21 16:03 AMB [email or web address]) Posture Evaluation Comments Posture Comments forward head, increased thoracic kyphosis Palpation Assessment Location One Palpation Location L shoulder Palpation Details Tenderness at posterior and anterior GH joint, over biceps tendon, 1st rib, pain tends to radiate down arm but more tenderness at GH joint than at elbow. PT-OP-K Range of Motion Start: 07/15/21 08:16 Freq: Status: Active Protocol: Document 08/10/21 13:00 AMB (Rec: 08/10/21 13:45 AMB [id number]) Shoulder Goniometric Range of Motion Shoulder Left Passive Flexion 120 Abduction 95 External Rotation at 90 degrees 25 Abduction PT-OP-M Strength Start: 07/15/21 08:16 Freq: Status: Active Protocol: Document 07/15/21 08:15 AMB (Rec: 07/15/21 16:03 AMB [email or web address]) Shoulder Strength Shoulder Manual Muscle Testing Left Flexion 4 Good Extension 4+ Good+ Abduction (C5) 3 Fair External Rotation 3- Fair- Internal Rotation 3- Fair- Elbow/Forearm Strength Elbow and Forearm Manual Muscle Testing Left Flexion (C6) 5 Normal Extension (C7) 5 Normal PT-OP-Q Treatments Start: 07/15/21 08:16 Freq: Status: Active Protocol: Document 09/14/21 13:00 AMB (Rec: 09/15/21 12:06 AMB [id number]) Cardio Equipment Upper Body Ergometer (UBE) Duration (Minutes) 5 Other fwd/backward Therapeutic Exercises Supine Exercises 1 Supine Exercise Name supine punch at 90 degrees flexion Reps/Minutes 2x10 Sidelying Exercises 1 Sidelying Exercise Name abduction- small range AROM Resistance 1# Reps/Minutes 2x10 Comments 0-80 degrees ER AROM Resistance 1# Reps/Minutes 2x10 Manual Therapy Treatment Soft Tissue Mobilization 1 Body Location scapula Mobilization Type Myofascial Release,Strumming, Sustained Pressure,Trigger Point Release Intensity/Depth Superficial Body Position Sidelying Comments supraspinatus and infraspinatus TrP Joint Mobilizations 2 Joint scapulothoracic Comments all planes 1 Joint inferior glides Grade IV Manual Techniques 1 Type GH PROM Body Position Hooklying Comments good into flexion and abduction, brief time spent on ER and IR as this continues to be painful PT-OP-T Assessment and Plan Start: 07/15/21 08:16 Freq: Status: Active Protocol: Document 09/14/21 13:00 AMB (Rec: 09/15/21 12:06 AMB [id number]) Physical Therapy Assessment Goals Two Impairment Pain Short Term Goal (STG) Brie will sleep on her left shoulder without an increase in pain. STG Duration PARTIALLY MET Order Entry Clerk Goal (LTG) Brie will lift a plate into her cabinet without shoulder pain. LTG Duration 8 weeks One Impairment ROM Short Term Goal (STG) Brie will improve her left shoulder flexion PROM to 150 degrees. STG Duration 4 weeks Order Entry Clerk Goal (LTG) Brie will improve her left shoulder abduction PROM to 120 degrees. LTG Duration 8 weeks Assessment Summary Assessment Brie did have better flexion and abduction after manual today. Continues to be tight and painful into ER and IR. Physical Therapy Plan Next Visit Focus/Plan Next Note Type Treatment Note Next Visit Plan Review HEP strengthening, progress range
--- NOTE | 2021-09-18 15:32 | PT.OTN ---
Current Diagnoses Other chronic pain (09/18/21) Pain in left shoulder (09/18/21) Pain in left elbow (09/18/21) Physical Therapy Treatment Note PT-OP-A Visit Information Start: 07/15/21 08:16 Freq: Status: Active Protocol: Document 09/18/21 13:45 AMB (Rec: 09/18/21 15:28 AMB [id number]) Out-Patient Physical Therapy Visit Information Visit Information Visit Type Treatment Note Visit Start Time 13:45 Visit Stop Time 14:30 Total Visit Minutes 45 Visit Number 18 PT-OP-B Current Condition Start: 07/15/21 08:16 Freq: Status: Active Protocol: Document 07/15/21 08:15 AMB (Rec: 07/15/21 08:25 AMB [id number]) Current Condition History of Current Condition Onset Date 10 months ago Current Complaints L shoulder pain History of Current Condition 10 months ago shoulder pain started, now interfering with strengthening. Worsening over the last 10 months. Interferes with sleep- sleeping on that arm is painful. Deep ache with and reaching, driving- putting the seat belt on. Weightbearing and theraband exercises have stopped because of the pain. Treatment Goals Patient/Caregiver Goals Drive, reach without pain Prior Functional Status Baseline Function- ADL's Modified Independent Baseline Function- Mobility Modified Independent Personal Factors Other Personal Factors That May Effect osteoporosis, recent weight Therapy/Recovery loss PT-OP-C Subjective Start: 07/15/21 08:16 Freq: Status: Active Protocol: Document 09/18/21 13:45 AMB (Rec: 09/18/21 15:28 AMB [id number]) OP-PT Subjective Patient Comments Patient Comments Brie was sore fore two days after last appointment, but she was able to reach her seatbelt this week for the first time. PT-OP-J Posture/Palpation/Skin Start: 07/15/21 08:16 Freq: Status: Active Protocol: Document 07/15/21 08:15 AMB (Rec: 07/15/21 16:03 AMB [id number]) Posture Evaluation Comments Posture Comments forward head, increased thoracic kyphosis Palpation Assessment Location One Palpation Location L shoulder Palpation Details Tenderness at posterior and anterior GH joint, over biceps tendon, 1st rib, pain tends to radiate down arm but more tenderness at GH joint than at elbow. PT-OP-K Range of Motion Start: 07/15/21 08:16 Freq: Status: Active Protocol: Document 08/10/21 13:00 AMB (Rec: 08/10/21 13:45 AMB [id number]) Shoulder Goniometric Range of Motion Shoulder Left Passive Flexion 120 Abduction 95 External Rotation at 90 degrees 25 Abduction PT-OP-M Strength Start: 07/15/21 08:16 Freq: Status: Active Protocol: Document 07/15/21 08:15 AMB (Rec: 07/15/21 16:03 AMB [id number]) Shoulder Strength Shoulder Manual Muscle Testing Left Flexion 4 Good Extension 4+ Good+ Abduction (C5) 3 Fair External Rotation 3- Fair- Internal Rotation 3- Fair- Elbow/Forearm Strength Elbow and Forearm Manual Muscle Testing Left Flexion (C6) 5 Normal Extension (C7) 5 Normal PT-OP-Q Treatments Start: 07/15/21 08:16 Freq: Status: Active Protocol: Document 09/18/21 13:45 AMB (Rec: 09/18/21 15:28 AMB [id number]) Therapeutic Exercises Sidelying Exercises 1 Sidelying Exercise Name abduction- small range AROM Resistance 1# Reps/Minutes 2x10 Comments 0-80 degrees Sitting Exercises mechelle Reps/Minutes 5 min Comments flexion and scaption, mirror feedback to avoid UT overuse Manual Therapy Treatment Soft Tissue Mobilization 1 Body Location scapula Mobilization Type Myofascial Release,Strumming, Sustained Pressure,Trigger Point Release Intensity/Depth Superficial Body Position Sidelying Comments supraspinatus and infraspinatus TrP Joint Mobilizations 2 Joint scapulothoracic Comments all planes 1 Joint inferior glides Grade IV Taping 1 Body Location L shoulder Treatment Focus GH support Type of Tape kinesiotape Comments I and Y PT-OP-R Modalities Start: 09/18/21 15:28 Freq: Status: Active Protocol: Document 09/18/21 13:45 AMB (Rec: 09/18/21 15:32 AMB [id number]) Electric Stimulation Electric Stimulation Interferential Current (IFC) Body Location L shoulder/scapula Duration (Minutes) 10 Patient Position Hooklying Combined With Heat/Cold Hot Pack PT-OP-T Assessment and Plan Start: 07/15/21 08:16 Freq: Status: Active Protocol: Document 09/18/21 13:45 AMB (Rec: 09/18/21 15:28 AMB [id number]) Physical Therapy Assessment Goals Two Impairment Pain Short Term Goal (STG) Brie will sleep on her left shoulder without an increase in pain. STG Duration PARTIALLY MET [facility] Goal (LTG) Brie will lift a plate into her cabinet without shoulder pain. LTG Duration 8 weeks One Impairment ROM Short Term Goal (STG) Brie will improve her left shoulder flexion PROM to 150 degrees. STG Duration 4 weeks [facility] Goal (LTG) Brie will improve her left shoulder abduction PROM to 120 degrees. LTG Duration 8 weeks Assessment Summary Assessment Tried IFC after manual per patient request. Continues to have pain at end range but range is improving. Physical Therapy Plan Next Visit Focus/Plan Next Note Type Treatment Note Next Visit Plan Review HEP strengthening, progress range
--- NOTE | 2021-09-22 12:00 | PT.OTN ---
Current Diagnoses Other chronic pain (09/22/21) Pain in left shoulder (09/22/21) Pain in left elbow (09/22/21) Physical Therapy Treatment Note PT-OP-A Visit Information Start: 07/15/21 08:16 Freq: Status: Active Protocol: Document 09/22/21 13:43 AMB (Rec: 09/22/21 16:07 AMB [id number]) Out-Patient Physical Therapy Visit Information Visit Information Visit Type Progress Note Visit Note 9 visits in 2021 Visit Start Time 13:45 Visit Stop Time 14:30 Total Visit Minutes 45 Visit Number 19 PT-OP-B Current Condition Start: 07/15/21 08:16 Freq: Status: Active Protocol: Document 07/15/21 08:15 AMB (Rec: 07/15/21 08:25 AMB [id number]) Current Condition History of Current Condition Onset Date 10 months ago Current Complaints L shoulder pain History of Current Condition 10 months ago shoulder pain started, now interfering with strengthening. Worsening over the last 10 months. Interferes with sleep- sleeping on that arm is painful. Deep ache with and reaching, driving- putting the seat belt on. Weightbearing and theraband exercises have stopped because of the pain. Treatment Goals Patient/Caregiver Goals Drive, reach without pain Prior Functional Status Baseline Function- ADL's Modified Independent Baseline Function- Mobility Modified Independent Personal Factors Other Personal Factors That May Effect osteoporosis, recent weight Therapy/Recovery loss PT-OP-C Subjective Start: 07/15/21 08:16 Freq: Status: Active Protocol: Document 09/22/21 13:43 AMB (Rec: 09/22/21 16:07 AMB [id number]) OP-PT Subjective Patient Comments Patient Comments Brie is feeling that the shoulder is progressing, but slowly. PT-OP-J Posture/Palpation/Skin Start: 07/15/21 08:16 Freq: Status: Active Protocol: Document 07/15/21 08:15 AMB (Rec: 07/15/21 16:03 AMB [id number]) Posture Evaluation Comments Posture Comments forward head, increased thoracic kyphosis Palpation Assessment Location One Palpation Location L shoulder Palpation Details Tenderness at posterior and anterior GH joint, over biceps tendon, 1st rib, pain tends to radiate down arm but more tenderness at GH joint than at elbow. PT-OP-K Range of Motion Start: 07/15/21 08:16 Freq: Status: Active Protocol: Document 09/22/21 10:33 AMB (Rec: 09/22/21 10:38 AMB [id number]) Shoulder Goniometric Range of Motion Shoulder Left Passive Flexion 133 Abduction 112 External Rotation at 90 degrees 43 Abduction Internal Rotation 45 PT-OP-M Strength Start: 07/15/21 08:16 Freq: Status: Active Protocol: Document 09/22/21 10:38 AMB (Rec: 09/22/21 10:40 AMB [id number]) Shoulder Strength Shoulder Manual Muscle Testing Left Flexion 4 Good Abduction (C5) 3+ Fair+ External Rotation 4- Good- Internal Rotation 4- Good- PT-OP-Q Treatments Start: 07/15/21 08:16 Freq: Status: Active Protocol: Document 09/22/21 10:30 AMB (Rec: 09/23/21 10:23 AMB [id number]) Therapeutic Exercises Supine Exercises 1 Supine Exercise Name supine punch at 90 degrees flexion Reps/Minutes 2x10 Sidelying Exercises 1 Sidelying Exercise Name abduction- small range AROM Resistance 1# Reps/Minutes 2x10 Comments 0-80 degrees ER AROM Resistance 1# Reps/Minutes 2x10 Manual Therapy Treatment Soft Tissue Mobilization 1 Body Location scapula Mobilization Type Myofascial Release,Strumming, Sustained Pressure,Trigger Point Release Intensity/Depth Superficial Body Position Sidelying Comments supraspinatus and infraspinatus TrP Manual Techniques 1 Type GH PROM Body Position Hooklying Comments good into flexion and abduction, brief time spent on ER and IR as this continues to be painful PT-OP-R Modalities Start: 09/18/21 15:28 Freq: Status: Active Protocol: Document 09/18/21 13:45 AMB (Rec: 09/18/21 15:32 AMB [id number]) Electric Stimulation Electric Stimulation Interferential Current (IFC) Body Location L shoulder/scapula Duration (Minutes) 10 Patient Position Hooklying Combined With Heat/Cold Hot Pack PT-OP-T Assessment and Plan Start: 07/15/21 08:16 Freq: Status: Active Protocol: Document 09/22/21 13:43 AMB (Rec: 09/22/21 16:07 AMB [id number]) Physical Therapy Assessment Goals Two Impairment Pain Short Term Goal (STG) Brie will sleep on her left shoulder without an increase in pain. STG Duration PARTIALLY MET [facility] Goal (LTG) Brie will lift a plate into her cabinet without shoulder pain. LTG Duration PARTIALLY MET One Impairment ROM Short Term Goal (STG) Brie will improve her left shoulder flexion PROM to 150 degrees. STG Duration 4 weeks- 133 [facility] Goal (LTG) Brie will improve her left shoulder abduction PROM to 120 degrees. LTG Duration 8 weeks- 112 Assessment Summary Assessment Brie's ROM has improved, especially with external rotation. Her strength has also improved with external rotation and internal rotation but not really abduction yet. Continued to educate on appropriate strengthening and stretching regime. Infraspinatus continues to have active trigger points, but otherwise scapular musculature is starting to have les restriction. Physical Therapy Plan Frequency and Duration Frequency of Treatment 1x/Week Duration of Treatment 8 weeks Plan of Care Start Date 09/22/21 Plan of Care End Date 11/17/21 Therapeutic Interventions Therapeutic Interventions Home Exercise Program,Joint Mobilizations,Manual Therapy, Neuromuscular Re-education, Self-Care/Home Management,Soft Tissue Mobilization, Therapeutic Activities, Therapeutic Exercises Modalities Cold Pack/Ice Massage,Electric Stimulation,Hot Packs, Ultrasound Next Visit Focus/Plan Next Note Type Treatment Note Next Visit Plan Review HEP strengthening, progress range
--- NOTE | 2021-09-22 12:00 | PT.OPPOC ---
Physical, Occupational & Speech Therapy At [facility] Current Diagnoses Other chronic pain (09/22/21) Pain in left shoulder (09/22/21) Pain in left elbow (09/22/21) Visit Care Team Role Provider Type Queta Rae MD Primary Care Provider Physician Specialty: Family Practice Address: [address] [place] [address], [facility], [place], [address] Email: [email or web address] Fabiano Jimenez DO Attending Provider Physician Referring Provider Specialty: [facility] Address: [address] [place] [address], [id number] Email: Plan Of Care PT-OP-T Assessment and Plan Start: 07/15/21 08:16 Freq: Status: Active Protocol: Document 09/22/21 13:43 AMB (Rec: 09/22/21 16:07 AMB [id number]) Physical Therapy Assessment Goals Two Impairment Pain Short Term Goal (STG) Brie will sleep on her left shoulder without an increase in pain. STG Duration PARTIALLY MET [employer] Goal (LTG) Brie will lift a plate into her cabinet without shoulder pain. LTG Duration PARTIALLY MET One Impairment ROM Short Term Goal (STG) Brie will improve her left shoulder flexion PROM to 150 degrees. STG Duration 4 weeks- 133 Group Home Goal (LTG) Brie will improve her left shoulder abduction PROM to 120 degrees. LTG Duration 8 weeks- 112 Assessment Summary Assessment Brie's ROM has improved, especially with external rotation. Her strength has also improved with external rotation and internal rotation but not really abduction yet. Continued to educate on appropriate strengthening and stretching regime. Infraspinatus continues to have active trigger points, but otherwise scapular musculature is starting to have les restriction. Physical Therapy Plan Frequency and Duration Frequency of Treatment 1x/Week Duration of Treatment 8 weeks Plan of Care Start Date 09/22/21 Plan of Care End Date 11/17/21 Therapeutic Interventions Therapeutic Interventions Home Exercise Program,Joint Mobilizations,Manual Therapy, Neuromuscular Re-education, Self-Care/Home Management,Soft Tissue Mobilization, Therapeutic Activities, Therapeutic Exercises Modalities Cold Pack/Ice Massage,Electric Stimulation,Hot Packs, Ultrasound Next Visit Focus/Plan Next Note Type Treatment Note Next Visit Plan Review HEP strengthening, progress range Plan of Care Dates Plan of Care Start Date 09/22/21 Plan of Care End Date 11/17/21 Electronically Signed by: Mariah Thurston, PT 09/23/21 0106 Please Sign and Return: I have reviewed this Plan of Care and certify that the skilled therapy services above are required to meet the patient?s needs. Physician Signature Date Printed Name and Credentials Clinical Instructor Signature Printed Name and Credentials
--- NOTE | 2021-09-24 13:00 | PT.OTN ---
Current Diagnoses Other chronic pain (09/24/21) Pain in left shoulder (09/24/21) Pain in left elbow (09/24/21) Physical Therapy Treatment Note PT-OP-A Visit Information Start: 07/15/21 08:16 Freq: Status: Active Protocol: Document 09/24/21 13:04 AMB (Rec: 09/24/21 14:03 AMB [id number]) Out-Patient Physical Therapy Visit Information Visit Information Visit Type Treatment Note Visit Start Time 13:00 Visit Stop Time 13:45 Total Visit Minutes 45 Visit Number 20 PT-OP-B Current Condition Start: 07/15/21 08:16 Freq: Status: Active Protocol: Document 07/15/21 08:15 AMB (Rec: 07/15/21 08:25 AMB [id number]) Current Condition History of Current Condition Onset Date 10 months ago Current Complaints L shoulder pain History of Current Condition 10 months ago shoulder pain started, now interfering with strengthening. Worsening over the last 10 months. Interferes with sleep- sleeping on that arm is painful. Deep ache with and reaching, driving- putting the seat belt on. Weightbearing and theraband exercises have stopped because of the pain. Treatment Goals Patient/Caregiver Goals Drive, reach without pain Prior Functional Status Baseline Function- ADL's Modified Independent Baseline Function- Mobility Modified Independent Personal Factors Other Personal Factors That May Effect osteoporosis, recent weight Therapy/Recovery loss PT-OP-C Subjective Start: 07/15/21 08:16 Freq: Status: Active Protocol: Document 09/24/21 13:00 AMB (Rec: 09/27/21 10:36 AMB [id number]) OP-PT Subjective Patient Comments Patient Comments Brie continues to feel pain/ stiffness in the shoulder, but feels like the pain is getting better, the stiffness is definitely still there. PT-OP-J Posture/Palpation/Skin Start: 07/15/21 08:16 Freq: Status: Active Protocol: Document 07/15/21 08:15 AMB (Rec: 07/15/21 16:03 AMB [id number]) Posture Evaluation Comments Posture Comments forward head, increased thoracic kyphosis Palpation Assessment Location One Palpation Location L shoulder Palpation Details Tenderness at posterior and anterior GH joint, over biceps tendon, 1st rib, pain tends to radiate down arm but more tenderness at GH joint than at elbow. PT-OP-K Range of Motion Start: 07/15/21 08:16 Freq: Status: Active Protocol: Document 09/22/21 10:33 AMB (Rec: 09/22/21 10:38 AMB [id number]) Shoulder Goniometric Range of Motion Shoulder Left Passive Flexion 133 Abduction 112 External Rotation at 90 degrees 43 Abduction Internal Rotation 45 PT-OP-M Strength Start: 07/15/21 08:16 Freq: Status: Active Protocol: Document 09/22/21 10:38 AMB (Rec: 09/22/21 10:40 AMB [id number]) Shoulder Strength Shoulder Manual Muscle Testing Left Flexion 4 Good Abduction (C5) 3+ Fair+ External Rotation 4- Good- Internal Rotation 4- Good- PT-OP-Q Treatments Start: 07/15/21 08:16 Freq: Status: Active Protocol: Document 09/24/21 13:00 AMB (Rec: 09/27/21 10:36 AMB [id number]) Therapeutic Exercises Supine Exercises 3 Supine Exercise Name tricep extension Resistance 1# Reps/Minutes 2x10 Comments shoulder at 90 2 Supine Exercise Name flexion Resistance 1#, 2# Reps/Minutes 2x10 Comments 0-80 Sidelying Exercises 1 Sidelying Exercise Name abduction- small range AROM Resistance 1# Reps/Minutes 2x10 Comments 0-80 degrees ER AROM Resistance 1# Reps/Minutes 2x10 Manual Therapy Treatment Soft Tissue Mobilization 1 Body Location scapula Mobilization Type Myofascial Release,Strumming, Sustained Pressure,Trigger Point Release Intensity/Depth Superficial Body Position Sidelying Comments supraspinatus and infraspinatus TrP Taping 1 Body Location L shoulder Treatment Focus GH support Type of Tape kinesiotape Comments I and Y PT-OP-R Modalities Start: 09/18/21 15:28 Freq: Status: Active Protocol: Document 09/18/21 13:45 AMB (Rec: 09/18/21 15:32 AMB [id number]) Electric Stimulation Electric Stimulation Interferential Current (IFC) Body Location L shoulder/scapula Duration (Minutes) 10 Patient Position Hooklying Combined With Heat/Cold Hot Pack PT-OP-T Assessment and Plan Start: 07/15/21 08:16 Freq: Status: Active Protocol: Document 09/24/21 13:04 AMB (Rec: 09/24/21 14:03 AMB [id number]) Physical Therapy Assessment Goals Two Impairment Pain Short Term Goal (STG) Brie will sleep on her left shoulder without an increase in pain. STG Duration PARTIALLY MET [facility] Goal (LTG) Brie will lift a plate into her cabinet without shoulder pain. LTG Duration PARTIALLY MET One Impairment ROM Short Term Goal (STG) Brie will improve her left shoulder flexion PROM to 150 degrees. STG Duration 4 weeks- 133 [employer]illing Engineering Manager Goal (LTG) Brie will improve her left shoulder abduction PROM to 120 degrees. LTG Duration 8 weeks- 112 Assessment Summary Assessment Brie had limited IR ROM today, discussed holding on IR strengthening today, to see if that helps with her continued TrP in infraspinatus, will reassess next week Physical Therapy Plan Next Visit Focus/Plan Next Note Type Treatment Note Next Visit Plan Review HEP strengthening, progress range
--- NOTE | 2021-09-30 15:10 | PT.OTN ---
Current Diagnoses Other chronic pain (09/30/21) Pain in left shoulder (09/30/21) Pain in left elbow (09/30/21) Physical Therapy Treatment Note PT-OP-A Visit Information Start: 07/15/21 08:16 Freq: Status: Active Protocol: Document 09/30/21 11:15 AMB (Rec: 09/30/21 12:02 AMB [id number]) Out-Patient Physical Therapy Visit Information Visit Information Visit Type Treatment Note Visit Start Time 11:15 Visit Stop Time 12:00 Total Visit Minutes 45 Visit Number 21 PT-OP-B Current Condition Start: 07/15/21 08:16 Freq: Status: Active Protocol: Document 07/15/21 08:15 AMB (Rec: 07/15/21 08:25 AMB [id number]) Current Condition History of Current Condition Onset Date 10 months ago Current Complaints L shoulder pain History of Current Condition 10 months ago shoulder pain started, now interfering with strengthening. Worsening over the last 10 months. Interferes with sleep- sleeping on that arm is painful. Deep ache with and reaching, driving- putting the seat belt on. Weightbearing and theraband exercises have stopped because of the pain. Treatment Goals Patient/Caregiver Goals Drive, reach without pain Prior Functional Status Baseline Function- ADL's Modified Independent Baseline Function- Mobility Modified Independent Personal Factors Other Personal Factors That May Effect osteoporosis, recent weight Therapy/Recovery loss PT-OP-C Subjective Start: 07/15/21 08:16 Freq: Status: Active Protocol: Document 09/30/21 11:15 AMB (Rec: 09/30/21 15:10 AMB [id number]) OP-PT Subjective Patient Comments Patient Comments Brie had acupuncture yesterday and felt it helped her neck. She has not been doing t band IR per our plan last visit. PT-OP-J Posture/Palpation/Skin Start: 07/15/21 08:16 Freq: Status: Active Protocol: Document 07/15/21 08:15 AMB (Rec: 07/15/21 16:03 AMB [id number]) Posture Evaluation Comments Posture Comments forward head, increased thoracic kyphosis Palpation Assessment Location One Palpation Location L shoulder Palpation Details Tenderness at posterior and anterior GH joint, over biceps tendon, 1st rib, pain tends to radiate down arm but more tenderness at GH joint than at elbow. PT-OP-K Range of Motion Start: 07/15/21 08:16 Freq: Status: Active Protocol: Document 09/22/21 10:33 AMB (Rec: 09/22/21 10:38 AMB [id number]) Shoulder Goniometric Range of Motion Shoulder Left Passive Flexion 133 Abduction 112 External Rotation at 90 degrees 43 Abduction Internal Rotation 45 PT-OP-M Strength Start: 07/15/21 08:16 Freq: Status: Active Protocol: Document 09/22/21 10:38 AMB (Rec: 09/22/21 10:40 AMB [id number]) Shoulder Strength Shoulder Manual Muscle Testing Left Flexion 4 Good Abduction (C5) 3+ Fair+ External Rotation 4- Good- Internal Rotation 4- Good- PT-OP-Q Treatments Start: 07/15/21 08:16 Freq: Status: Active Protocol: Document 09/30/21 11:15 AMB (Rec: 09/30/21 15:10 AMB [id number]) Therapeutic Exercises Supine Exercises 3 Supine Exercise Name tricep extension Resistance 1# Reps/Minutes 2x10 Comments shoulder at 90 1 Supine Exercise Name AAROM flexion, abduction, horiozontal abduction Reps/Minutes 10 Comments with cane Sidelying Exercises 1 Sidelying Exercise Name abduction- small range AROM Resistance 1# Reps/Minutes 2x10 Comments 0-80 degrees Standing Exercises 5 Standing Exercise Name wall walk for flexion, scaption PT-OP-R Modalities Start: 09/18/21 15:28 Freq: Status: Active Protocol: Document 09/18/21 13:45 AMB (Rec: 09/18/21 15:32 AMB [id number]) Electric Stimulation Electric Stimulation Interferential Current (IFC) Body Location L shoulder/scapula Duration (Minutes) 10 Patient Position Hooklying Combined With Heat/Cold Hot Pack PT-OP-T Assessment and Plan Start: 07/15/21 08:16 Freq: Status: Active Protocol: Document 09/30/21 11:15 AMB (Rec: 09/30/21 15:10 AMB [id number]) Physical Therapy Assessment Goals Two Impairment Pain Short Term Goal (STG) Brie will sleep on her left shoulder without an increase in pain. STG Duration PARTIALLY MET Intermediate Goal (LTG) Brie will lift a plate into her cabinet without shoulder pain. LTG Duration PARTIALLY MET One Impairment ROM Short Term Goal (STG) Brie will improve her left shoulder flexion PROM to 150 degrees. STG Duration 4 weeks- 133 Intermediate Goal (LTG) Brie will improve her left shoulder abduction PROM to 120 degrees. LTG Duration 8 weeks- 112 Assessment Summary Assessment Brie's ROM continues to improve slowly, continued to have active TrPs in infraspinatus but not as painful as it has been. Physical Therapy Plan Next Visit Focus/Plan Next Note Type Treatment Note Next Visit Plan Review HEP strengthening, progress range
--- NOTE | 2021-10-07 11:35 | PT.OTN ---
Current Diagnoses Other chronic pain (10/07/21) Pain in left shoulder (10/07/21) Pain in left elbow (10/07/21) Physical Therapy Treatment Note PT-OP-A Visit Information Start: 07/15/21 08:16 Freq: Status: Active Protocol: Document 10/07/21 10:31 AMB (Rec: 10/07/21 11:34 AMB [id number]) Out-Patient Physical Therapy Visit Information Visit Information Visit Type Treatment Note Visit Start Time 10:30 Visit Stop Time 11:15 Total Visit Minutes 45 Visit Number 22 PT-OP-B Current Condition Start: 07/15/21 08:16 Freq: Status: Active Protocol: Document 07/15/21 08:15 AMB (Rec: 07/15/21 08:25 AMB [id number]) Current Condition History of Current Condition Onset Date 10 months ago Current Complaints L shoulder pain History of Current Condition 10 months ago shoulder pain started, now interfering with strengthening. Worsening over the last 10 months. Interferes with sleep- sleeping on that arm is painful. Deep ache with and reaching, driving- putting the seat belt on. Weightbearing and theraband exercises have stopped because of the pain. Treatment Goals Patient/Caregiver Goals Drive, reach without pain Prior Functional Status Baseline Function- ADL's Modified Independent Baseline Function- Mobility Modified Independent Personal Factors Other Personal Factors That May Effect osteoporosis, recent weight Therapy/Recovery loss PT-OP-C Subjective Start: 07/15/21 08:16 Freq: Status: Active Protocol: Document 10/07/21 10:31 AMB (Rec: 10/07/21 11:34 AMB [id number]) OP-PT Subjective Patient Comments Patient Comments Brie had OMT with Dr. Jimenez yesterday and also started a new homeopathic medication and thinks things are feeling a bit better, has been sleeping better. PT-OP-J Posture/Palpation/Skin Start: 07/15/21 08:16 Freq: Status: Active Protocol: Document 07/15/21 08:15 AMB (Rec: 07/15/21 16:03 AMB [id number]) Posture Evaluation Comments Posture Comments forward head, increased thoracic kyphosis Palpation Assessment Location One Palpation Location L shoulder Palpation Details Tenderness at posterior and anterior GH joint, over biceps tendon, 1st rib, pain tends to radiate down arm but more tenderness at GH joint than at elbow. PT-OP-K Range of Motion Start: 07/15/21 08:16 Freq: Status: Active Protocol: Document 09/22/21 10:33 AMB (Rec: 09/22/21 10:38 AMB [id number]) Shoulder Goniometric Range of Motion Shoulder Left Passive Flexion 133 Abduction 112 External Rotation at 90 degrees 43 Abduction Internal Rotation 45 PT-OP-M Strength Start: 07/15/21 08:16 Freq: Status: Active Protocol: Document 09/22/21 10:38 AMB (Rec: 09/22/21 10:40 AMB [id number]) Shoulder Strength Shoulder Manual Muscle Testing Left Flexion 4 Good Abduction (C5) 3+ Fair+ External Rotation 4- Good- Internal Rotation 4- Good- PT-OP-Q Treatments Start: 07/15/21 08:16 Freq: Status: Active Protocol: Document 10/07/21 10:31 AMB (Rec: 10/07/21 11:34 AMB [id number]) Therapeutic Exercises Supine Exercises 2 Supine Exercise Name AROM flexion Reps/Minutes 10 1 Supine Exercise Name AAROM flexion, abduction, horiozontal abduction Reps/Minutes 10 Comments with cane Sidelying Exercises 1 Sidelying Exercise Name abduction- small range AROM Resistance 1# Reps/Minutes 2x10 Comments 0-120 degrees Manual Therapy Treatment Soft Tissue Mobilization 1 Body Location scapula Mobilization Type Myofascial Release,Strumming, Sustained Pressure,Trigger Point Release Intensity/Depth Superficial Body Position Sidelying Comments supraspinatus and infraspinatus TrP Joint Mobilizations 2 Joint scapulothoracic Comments all planes PT-OP-R Modalities Start: 09/18/21 15:28 Freq: Status: Active Protocol: Document 09/18/21 13:45 AMB (Rec: 09/18/21 15:32 AMB [id number]) Electric Stimulation Electric Stimulation Interferential Current (IFC) Body Location L shoulder/scapula Duration (Minutes) 10 Patient Position Hooklying Combined With Heat/Cold Hot Pack PT-OP-T Assessment and Plan Start: 07/15/21 08:16 Freq: Status: Active Protocol: Document 10/07/21 10:31 AMB (Rec: 10/07/21 11:34 AMB [id number]) Physical Therapy Assessment Assessment Summary Assessment Brie had 112 degrees of active flexion at the beginning of treatment, improved to 120 at end. 140 prom flexion. Continues to have pain and tension in scapular musculature. Physical Therapy Plan Frequency and Duration Frequency of Treatment 1x/Week Duration of Treatment 8 weeks Plan of Care Start Date 09/22/21 Plan of Care End Date 11/17/21 Therapeutic Interventions Therapeutic Interventions Home Exercise Program,Joint Mobilizations,Manual Therapy, Neuromuscular Re-education, Self-Care/Home Management,Soft Tissue Mobilization, Therapeutic Activities, Therapeutic Exercises Modalities Cold Pack/Ice Massage,Electric Stimulation,Hot Packs, Ultrasound Next Visit Focus/Plan Next Note Type Treatment Note Next Visit Plan Review HEP strengthening, progress range
--- NOTE | 2021-10-14 12:26 | PT.OTN ---
Current Diagnoses Other chronic pain (10/14/21) Pain in left shoulder (10/14/21) Pain in left elbow (10/14/21) Physical Therapy Treatment Note PT-OP-A Visit Information Start: 07/15/21 08:16 Freq: Status: Active Protocol: Document 10/14/21 10:31 AMB (Rec: 10/14/21 11:22 AMB [id number]) Out-Patient Physical Therapy Visit Information Visit Information Visit Type Treatment Note Visit Start Time 10:30 Visit Stop Time 11:15 Total Visit Minutes 45 Visit Number 23 PT-OP-B Current Condition Start: 07/15/21 08:16 Freq: Status: Active Protocol: Document 07/15/21 08:15 AMB (Rec: 07/15/21 08:25 AMB [id number]) Current Condition History of Current Condition Onset Date 10 months ago Current Complaints L shoulder pain History of Current Condition 10 months ago shoulder pain started, now interfering with strengthening. Worsening over the last 10 months. Interferes with sleep- sleeping on that arm is painful. Deep ache with and reaching, driving- putting the seat belt on. Weightbearing and theraband exercises have stopped because of the pain. Treatment Goals Patient/Caregiver Goals Drive, reach without pain Prior Functional Status Baseline Function- ADL's Modified Independent Baseline Function- Mobility Modified Independent Personal Factors Other Personal Factors That May Effect osteoporosis, recent weight Therapy/Recovery loss PT-OP-C Subjective Start: 07/15/21 08:16 Freq: Status: Active Protocol: Document 10/14/21 10:30 AMB (Rec: 10/14/21 12:26 AMB [id number]) OP-PT Subjective Patient Comments Patient Comments Having hip pain while sleeping , having more GI issues. PT-OP-J Posture/Palpation/Skin Start: 07/15/21 08:16 Freq: Status: Active Protocol: Document 07/15/21 08:15 AMB (Rec: 07/15/21 16:03 AMB [id number]) Posture Evaluation Comments Posture Comments forward head, increased thoracic kyphosis Palpation Assessment Location One Palpation Location L shoulder Palpation Details Tenderness at posterior and anterior GH joint, over biceps tendon, 1st rib, pain tends to radiate down arm but more tenderness at GH joint than at elbow. PT-OP-K Range of Motion Start: 07/15/21 08:16 Freq: Status: Active Protocol: Document 09/22/21 10:33 AMB (Rec: 09/22/21 10:38 AMB [id number]) Shoulder Goniometric Range of Motion Shoulder Left Passive Flexion 133 Abduction 112 External Rotation at 90 degrees 43 Abduction Internal Rotation 45 PT-OP-M Strength Start: 07/15/21 08:16 Freq: Status: Active Protocol: Document 09/22/21 10:38 AMB (Rec: 09/22/21 10:40 AMB [id number]) Shoulder Strength Shoulder Manual Muscle Testing Left Flexion 4 Good Abduction (C5) 3+ Fair+ External Rotation 4- Good- Internal Rotation 4- Good- PT-OP-Q Treatments Start: 07/15/21 08:16 Freq: Status: Active Protocol: Document 10/14/21 12:21 AMB (Rec: 10/14/21 12:25 AMB [id number]) Therapeutic Exercises Supine Exercises 2 Supine Exercise Name AROM flexion Reps/Minutes 10 Sidelying Exercises 1 Sidelying Exercise Name abduction- small range AROM Resistance 1# Reps/Minutes 2x10 Comments 0-120 degrees Standing Exercises 5 Standing Exercise Name wall walk for flexion, scaption Manual Therapy Treatment Soft Tissue Mobilization 1 Body Location scapula Mobilization Type Myofascial Release,Strumming, Sustained Pressure,Trigger Point Release Intensity/Depth Superficial Body Position Sidelying Comments supraspinatus and infraspinatus TrP PT-OP-R Modalities Start: 09/18/21 15:28 Freq: Status: Active Protocol: Document 09/18/21 13:45 AMB (Rec: 09/18/21 15:32 AMB [id number]) Electric Stimulation Electric Stimulation Interferential Current (IFC) Body Location L shoulder/scapula Duration (Minutes) 10 Patient Position Hooklying Combined With Heat/Cold Hot Pack PT-OP-T Assessment and Plan Start: 07/15/21 08:16 Freq: Status: Active Protocol: Document 10/14/21 12:21 AMB (Rec: 10/14/21 12:25 AMB [id number]) Physical Therapy Assessment Goals Two Impairment Pain Short Term Goal (STG) Brie will sleep on her left shoulder without an increase in pain. STG Duration PARTIALLY MET Assisted Goal (LTG) Brie will lift a plate into her cabinet without shoulder pain. LTG Duration PARTIALLY MET One Impairment ROM Short Term Goal (STG) Brie will improve her left shoulder flexion PROM to 150 degrees. STG Duration 4 weeks- 133 Environmental Inspector Goal (LTG) Brie will improve her left shoulder abduction PROM to 120 degrees. LTG Duration 8 weeks- 112 Assessment Summary Assessment Brie tolerated more work into internal rotation today which has been painful in the past. She has been having some GI issues and has unfortunately lost more weight. Physical Therapy Plan Next Visit Focus/Plan Next Note Type Treatment Note Next Visit Plan Review HEP strengthening, progress range
--- NOTE | 2021-10-19 12:45 | PT.OTN ---
Current Diagnoses Other chronic pain (10/19/21) Pain in left shoulder (10/19/21) Pain in left elbow (10/19/21) Physical Therapy Treatment Note PT-OP-A Visit Information Start: 07/15/21 08:16 Freq: Status: Active Protocol: Document 10/19/21 10:30 AMB (Rec: 10/19/21 11:18 AMB [id number]) Out-Patient Physical Therapy Visit Information Visit Information Visit Type Treatment Note Visit Start Time 10:30 Visit Stop Time 11:15 Total Visit Minutes 45 Visit Number 24 PT-OP-B Current Condition Start: 07/15/21 08:16 Freq: Status: Active Protocol: Document 07/15/21 08:15 AMB (Rec: 07/15/21 08:25 AMB [id number]) Current Condition History of Current Condition Onset Date 10 months ago Current Complaints L shoulder pain History of Current Condition 10 months ago shoulder pain started, now interfering with strengthening. Worsening over the last 10 months. Interferes with sleep- sleeping on that arm is painful. Deep ache with and reaching, driving- putting the seat belt on. Weightbearing and theraband exercises have stopped because of the pain. Treatment Goals Patient/Caregiver Goals Drive, reach without pain Prior Functional Status Baseline Function- ADL's Modified Independent Baseline Function- Mobility Modified Independent Personal Factors Other Personal Factors That May Effect osteoporosis, recent weight Therapy/Recovery loss PT-OP-C Subjective Start: 07/15/21 08:16 Freq: Status: Active Protocol: Document 10/19/21 10:30 AMB (Rec: 10/19/21 12:45 AMB [id number]) OP-PT Subjective Patient Comments Patient Comments Brie continues to have GI issues and sleep issues, but is doing ok with the shoulder, feels more tight than painful lately but hasn't been doing a lot of strengthening. PT-OP-J Posture/Palpation/Skin Start: 07/15/21 08:16 Freq: Status: Active Protocol: Document 07/15/21 08:15 AMB (Rec: 07/15/21 16:03 AMB [id number]) Posture Evaluation Comments Posture Comments forward head, increased thoracic kyphosis Palpation Assessment Location One Palpation Location L shoulder Palpation Details Tenderness at posterior and anterior GH joint, over biceps tendon, 1st rib, pain tends to radiate down arm but more tenderness at GH joint than at elbow. PT-OP-K Range of Motion Start: 07/15/21 08:16 Freq: Status: Active Protocol: Document 09/22/21 10:33 AMB (Rec: 09/22/21 10:38 AMB [id number]) Shoulder Goniometric Range of Motion Shoulder Left Passive Flexion 133 Abduction 112 External Rotation at 90 degrees 43 Abduction Internal Rotation 45 PT-OP-M Strength Start: 07/15/21 08:16 Freq: Status: Active Protocol: Document 09/22/21 10:38 AMB (Rec: 09/22/21 10:40 AMB [id number]) Shoulder Strength Shoulder Manual Muscle Testing Left Flexion 4 Good Abduction (C5) 3+ Fair+ External Rotation 4- Good- Internal Rotation 4- Good- PT-OP-Q Treatments Start: 07/15/21 08:16 Freq: Status: Active Protocol: Document 10/19/21 10:30 AMB (Rec: 10/19/21 12:45 AMB [id number]) Therapeutic Exercises Supine Exercises isometrics Supine Exercise Name at 90d flexion Reps/Minutes 10 ea Comments alternating, flex/ext, horiz abd/add 2 Supine Exercise Name AROM flexion Reps/Minutes 10 Sitting Exercises 1 Sitting Exercise Name table stretch- flexion Reps/Minutes 30x4 Comments 130 degrees Manual Therapy Treatment Soft Tissue Mobilization 1 Body Location scapula Mobilization Type Myofascial Release,Strumming, Sustained Pressure,Trigger Point Release Intensity/Depth Superficial Body Position Sidelying Comments supraspinatus and infraspinatus TrP Manual Techniques 1 Type GH PROM Body Position Hooklying Comments good into flexion and abduction, tolerated more into IR today PT-OP-R Modalities Start: 09/18/21 15:28 Freq: Status: Active Protocol: Document 09/18/21 13:45 AMB (Rec: 09/18/21 15:32 AMB [id number]) Electric Stimulation Electric Stimulation Interferential Current (IFC) Body Location L shoulder/scapula Duration (Minutes) 10 Patient Position Hooklying Combined With Heat/Cold Hot Pack PT-OP-T Assessment and Plan Start: 07/15/21 08:16 Freq: Status: Active Protocol: Document 10/19/21 10:30 AMB (Rec: 10/19/21 12:45 AMB [id number]) Physical Therapy Assessment Assessment Summary Assessment Internal rotation is coming along nicely, ER continues to be painful at end range, but overall Brie is having less pain and describing sx more as tightness which she is able to stretch through with less pain. Physical Therapy Plan Next Visit Focus/Plan Next Note Type Treatment Note Next Visit Plan Review HEP strengthening, progress range
--- NOTE | 2021-11-19 15:51 | PT.OPDS ---
Current Diagnoses Other chronic pain (10/19/21) Pain in left shoulder (10/19/21) Pain in left elbow (10/19/21) Visit Care Team Role Provider Type Queta Rae MD Primary Care Provider Physician Specialty: [facility] Address: [address] [place] [address], [place], [address] Email: [email or web address] Fabiano Jimenez DO Attending Provider Physician Referring Provider Specialty: [facility] Address: [address] [place] [address], [facility] Email: Visit Number Visit Number 24 Discharge Summary PT-OP-B Current Condition Start: 07/15/21 08:16 Freq: Status: Active Protocol: Document 07/15/21 08:15 AMB (Rec: 07/15/21 08:25 AMB [id number]) Current Condition History of Current Condition Onset Date 10 months ago Current Complaints L shoulder pain History of Current Condition 10 months ago shoulder pain started, now interfering with strengthening. Worsening over the last 10 months. Interferes with sleep- sleeping on that arm is painful. Deep ache with and reaching, driving- putting the seat belt on. Weightbearing and theraband exercises have stopped because of the pain. Treatment Goals Patient/Caregiver Goals Drive, reach without pain Prior Functional Status Baseline Function- ADL's Modified Independent Baseline Function- Mobility Modified Independent Personal Factors Other Personal Factors That May Effect osteoporosis, recent weight Therapy/Recovery loss PT-OP-C Subjective Start: 07/15/21 08:16 Freq: Status: Active Protocol: Document 10/19/21 10:30 AMB (Rec: 10/19/21 12:45 AMB [id number]) OP-PT Subjective Patient Comments Patient Comments Brie continues to have GI issues and sleep issues, but is doing ok with the shoulder, feels more tight than painful lately but hasn't been doing a lot of strengthening. PT-OP-J Posture/Palpation/Skin Start: 07/15/21 08:16 Freq: Status: Active Protocol: Document 07/15/21 08:15 AMB (Rec: 07/15/21 16:03 AMB [id number]) Posture Evaluation Comments Posture Comments forward head, increased thoracic kyphosis Palpation Assessment Location One Palpation Location L shoulder Palpation Details Tenderness at posterior and anterior GH joint, over biceps tendon, 1st rib, pain tends to radiate down arm but more tenderness at GH joint than at elbow. PT-OP-K Range of Motion Start: 07/15/21 08:16 Freq: Status: Active Protocol: Document 09/22/21 10:33 AMB (Rec: 09/22/21 10:38 AMB [id number]) Shoulder Goniometric Range of Motion Shoulder Left Passive Flexion 133 Abduction 112 External Rotation at 90 degrees 43 Abduction Internal Rotation 45 PT-OP-M Strength Start: 07/15/21 08:16 Freq: Status: Active Protocol: Document 09/22/21 10:38 AMB (Rec: 09/22/21 10:40 AMB [id number]) Shoulder Strength Shoulder Manual Muscle Testing Left Flexion 4 Good Abduction (C5) 3+ Fair+ External Rotation 4- Good- Internal Rotation 4- Good- PT-OP-T Assessment and Plan Start: 07/15/21 08:16 Freq: Status: Active Protocol: Document 11/19/21 15:50 AMB (Rec: 11/19/21 15:51 AMB [id number]) Physical Therapy Assessment Goals Two Impairment Pain Short Term Goal (STG) Brie will sleep on her left shoulder without an increase in pain. STG Duration PARTIALLY MET Drafting Layout Man Goal (LTG) Brie will lift a plate into her cabinet without shoulder pain. LTG Duration PARTIALLY MET One Impairment ROM Short Term Goal (STG) Brie will improve her left shoulder flexion PROM to 150 degrees. STG Duration 4 weeks- 133 Retirement Goal (LTG) Brie will improve her left shoulder abduction PROM to 120 degrees. LTG Duration 8 weeks- 112 Assessment Summary Assessment Brie was last seen a month ago and at that appointment her Internal rotation is coming along nicely, ER continues to be painful at end range, but overall Brie is having less pain and describing sx more as tightness which she is able to stretch through with less pain. She has sine canceled her appointments due to other health issues and is therefore discharged. Physical Therapy Plan Discharge Physical Therapy Discharge Reasons Patient Request
== END 2021-11-24 14:03 ==
LOC: PHYS 10:30
PROVIDERS: PCP Family Medicine; Referring Provider Family Medicine; Visit Provider Family Medicine
DX: M25.522 Pain in left elbow (principal); G89.29 Other chronic pain; M25.512 Pain in left shoulder
CPT/HCPCS: 97014; 97110; 97140; 97162; G0283

== ENCOUNTER → 2021-10-23 13:13 | Outpatient (CLI) | payer MEDICARE, OTHER, SELFPAY ==
[2021-10-23 14:09] LABS: Hemoglobin A1C% w Est Avg Glu 5.6 % (4.0-6.0)
== END ==
PROVIDERS: PCP Family Medicine; Referring Provider Family Medicine; Visit Provider Family Medicine
DX: R73.09 Other abnormal glucose (principal)
CPT/HCPCS: 36415; 83036

== ENCOUNTER → 2021-11-09 07:56 | Outpatient (CLI) | payer MEDICARE, OTHER, SELFPAY ==
--- NOTE | 2021-11-09 | DI.CT.S_ITS ---
PROCEDURE: CT ABDOMEN PELVIS W CON INDICATIONS: Functional dyspepsia TECHNIQUE: After the administration of oral and IV contrast, axial sections were acquired from the lung bases to the pubic symphysis. Coronal and sagittal reformats were performed. For radiation dose reduction, the following was used: automated exposure control, adjustment of mA and/or kV according to patient size. COMPARISON: [facility], MR, MR LUMBAR SPINE WO/W CON, 04/02/2021, 15:46. [facility], CT, CT CHEST W CON, 04/14/2021, 11:51. FINDINGS: Image quality: Excellent. Lung bases: Unremarkable. Heart: No significant findings. ABDOMEN: Liver: Subtle nodular contour of liver. Liver is normal in size. No focal hepatic mass. Gallbladder: Unremarkable. Biliary ducts: Unremarkable. Pancreas: Unremarkable. Spleen: Unremarkable. Adrenal Glands: Unremarkable. Kidneys and Ureters: Normal in size and symmetrical enhancement. Small cortical nodules are seen bilaterally, most likely renal cysts Stomach and Bowel: Stomach, small bowel loops, and colon are normal in caliber. Moderate amount of stool in colon. Peritoneum: No abnormal intraperitoneal fluid. No free air. Ventral Wall: No hernia. Abdominal Nodes: No retroperitoneal or mesenteric adenopathy by size criteria. Vessels: Aorta and inferior vena cava are normal in size. PELVIS: Pelvic Organs: There is a 3 cm cyst in the left adnexa. Uterus is unremarkable. Bladder: Unremarkable. Pelvic Nodes: No enlarged lymph nodes. Miscellaneous: No inguinal hernias are seen. Bones: Multiple compression fractures, moderate at L3 and L4 and mild at L1, most likely chronic. Mild scoliosis. Degenerative changes are noted in lumbar spine. IMPRESSION: 1. No acute abnormalities in abdomen or pelvis. 2. Subtle nodular contour of liver suggesting cirrhosis. Please correlate with liver function tests. 3. A 3 cm cyst in the left adnexa. Recommend pelvic ultrasound for follow-up evaluation. 4. Bilateral small renal cortical cysts. 5. Multiple compression fractures in lumbar spine. Dictated by: Patel Buck M.D. on 11/09/2021 at 11:48 Approved by: Patel Buck M.D. on 11/09/2021 at 12:02
== END ==
PROVIDERS: PCP Family Medicine; Referring Provider Physician Assistant; Visit Provider Physician Assistant
DX: R13.10 Dysphagia, unspecified (principal); N20.0 Calculus of kidney; N94.89 Other specified conditions associated with female genital organs and menstrual cycle; M48.56XA Collapsed vertebra, not elsewhere classified, lumbar region, initial encounter for fracture; K30 Functional dyspepsia; K21.9 Gastro-esophageal reflux disease without esophagitis; R63.4 Abnormal weight loss; K59.00 Constipation, unspecified
CPT/HCPCS: 74177

== ENCOUNTER → 2021-11-17 10:39 | Outpatient (CLI) | payer MEDICARE, OTHER, SELFPAY ==
[2021-11-17 12:01] LABS: BUN Creatinine Ratio 34.6 (6-22); Blood Urea Nitrogen 18 mg/dL (7-17); Calcium 9.1 mg/dL (8.4-10.2); Carbon Dioxide 27 mmol/L (22-32); Chloride 101 mmol/L (98-107); Cholesterol 238 mg/dL (140-199); Estimated Glomerular Filt Rate > 60.0 mL/min (>60); Glucose 156 mg/dL (80-110); HEMOLYSIS < 15 (0-50); Potassium 4.2 mmol/L (3.4-5.1); Sodium 135 mmol/L (137-145); Triglycerides 109 mg/dL (35-150)
[2021-11-17 12:09] LABS: HDL Cholesterol 137 mg/dL (40-60); LDL Cholesterol Calculated 79 mg/dL (<100)
[2021-11-17 17:03] LABS: Vitamin D 25 Hydroxy (D3) 73.2 ng/mL (30.0-100.0)
== END ==
PROVIDERS: PCP Family Medicine; Referring Provider Internal Medicine; Visit Provider Internal Medicine
DX: M81.0 Age-related osteoporosis without current pathological fracture (principal)
CPT/HCPCS: 36415; 80048; 80061; 82306

== ENCOUNTER 2021-12-01 15:18 | Emergency (ER) | payer MEDICARE, OTHER, SELFPAY ==
[2021-12-01 15:36] VITALS: BP 151/70; PULSE 111; RESP 22; TEMP 36.8; O2SAT 96
[2021-12-01 16:11] LABS: Add Manual Diff / Slide Review NO; Basophils Absolute Auto 100 /uL (0-100); Basophils Percent Auto 0.6 % (0-2); Eosinophils Absolute Auto 100 /uL (0-450); Eosinophils Percent Auto 0.5 % (2-4); Hematocrit 40.8 % (36-46); Hemoglobin 13.8 g/dL (12.0-16.0); Lymphocytes Absolute Auto 1700 /uL (1100-4500); Lymphocytes Percent Auto 13.3 % (25-40); Mean Corpuscular HGB Conc 33.8 % (30-36); Mean Corpuscular Hemoglobin 32.2 PG (26-34); Mean Corpuscular Volume 95.2 fL (80-100); Monocytes Absolute Auto 900 /uL (0-900); Neutrophils Absolute Auto 10000 /uL (1500-7000); Neutrophils Percent Auto 78.6 % (50-75); Platelet Count 241 X10^3/uL (150-400); Red Blood Cell Count 4.29 X10^6/uL (4.0-5.2); Red Cell Distribution Width 13.5 % (11.6-14.8); White Blood Cell Count 12.7 X10^3/uL (4.5-11.0)
[2021-12-01 16:32] LABS: Alanine Aminotransferase 42 IU/L (<35); Albumin 4.4 g/dL (3.5-5.0); Albumin Globulin Ratio 1.3 (1.0-2.8); Alkaline Phosphatase 76 U/L (38-126); Aspartate Aminotransferase 39 IU/L (14-36); BUN Creatinine Ratio 38.8 (6-22); Bilirubin Total 0.1 mg/dL (0.2-1.3); Blood Urea Nitrogen 19 mg/dL (7-17); Calcium 9.4 mg/dL (8.4-10.2); Carbon Dioxide 31 mmol/L (22-32); Chloride 100 mmol/L (98-107); Estimated Glomerular Filt Rate > 60.0 mL/min (>60); Globulin 3.3 g/dL (1.7-4.1); Glucose 126 mg/dL (80-110); HEMOLYSIS < 15 (0-50); Lipase 163 U/L (23-300); Potassium 3.9 mmol/L (3.4-5.1); Sodium 137 mmol/L (137-145); Total Protein 7.7 g/dL (6.3-8.2)
[2021-12-01 16:41] VITALS: BP 138/70; PULSE 94; O2SAT 98
[2021-12-01 16:57] LABS: Lactate (Lactic Acid) 1.1 mmol/L (0.7-2.1)
[2021-12-01 17:12] LABS: Ketones (Beta-Hydroxybutyrate) 0.07 mmol/L (<0.27)
--- NOTE | 2021-12-01 17:34 | ED.ABDPAIN ---
HPI - Abdominal Pain General Chief Complaint: Abdominal Pain Stated Complaint: kidney pain/no urine x1 day Time Seen by Provider: 12/01/21 16:44 Source: patient Mode of arrival: Ambulatory History of Present Illness HPI narrative: 65F nonsmoker with history of depression, insomnia, anxiety carries diagnoses of previous failure to thrive presents with her significant other for evaluation. For quite some time, perhaps at least 1 year she has been on what seems to be on a downhill slide. She has had increasing difficulty with sleep, poor appetite and weight loss with persistent episodes of upper abdominal pain. She has had extensive workups at multiple facilities with very reassuring labs, imaging and endoscopy. She presents today because of a reported inability to urinate at home and poor oral intake. She states that her symptoms seem to improve rapidly whenever she leaves home. She states that her brain feels scrambled, her appetite is poor, she cannot function when she is at home and is frustrated that things always seemed to be okay when she comes to get checked out. She denies any new medications, change in diet, recent travel or exposure to ill persons. Related Data Home Medications Medication Instructions Recorded Confirmed [bone support] 2 tab PO BEDTIME #0 06/03/17 10/24/21 cyanocobalamin (vitamin B-12) 1 mcg PO DAILY #0 06/03/17 10/24/21 1,000 mcg tablet,extended release omeprazole 40 mg capsule,delayed 40 mg PO DAILY 04/21/21 10/24/21 release naltrexone 50 mg tablet 50 mg PO DAILY 04/30/21 10/24/21 eszopiclone 1 mg tablet (Lunesta) 1 mg PO BEDTIME 05/25/21 10/24/21 tizanidine 2 mg capsule 2 mg PO BEDTIME 05/25/21 10/24/21 Previous Rx's Medication Instructions Recorded trazodone 50 mg tablet See Rx Instructions PO BEDTIME PRN 04/22/21 #60 tab fluoxetine 10 mg capsule 10 mg PO DAILY #30 cap 05/11/21 clonazepam 1 mg tablet 2 mg PO BEDTIME #60 tab 05/20/21 estradiol 1 g VAGINAL DAILY #42.5 g 07/10/21 estradiol 10 mcg vaginal tablet 10 mcg VAGINAL 2XW #24 each 07/10/21 (Yuvafem) Allergies Allergy/AdvReac Type Severity Reaction Status Date / Time No Known Drug Allergies Allergy Verified 10/24/21 14:13 Review of Systems Review of Systems Narrative: GENERAL: See HPI HEENT: Denies sinus pain, ear pain, sore throat, difficulty swallowing, dizziness. RESPIRATORY: Denies dyspnea, cough, wheezing, hemoptysis, sputum. CARDIOVASCULAR: Denies chest pain, palpitations, orthopnea, edema, GASTROINTESTINAL: See HPI : Denies dysuria, frequency, incontinence, hematuria, urinary retention. MUSCULOSKELETAL: denies weakness, joint pain, or bony pain SKIN: Denies rash, skin lesions, or other NEUROLOGIC: Denies weakness, headache, numbness, change in speech, confusion, seizures, incoordination. PSYCHIATRIC: No concerning psychosocial issues. 12 point review of systems is negative except for those stated above Patient History Medical History Abnormal Pap smear of cervix (~1998) Ankle fracture (~2014) Anxiety (~2003) Benign essential tremor Cervical somatic dysfunction Chicken pox Chronic left shoulder pain Chronic pain of left elbow Colon polyps (~2014) GERD (gastroesophageal reflux disease) Hemorrhoid Measles Mumps Osteopenia Osteoporosis Plantar warts Postmenopausal atrophic vaginitis Scoliosis Tinnitus Upper extremity somatic dysfunction Family History Grandfather Heart disease Grandmother Cancer Grandfather Cancer Social History marital status: unmarried,living together number of children: 0 household members: significant other lives independently: Yes caregiver/support person: No housing: house Smoking Status: Never smoker second hand exposure: No alcohol intake: current substance use type: does not use Smoking Status: Never smoker alcohol intake frequency: holidays/special occasions only Substance Use Type: does not use Exam Narrative Exam Narrative: GENERAL: [65 year old patient appears stated age. She is very thin and poorly nourished. She is tearful and making poor eye contact. HEAD: Atraumatic. Normocephalic. EYES: Pupils equal round and reactive. Extraocular motions intact. No scleral icterus. No injection or drainage. ENT: Nose without bleeding, purulent drainage. Throat without erythema, tonsillar hypertrophy or exudate. Airway patent. NECK: Trachea midline. Non tender CARDIOVASCULAR: Regular rate and rhythm without murmurs, gallops, or rubs. RESPIRATORY: Clear to auscultation. Breath sounds equal bilaterally. No wheezes, rales, or rhonchi. GASTROINTESTINAL: Abdomen soft, non-tender, nondistended. EXTREMITIES: No edema or joint tenderness. BACK: Nontender without deformity or crepitance. No flank tenderness. NEURO: AOx3. Cranial nerves 2-12 grossly intact SKIN: No rash or erythema of visible areas Initial Vital Signs Initial Vital Signs: Vital Signs Temperature 98.3 F 12/01/21 15:36 Pulse Rate 111 H 12/01/21 15:36 Respiratory Rate 22 12/01/21 15:36 Blood Pressure 151/70 H 12/01/21 15:36 Pulse Oximetry 96 12/01/21 15:36 Course Orders Ordered: ED Orders 12/01/21 16:00 Complete Blood Count AUTO DIFF Stat Comprehensive Metabolic Panel Stat Ketones (Beta-Hydroxybutyrate) Stat Lactate (Lactic Acid) Stat Lipase Stat 12/01/21 16:04 EKG-12 Lead Stat 12/01/21 16:05 Consult to [facility] - Field Cane Scale Clerk Stat 12/01/21 17:59 Consult to [facility] Field Cane Scale Clerk Stat Vital Signs Vital signs: Vital Signs - 8 hr 12/01/21 15:36 12/01/21 16:41 Temperature 98.3 F Pulse Rate 111 H 94 H Respiratory Rate 22 Blood Pressure 151/70 H 138/70 Pulse Oximetry 96 98 MDM - Abdominal Pain Lab Data Result diagrams: 12/01/21 16:00 12/01/21 16:00 Labs: Lab Results 12/01/21 12/01/21 12/01/21 Range/Units 16:00 16:00 16:00 WBC 12.7 H (4.5-11.0) X10^3/uL RBC 4.29 (4.0-5.2) X10^6/uL Hgb 13.8 (12.0-16.0) g/dL Hct 40.8 (36-46) % MCV 95.2 (80-100) fL MCH 32.2 (26-34) PG MCHC 33.8 (30-36) % RDW 13.5 (11.6-14.8) % Plt Count 241 (150-400) X10^3/uL Neut % (Auto) 78.6 H (50-75) % Lymph % (Auto) 13.3 L (25-40) % [place] % (Auto) 7.0 (3-14) % Eos % (Auto) 0.5 L (2-4) % Baso % (Auto) 0.6 (0-2) % Neut # (Auto) 26262 H (9991-6180) /uL Lymph # (Auto) 1700 (1453-0419) /uL [place] # (Auto) 900 (0-900) /uL Eos # (Auto) 100 (0-450) /uL Baso # (Auto) 100 (0-100) /uL Sodium 137 (137-145) mmol/L Potassium 3.9 (3.4-5.1) mmol/L Chloride 100 (98-107) mmol/L Carbon Dioxide 31 (22-32) mmol/L BUN 19 H (7-17) mg/dL Creatinine 0.49 L (0.52-1.04) mg/dL Estimated GFR > 60.0 (>60) mL/min BUN/Creatinine Ratio 38.8 H (6-22) Glucose 126 H (80-110) mg/dL Lactate 1.1 (0.7-2.1) mmol/L Calcium 9.4 (8.4-10.2) mg/dL Total Bilirubin 0.1 L (0.2-1.3) mg/dL AST 39 H (14-36) IU/L ALT 42 H (<35) IU/L Alkaline Phosphatase 76 (38-126) U/L Total Protein 7.7 (6.3-8.2) g/dL Albumin 4.4 (3.5-5.0) g/dL Globulin 3.3 (1.7-4.1) g/dL Albumin/Globulin Ratio 1.3 (1.0-2.8) Lipase 163 (23-300) U/L Ketones (<0.27) mmol/L 12/01/21 Range/Units 16:00 WBC (4.5-11.0) X10^3/uL RBC (4.0-5.2) X10^6/uL Hgb (12.0-16.0) g/dL Hct (36-46) % MCV (80-100) fL MCH (26-34) PG MCHC (30-36) % RDW (11.6-14.8) % Plt Count (150-400) X10^3/uL Neut % (Auto) (50-75) % Lymph % (Auto) (25-40) % [place] % (Auto) (3-14) % Eos % (Auto) (2-4) % Baso % (Auto) (0-2) % Neut # (Auto) (0922-3407) /uL Lymph # (Auto) (0226-8722) /uL [place] # (Auto) (0-900) /uL Eos # (Auto) (0-450) /uL Baso # (Auto) (0-100) /uL Sodium (137-145) mmol/L Potassium (3.4-5.1) mmol/L Chloride (98-107) mmol/L Carbon Dioxide (22-32) mmol/L BUN (7-17) mg/dL Creatinine (0.52-1.04) mg/dL Estimated GFR (>60) mL/min BUN/Creatinine Ratio (6-22) Glucose (80-110) mg/dL Lactate (0.7-2.1) mmol/L Calcium (8.4-10.2) mg/dL Total Bilirubin (0.2-1.3) mg/dL AST (14-36) IU/L ALT (<35) IU/L Alkaline Phosphatase (38-126) U/L Total Protein (6.3-8.2) g/dL Albumin (3.5-5.0) g/dL Globulin (1.7-4.1) g/dL Albumin/Globulin Ratio (1.0-2.8) Lipase (23-300) U/L Ketones 0.07 (<0.27) mmol/L Point of care testing: Urine Dip Bedside Urine Glucose Negative Bedside Urine Bilirubin - Negative Bedside Urine Ketone - Negative Urine Specific [place] 1.010 Bedside Urine Occult Blood - Negative Bedside Urine pH 7.0 Bedside Urine Protein - Negative Bedside Urine Urobilinogen - Negative Bedside Urine Nitrite - Negative Bedside Urine Leukocytes - Negative Esterase MDM Narrative Medical decision making narrative: Patient returns for re-evaluation of chronic symptoms that have been very difficult to diagnose and treat. She is tearful and upset and convinced that we are mad that she is here. She is thin and has lost weight but overall does not show signs of dehydration, labs are very reassuring, she produced urine soon on arrival. She is tolerating orals and has stable vital signs. There certainly seems to be a high likelihood that depression, anxiety or other underlying mental health illness plays a role. OIL WELL PERFORATOR OPERATOR consulted for evaluation. After lengthy conversation there is no indication that patient would want to pursue any type of inpatient mental health evaluation. She is not gravely disabled, suicidal or homicidal and has the capacity to make her own decisions. From a medical standpoint there is no clear diagnosis that would require hospitalization or any sign of a diagnosis that would be easily reversible. Patient has no indication for hospitalization or transfer. She has been given extensive return precautions and questions answered to her apparent satisfaction Discharge Plan Departure Patient Disposition: Home Clinical Impression: Nausea, Insomnia, Depression Activity Restrictions/Additional Instructions: *You have been diagnosed with [malnutrition, insomnia and depression. As we discussed your history and physical exam are very reassuring and thankfully there is no obvious sign of a diagnosis that would require hospitalization, transfer or even a specific therapy. I am glad he had a chance to speak with our psychiatric social worker supervisor. *What to do: *Please continue to take your regular medications as directed. [ ] New medication prescriptions sent to your pharmacy: [ ] [ ] New medication written as a paper prescription [ x] No new medications given *Please follow up with your primary care provider in 2-3 days, call for an appointment. Let them know you were seen in the Emergency Department and that we ask that you be seen in follow up. We will electronically transmit a record of today's note if your PCP is in our system *If you do not have a primary care provider please contact the [facility] Resource line at [phone]. They will ask some questions about your medical history and help get you set up with a doctor in the community. *Return to Emergency Department if you should have any new, worsening or concerning symptoms, such as [fever greater than 101 F, shaking chills, worsening pain, persistent vomiting or other bothersome symptoms] Prescriptions: No Action eszopiclone [Lunesta] 1 mg tablet 1 mg PO BEDTIME 0RF tizanidine 2 mg capsule 2 mg PO BEDTIME 0RF [bone support] 2 tab PO BEDTIME Qty: 0 0RF cyanocobalamin (vitamin B-12) 1,000 MCG tablet extended release 1 mcg PO DAILY Qty: 0 0RF omeprazole 40 mg capsule,delayed release(DR/EC) 40 mg PO DAILY 0RF trazodone 50 mg tablet See Rx Instructions PO BEDTIME PRN (Reason: insomnia) Qty: 60 0RF Rx Instructions: Take 2 at bedtime as needed for sleep...PATIENT IS NOW WEANING DOWN USING TRAZADONE DROPS TO DECREASE DOSE BY 10% EVERY 5 DAYS 04/21/21 naltrexone 50 mg tablet 50 mg PO DAILY 0RF Label Comments: This is prescribed by Bridget FARRELL 5mg/ml taking .1ml nightly for 1 week, increasing by .1ml nightly each week until taking .9mls nightly per [facility] 04/30/21 fluoxetine 10 mg capsule 10 mg PO DAILY Qty: 30 2RF clonazepam 1 mg tablet 2 mg PO BEDTIME Qty: 60 0RF Rx Instructions: administer 30 minutes before bedtime estradiol [Yuvafem] 10 mcg tablet 10 mcg Vaginal 2XW Qty: 24 3RF estradiol 0.01 % (0.1 mg/gram) cream 1 g vaginal DAILY Qty: 42.5 2RF Rx Instructions: Apply a small dab of cream to the opening of the urethra each evening at bedtime Referrals: Queta Rae MD [Primary Care Provider] -
[2021-12-01 19:21] VITALS: O2SAT 96
[2021-12-01 19:22] VITALS: BP 171/79; PULSE 99; O2SAT 96
[2021-12-01 19:30] VITALS: PULSE 103; O2SAT 96
--- NOTE | 2021-12-01 20:13 | CM.SWNOTE ---
RANGE ECOLOGIST Assessment RANGE ECOLOGIST - Credit Assessment Analyst Assessment RANGE ECOLOGIST/Credit Assessment Analyst Assessment Time Spent with Patient Start date 12/01/21 Visit Start Time 18:30 End date 12/01/21 Visit End Time 19:40 Total time Care Management spent on 50 minutes patient visit-in minutes Mental Health Screening Include Onset, Duration, Intensity Presenting Problem Patient presents to ED due to concern for chronic medical conditions, decline in health over the last year, insomnia, anxiety and depression. Patient endorses frequent SI with no plan. Precipitating Event(s) Patient's significant decline in health due to chronic conditions, countless efforts to address them and ongoing anxiety have contributed to patient's current state. Patient Strengths Patient has great support system. Current Behavioral Health Provider(s) No current MH providers. Include Facility, Provider, Ph. # Patient previously saw [facility] and Psychiatrist Dr. Licona. Psych. Hx Mental Health and Chemical Patient has MDD- recurrent Dependency episode, Insomnia, Anxiety and SI. Patient endorses several medications. Family Hx of Behavioral Abuse None reported Psychiatric Hospitalizations (date(s)/ No hx, patient is reporting location) that she is terrified of this option. Psychosocial information & Support Patient is 65 y/o female who Systems resides with significant other in [place]. Patient has several friends as supports and endorses she has a brother that resides in [place]. School/Work Retired Legal Concerns Legal Matters - Outstanding Issues None reported Mental Status Orientation (Person/Place/Time) A/Ox4 Stated Mood terrified Affect (Congruent with Mood?) Anxious, full range, congruent with mood. Thought Content - Specify/Describe None reported Obsessions, Delusions, Hallucinations Thought Processes (Extdsxv-Ibwribdo-Irib Tangential, repetative Iprvigal-Qeluvaru-Wmvmhbcrwj- Uqxfhqhmrklcwe-Ercwtyb-Ckmpvnzonvuw- Thought Blocking) Speech (Olxhyz-Mhsm-Saunnnn-Rapid-Soft- soft/normal Loud-Pressured) Motor (Tykkpz-Tceyekxej-Arno-Other) Patient's legs shaking when nervous, patient presenting in discomfort lying in bed Insight (Vsoa-Qoex-Whuy/Limited) fair/limited Judgement (Zjkh-Geju-Fopf/Limited) fair/limited Impulse Control (Adequate-Impaired) adequate Memory (Tjkjsmmyv-Fcyekk-Kfprsh, intact, not formally assessed Impaired-Intact) Concentration (Intact-Impaired) intact Attention (Intact-Impaired) intact Behavior (Appropriate-Inappropriate) approrpraite Risk Assessment Suicidal Ideation (Plan) Yes Homicidal Ideation (Plan) No Comment Patient endorses often SI with no plans. Intervention Intervention RANGE ECOLOGIST enters room to meet with patient. Present in room is patient's s /o and patient provides consent for him to be present. Patient endorses her various concerns for her physical and mental health and concern that she needs 24/7 care at home but making several statements that she wants to go home. Patient endorses hopelessness, no outlook for future, insomnia stating that she gets zero sleep to 3 hours each night. Patient and s/o have utilized the [facility] team on two occasions and patient endorses her desire to address medical concerns prior to mental health needs. Each time patient presents to ED it is determined by ED providers that there is no admitting dx for patient. RANGE ECOLOGIST discusses voluntary inpatient hospitalization extensively as an option and patient is terrified and apprehensive of this. Patient endorses she does not want to return to the ED, she is worried about bills, finances, and medication. RANGE ECOLOGIST discusses that patient can always return to ED if symptoms worsen or if patient has thought further about seeking help. RANGE ECOLOGIST provides patient with list of MH providers that accept Medicare, patient states she may look into seeking out help from previous provider. RANGE ECOLOGIST provides ED RANGE ECOLOGIST phone number. RANGE ECOLOGIST discusses HH, caregivers and MH counselors, the crisis line as options as well. RANGE ECOLOGIST plans to f/u with patient and s/o at [facility]'s next shift in ED to f/u with HH referral as an option or answer any questions. It is the opinion of this RANGE ECOLOGIST that patient is safe to d/c to home with s/o. Patient is given several options to access help and at this time is not ready to access them. ED provider endorses plan to d /c patient when medically clear. Plan RA Plan Patient to d/c to home when medically clear, RANGE ECOLOGIST to f/u with patient on 12/04 regarding questions and regarding HH referral as option. YURIDIA Lunsford
== END 2021-12-01 19:59 | disposition home or self-care (01) ==
PROVIDERS: Emergency Provider Emergency Medicine; PCP Family Medicine
DX: R11.0 Nausea (principal); G47.00 Insomnia, unspecified; F32.A Depression, unspecified; R03.0 Elevated blood-pressure reading, without diagnosis of hypertension
CPT/HCPCS: 80053; 81003; 82009; 83605; 83690; 85025; 93005; 93010; 99283

== ENCOUNTER 2021-12-02 20:07 | Emergency (ER) | payer MEDICARE, OTHER, SELFPAY ==
[2021-12-02 20:14] VITALS: BP 117/57; PULSE 102; RESP 20; TEMP 36.7; O2SAT 100
--- NOTE | 2021-12-02 21:38 | ED_ITS ---
HPI - General Adult <Ike Kent DO - Last Filed: 12/03/21 18:02> General Chief complaint: Weakness Stated complaint: Weakness Time Seen by Provider: 12/02/21 21:13 Source: patient Mode of arrival: EMS History of Present Illness HPI narrative: Patient is a 65-year-old female. Is brought to the emergency department today for weakness and not eating or drinking and anxiety. Patient was seen here in the emergency department yesterday for very similar symptoms. Subsequently discharged home. Patient states that today her ?partner ?was here in the emergency department. This made her very anxious. There was also apparently other individuals over at the house today. I am unsure as to whether not they were there because the patient's partner was in the ER or if there were there because of the situations that brought Olivia to the emergency department this evening. Patient states that she is feeling very anxious and depressed. There was conversations today from the individuals were at her house that they were going to provide a ?intervention? and take her to a mental health hospital have her evaluated. Apparently this was supposed to happen tomorrow. This also made the patient very anxious. Similar to yesterday patient states that when she is at home she has quite a few issues to include weakness and urinary and bowel incontinence and having quite a bit of difficulty taking care of herself. She does admit that this seems to improve when she is not at home. She denies any suicidal ideation. She denies any abuse at home. She states that she feels safe at home but does not feel safe ?in my body ?. She is unsure who contacted EMS. She initially stated that she did not want to come to the ER. Related Data Home Medications Medication Instructions Recorded Confirmed [bone support] 2 tab PO BEDTIME #0 06/03/17 10/24/21 cyanocobalamin (vitamin B-12) 1 mcg PO DAILY #0 06/03/17 10/24/21 1,000 mcg tablet,extended release omeprazole 40 mg capsule,delayed 40 mg PO DAILY 04/21/21 10/24/21 release naltrexone 50 mg tablet 50 mg PO DAILY 04/30/21 10/24/21 eszopiclone 1 mg tablet (Lunesta) 1 mg PO BEDTIME 05/25/21 10/24/21 tizanidine 2 mg capsule 2 mg PO BEDTIME 05/25/21 10/24/21 Previous Rx's Medication Instructions Recorded trazodone 50 mg tablet See Rx Instructions PO BEDTIME PRN 04/22/21 #60 tab fluoxetine 10 mg capsule 10 mg PO DAILY #30 cap 05/11/21 clonazepam 1 mg tablet 2 mg PO BEDTIME #60 tab 05/20/21 estradiol 1 g VAGINAL DAILY #42.5 g 07/10/21 estradiol 10 mcg vaginal tablet 10 mcg VAGINAL 2XW #24 each 07/10/21 (Yuvafem) Allergies Allergy/AdvReac Type Severity Reaction Status Date / Time No Known Drug Allergies Allergy Verified 10/24/21 14:13 Review of Systems <Ike Kent DO - Last Filed: 12/03/21 18:02> Review of Systems ROS Unobtainable: All systems reviewed & are unremarkable except as noted in HPI and below Patient History <Ike Kent DO - Last Filed: 12/03/21 18:02> Medical History Abnormal Pap smear of cervix (~1998) Ankle fracture (~2014) Anxiety (~2003) Benign essential tremor Cervical somatic dysfunction Chicken pox Chronic left shoulder pain Chronic pain of left elbow Colon polyps (~2014) GERD (gastroesophageal reflux disease) Hemorrhoid Measles Mumps Osteopenia Osteoporosis Plantar warts Postmenopausal atrophic vaginitis Scoliosis Tinnitus Upper extremity somatic dysfunction Family History Grandfather Heart disease Grandmother Cancer Grandfather Cancer Social History marital status: unmarried,living together number of children: 0 household members: significant other lives independently: Yes caregiver/support person: No housing: house Smoking Status: Never smoker second hand exposure: No alcohol intake: current substance use type: does not use Smoking Status: Never smoker alcohol intake frequency: holidays/special occasions only Substance Use Type: does not use Exam <Ike Kent DO - Last Filed: 12/03/21 18:02> Initial Vital Signs Initial Vital Signs: Vital Signs Temperature 98.0 F 12/02/21 20:14 Pulse Rate 102 H 12/02/21 20:14 Respiratory Rate 20 12/02/21 20:14 Blood Pressure 117/57 L 12/02/21 20:14 Pulse Oximetry 100 12/02/21 20:14 Const General: cooperative, well groomed, No acute distress, No disheveled and No ill appearing HENMT Head: normal to inspection and normocephalic Mouth: moist mucous membranes Resp Effort & Inspection: normal respiratory effort Cardio Rate: regular rate Skin General: no rashes or lesions noted Neuro General: patient alert, patient awake and moves all extremities Speech: speech normal Extrem General: capillary refill normal Psych Affect: anxious affect <DO Juanjose Bell Last Filed: 12/03/21 16:29> Initial Vital Signs Initial Vital Signs: Vital Signs Temperature 98.0 F 12/02/21 20:14 Pulse Rate 102 H 12/02/21 20:14 Respiratory Rate 20 12/02/21 20:14 Blood Pressure 117/57 L 12/02/21 20:14 Pulse Oximetry 100 12/02/21 20:14 Course <DO Juanjose York Last Filed: 12/03/21 18:02> Orders Ordered: ED Orders 12/03/21 15:26 Consult to Home Health Stat Discontinued Medications Loperamide HCl (Loperamide 2 Mg Capsule) 4 mg PO NOW ONE Stop: 12/03/21 05:45 Last Admin: 12/03/21 05:52 Dose: 4 mg Documented by: TIFFANY Vital Signs Vital signs: Vital Signs - 8 hr 12/03/21 11:12 12/03/21 11:13 12/03/21 11:30 Pulse Rate 89 91 H 88 Respiratory Rate Blood Pressure 131/72 131/72 Pulse Oximetry 97 97 98 12/03/21 12:00 12/03/21 12:08 12/03/21 12:30 Pulse Rate 91 H 93 H Respiratory Rate 20 Blood Pressure 117/67 109/70 Pulse Oximetry 96 96 12/03/21 13:00 12/03/21 13:30 12/03/21 13:56 Pulse Rate Respiratory Rate Blood Pressure 120/58 L 125/71 129/60 Pulse Oximetry <DO Juanjose Bell Last Filed: 12/03/21 16:29> Orders Ordered: ED Orders 12/03/21 15:26 Consult to Home Health Stat Discontinued Medications Loperamide HCl (Loperamide 2 Mg Capsule) 4 mg PO NOW ONE Stop: 12/03/21 05:45 Last Admin: 12/03/21 05:52 Dose: 4 mg Documented by: TIFFANY Vital Signs Vital signs: Vital Signs - 8 hr 12/03/21 11:12 12/03/21 11:13 12/03/21 11:30 Pulse Rate 89 91 H 88 Respiratory Rate Blood Pressure 131/72 131/72 Pulse Oximetry 97 97 98 12/03/21 12:00 12/03/21 12:08 12/03/21 12:30 Pulse Rate 91 H 93 H Respiratory Rate 20 Blood Pressure 117/67 109/70 Pulse Oximetry 96 96 12/03/21 13:00 12/03/21 13:30 12/03/21 13:56 Pulse Rate Respiratory Rate Blood Pressure 120/58 L 125/71 129/60 Pulse Oximetry Medical Decision Making <Ike Kent DO - Last Filed: 12/03/21 18:02> Lab Data Lab results reviewed: Yes I reviewed the patient's lab results. Result diagrams: 12/02/21 22:40 12/02/21 22:40 Labs: Lab Results 12/02/21 12/02/21 12/02/21 Range/Units 21:12 21:12 22:40 WBC 10.4 (4.5-11.0) X10^3/uL RBC 4.18 (4.0-5.2) X10^6/uL Hgb 13.7 (12.0-16.0) g/dL Hct 40.0 (36-46) % MCV 95.7 (80-100) fL MCH 32.8 (26-34) PG MCHC 34.3 (30-36) % RDW 13.5 (11.6-14.8) % Plt Count 219 (150-400) X10^3/uL Neut % (Auto) 71.0 (50-75) % Lymph % (Auto) 19.6 L (25-40) % [place] % (Auto) 8.3 (3-14) % Eos % (Auto) 0.7 L (2-4) % Baso % (Auto) 0.4 (0-2) % Neut # (Auto) 7400 H (7133-2510) /uL Lymph # (Auto) 2000 (7999-6296) /uL [place] # (Auto) 900 (0-900) /uL Eos # (Auto) 100 (0-450) /uL Baso # (Auto) 0 (0-100) /uL Sodium (137-145) mmol/L Potassium (3.4-5.1) mmol/L Chloride (98-107) mmol/L Carbon Dioxide (22-32) mmol/L BUN (7-17) mg/dL Creatinine (0.52-1.04) mg/dL Estimated GFR (>60) mL/min BUN/Creatinine Ratio (6-22) Glucose (80-110) mg/dL Calcium (8.4-10.2) mg/dL Total Bilirubin (0.2-1.3) mg/dL AST (14-36) IU/L ALT (<35) IU/L Alkaline Phosphatase (38-126) U/L Total Protein (6.3-8.2) g/dL Albumin (3.5-5.0) g/dL Globulin (1.7-4.1) g/dL Albumin/Globulin Ratio (1.0-2.8) Lipase (23-300) U/L TSH (0.47-4.68) uIU/mL Urine Color Straw Urine Appearance Clear Urine pH 7 (4.5-8.0) Ur Specific [place] 1.010 (1.000-1.035) Urine Protein Trace H (Negative) Urine Glucose (UA) Negative (Negative) g/dL Urine Ketones Negative (NEGATIVE) Urine Occult Blood Negative (Negative) Urine Nitrate Negative (Negative) Urine Bilirubin Negative (NEGATIVE) Urine Urobilinogen Normal (0.2) E.U./dL Ur Leukocyte Esterase Negative (NEGATIVE) Urine RBC None seen (0-5/HPF) Urine WBC None seen (0-5/HPF) Urine Bacteria None seen (None) Ur Culture Indicated? Cult not indicated Salicylates (<20) mg/dL U Opiates 300ng/mL cut Negative (Negative) Ur Oxycodone Screen Negative (Negative) Urine Methadone Screen Negative (Negative) Acetaminophen (10-30) ug/mL Ur Barbiturates Screen Negative (Negative) U Tricyclic Antidepress Negative (Negative) Ur Phencyclidine Scrn Negative (Negative) Ur Amphetamines Screen Negative (Negative) U Methamphetamines Scrn Negative (Negative) Ur MDMA Scrn (Ecstasy) Negative (Negative) U Benzodiazepines Scrn Negative (Negative) Urine Cocaine Screen Negative (Negative) U Marijuana (THC) Screen Negative (Negative) Ethyl Alcohol ( - 10) mg/dL 12/02/21 12/02/21 Range/Units 22:40 22:40 WBC (4.5-11.0) X10^3/uL RBC (4.0-5.2) X10^6/uL Hgb (12.0-16.0) g/dL Hct (36-46) % MCV (80-100) fL MCH (26-34) PG MCHC (30-36) % RDW (11.6-14.8) % Plt Count (150-400) X10^3/uL Neut % (Auto) (50-75) % Lymph % (Auto) (25-40) % [place] % (Auto) (3-14) % Eos % (Auto) (2-4) % Baso % (Auto) (0-2) % Neut # (Auto) (1035-9757) /uL Lymph # (Auto) (4287-6907) /uL [place] # (Auto) (0-900) /uL Eos # (Auto) (0-450) /uL Baso # (Auto) (0-100) /uL Sodium 140 (137-145) mmol/L Potassium 3.8 (3.4-5.1) mmol/L Chloride 103 (98-107) mmol/L Carbon Dioxide 34 H (22-32) mmol/L BUN 24 H (7-17) mg/dL Creatinine 0.63 (0.52-1.04) mg/dL Estimated GFR > 60 (>60) mL/min BUN/Creatinine Ratio 38.1 H (6-22) Glucose 95 (80-110) mg/dL Calcium 9.7 (8.4-10.2) mg/dL Total Bilirubin 0.3 (0.2-1.3) mg/dL AST 40 H (14-36) IU/L ALT 46 H (<35) IU/L Alkaline Phosphatase 70 (38-126) U/L Total Protein 7.6 (6.3-8.2) g/dL Albumin 4.3 (3.5-5.0) g/dL Globulin 3.3 (1.7-4.1) g/dL Albumin/Globulin Ratio 1.3 (1.0-2.8) Lipase 212 (23-300) U/L TSH 5.20 H (0.47-4.68) uIU/mL Urine Color Urine Appearance Urine pH (4.5-8.0) Ur Specific [place] (1.000-1.035) Urine Protein (Negative) Urine Glucose (UA) (Negative) g/dL Urine Ketones (NEGATIVE) Urine Occult Blood (Negative) Urine Nitrate (Negative) Urine Bilirubin (NEGATIVE) Urine Urobilinogen (0.2) E.U./dL Ur Leukocyte Esterase (NEGATIVE) Urine RBC (0-5/HPF) Urine WBC (0-5/HPF) Urine Bacteria (None) Ur Culture Indicated? Salicylates < 1.0 (<20) mg/dL U Opiates 300ng/mL cut (Negative) Ur Oxycodone Screen (Negative) Urine Methadone Screen (Negative) Acetaminophen < 10 (10-30) ug/mL Ur Barbiturates Screen (Negative) U Tricyclic Antidepress (Negative) Ur Phencyclidine Scrn (Negative) Ur Amphetamines Screen (Negative) U Methamphetamines Scrn (Negative) Ur MDMA Scrn (Ecstasy) (Negative) U Benzodiazepines Scrn (Negative) Urine Cocaine Screen (Negative) U Marijuana (THC) Screen (Negative) Ethyl Alcohol < 10 ( - 10) mg/dL MDM Narrative Medical decision making narrative: Patient is obviously having issues at home. She agrees with my assessment that she is having quite a bit of anxiety today related to her partner being here in the emergency department and also the other individuals had her house today apparently trying to intervene on her mental health issues. She denies any suicidal ideation. Patient is not cachectic. No signs of dehydration. Patient is willing to stay here in the emergency department and be re-evaluated by social work tomorrow to discuss potentially being admitted for her anxiety and ice issues she is having at home with regard to this. She was adamant that there was no abuse at home. Patient was very concerned about sleeping in the emergency department overnight and developing bedsores also wasting away because of lack of adequate nutrition. I did inform her that we had a small amount of food that we can give her overnight although she stated that she had many dietary intolerance is to include gluten dairy. I did state that she could have someone bring food in for her she would like. She denied the offer for some Ativan to try to help calm her down. When she initially arrived she was able to walk to the restroom without issues but there were other times where she seemed to have some difficulty doing this but this did seem to be associated times were she was obviously anxious. Care turned over to Dr. Song to follow-up and for social work to follow-up and disposition. <Allison Song, DO - Last Filed: 12/03/21 16:29> Lab Data Labs: Lab Results 12/02/21 12/02/21 12/02/21 Range/Units 21:12 21:12 22:40 WBC 10.4 (4.5-11.0) X10^3/uL RBC 4.18 (4.0-5.2) X10^6/uL Hgb 13.7 (12.0-16.0) g/dL Hct 40.0 (36-46) % MCV 95.7 (80-100) fL MCH 32.8 (26-34) PG MCHC 34.3 (30-36) % RDW 13.5 (11.6-14.8) % Plt Count 219 (150-400) X10^3/uL Neut % (Auto) 71.0 (50-75) % Lymph % (Auto) 19.6 L (25-40) % [place] % (Auto) 8.3 (3-14) % Eos % (Auto) 0.7 L (2-4) % Baso % (Auto) 0.4 (0-2) % Neut # (Auto) 7400 H (9467-9907) /uL Lymph # (Auto) 2000 (1304-0751) /uL [place] # (Auto) 900 (0-900) /uL Eos # (Auto) 100 (0-450) /uL Baso # (Auto) 0 (0-100) /uL Sodium (137-145) mmol/L Potassium (3.4-5.1) mmol/L Chloride (98-107) mmol/L Carbon Dioxide (22-32) mmol/L BUN (7-17) mg/dL Creatinine (0.52-1.04) mg/dL Estimated GFR (>60) mL/min BUN/Creatinine Ratio (6-22) Glucose (80-110) mg/dL Calcium (8.4-10.2) mg/dL Total Bilirubin (0.2-1.3) mg/dL AST (14-36) IU/L ALT (<35) IU/L Alkaline Phosphatase (38-126) U/L Total Protein (6.3-8.2) g/dL Albumin (3.5-5.0) g/dL Globulin (1.7-4.1) g/dL Albumin/Globulin Ratio (1.0-2.8) Lipase (23-300) U/L TSH (0.47-4.68) uIU/mL Urine Color Straw Urine Appearance Clear Urine pH 7 (4.5-8.0) Ur Specific [place] 1.010 (1.000-1.035) Urine Protein Trace H (Negative) Urine Glucose (UA) Negative (Negative) g/dL Urine Ketones Negative (NEGATIVE) Urine Occult Blood Negative (Negative) Urine Nitrate Negative (Negative) Urine Bilirubin Negative (NEGATIVE) Urine Urobilinogen Normal (0.2) E.U./dL Ur Leukocyte Esterase Negative (NEGATIVE) Urine RBC None seen (0-5/HPF) Urine WBC None seen (0-5/HPF) Urine Bacteria None seen (None) Ur Culture Indicated? Cult not indicated Salicylates (<20) mg/dL U Opiates 300ng/mL cut Negative (Negative) Ur Oxycodone Screen Negative (Negative) Urine Methadone Screen Negative (Negative) Acetaminophen (10-30) ug/mL Ur Barbiturates Screen Negative (Negative) U Tricyclic Antidepress Negative (Negative) Ur Phencyclidine Scrn Negative (Negative) Ur Amphetamines Screen Negative (Negative) U Methamphetamines Scrn Negative (Negative) Ur MDMA Scrn (Ecstasy) Negative (Negative) U Benzodiazepines Scrn Negative (Negative) Urine Cocaine Screen Negative (Negative) U Marijuana (THC) Screen Negative (Negative) Ethyl Alcohol ( - 10) mg/dL 12/02/21 12/02/21 Range/Units 22:40 22:40 WBC (4.5-11.0) X10^3/uL RBC (4.0-5.2) X10^6/uL Hgb (12.0-16.0) g/dL Hct (36-46) % MCV (80-100) fL MCH (26-34) PG MCHC (30-36) % RDW (11.6-14.8) % Plt Count (150-400) X10^3/uL Neut % (Auto) (50-75) % Lymph % (Auto) (25-40) % [place] % (Auto) (3-14) % Eos % (Auto) (2-4) % Baso % (Auto) (0-2) % Neut # (Auto) (9845-4501) /uL Lymph # (Auto) (4533-5465) /uL [place] # (Auto) (0-900) /uL Eos # (Auto) (0-450) /uL Baso # (Auto) (0-100) /uL Sodium 140 (137-145) mmol/L Potassium 3.8 (3.4-5.1) mmol/L Chloride 103 (98-107) mmol/L Carbon Dioxide 34 H (22-32) mmol/L BUN 24 H (7-17) mg/dL Creatinine 0.63 (0.52-1.04) mg/dL Estimated GFR > 60 (>60) mL/min BUN/Creatinine Ratio 38.1 H (6-22) Glucose 95 (80-110) mg/dL Calcium 9.7 (8.4-10.2) mg/dL Total Bilirubin 0.3 (0.2-1.3) mg/dL AST 40 H (14-36) IU/L ALT 46 H (<35) IU/L Alkaline Phosphatase 70 (38-126) U/L Total Protein 7.6 (6.3-8.2) g/dL Albumin 4.3 (3.5-5.0) g/dL Globulin 3.3 (1.7-4.1) g/dL Albumin/Globulin Ratio 1.3 (1.0-2.8) Lipase 212 (23-300) U/L TSH 5.20 H (0.47-4.68) uIU/mL Urine Color Urine Appearance Urine pH (4.5-8.0) Ur Specific [place] (1.000-1.035) Urine Protein (Negative) Urine Glucose (UA) (Negative) g/dL Urine Ketones (NEGATIVE) Urine Occult Blood (Negative) Urine Nitrate (Negative) Urine Bilirubin (NEGATIVE) Urine Urobilinogen (0.2) E.U./dL Ur Leukocyte Esterase (NEGATIVE) Urine RBC (0-5/HPF) Urine WBC (0-5/HPF) Urine Bacteria (None) Ur Culture Indicated? Salicylates < 1.0 (<20) mg/dL U Opiates 300ng/mL cut (Negative) Ur Oxycodone Screen (Negative) Urine Methadone Screen (Negative) Acetaminophen < 10 (10-30) ug/mL Ur Barbiturates Screen (Negative) U Tricyclic Antidepress (Negative) Ur Phencyclidine Scrn (Negative) Ur Amphetamines Screen (Negative) U Methamphetamines Scrn (Negative) Ur MDMA Scrn (Ecstasy) (Negative) U Benzodiazepines Scrn (Negative) Urine Cocaine Screen (Negative) U Marijuana (THC) Screen (Negative) Ethyl Alcohol < 10 ( - 10) mg/dL MDM Narrative Medical decision making narrative: Patient is obviously having issues at home. She agrees with my assessment that she is having quite a bit of anxiety today related to her partner being here in the emergency department and also the other individuals had her house today apparently trying to intervene on her mental health issues. She denies any suicidal ideation. Patient is not cachectic. No signs of dehydration. Patient is willing to stay here in the emergency department and be re-evaluated by social work tomorrow to discuss potentially being admitted for her anxiety and ice issues she is having at home with regard to this. She was adamant that there was no abuse at home. Patient was very concerned about sleeping in the emergency department overnight and developing bedsores also wasting away because of lack of adequate nutrition. I did inform her that we had a small amount of food that we can give her overnight although she stated that she had many d ietary intolerance is to include gluten dairy. I did state that she could have someone bring food in for her she would like. She denied the offer for some Ativan to try to help calm her down. When she initially arrived she was able to walk to the restroom without issues but there were other times where she seemed to have some difficulty doing this but this did seem to be associated times were she was obviously anxious. Care turned over to Dr. Song to follow-up and for social work to follow-up and disposition. Patient signed out to me by Dr. Kent. I have seen evaluated patient valve evaluated her with her partner. It does definitely seem her partner is frustrated with ability to diagnose her and getting her the help that she needs. Patient definitely has waxing and waning of symptoms where she does become disabled and highly fixated on certain things. Yesterday she was standing in the kitchen stating what is she going to ED in quickly escalates to she is get a waste away and diet. She is eating here in the emergency department. does assist her with some daily living activities some of the time but not all of the time. He helps her in and out of the shower sometime she is unsteady on her feet. Yesterday she slipped off the couch onto her knees were she then had urinary incontinence and stool incontinence but has no pain, no back injury or head injury. Possible early onset of dementia versus other mental health issue. Will get physical therapy evaluation long social sciences instructor evaluation. Try to discuss goals and expectations of this emergency department visit with both of them. Patient quickly began getting fixated on who is going to pay for this. Patient has been ambulatory he the restroom multiple times for diarrhea. She is not dehydrated eating and drinking multiple meals here in the emergency. Patient has been evaluated by physical therapy and social work. Social work has come up with home healthcare. Both patient and are agreeable to this at this time no indication for admission. Discharge Plan Departure Patient Disposition: Home Clinical Impression: Dementia, Anxiety Instructions: Dementia Activity Restrictions/Additional Instructions: *You have been diagnosed with possible diagnosis of dementia *What to do: This diagnosis will need to be confirmed. You have home healthcare that should start in the next week or so. *Continue to take medications as directed *Follow up with your primary care provider in 2-3 days or call [phone] Talk to primary care provider about a referral to Neurology *Return to ER if you should have any new, worsening or concerning symptoms Prescriptions: No Action eszopiclone [Lunesta] 1 mg tablet 1 mg PO BEDTIME 0RF tizanidine 2 mg capsule 2 mg PO BEDTIME 0RF [bone support] 2 tab PO BEDTIME Qty: 0 0RF cyanocobalamin (vitamin B-12) 1,000 MCG tablet extended release 1 mcg PO DAILY Qty: 0 0RF omeprazole 40 mg capsule,delayed release(DR/EC) 40 mg PO DAILY 0RF trazodone 50 mg tablet See Rx Instructions PO BEDTIME PRN (Reason: insomnia) Qty: 60 0RF Rx Instructions: Take 2 at bedtime as needed for sleep...PATIENT IS NOW WEANING DOWN USING TRAZADONE DROPS TO DECREASE DOSE BY 10% EVERY 5 DAYS 04/21/21 naltrexone 50 mg tablet 50 mg PO DAILY 0RF Label Comments: This is prescribed by Bridget FARRELL 5mg/ml taking .1ml nightly for 1 week, increasing by .1ml nightly each week until taking .9mls nightly per [facility] 04/30/21 fluoxetine 10 mg capsule 10 mg PO DAILY Qty: 30 2RF clonazepam 1 mg tablet 2 mg PO BEDTIME Qty: 60 0RF Rx Instructions: administer 30 minutes before bedtime estradiol [Yuvafem] 10 mcg tablet 10 mcg Vaginal 2XW Qty: 24 3RF estradiol 0.01 % (0.1 mg/gram) cream 1 g vaginal DAILY Qty: 42.5 2RF Rx Instructions: Apply a small dab of cream to the opening of the urethra each evening at bedtime Referrals: Queta Rae MD [Primary Care Provider] -
[2021-12-02 22:47] LABS: Ur Creatinine 20 (Normal); Ur Specific Gravity 1.015 (Normal); Urine Tetrahydrocannabinol Negative (Negative); Urine pH 5 (Normal)
[2021-12-02 22:48] LABS: UR Morphine/Opiate cutoff 300 Negative (Negative); Urine Amphetamines Negative (Negative); Urine Barbiturates Negative (Negative); Urine Benzodiazepines Negative (Negative); Urine Cocaine Negative (Negative); Urine MDMA Negative (Negative); Urine Methadone Negative (Negative); Urine Methamphetamines Negative (Negative); Urine Oxycodone Negative (Negative); Urine Phencyclidine Negative (Negative); Urine Tricyclic Antidepressant Negative (Negative)
[2021-12-02 22:52] LABS: Add Manual Diff / Slide Review NO; Basophils Absolute Auto 0 /uL (0-100); Basophils Percent Auto 0.4 % (0-2); Eosinophils Absolute Auto 100 /uL (0-450); Eosinophils Percent Auto 0.7 % (2-4); Hemoglobin 13.7 g/dL (12.0-16.0); Lymphocytes Absolute Auto 2000 /uL (1100-4500); Lymphocytes Percent Auto 19.6 % (25-40); Mean Corpuscular HGB Conc 34.3 % (30-36); Mean Corpuscular Hemoglobin 32.8 PG (26-34); Mean Corpuscular Volume 95.7 fL (80-100); Monocytes Absolute Auto 900 /uL (0-900); Monocytes Percent Auto 8.3 % (3-14); Neutrophils Absolute Auto 7400 /uL (1500-7000); Platelet Count 219 X10^3/uL (150-400); Red Blood Cell Count 4.18 X10^6/uL (4.0-5.2); Red Cell Distribution Width 13.5 % (11.6-14.8); White Blood Cell Count 10.4 X10^3/uL (4.5-11.0)
[2021-12-02 23:02] LABS: Acetaminophen < 10 ug/mL (10-30); Alanine Aminotransferase 46 IU/L (<35); Albumin 4.3 g/dL (3.5-5.0); Albumin Globulin Ratio 1.3 (1.0-2.8); Alkaline Phosphatase 70 U/L (38-126); Aspartate Aminotransferase 40 IU/L (14-36); BUN Creatinine Ratio 38.1 (6-22); Bilirubin Total 0.3 mg/dL (0.2-1.3); Blood Urea Nitrogen 24 mg/dL (7-17); Calcium 9.7 mg/dL (8.4-10.2); Carbon Dioxide 34 mmol/L (22-32); Chloride 103 mmol/L (98-107); Estimated Glomerular Filt Rate > 60 mL/min (>60); Ethanol (ETOH) < 10 mg/dL; Globulin 3.3 g/dL (1.7-4.1); Glucose 95 mg/dL (80-110); HEMOLYSIS < 15 (0-50); Lipase 212 U/L (23-300); Potassium 3.8 mmol/L (3.4-5.1); Salicylate < 1.0 mg/dL (<20); Sodium 140 mmol/L (137-145); Total Protein 7.6 g/dL (6.3-8.2)
[2021-12-02 23:47] LABS: Appearance Urine UA Clear; Color Urine UA Straw; pH Urine UA 7 (4.5-8.0)
[2021-12-02 23:48] LABS: Bilirubin Urine UA NEGATIVE (NEGATIVE); Glucose Urine UA NEGATIVE (Negative); Ketones Urine UA NEGATIVE (NEGATIVE); Leukocyte Esterase Urine UA NEGATIVE (NEGATIVE); Nitrite Urine UA NEGATIVE (Negative); Occult Blood Urine UA NEGATIVE (Negative); Protein Urine UA TRACE (Negative); Urobilinogen Urine UA Normal E.U./dL (0.2)
[2021-12-02 23:57] LABS: Bacteria Urine None Seen; Culture Indicated Urine Cult Not Indicated; RBC Urine None Seen (0-5/HPF); WBC Urine None Seen (0-5/HPF)
[2021-12-03] VITALS (11 sets, daily range): BP systolic 109–131; BP diastolic 58–72; PULSE 80–93; RESP 18–20; TEMP 36.6; O2SAT 96–98
--- NOTE | 2021-12-03 05:33 | PC.NURSE ---
She is worried that she may need group home due to her arthritis and failing health,she is worried about the cost to her and her family,denies wanting to harm herself or others to me at this time.I allowed he to verbalize her concerns.
[2021-12-03] MEDS: LOPERAMIDE 2 MG CAPSULE 4 MG PO (05:52)
--- NOTE | 2021-12-03 10:55 | PC.NURSE ---
late note, 0730 pt was concerned she wouldn't have the strength to stand and therefor wouldn't be able to go home. later pt did have s/o visit. they began disagreeing and i asked him to step out until the dr was available, he obliged. he did come back and speak with dr. sorto and pt. at 0945 pt requested a bedside commode. she wanted it to stay after using it because concerned she would need it quickly for diarrhea. at 1045 the pt walks out of the room, and said I'm surprised how well i'm standing. I escorted the pt back to the room and another RN emptied the commode. pt got back into bed and call light remained attached to the bed as was before, reminding pt its location and to use when she needs it.
--- NOTE | 2021-12-03 12:35 | PT.IIE ---
Medical History (Last Reviewed 12/03/21 @ 04:34 by Ike Kent DO) Abnormal Pap smear of cervix (~1998) Ankle fracture (~2014) Anxiety (~2003) Benign essential tremor Cervical somatic dysfunction Chicken pox Chronic left shoulder pain Chronic pain of left elbow Colon polyps (~2014) GERD (gastroesophageal reflux disease) Hemorrhoid Measles Mumps Osteopenia Osteoporosis Plantar warts Postmenopausal atrophic vaginitis Scoliosis Tinnitus Upper extremity somatic dysfunction Physical Therapy Inpatient Evaluation/Re-Eval M1 PT/OT-IP Prior Functional Status Start: 12/03/21 10:52 Freq: Status: Active Protocol: Document 12/03/21 12:25 AW (Rec: 12/03/21 14:06 AW [id number]) Medical Review Prior Functional Status Medical History Reviewed Yes Communication Pt is able to make her needs known. She presents with extreme anxietry. She perseverates at this encounter on the cost of her care, her medical decline, and her home situation. Mobility and Gait Pt states her mobility is variable. She feels more stable when she is on her own, much less stable when she is around other people. Tremors affect her mobility. Pt states she fell from her couch yesterday but does not fall regularly. She states she uses a hurry cane occasionally. She has stairs up to her bedroom and climbs them regularly without incident. Activities of Daily Living and IADL's Dressing tasks have become more difficult due to tremors. Pt requires some level of assist with showering. She has seen pelvic floor physical therapy for bowel and bladder incontinence and has had some improvement. Prior Functional Level (Other details) Pt has been seen in outpatient physical therapy for generalized pain and balance complaints over the past few years. She and her partner have previously reported cognitive changes and increasing tremors affecting mobility and ADL's. Her last known DEXA scan on 03/16/21 had a T-score of -3.5 and she has sustained compression fractures at L1-3. Pt reports ongoing insomnia. Social History Household Members significant other Living Arrangements House Number of Floors (Floors) Two Floors Number of Stairs To Enter/Railing? Level entrance. 15 steps up to bedroom level with R rail ascending. Home Environment Standard Height Toilet,Walk in Shower Home Equipment Front Wheel Walker,Hand Held Shower,Grab Bars In Shower Additional Social History Comment Pt has a hurry cane. She lives with her partner, Derek, who provides some level of assist with mobility and ADL's M2 PT-IP Current Condition Start: 12/03/21 10:52 Freq: Status: Active Protocol: Document 12/03/21 12:25 AW (Rec: 12/03/21 14:06 AW [id number]) Physical Therapy Current Condition Current Condition Evaluation Date 12/03/21 Treatment Diagnosis generalized weakness; difficulty in walking Onset Date unknown M3 PT-IP Subjective Start: 12/03/21 10:52 Freq: Status: Active Protocol: Document 12/03/21 12:25 AW (Rec: 12/03/21 14:06 AW [id number]) Subjective Physical Therapy Visit Type Type Initial Evaluation Visit Start Time 11:51 Visit Stop Time 12:25 Total Visit Minutes 34 Physical Therapy Visit Comments Patient Comments Sometimes I can stand and sometimes I can't Patient Goals Pt is unable to communicate goals. Therapy Pain Assessment Pain When Pain Assessed During Mobility Pain Present Pain Present Denied Pain M4 PT-IP Mobility and Gait Start: 12/03/21 10:52 Freq: Status: Active Protocol: Document 12/03/21 12:25 AW (Rec: 12/03/21 14:06 AW [id number]) PT-Bed Mobility Assessment Supine to Sit Supine to Sit Standby Assistance Sit to Supine Sit to Supine Standby Assistance Scooting Scooting to Edge of Bed Standby Assistance PT-Transfer Assessment Sit to and From Stand Sit to and from Stand Standby Assistance,Contact Guard Assistance,Use of Upper Extremities Equipment Transfer Assistive Device Gait Belt,Tripod Cane/Hurry Cane Orthotic/Prosthetic Devices or Brace: No Transfers Transfer Destination Bed,Toilet Transfer Technique pt ambulated with tripod cane Transfer Ability Level of Assist Contact Guard Assistance Comments Mobility Comments Pt was lying on the gurney as PT arrived. BP was 117/67 HR 89. She was cooperative. She was tearful as she discussed her perception of worsening mobility. She was able to sit up EOB and stand with marked initial unsteadiness. PT donned gait belt and pt used her cane to walk in the room. She was quite unsteady, requiring CGA > occasional min assist. She sat EOB and then requested urgently to use the toilet. She stood again SBA and walked with her cane 40 feet to the bathroom SBA with improved steadiness, transferring to and from the toilet SBA with use of grab bars. She stood at the sink without need for UE support while washing her hands and then used the cane to return to the [facility]. She returned to long-sitting on the bed SBA and was left with her call light in reach and lunch tray set up in front of her. Gait Assessment Gait Gait Assistance Required: Standby Assistance,Contact Guard Assist,Minimum Assistance Distance (Feet) 40 Assistive Devices Assistive Device Gait Belt,Tripod Cane/Hurry Cane Gait Deviations General Gait Pattern Ataxic,Decreased Stride Length ,Decreased Feet Clearance, Narrow Based Gait Factors Limiting Gait Function Factors Limiting Gait Function Decreased Activity Tolerance, Decreased Strength,Difficulty Following Directions, Incoordination,Poor Balance, Poor Safety Awareness Comments Gait Comments See mobility comments for details. Foot placement was inconsistent during gait and pt did demonstrate scissoring gait. Stair Climbing Assessment Comments Stair Climbing Comments Not assessed. PT-Balance Assessment Sitting Balance and Reactions Static Sitting Balance Ability Good Dynamic Sitting Balance Ability Fair Standing Balance and Reactions Static Standing Balance Ability Poor Dynamic Standing Balance Ability Poor Device Used hurrycane Balance Tests Single Limb Standing unable Romberg impaired Functional Assessments Functional Tests 5 Times Sit to Stand [facility] M5 PT-IP Objective Assessments Start: 12/03/21 10:52 Freq: Status: Active Protocol: Document 12/03/21 12:25 AW (Rec: 12/03/21 14:06 AW [id number]) Orientation Orientation/Cognition Level of Alertness Confusional State Orientation Name,Place,Situation Safety Awareness Decreased Safety Awareness Memory Description Short Term Impaired Comments Pt presents with heightened anxiety affecting her attention, cognition, and mobility. Gross Range of Motion Lower Extremity ROM Assessment Within Functional Limits Strength Lower Extremity Strength Assessment Bilaterally Impaired Hip 4-/5 Knee 4/5 Ankle 4-/5 Sensation Assessment Sensation Gross Sensation WNL Muscle Tone Muscle Tone Location Bilateral Type of Tone Hypertonicity Manifistation of Tone Intention Tremors Comments Muscle Tone Comments Pt demonstrates tremors BUE and BLE with all resisted movements, with weightbearing, and with reaching tasks. M6 PT-IP Treatment Start: 12/03/21 10:52 Freq: Status: Active Protocol: Document 12/03/21 12:25 AW (Rec: 12/03/21 14:06 AW [id number]) Physical Therapy Treatment Education Education Provided Safety M7 PT-IP Assessment and Plan Start: 12/03/21 10:52 Freq: Status: Active Protocol: Document 12/03/21 12:25 AW (Rec: 12/03/21 14:06 AW [id number]) PT Summary Assessment and Plan Potential Rehabilitation Potential Fair Status of Condition at Evaluation Evolving Summary Impairments Strength,Balance,Coordination, Tone,Cognition,Transfers,Gait Assessment Summary Brie is a 65 year old woman seen for PT evaluation at the request of ED provider. She is modified independent with use of a tripod cane at baseline. She admits her stability is variable and situation- dependent. It appears that the presence of other people increases her instability. She has tremors in all extremities that are complicating her mobility and ADL independence. Pt states she has the assist of her supportive partner at home but also states she worries her needs are too much for him to manage. Pt presents with heightened anxiety affecting her attention, cognition, and mobility. However, she was able to walk 40 feet to the bathroom using her cane and no more than CGA. Pt is likely safe to discharge home with assist. She may benefit from home health therapy to improve her strength and mobility independence. Goals Bed Mobility Goal Independent Transfer Goal Independent,Cane Gait Goal Independent,Cane Gait Distance 200 Other Goals -- up/down 10 steps with R rail ascending Days to Meet Goals 5 Frequency of Treatment Frequency Of Treatment Once a Day Treatment Plan Physical Therapy Treatment Plan Bed Mobility Training,Transfer Training,Gait Training, Therapeutic Exercise,Balance Retraining,Discharge Planning, Hot or Cold Pack,Neuromuscular Re-ed,Coordination Retraining Other Recommendations and Next Treatment transfers and gait with hurry Focus cane; static balance Recommendations To Nursing Amount of Assist Needed 1 Person Assist Discharge Recommendations PT Discharge Recommendations Home with 14/03 Assist Available,Home Health Transportation Needs at Discharge Private Vehicle
--- NOTE | 2021-12-04 08:28 | CM.SWNOTE ---
Addendum entered by Renetta Lazo MSW 12/04/21 09:20: ADD: Patient qualifies for [facility]. Lives in [place], not in [place] (this ROCKET ENGINE MECHANIC had city wrong during resource referral yesterday) JW Original Note: ROCKET ENGINE MECHANIC Note Late Entry This ROCKET ENGINE MECHANIC requested for consult to assess needs of this 65 yo female, arrives w/weakness, not eating and drinking, increased anxiety. No medical reason for medical admission. Patient was in the ER 12.01.21 for similar complaints. Reviewed YURIDIA Dumont's note from that visit. Maribeth had assisted in the coordination of getting patient back home w/S.O. and planned to f/u by phone today, 12.04.21. Tatyana, PT, had been requested for an eval and determined that patient's anxiety appeared to limit her mobility greatly; and records confirm that patient's ability to mobilize waxes and wanes significantly. Tatyana cleared patient for home w/S.O. and walker. Per records, and conversation w/ER team, PT Tatyana, and SIvon Blanton: patient can race across the room to get to the BR during an episode of diarrhea but will then state her legs cannot move minutes later. Psychiatric component is suspected Met w/patient and Angelica Blanton in ER Rm 05, introduced role. Reviewed goals of this ER visit which patient/S.O. had a difficult time defining Had lengthy conversation and visit during which patient had a difficult time keeping eye contact w/this ROCKET ENGINE MECHANIC, became very easily overwhelmed when S.O. spoke . Patient often tearful, perseverative thinking over finite details, and somewhat histrionic. Current barriers to quality of life are stated by patient and S.O. as follows: -Patient becomes paralyzed with fear at home, states she cannot move, attend appointments, or go outside for fresh air. Patient was a thriving, active, healthy women 1 year ago -Patient is difficult to be around per S.O. , perseverative thinking, repeats self, sounds and appears helpless -Neurologist found nothing wrong -Appointment w/Psychiatrist is not available, at , for months -OT team did nothing - during home visit educated patient/S.O. that a psychiatric inpatient stay would be unlikely d/t patient's medical history and inability to ambulate...this ROCKET ENGINE MECHANIC confirms same -Patient reports fleeting SI, no plan, I wouldn't be surprised if I didn't wake up tomorrow (due to failure to thrive) -Sporadic loss of appetite; spouse says she can eat a large breakfast one day and refuse to eat the next, Low BMI -S.O. w/recent ER visit d/t cardiac trouble, asks what if that happens again? -S.O. with apparent critical care physician assistant burn out and difficulty managing his own stress and anxiety -No family or children locally, S.O. states patient has a lot of friends he cannot manage all their calls asking to help This ROCKET ENGINE MECHANIC provided listening support re: these stated concerns. Confirmed that in an ideal world patient would have immediate placement in either an inpatient psychiatric unit and/or immediate follow up with a psychiatrist. Discussed the difficulty in securing immediate assistance currently in the MH field and attempted to redirect patient/S.O.'s attention to what is in their control today Explained that patient would be discharged from the ER today, home w/ S.O. 's assistance. Both patient and S.O. resistant to this, however, S.O. began to instruct patient that he would manage patient's needs w/assist from multiple friends wanting to help out Provided S.O. with the Senior Resource Guide; strongly encouraged him to do the following items DINORAH: -Call care giving agencies to investigate care giving, M-F for 1-3 hours daily to assist patient/S.O. w/ ADLs, chores, respite for S.O. and introduce alternative companionship for patient -Call facilities including [facility] ([facility]), check on availability for short term respite and usp residency, if something were to happen to S.O. patient will need care -MAKE AN APPT W/A PSYCHIATRIST, a counselor would be of assistance also, no matter how long it takes to get in, an appt needs to be secured -Patient was scheduled at [facility] at one time (possibly today?), encouraged S.O. to attempt again, especially to assist w/ current crisis stabilization - referral made to [facility] per request, RN/PT/OT/COMMISSIONING ENGINEER/ROCKET ENGINE MECHANIC, all ppk faxed to Manju at [facility]; [facility] ([facility]) program if eligible Plan: Home w/ S.O. via pov, multiple outpatient resources provided YURIDIA Fry
--- NOTE | 2021-12-04 17:07 | CM.SWNOTE ---
ENGINEERING PROGRAMMER f/u Note ENGINEERING PROGRAMMER calls patient's home phone to f/u with patient and spouse. Patient answers phone and states that [facility] came by this morning and it was recommended that patient address Neurology referral with PCP and patient is not the best candidate for HH at this time. Patient states she is feeling the same. ENGINEERING PROGRAMMER states that ENGINEERING PROGRAMMER can call PCP office to set up ED f/u appt. ENGINEERING PROGRAMMER calls Dr. Rae's office, it is reported that patient's preference is an internalist and patient has established appt with Dr. Cruz for 01/08/22. ENGINEERING PROGRAMMER calls Dr. Cruz's office and informs them of patient's recent ED visits, need for ED f/u and neurology referral. It is reported that the office will call back patient regarding referral and try to get patient in sooner. ENGINEERING PROGRAMMER calls patient back and speaks with patient and s/o. Patient endorses her desire not to return to the ED. ENGINEERING PROGRAMMER states that patient can return to ED is symptoms worsen, suggests paying attention to symptoms and preparing list of what patient wants to report to PCP. Dr. Cruz's office to f/u up with patient. YURIDIA Lunsford
== END 2021-12-03 14:20 | disposition home or self-care (01) ==
PROVIDERS: Emergency Medicine; Emergency Provider Emergency Medicine; PCP Family Medicine
DX: F03.90 Unspecified dementia, unspecified severity, without behavioral disturbance, psychotic disturbance, mood disturbance, and anxiety (principal); F41.9 Anxiety disorder, unspecified
CPT/HCPCS: 36415; 80053; 80305; 80320; 80329; 81001; 83690; 84443; 85025; 97162; 99283; G0480

== ENCOUNTER 2021-12-07 09:54 | Emergency (ER) | payer MEDICARE, OTHER, SELFPAY ==
[2021-12-07 10:32] VITALS: BP 130/71; PULSE 90; RESP 14; TEMP 36.8; O2SAT 99
[2021-12-07 11:47] LABS: Appearance Urine UA CLEAR; Bilirubin Urine UA NEGATIVE (NEGATIVE); Color Urine UA YELLOW; Glucose Urine UA NEGATIVE (Negative); Ketones Urine UA NEGATIVE (NEGATIVE); Leukocyte Esterase Urine UA NEGATIVE (NEGATIVE); Nitrite Urine UA NEGATIVE (Negative); Occult Blood Urine UA NEGATIVE (Negative); Protein Urine UA NEGATIVE (Negative); Urobilinogen Urine UA 0.2 E.U./dL (0.2)
[2021-12-07 11:55] LABS: UR Morphine/Opiate cutoff 300 Negative (Negative); Ur Creatinine Normal (Normal); Ur Specific Gravity Normal (Normal); Urine Amphetamines Negative (Negative); Urine Barbiturates Negative (Negative); Urine Benzodiazepines Negative (Negative); Urine Cocaine Negative (Negative); Urine MDMA Negative (Negative); Urine Methadone Negative (Negative); Urine Methamphetamines Negative (Negative); Urine Oxycodone Negative (Negative); Urine Phencyclidine Negative (Negative); Urine Tetrahydrocannabinol Negative (Negative); Urine Tricyclic Antidepressant Negative (Negative); Urine pH Normal (Normal)
[2021-12-07 11:57] LABS: Bacteria Urine None Seen; Culture Indicated Urine Cult Not Indicated; RBC Urine None Seen (0-5/HPF); Urine Comments Microscopic Normal; WBC Urine None Seen (0-5/HPF)
[2021-12-07 12:17] LABS: Add Manual Diff / Slide Review NO; Basophils Absolute Auto 100 /uL (0-100); Basophils Percent Auto 0.9 % (0-2); Eosinophils Absolute Auto 0 /uL (0-450); Eosinophils Percent Auto 0.5 % (2-4); Hematocrit 42.6 % (36-46); Hemoglobin 14.6 g/dL (12.0-16.0); Lymphocytes Absolute Auto 1200 /uL (1100-4500); Lymphocytes Percent Auto 12.4 % (25-40); Mean Corpuscular HGB Conc 34.4 % (30-36); Mean Corpuscular Hemoglobin 32.8 PG (26-34); Mean Corpuscular Volume 95.4 fL (80-100); Monocytes Absolute Auto 600 /uL (0-900); Neutrophils Absolute Auto 7800 /uL (1500-7000); Neutrophils Percent Auto 80.2 % (50-75); Platelet Count 225 X10^3/uL (150-400); Red Blood Cell Count 4.46 X10^6/uL (4.0-5.2); Red Cell Distribution Width 13.4 % (11.6-14.8); White Blood Cell Count 9.7 X10^3/uL (4.5-11.0)
[2021-12-07 12:26] LABS: Acetaminophen < 10 ug/mL (10-30); Alanine Aminotransferase 51 IU/L (<35); Albumin 4.7 g/dL (3.5-5.0); Albumin Globulin Ratio 1.5 (1.0-2.8); Alkaline Phosphatase 74 U/L (38-126); Aspartate Aminotransferase 36 IU/L (14-36); BUN Creatinine Ratio 33.3 (6-22); Bilirubin Total 0.3 mg/dL (0.2-1.3); Blood Urea Nitrogen 19 mg/dL (7-17); Carbon Dioxide 30 mmol/L (22-32); Chloride 104 mmol/L (98-107); Estimated Glomerular Filt Rate > 60 mL/min (>60); Ethanol (ETOH) < 10 mg/dL; Globulin 3.2 g/dL (1.7-4.1); Glucose 102 mg/dL (80-110); HEMOLYSIS < 15 (0-50); Potassium 3.9 mmol/L (3.4-5.1); Salicylate < 1.0 mg/dL (<20); Sodium 138 mmol/L (137-145); Total Protein 7.9 g/dL (6.3-8.2)
[2021-12-07 12:37] LABS: COVID19 -Nasal RAPID Negative (Negative)
[2021-12-07 12:49] LABS: Free T4, Direct Thyroxine 1.29 ng/dL (0.78-2.19)
--- NOTE | 2021-12-07 13:00 | ED.AMS ---
HPI - Altered Mental Status <Reyna Mehta, DO - Last Filed: 12/08/21 18:38> General Chief Complaint: Altered Mental Status Stated Complaint: Psych Time Seen by Provider: 12/07/21 10:15 Source: patient and family Mode of arrival: Wheelchair Limitations: no limitations History of Present Illness HPI narrative: This is a 65 year old female brought from the police by private auto. Her had tried to take her to [facility] to be evaluated from a psychiatric perspective. Patient became agitated and they had been discussing going this morning. She has been reluctant to be evaluated although she admits to having psychiatric issues. Patient states she is very anxious she has had depression she has been very resistant to medication somewhat from what she describes as the medication has not been helpful. She was seeing Dr. Nannette Licona and Dr. Rae who are managing her medications but states that they were attempting to be helpful but was not helpful. PD reports that patient did have a period of inpatient hospitalization early in her life and afterwards seemed to improve and be able to return back to her normal sort of baseline functioning and over the past year or couple years has had worsening and declining function from a mental health perspective. She has had interactions with the cot with PD. The [employer] soft drink powder mixer has also been actively involved and evaluated the patient today in the parking lot with the police department. Patient was not aggressive or combative whole or verbally aggressive at any point. They states she did not really want to come to the emergency department did not want to be transported to [facility] for evaluation but feels that she is worsening over time and needs intervention. Patient states that she is not eating or drinking. She does not feel that she is safe to go to another facility because they will take care for, they will make her basic needs, she will not havecontact with people outside the world despite having a cellphone and that she will disappear and not receive any care. She is afraid that her will not come back for if she goes to a psychiatric facility and she is afraid that she would never be allowed to leave even if she went voluntarily. Related Data Home Medications Medication Instructions Recorded Confirmed omeprazole 40 mg capsule,delayed 40 mg PO DAILY 04/21/21 12/07/21 release clonazepam 0.5 mg tablet 0.5 mg PO BEDTIME 12/07/21 12/07/21 docusate sodium 100 mg tablet 100 mg PO DAILY PRN 12/07/21 12/07/21 eszopiclone 3 mg tablet 3 mg PO QPM 12/07/21 12/07/21 metoclopramide HCl 5 mg tablet 5 mg PO Q6HR PRN 12/07/21 12/07/21 sennosides 8.6 mg capsule (senna) 8.6 mg PO DAILY PRN 12/07/21 12/07/21 Allergies Allergy/AdvReac Type Severity Reaction Status Date / Time No Known Drug Allergies Allergy Verified 10/24/21 14:13 Review of Systems <Reyna Mehta DO - Last Filed: 12/08/21 18:38> Review of Systems ROS Unobtainable: All systems reviewed & are unremarkable except as noted in HPI and below Patient History <Reyna Mehta DO - Last Filed: 12/08/21 18:38> Medical History Abnormal Pap smear of cervix (~1998) Ankle fracture (~2014) Anxiety (~2003) Benign essential tremor Cervical somatic dysfunction Chicken pox Chronic left shoulder pain Chronic pain of left elbow Colon polyps (~2014) GERD (gastroesophageal reflux disease) Hemorrhoid Measles Mumps Osteopenia Osteoporosis Plantar warts Postmenopausal atrophic vaginitis Scoliosis Tinnitus Upper extremity somatic dysfunction Family History Grandfather Heart disease Grandmother Cancer Grandfather Cancer Social History marital status: unmarried,living together number of children: 0 household members: significant other lives independently: Yes caregiver/support person: No housing: house Smoking Status: Never smoker second hand exposure: No alcohol intake: current substance use type: does not use Smoking Status: Never smoker alcohol intake frequency: holidays/special occasions only Substance Use Type: does not use Exam <Reyna Mehta DO - Last Filed: 12/08/21 18:38> Narrative Exam Narrative: GEN: Very thin, elderly female in distress. HEENT: Atraumatic, pupils are equal round reactive to light, extraocular movements are intact, nares are clear, throat is clear without any exudates, erythema, tonsillar enlargement or uvular deviation HEART: Regular rate and rhythm without murmur, clicks, rubs. No carotid bruits, pulses are equal in upper and lower extremities LUNGS:Lungs clear to auscultation, no wheezes, rales, crackles, chest moves symmetrically ABD:bowel sounds normal, soft, non-tender, no guarding, rebound, rigidity, no masses noted, no hepatosplenomegaly MSCL: Non-tender, no muscle atrophy, patient ambulated to bathroom. NEURO:CN 2-12 intact, sensation normal PSYCH: Patient describes feeling anxious, depressed, she does not describe any suicidal or homicidal ideation but unable to tackled her activities of daily living. Initial Vital Signs Initial Vital Signs: Vital Signs Temperature 98.3 F 12/07/21 10:32 Pulse Rate 90 12/07/21 10:32 Respiratory Rate 14 12/07/21 10:32 Blood Pressure 130/71 12/07/21 10:32 Pulse Oximetry 99 12/07/21 10:32 <Woodrow Alexis, DO - Last Filed: 12/09/21 01:54> Initial Vital Signs Initial Vital Signs: Vital Signs Temperature 98.3 F 12/07/21 10:32 Pulse Rate 90 12/07/21 10:32 Respiratory Rate 14 12/07/21 10:32 Blood Pressure 130/71 12/07/21 10:32 Pulse Oximetry 99 12/07/21 10:32 Course <Reyna Mehta, DO - Last Filed: 12/08/21 18:38> Orders Ordered: Discontinued Medications Haloperidol (Haloperidol 1 Mg Tablet) 0.5 mg PO NOW ONE Stop: 12/08/21 13:30 Last Admin: 12/08/21 13:54 Dose: 0.5 mg Documented by: BULMARO Ondansetron HCl (Ondansetron 4 Mg Odt) 4 mg SL NOW ONE Stop: 12/08/21 04:29 Last Admin: 12/08/21 04:40 Dose: 4 mg Documented by: COREY Pantoprazole Sodium (Pantoprazole Dr 20 Mg Tablet) 20 mg PO NOW ONE Stop: 12/08/21 04:29 Last Admin: 12/08/21 04:40 Dose: 20 mg Documented by: COREY Reevaluation(s) Reevaluation #1: Patient signed out to myself by Dr. Alexis. Patient was seen initially be myself yesterday and is still here after the DCR had to walk away second to lack of beds. Patient had an uneventful night. Plan today is to re-evaluate for bed availability our family welfare social work professor Maribeth is here at noon and will help seek placement. Patient's is also aware of the plan and comfortable with that at this time. Time: 09:17 Reevaluation #2: Patient was requesting to try Haldol. She is normal include has a Breanna in the evening 0.5 mg. She had her dose last night, she has been having regular doses but is feeling shaky and anxious. She does not wish to do an additional dose of clonazepam at this time although was offered. Her and Dr. Licona had discussed trying a dose of Haldol. Discussed risks versus benefits with the patient. She is anxious about trying a new medication but also interested in something to help her she is having increasing anxiety and agitation. Time: 13:40 Vital Signs Vital signs: Vital Signs - 8 hr 12/08/21 12:19 12/08/21 16:48 Temperature 98.4 F Pulse Rate 92 H 92 H Respiratory Rate 18 14 Blood Pressure 121/73 128/64 Pulse Oximetry 96 96 <Woodrow Alexis, DO - Last Filed: 12/09/21 01:54> Orders Ordered: Discontinued Medications Haloperidol (Haloperidol 1 Mg Tablet) 0.5 mg PO NOW ONE Stop: 12/08/21 13:30 Last Admin: 12/08/21 13:54 Dose: 0.5 mg Documented by: BULMARO Ondansetron HCl (Ondansetron 4 Mg Odt) 4 mg SL NOW ONE Stop: 12/08/21 04:29 Last Admin: 12/08/21 04:40 Dose: 4 mg Documented by: COREY Pantoprazole Sodium (Pantoprazole Dr 20 Mg Tablet) 20 mg PO NOW ONE Stop: 12/08/21 04:29 Last Admin: 12/08/21 04:40 Dose: 20 mg Documented by: COREY Vital Signs Vital signs: Vital Signs - 8 hr 12/08/21 12:19 12/08/21 16:48 Temperature 98.4 F Pulse Rate 92 H 92 H Respiratory Rate 18 14 Blood Pressure 121/73 128/64 Pulse Oximetry 96 96 MDM - Altered Mental Status <Reyna C Mank, DO - Last Filed: 12/08/21 18:38> Lab Data Result diagrams: 12/07/21 12:07 12/07/21 12:07 Labs: Lab Results 12/07/21 12/07/21 12/07/21 Range/Units 11:44 11:44 12:07 WBC 9.7 (4.5-11.0) X10^3/uL RBC 4.46 (4.0-5.2) X10^6/uL Hgb 14.6 (12.0-16.0) g/dL Hct 42.6 (36-46) % MCV 95.4 (80-100) fL MCH 32.8 (26-34) PG MCHC 34.4 (30-36) % RDW 13.4 (11.6-14.8) % Plt Count 225 (150-400) X10^3/uL Neut % (Auto) 80.2 H (50-75) % Lymph % (Auto) 12.4 L (25-40) % [place] % (Auto) 6.0 (3-14) % Eos % (Auto) 0.5 L (2-4) % Baso % (Auto) 0.9 (0-2) % Neut # (Auto) 7800 H (2201-0601) /uL Lymph # (Auto) 1200 (6283-4815) /uL [place] # (Auto) 600 (0-900) /uL Eos # (Auto) 0 (0-450) /uL Baso # (Auto) 100 (0-100) /uL Sodium (137-145) mmol/L Potassium (3.4-5.1) mmol/L Chloride (98-107) mmol/L Carbon Dioxide (22-32) mmol/L BUN (7-17) mg/dL Creatinine (0.52-1.04) mg/dL Estimated GFR (>60) mL/min BUN/Creatinine Ratio (6-22) Glucose (80-110) mg/dL Calcium (8.4-10.2) mg/dL Magnesium (1.6-2.3) mg/dL Total Bilirubin (0.2-1.3) mg/dL AST (14-36) IU/L ALT (<35) IU/L Alkaline Phosphatase (38-126) U/L Total Creatine Kinase (30-135) U/L Total Protein (6.3-8.2) g/dL Albumin (3.5-5.0) g/dL Globulin (1.7-4.1) g/dL Albumin/Globulin Ratio (1.0-2.8) TSH (0.47-4.68) uIU/mL Free T4 (0.78-2.19) ng/dL Urine Color Yellow Urine Appearance Clear Urine pH 6.0 (4.5-8.0) Ur Specific [place] 1.010 (1.000-1.035) Urine Protein Negative (Negative) Urine Glucose (UA) Negative (Negative) g/dL Urine Ketones Negative (NEGATIVE) Urine Occult Blood Negative (Negative) Urine Nitrate Negative (Negative) Urine Bilirubin Negative (NEGATIVE) Urine Urobilinogen 0.2 (0.2) E.U./dL Ur Leukocyte Esterase Negative (NEGATIVE) Urine RBC None seen (0-5/HPF) Urine WBC None seen (0-5/HPF) Urine Bacteria None seen (None) Ur Culture Indicated? Cult not indicated Micro UA Comment Microscopic normal Salicylates (<20) mg/dL U Opiates 300ng/mL cut Negative (Negative) Ur Oxycodone Screen Negative (Negative) Urine Methadone Screen Negative (Negative) Acetaminophen (10-30) ug/mL Ur Barbiturates Screen Negative (Negative) U Tricyclic Antidepress Negative (Negative) Ur Phencyclidine Scrn Negative (Negative) Ur Amphetamines Screen Negative (Negative) U Methamphetamines Scrn Negative (Negative) Ur MDMA Scrn (Ecstasy) Negative (Negative) U Benzodiazepines Scrn Negative (Negative) Urine Cocaine Screen Negative (Negative) U Marijuana (THC) Screen Negative (Negative) Ethyl Alcohol ( - 10) mg/dL SARS-CoV-2 (PCR) (Negative) 12/07/21 12/07/21 12/07/21 Range/Units 12:07 12:07 12:22 WBC (4.5-11.0) X10^3/uL RBC (4.0-5.2) X10^6/uL Hgb (12.0-16.0) g/dL Hct (36-46) % MCV (80-100) fL MCH (26-34) PG MCHC (30-36) % RDW (11.6-14.8) % Plt Count (150-400) X10^3/uL Neut % (Auto) (50-75) % Lymph % (Auto) (25-40) % [place] % (Auto) (3-14) % Eos % (Auto) (2-4) % Baso % (Auto) (0-2) % Neut # (Auto) (5419-7322) /uL Lymph # (Auto) (3048-7795) /uL [place] # (Auto) (0-900) /uL Eos # (Auto) (0-450) /uL Baso # (Auto) (0-100) /uL Sodium 138 (137-145) mmol/L Potassium 3.9 (3.4-5.1) mmol/L Chloride 104 (98-107) mmol/L Carbon Dioxide 30 (22-32) mmol/L BUN 19 H (7-17) mg/dL Creatinine 0.57 (0.52-1.04) mg/dL Estimated GFR > 60 (>60) mL/min BUN/Creatinine Ratio 33.3 H (6-22) Glucose 102 (80-110) mg/dL Calcium 9.0 (8.4-10.2) mg/dL Magnesium (1.6-2.3) mg/dL Total Bilirubin 0.3 (0.2-1.3) mg/dL AST 36 (14-36) IU/L ALT 51 H (<35) IU/L Alkaline Phosphatase 74 (38-126) U/L Total Creatine Kinase (30-135) U/L Total Protein 7.9 (6.3-8.2) g/dL Albumin 4.7 (3.5-5.0) g/dL Globulin 3.2 (1.7-4.1) g/dL Albumin/Globulin Ratio 1.5 (1.0-2.8) TSH 2.07 D (0.47-4.68) uIU/mL Free T4 1.29 (0.78-2.19) ng/dL Urine Color Urine Appearance Urine pH (4.5-8.0) Ur Specific [place] (1.000-1.035) Urine Protein (Negative) Urine Glucose (UA) (Negative) g/dL Urine Ketones (NEGATIVE) Urine Occult Blood (Negative) Urine Nitrate (Negative) Urine Bilirubin (NEGATIVE) Urine Urobilinogen (0.2) E.U./dL Ur Leukocyte Esterase (NEGATIVE) Urine RBC (0-5/HPF) Urine WBC (0-5/HPF) Urine Bacteria (None) Ur Culture Indicated? Micro UA Comment Salicylates < 1.0 (<20) mg/dL U Opiates 300ng/mL cut (Negative) Ur Oxycodone Screen (Negative) Urine Methadone Screen (Negative) Acetaminophen < 10 (10-30) ug/mL Ur Barbiturates Screen (Negative) U Tricyclic Antidepress (Negative) Ur Phencyclidine Scrn (Negative) Ur Amphetamines Screen (Negative) U Methamphetamines Scrn (Negative) Ur MDMA Scrn (Ecstasy) (Negative) U Benzodiazepines Scrn (Negative) Urine Cocaine Screen (Negative) U Marijuana (THC) Screen (Negative) Ethyl Alcohol < 10 ( - 10) mg/dL SARS-CoV-2 (PCR) Negative (Negative) 12/08/21 Range/Units 12:46 WBC (4.5-11.0) X10^3/uL RBC (4.0-5.2) X10^6/uL Hgb (12.0-16.0) g/dL Hct (36-46) % MCV (80-100) fL MCH (26-34) PG MCHC (30-36) % RDW (11.6-14.8) % Plt Count (150-400) X10^3/uL Neut % (Auto) (50-75) % Lymph % (Auto) (25-40) % [place] % (Auto) (3-14) % Eos % (Auto) (2-4) % Baso % (Auto) (0-2) % Neut # (Auto) (1968-8402) /uL Lymph # (Auto) (0516-1689) /uL [place] # (Auto) (0-900) /uL Eos # (Auto) (0-450) /uL Baso # (Auto) (0-100) /uL Sodium (137-145) mmol/L Potassium (3.4-5.1) mmol/L Chloride (98-107) mmol/L Carbon Dioxide (22-32) mmol/L BUN (7-17) mg/dL Creatinine (0.52-1.04) mg/dL Estimated GFR (>60) mL/min BUN/Creatinine Ratio (6-22) Glucose (80-110) mg/dL Calcium (8.4-10.2) mg/dL Magnesium 2.4 H (1.6-2.3) mg/dL Total Bilirubin (0.2-1.3) mg/dL AST (14-36) IU/L ALT (<35) IU/L Alkaline Phosphatase (38-126) U/L Total Creatine Kinase 29 L (30-135) U/L Total Protein (6.3-8.2) g/dL Albumin (3.5-5.0) g/dL Globulin (1.7-4.1) g/dL Albumin/Globulin Ratio (1.0-2.8) TSH (0.47-4.68) uIU/mL Free T4 (0.78-2.19) ng/dL Urine Color Urine Appearance Urine pH (4.5-8.0) Ur Specific [place] (1.000-1.035) Urine Protein (Negative) Urine Glucose (UA) (Negative) g/dL Urine Ketones (NEGATIVE) Urine Occult Blood (Negative) Urine Nitrate (Negative) Urine Bilirubin (NEGATIVE) Urine Urobilinogen (0.2) E.U./dL Ur Leukocyte Esterase (NEGATIVE) Urine RBC (0-5/HPF) Urine WBC (0-5/HPF) Urine Bacteria (None) Ur Culture Indicated? Micro UA Comment Salicylates (<20) mg/dL U Opiates 300ng/mL cut (Negative) Ur Oxycodone Screen (Negative) Urine Methadone Screen (Negative) Acetaminophen (10-30) ug/mL Ur Barbiturates Screen (Negative) U Tricyclic Antidepress (Negative) Ur Phencyclidine Scrn (Negative) Ur Amphetamines Screen (Negative) U Methamphetamines Scrn (Negative) Ur MDMA Scrn (Ecstasy) (Negative) U Benzodiazepines Scrn (Negative) Urine Cocaine Screen (Negative) U Marijuana (THC) Screen (Negative) Ethyl Alcohol ( - 10) mg/dL SARS-CoV-2 (PCR) (Negative) ECG Data Attestation: I personally reviewed and interpreted this ECG as follows: Prior ECG tracings: available for review Interpretation: Sinus rhythm rate of 92 ND 126 QRS of 68 QTC of 430. No acute ST elevation depression noted. Patient has a prior from 12/01/2021 no acute changes appreciated. MDM Narrative Medical decision making narrative: Patient is medically cleared. It is noted that she had a brain MRI in February of 2021 with no acute changes so she has had imaging of her head at some point. Patient has had extensive and multiple workups over the last 2-3 years which have not found other acute changes or causes of her persistent symptoms and for other organic causes of her psychiatric issues. She does have some osteoporosis which is expected based on her age and BMI and has been treated appropriately for this. Patient was having frequent Family Medicine visits appears to be at least 1-2 times monthly throughout 2020 until patient ceased her care with her primary care physician and Dr. Licona. Patient has also had multiple visits with a brick or block maker with multiple frequent visits her treatment was intravaginal estrogen for chronic postmenopausal atrophic vaginitis. Most recent visit appears to be July of 2021 Patient has also been evaluated with multiple CTs, Xray imaging it is noted patient has had 10-15 of her chest, abdomen, and hips since 03/23/21 and MRIs over the past years including CT abdomen pelvis last month with no acute changes, MRI of her brain. These have not shown any acute emergent changes. She has had a consult with endocrinology in March of 2021 and treated for osteoporosis with medication typical for her age. She had scope with General surgery in September of 2020 locally. She had consultation with Gastroenterology with tele visits in March of 2021, October 30, 2021 and November 12, 2021 followed by with endoscopy in April [id number] no acute changes found. More remotely she has had work up for kaylee related diseases including Lyme, Bartonella and Babesia which are negative, Hashimotos and multiple other diseases. Patient is seen by ADVERTISING SUPERVISOR here. Attempting to offer her voluntary placement. I do think she would very much benefit from psychiatric care and that she slowly worsening over time. She has had multiple workups in the emergency department and outside of the emergency department and even seen specialists but has not seen Neurology but discussion of psychiatric issues has been involved. 1900 (Reuben) patient received in sign-out from Dr. Mehta. I have reviewed the clinical course to this point and performed brief history and physical. I have spoken with the DCR and there are no beds available tonight but could be tomorrow. He is unable to perform an I TA and must walk away this evening. Patient is gravely disabled and a significant risk to herself and unable to perform activities of daily living, we will keep her overnight and reassess tomorrow 1445 (Mank) 12/08/20: [facility] unit accepts patient for transfer by Dr. Cuellar for involuntary hospitalization. Patient did try dose of oral Haldol at her request to see if this would be helpful after she discussed with Dr. Licona. Patient has been increasingly anxious throughout the day. She was also offered a dose of her usual clonazepam but she is reluctant to have 2 doses of but has a home as she is concerned this will make her too sedated. We discussed risks versus benefits. <Woodrow Alexis, - Last Filed: 12/09/21 01:54> Lab Data Labs: Lab Results 12/07/21 12/07/21 12/07/21 Range/Units 11:44 11:44 12:07 WBC 9.7 (4.5-11.0) X10^3/uL RBC 4.46 (4.0-5.2) X10^6/uL Hgb 14.6 (12.0-16.0) g/dL Hct 42.6 (36-46) % MCV 95.4 (80-100) fL MCH 32.8 (26-34) PG MCHC 34.4 (30-36) % RDW 13.4 (11.6-14.8) % Plt Count 225 (150-400) X10^3/uL Neut % (Auto) 80.2 H (50-75) % Lymph % (Auto) 12.4 L (25-40) % [place] % (Auto) 6.0 (3-14) % Eos % (Auto) 0.5 L (2-4) % Baso % (Auto) 0.9 (0-2) % Neut # (Auto) 7800 H (0167-1219) /uL Lymph # (Auto) 1200 (5203-2170) /uL [place] # (Auto) 600 (0-900) /uL Eos # (Auto) 0 (0-450) /uL Baso # (Auto) 100 (0-100) /uL Sodium (137-145) mmol/L Potassium (3.4-5.1) mmol/L Chloride (98-107) mmol/L Carbon Dioxide (22-32) mmol/L BUN (7-17) mg/dL Creatinine (0.52-1.04) mg/dL Estimated GFR (>60) mL/min BUN/Creatinine Ratio (6-22) Glucose (80-110) mg/dL Calcium (8.4-10.2) mg/dL Magnesium (1.6-2.3) mg/dL Total Bilirubin (0.2-1.3) mg/dL AST (14-36) IU/L ALT (<35) IU/L Alkaline Phosphatase (38-126) U/L Total Creatine Kinase (30-135) U/L Total Protein (6.3-8.2) g/dL Albumin (3.5-5.0) g/dL Globulin (1.7-4.1) g/dL Albumin/Globulin Ratio (1.0-2.8) TSH (0.47-4.68) uIU/mL Free T4 (0.78-2.19) ng/dL Urine Color Yellow Urine Appearance Clear Urine pH 6.0 (4.5-8.0) Ur Specific [place] 1.010 (1.000-1.035) Urine Protein Negative (Negative) Urine Glucose (UA) Negative (Negative) g/dL Urine Ketones Negative (NEGATIVE) Urine Occult Blood Negative (Negative) Urine Nitrate Negative (Negative) Urine Bilirubin Negative (NEGATIVE) Urine Urobilinogen 0.2 (0.2) E.U./dL Ur Leukocyte Esterase Negative (NEGATIVE) Urine RBC None seen (0-5/HPF) Urine WBC None seen (0-5/HPF) Urine Bacteria None seen (None) Ur Culture Indicated? Cult not indicated Micro UA Comment Microscopic normal Salicylates (<20) mg/dL U Opiates 300ng/mL cut Negative (Negative) Ur Oxycodone Screen Negative (Negative) Urine Methadone Screen Negative (Negative) Acetaminophen (10-30) ug/mL Ur Barbiturates Screen Negative (Negative) U Tricyclic Antidepress Negative (Negative) Ur Phencyclidine Scrn Negative (Negative) Ur Amphetamines Screen Negative (Negative) U Methamphetamines Scrn Negative (Negative) Ur MDMA Scrn (Ecstasy) Negative (Negative) U Benzodiazepines Scrn Negative (Negative) Urine Cocaine Screen Negative (Negative) U Marijuana (THC) Screen Negative (Negative) Ethyl Alcohol ( - 10) mg/dL SARS-CoV-2 (PCR) (Negative) 12/07/21 12/07/21 12/07/21 Range/Units 12:07 12:07 12:22 WBC (4.5-11.0) X10^3/uL RBC (4.0-5.2) X10^6/uL Hgb (12.0-16.0) g/dL Hct (36-46) % MCV (80-100) fL MCH (26-34) PG MCHC (30-36) % RDW (11.6-14.8) % Plt Count (150-400) X10^3/uL Neut % (Auto) (50-75) % Lymph % (Auto) (25-40) % [place] % (Auto) (3-14) % Eos % (Auto) (2-4) % Baso % (Auto) (0-2) % Neut # (Auto) (4592-5058) /uL Lymph # (Auto) (7640-9726) /uL [place] # (Auto) (0-900) /uL Eos # (Auto) (0-450) /uL Baso # (Auto) (0-100) /uL Sodium 138 (137-145) mmol/L Potassium 3.9 (3.4-5.1) mmol/L Chloride 104 (98-107) mmol/L Carbon Dioxide 30 (22-32) mmol/L BUN 19 H (7-17) mg/dL Creatinine 0.57 (0.52-1.04) mg/dL Estimated GFR > 60 (>60) mL/min BUN/Creatinine Ratio 33.3 H (6-22) Glucose 102 (80-110) mg/dL Calcium 9.0 (8.4-10.2) mg/dL Magnesium (1.6-2.3) mg/dL Total Bilirubin 0.3 (0.2-1.3) mg/dL AST 36 (14-36) IU/L ALT 51 H (<35) IU/L Alkaline Phosphatase 74 (38-126) U/L Total Creatine Kinase (30-135) U/L Total Protein 7.9 (6.3-8.2) g/dL Albumin 4.7 (3.5-5.0) g/dL Globulin 3.2 (1.7-4.1) g/dL Albumin/Globulin Ratio 1.5 (1.0-2.8) TSH 2.07 D (0.47-4.68) uIU/mL Free T4 1.29 (0.78-2.19) ng/dL Urine Color Urine Appearance Urine pH (4.5-8.0) Ur Specific [place] (1.000-1.035) Urine Protein (Negative) Urine Glucose (UA) (Negative) g/dL Urine Ketones (NEGATIVE) Urine Occult Blood (Negative) Urine Nitrate (Negative) Urine Bilirubin (NEGATIVE) Urine Urobilinogen (0.2) E.U./dL Ur Leukocyte Esterase (NEGATIVE) Urine RBC (0-5/HPF) Urine WBC (0-5/HPF) Urine Bacteria (None) Ur Culture Indicated? Micro UA Comment Salicylates < 1.0 (<20) mg/dL U Opiates 300ng/mL cut (Negative) Ur Oxycodone Screen (Negative) Urine Methadone Screen (Negative) Acetaminophen < 10 (10-30) ug/mL Ur Barbiturates Screen (Negative) U Tricyclic Antidepress (Negative) Ur Phencyclidine Scrn (Negative) Ur Amphetamines Screen (Negative) U Methamphetamines Scrn (Negative) Ur MDMA Scrn (Ecstasy) (Negative) U Benzodiazepines Scrn (Negative) Urine Cocaine Screen (Negative) U Marijuana (THC) Screen (Negative) Ethyl Alcohol < 10 ( - 10) mg/dL SARS-CoV-2 (PCR) Negative (Negative) 12/08/21 Range/Units 12:46 WBC (4.5-11.0) X10^3/uL RBC (4.0-5.2) X10^6/uL Hgb (12.0-16.0) g/dL Hct (36-46) % MCV (80-100) fL MCH (26-34) PG MCHC (30-36) % RDW (11.6-14.8) % Plt Count (150-400) X10^3/uL Neut % (Auto) (50-75) % Lymph % (Auto) (25-40) % [place] % (Auto) (3-14) % Eos % (Auto) (2-4) % Baso % (Auto) (0-2) % Neut # (Auto) (8462-5136) /uL Lymph # (Auto) (6078-0626) /uL [place] # (Auto) (0-900) /uL Eos # (Auto) (0-450) /uL Baso # (Auto) (0-100) /uL Sodium (137-145) mmol/L Potassium (3.4-5.1) mmol/L Chloride (98-107) mmol/L Carbon Dioxide (22-32) mmol/L BUN (7-17) mg/dL Creatinine (0.52-1.04) mg/dL Estimated GFR (>60) mL/min BUN/Creatinine Ratio (6-22) Glucose (80-110) mg/dL Calcium (8.4-10.2) mg/dL Magnesium 2.4 H (1.6-2.3) mg/dL Total Bilirubin (0.2-1.3) mg/dL AST (14-36) IU/L ALT (<35) IU/L Alkaline Phosphatase (38-126) U/L Total Creatine Kinase 29 L (30-135) U/L Total Protein (6.3-8.2) g/dL Albumin (3.5-5.0) g/dL Globulin (1.7-4.1) g/dL Albumin/Globulin Ratio (1.0-2.8) TSH (0.47-4.68) uIU/mL Free T4 (0.78-2.19) ng/dL Urine Color Urine Appearance Urine pH (4.5-8.0) Ur Specific [place] (1.000-1.035) Urine Protein (Negative) Urine Glucose (UA) (Negative) g/dL Urine Ketones (NEGATIVE) Urine Occult Blood (Negative) Urine Nitrate (Negative) Urine Bilirubin (NEGATIVE) Urine Urobilinogen (0.2) E.U./dL Ur Leukocyte Esterase (NEGATIVE) Urine RBC (0-5/HPF) Urine WBC (0-5/HPF) Urine Bacteria (None) Ur Culture Indicated? Micro UA Comment Salicylates (<20) mg/dL U Opiates 300ng/mL cut (Negative) Ur Oxycodone Screen (Negative) Urine Methadone Screen (Negative) Acetaminophen (10-30) ug/mL Ur Barbiturates Screen (Negative) U Tricyclic Antidepress (Negative) Ur Phencyclidine Scrn (Negative) Ur Amphetamines Screen (Negative) U Methamphetamines Scrn (Negative) Ur MDMA Scrn (Ecstasy) (Negative) U Benzodiazepines Scrn (Negative) Urine Cocaine Screen (Negative) U Marijuana (THC) Screen (Negative) Ethyl Alcohol ( - 10) mg/dL SARS-CoV-2 (PCR) (Negative) MDM Narrative Medical decision making narrative: Patient is medically cleared. It is noted that she had a brain MRI in February of 2021 with no acute changes so she has had imaging of her head at some point. Patient has had extensive and multiple workups over the last 2-3 years which have not found other acute changes or causes of her persistent symptoms and for other organic causes of her psychiatric issues. She does have some osteoporosis which is expected based on her age and BMI and has been treated appropriately for this. Patient was having frequent Family Medicine visits appears to be at least 1-2 times monthly throughout 2020 until patient ceased her care with her primary care physician and Dr. Licona. Patient has also had multiple visits with a brick or block maker with multiple frequent visits her treatment was intravaginal estrogen for chronic postmenopausal atrophic vaginitis. Most recent visit appears to be July of 2021 Patient has also been evaluated with multiple CTs, Xray imaging it is noted patient has had 10-15 of her chest, abdomen, and hips since 03/23/21 and MRIs over the past years including CT abdomen pelvis last month with no acute changes, MRI of her brain. These have not shown any acute emergent changes. She has had a consult with endocrinology in March of 2021 and treated for osteoporosis with medication typical for her age. She had scope with General surgery in September of 2020 locally. She had consultation with Gastroenterology with tele visits in March of 2021, October 30, 2021 and November 12, 2021 followed by with endoscopy in April [id number] no acute changes found. More remotely she has had work up for kaylee related diseases including Lyme, Bartonella and Babesia which are negative, Hashimotos and multiple other diseases. Patient is seen by ADVERTISING SUPERVISOR here. Attempting to offer her voluntary placement. I do think she would very much benefit from psychiatric care and that she slowly worsening over time. She has had multiple workups in the emergency department and outside of the emergency department and even seen specialists but has not seen Neurology but discussion of psychiatric issues has been involved. 190 (Reuben) patient received in sign-out from Dr. Mehta. I have reviewed the clinical course to this point and performed brief history and physical. I have spoken with the DCR and there are no beds available tonight but could be tomorrow. He is unable to perform an I TA and must walk away this evening. Patient is gravely disabled and a significant risk to herself and unable to perform activities of daily living, we will keep her overnight and reassess tomorrow Discharge Plan Departure Patient Disposition: [facility] Clinical Impression: Anxiety, Depression Prescriptions: No Action omeprazole 40 mg capsule,delayed release(DR/EC) 40 mg PO DAILY 0RF clonazepam 0.5 mg Tablet 0.5 mg PO BEDTIME 0RF Rx Instructions: administer 30 minutes before bedtime metoclopramide HCl 5 mg tablet 5 mg PO Q6HR PRN (Reason: Constipation) 0RF docusate sodium 100 mg Tablet 100 mg PO DAILY PRN (Reason: Constipation) 0RF senna 8.6 mg Capsule 8.6 mg PO DAILY PRN (Reason: Constipation) 0RF eszopiclone 3 mg tablet 3 mg PO QPM 0RF Label Comments: TAKE ONE TABLET IN THE EVENING NEEDED FOR INSOMNIA. Referrals: Queta Rae MD [Primary Care Provider] -
[2021-12-07 13:02] LABS: Thyroid Stimulating Hormone 2.07 uIU/mL (0.47-4.68)
--- NOTE | 2021-12-07 14:51 | CM.SWNOTE ---
GAS FLOW REGULATOR Assessment GAS FLOW REGULATOR - Manager Steel Assessment GAS FLOW REGULATOR/Manager Steel Assessment Time Spent with Patient Start date 12/07/21 Visit Start Time 12:50 End date 12/07/21 Visit End Time 13:35 Total time Care Management spent on 45 minutes patient visit-in minutes Mental Health Screening Include Onset, Duration, Intensity Presenting Problem Patient presents to ED for the third time in a week with concerns for her grave disability, anxiety, depression and concern that she is dying. Precipitating Event(s) Today patient's s/o attempted to drive patient to [facility] for an evaluation and patient called 911 because she did not want to s/o to drive her there. Patient's s/o drove patient to the [place] [employer] and EMS assisted in bringing patient to ED. Patient endorses ongoing concern for her quality of life and concern that she is ready to leave my body. Patient endorses that there is no help for her and no one is able to help her. Patient Strengths Patient has s/o as a support as well as friends and family members. Current Behavioral Health Provider(s) Patient denies any current MH Include Facility, Provider, Ph. # outpatient providers. Patient previously stated interest in new therapist and GAS FLOW REGULATOR provides contact information to seek new MH provider. Patient last saw NISA Ren in Fall 2020 as well [address]rist Dr[address] Gian Licona (Ph. # [phone]). EMR also states that patient used to see a Trauma Canvas Goods Maker. Psych. Hx Mental Health and Chemical Patient has dx of MDD, Anxiety Dependency , and Insomnia. Patient has hx of rx for Clonazepam, fluoxetine, and Trazodone. Patient denies any substance or ETOH use. Family Hx of Behavioral Abuse None reported Psychiatric Hospitalizations (date(s)/ No hx location) Psychosocial information & Support Patient is 65 y/o female who Systems resides with life partner in [place]. Patient has family and friends as supports. School/Work Retired Legal Concerns Legal Matters - Outstanding Issues None reported Mental Status Orientation (Person/Place/Time) A/Ox4 Stated Mood ready to leave my body Affect (Congruent with Mood?) Anxious, dysphoric, full range , stable, congruent with mood Thought Content - Specify/Describe Patient adamantly concerned Obsessions, Delusions, Hallucinations that she is dying and that there is no solution to fix it . Patient endorses various concerns related to her anxiety. Patient is fearful and worried that her s/o will not be able to manage anything at home and concerned that she will not get her needs met . Thought Processes (Knfzhyq-Hlohstsd-Tdco tangential, repetitive. Guhfwxqx-Wdutmqab-Rrydypriwp- Patient often looks at s/o Spksmgmrhlrhjd-Vsnjexa-Nvgkxvywrigv- when asked questions and Thought Blocking) anxious when attempting to answer questions independently . Speech (Xuhmcn-Ygap-Krlpxsk-Rapid-Soft- soft/slow Loud-Pressured) Motor (Ppeccu-Rpxdwtqbg-Bvnr-Other) excessive, patient is shaky when anxious. Patient has fear of falling but has demonstrated her ability to ambulate and be independent with ADLs Insight (Lasa-Rfdd-Zsnk/Limited) fair Judgement (Nmga-Cibe-Ehzb/Limited) fair Impulse Control (Adequate-Impaired) adequate Memory (Uepkbtcfl-Bxjeuh-Aqnqow, intact, not formally assessed Impaired-Intact) Concentration (Intact-Impaired) intact Attention (Intact-Impaired) intact Behavior (Appropriate-Inappropriate) appropriate Additional Comment Patient is cooperative and communicative Risk Assessment Suicidal Ideation (Plan) Yes Homicidal Ideation (Plan) No Comment Patient denies HI. Patient endorses ongoing and increasing thoughts of dying. Patient denies specific plans but states that she believes she is dying, patient presents as debilitated by her fear and anxieties. Patient is fearful of dying but has come to terms and states I am ready to leave my body. Patient is hopeless for future , has limited sleep, and has lost weight even when eating regularly. S/O endorses hx of patient having a similar MH episode 17 years ago and patient being prescribed medication to address life stressors. Intervention Intervention GAS FLOW REGULATOR enters room to meet with patient. Patient is present with s/o and provides consent for him to be present, and often looks at him to speak. Patient also wants to provide her insight when s/o discusses concerns. Patient presents to ED for ongoing concern for her anxiety, depression, grave disability and concern that she is dying and statements that she is ready to . Patient is fearful that there is no solution to meet her needs and provide her the care she needs to improve her quality of life. Patient has hx of seeing MH providers, rx to address her anxiety and depression but currently is not able to address her concerns. Patient's household has had several [facility] encounters in efforts to support patient. GAS FLOW REGULATOR discusses voluntary inpatient hospitalization as an option and patient is agreeable to this. Patient's s /o endorses that he would like patient to seek out voluntary BH hospitalization as well. It is the opinion of this GAS FLOW REGULATOR that patient is appropriate for and will benefit from voluntary Geripsych hospitalization for safety, crisis stabilization and medication management. GAS FLOW REGULATOR and ED provider have also requested outpatient Psychiatrist for further consultation. GAS FLOW REGULATOR reviews the above to ED provider Dr. Mehta who indicates agreement and understanding. Plan RA Plan Psychiatrist to consult patient and GAS FLOW REGULATOR to seek voluntary inpatient bed for patient. YURIDIA Lunsford
--- NOTE | 2021-12-07 17:07 | PC.NURSE ---
Pt had large amount of do in her wallet, Gave pt the option to give money to DAR Harvinder or put it in the hospital safe. Pt handed unknown amount of do to Harvinder DODGE.
--- NOTE | 2021-12-07 17:54 | CM.SWNOTE ---
SEASONAL TAX PREPARER Note SEASONAL TAX PREPARER calls [facility] intake, it is reported they are full. SEASONAL TAX PREPARER calls [facility] and leaves VM requesting return call. SEASONAL TAX PREPARER calls [facility] and leaves VM requesting return call. SEASONAL TAX PREPARER calls [facility] and it is reported that they are full today. SEASONAL TAX PREPARER calls [facility] and it is reported they have no beds today. SEASONAL TAX PREPARER calls [facility] and it is reported that they have beds but do not take regence. SEASONAL TAX PREPARER calls [facility], it is reported that they are full today. SEASONAL TAX PREPARER calls [facility], it is reported they are full today. Due to patient's initial concerns with going to voluntary inpatient, ED provider and SEASONAL TAX PREPARER discuss [facility] option and dispatching DCR for further assessment. Per consult from Psychiatrist Dr. Licona, it is recommended that patient is a good candidate for DCR assessment as patient is gravely disabled, and unable to contract as a voluntary patient. Plan: SEASONAL TAX PREPARER to dispatch DCR for assessment for [facility] bed. UYRIDIA Lunsford
--- NOTE | 2021-12-07 18:15 | P.CONS_ITS ---
History of Present Illness Consult details Date Patient Seen: 12/07/21 Time Patient Seen: 17:30 Chief complaint: Psych Reason for consult: Treatment recommendations Requesting provider: Reyna Mehta Narrative: CC: ?I?m going to ? HOSPITAL COURSE: This is third ER visit since 12/01/21. Brought in by after patient became agitated in attempt to take to [facility] for mental health evaluation. Police department, mobile crisis outreach Team, and local paramedics have also been involved in her case recently. In the emergency department, she is anxious, sometimes willing to consider psychiatric admission, sometimes not. Summary of recent ER visits: 12/01/21 ER visit: Dx nausea, insomnia, depression, not interested in inpatient psychiatric treatment & not clearly meeting involuntary criteria. 12/02/21: ER visit: very anxious, not feeling safe in her body. Dx possible dem entia, anxiety; plan to discharge home with home health. 12/04/21 APPLE THINNER note indicates resources given such as rescheduling [facility] evaluation, Home health referral, investigate caregiving or respite resources for I followed Olivia in our primary care program [facility] from December 2020 ? June 2021, including a high degree of support & collaboration between Dr. Rae as her PCP, NISA Henry as her psychotherapist & rn coronary care unit, and myself as the psychiatric computing consultant. We had concerns about psychotic depression at that time, but patient was very resistant to accepting recommended treatment options. COLLATERAL FROM STAFF: Endorsing fear that she will , not actively endorsing psychotic symptoms, perseverative INTERVIEW: Met with Olivia & Harvinder together, then both individually, then together to end for treatment planning. Olivia states ?I?m terrified? that she isn?t doing well, that she is very anxious. When I mentioned it was good to see her eating some bites of food she states her body isn?t using it ?it?s not going anywhere?. She reports being afraid she is going to . When I mentioned severe depression, even compared to our last interactions in the fall, she agrees and adds ?and anxious?. She denies planning to end her life. She reports some paranoia, ?trouble trusting Harvinder, he can?t meet my needs? and reports trouble trusting others. ?I?ve burned too many bridges?. She does not clearly endorse hallucinations, but it is difficult for me to discern her answers to questions later in the interview. When I discussed that she might need hospital treatment for depression she states she will , or that she will be put on the streets because there are no beds. I mentioned that with no other safe plans, we need to involve the DCR to consider involuntary admission & she states ?no, no, no, no? and is difficult to engage in further conversation. Harvinder reports that from a period of about May to Sep, she was doing better. She had neuropsychological evaluation with Dr. Delacruz around that same time, and ?we got a good report? including no dementia, more evidence for cognitive effects of not sleeping. He is tearful stating that he can?t manage things at home, and how he is also struggling. PAST PSYCHIATRIC HISTORY: There is some report of inpatient stay earlier in her life; I was not able to confirm this information today but certainly possible. Worked with [facility] ([facility] care) team with NISA Henry, Dr. Licona, and Dr. Rae from December 2020 ? Jun 2021, when she elected to transfer her care elsewhere. Multiple medication trials; on initial work in [facility] she reports that clonazepam + trazodone + mirtazapine was helpful in the past. No known suicide attempts. At some point after [facility], I believe she was scheduled for psychotherapy with Nataliia PAULA, local therapist who does good work. SUBSTANCE USE HISTORY: No concerns that I am aware of FAMILY HISTORY: likely anxiety in her family from [facility] notes SOCIAL HISTORY: retired, lives with partner in [place], no children DEVELOPMENTAL HISTORY: Unable to assess today due to patient?s acute concerns PCP: most recently seeing an ANRP in [place]; I believe she is scheduled with Dr. Cruz in December SIGNIFICANT MEDICAL HISTORY: chronic GI complaints, tremor, osteoporosis MENTAL STATUS EXAM Appearance: disheveled, short crockett hair uncombed, looks older than stated age & notably thinner & less put together compared to our previous meetings in fall 2020 Behavior: fair eye contact (avoids with me at times); +UE tremor bilaterally, fair cooperation with interview, eating bites of eggs on plate, sitting up in hospital bed Gait: Not observed Speech: soft spoken, hard to hear, repeating words at times Mood: terrified Affect: Congruent with content, anxious, constricted Thought Process: Perseverative, rigid Thought Content: oscillates between endorsing suicidal thoughts or stating she is terrified of dying, no evidence of HI, possible paranoia, possible hallucinations or responding to internal stimuli Attention: distracted Orientation: recognizes me, oriented to self and grossly to place & relative date Memory: Intact for interview to recent & remote events Insight: Poor Judgment: Poor ASSESSMENT: Olivia Kennedy is a 65-year-old female, known to me in consulting role through [facility], seen now three times in the emergency department in the past week for safety, nausea, insomnia, mental status changes. Her presentation today is consistent with severe & likely psychotic depression, given her extreme cognitive rigidity, possible paranoia. I suspect that insomnia is related to depression more than other factors. Attempts at lower levels & less restrictive options for care have been tried without success, including short-term psychotherapy in primary care setting, care management in primary care setting, mobile crisis outreach team, emergency room visits with disposition & safety planning, attempts at [facility] evaluation for IOP vs. inpatient. Of note, she has had extensive workups including imaging neuropsychological evaluation in the past year; I do not see evidence of dementia or neurologic cause for current symptoms. No clear evidence for delirium, although that is on the differential. My current recommendation is to pursue involuntary treatment. I believe that, due to her diagnosis of severe depression, she meets criteria for imminent risk of harm to self, and possibly for grave disability. In the past week, this is evidenced by inability to engage in safe treatment plan aside from presenting to the emergency department. In the past, she has been very sensitive to medications, and very perseverative around medication choices & changes. To alleviate some distress in the emergency department, I recommend continuing her home regimen of medications if possible. In the event that we are not able to secure involuntary treatment tonight, I recommend that we provide clear education to her partner Harvinder to use the crisis line for any safety concern. DIAGNOSES: Major depressive disorder, severe, with psychosis Insomnia RECOMMENDATIONS: - Referral to designated crisis responder to evaluate for involuntary psychiatric treatment of depression - Continue home medications if possible, including clonazepam liquid 0.5mg at bedtime for anxiety & Lunesta 3mg at bedtime for sleep - If any severe agitation interfering with care, I recommend low dose Haldol (1mg oral, 0.5mg IV) Thank you for involving me in this patient's care. I will plan to follow-up with the emergency room tomorrow between 0830-6001 if patient is still admitted. Please contact me with questions or concerns at [phone]. Meds Home Medications and Allergies Home Medications Medication Instructions Recorded Confirmed Type omeprazole 40 mg capsule,delayed 40 mg PO DAILY 04/21/21 12/07/21 History release clonazepam 0.5 mg tablet 0.5 mg PO BEDTIME 12/07/21 12/07/21 History docusate sodium 100 mg tablet 100 mg PO DAILY PRN 12/07/21 12/07/21 History eszopiclone 3 mg tablet 3 mg PO QPM 12/07/21 12/07/21 History metoclopramide HCl 5 mg tablet 5 mg PO Q6HR PRN 12/07/21 12/07/21 History sennosides 8.6 mg capsule (senna) 8.6 mg PO DAILY PRN 12/07/21 12/07/21 History Allergies Allergy/AdvReac Type Severity Reaction Status Date / Time No Known Drug Allergies Allergy Verified 10/24/21 14:13 Exam Vital Signs (past 8 hours): - 12/07/21 10:32 Temperature 98.3 F Pulse Rate 90 Respiratory Rate 14 Blood Pressure 130/71 Pulse Oximetry 99 Oxygen Delivery Method Room Air Objective Labs Result Diagrams: 12/07/21 12:07 12/07/21 12:07 Labs: Laboratory Results - last 24 hr 12/07/21 12/07/21 12/07/21 11:44 11:44 12:07 WBC 9.7 RBC 4.46 Hgb 14.6 Hct 42.6 MCV 95.4 MCH 32.8 MCHC 34.4 RDW 13.4 Plt Count 225 Neut % (Auto) 80.2 H Lymph % (Auto) 12.4 L [place] % (Auto) 6.0 Eos % (Auto) 0.5 L Baso % (Auto) 0.9 Neut # (Auto) 7800 H Lymph # (Auto) 1200 [place] # (Auto) 600 Eos # (Auto) 0 Baso # (Auto) 100 Sodium Potassium Chloride Carbon Dioxide BUN Creatinine Estimated GFR BUN/Creatinine Ratio Glucose Calcium Total Bilirubin AST ALT Alkaline Phosphatase Total Protein Albumin Globulin Albumin/Globulin Ratio TSH Free T4 Urine Color Yellow Urine Appearance Clear Urine pH 6.0 Ur Specific [place] 1.010 Urine Protein Negative Urine Glucose (UA) Negative Urine Ketones Negative Urine Occult Blood Negative Urine Nitrate Negative Urine Bilirubin Negative Urine Urobilinogen 0.2 Ur Leukocyte Esterase Negative Urine RBC None seen Urine WBC None seen Urine Bacteria None seen Ur Culture Indicated? Cult not indicated Micro UA Comment Microscopic normal Salicylates U Opiates 300ng/mL cut Negative Ur Oxycodone Screen Negative Urine Methadone Screen Negative Acetaminophen Ur Barbiturates Screen Negative U Tricyclic Antidepress Negative Ur Phencyclidine Scrn Negative Ur Amphetamines Screen Negative U Methamphetamines Scrn Negative Ur MDMA Scrn (Ecstasy) Negative U Benzodiazepines Scrn Negative Urine Cocaine Screen Negative U Marijuana (THC) Screen Negative Ethyl Alcohol SARS-CoV-2 (PCR) 12/07/21 12/07/21 12/07/21 12:07 12:07 12:22 WBC RBC Hgb Hct MCV MCH MCHC RDW Plt Count Neut % (Auto) Lymph % (Auto) [place] % (Auto) Eos % (Auto) Baso % (Auto) Neut # (Auto) Lymph # (Auto) [place] # (Auto) Eos # (Auto) Baso # (Auto) Sodium 138 Potassium 3.9 Chloride 104 Carbon Dioxide 30 BUN 19 H Creatinine 0.57 Estimated GFR > 60 BUN/Creatinine Ratio 33.3 H Glucose 102 Calcium 9.0 Total Bilirubin 0.3 AST 36 ALT 51 H Alkaline Phosphatase 74 Total Protein 7.9 Albumin 4.7 Globulin 3.2 Albumin/Globulin Ratio 1.5 TSH 2.07 D Free T4 1.29 Urine Color Urine Appearance Urine pH Ur Specific [place] Urine Protein Urine Glucose (UA) Urine Ketones Urine Occult Blood Urine Nitrate Urine Bilirubin Urine Urobilinogen Ur Leukocyte Esterase Urine RBC Urine WBC Urine Bacteria Ur Culture Indicated? Micro UA Comment Salicylates < 1.0 U Opiates 300ng/mL cut Ur Oxycodone Screen Urine Methadone Screen Acetaminophen < 10 Ur Barbiturates Screen U Tricyclic Antidepress Ur Phencyclidine Scrn Ur Amphetamines Screen U Methamphetamines Scrn Ur MDMA Scrn (Ecstasy) U Benzodiazepines Scrn Urine Cocaine Screen U Marijuana (THC) Screen Ethyl Alcohol < 10 SARS-CoV-2 (PCR) Negative [facility] Medical History Abnormal Pap smear of cervix (~1998) Ankle fracture (~2014) Anxiety (~2003) Benign essential tremor Cervical somatic dysfunction Chicken pox Chronic left shoulder pain Chronic pain of left elbow Colon polyps (~2014) GERD (gastroesophageal reflux disease) Hemorrhoid Measles Mumps Osteopenia Osteoporosis Plantar warts Postmenopausal atrophic vaginitis Scoliosis Tinnitus Upper extremity somatic dysfunction Family History Grandfather Heart disease Grandmother Cancer Grandfather Cancer Social History marital status: unmarried,living together number of children: 0 household members: significant other lives independently: Yes caregiver/support person: No housing: house Tobacco & Substance Use Smoking Status: Never smoker second hand exposure: No alcohol intake: current substance use type: does not use Assessment & Plan Assessment and plan (1) Insomnia: Status: Acute (2) Major depressive disorder, recurrent, severe with psychotic symptoms: Status: Acute Time Spent With Patient Time with patient: less than 30 minutes Critical Care time: I spent a total of 60 minutes of critical care time on this patient's care today; this time is exclusive of procedural time.
--- NOTE | 2021-12-07 19:15 | PC.NURSE ---
pt walked to restroom with a steady gate and stand by assist.
[2021-12-08 04:25] VITALS: BP 98/54; PULSE 94; RESP 18; TEMP 36.7; O2SAT 98
[2021-12-08] MEDS: ONDANSETRON 4 MG ODT SL (04:40)
[2021-12-08] MEDS: PANTOPRAZOLE DR 20 MG TABLET PO (04:40)
--- NOTE | 2021-12-08 11:16 | PC.NURSE ---
speaking with patient she discusses she is afraid she'll if she goes home, or if she changes her medications. i spoke with her about going to other places for behavioral health, i asked her if she plans to try new medications or if she had a goal? she said i just can't go home.
--- NOTE | 2021-12-08 11:22 | PC.NURSE ---
resting in bed quietly.
[2021-12-08 12:19] VITALS: BP 121/73; PULSE 92; RESP 18; O2SAT 96
[2021-12-08 13:07] LABS: Creatine Kinase 29 U/L (30-135); Magnesium 2.4 mg/dL (1.6-2.3)
[2021-12-08] MEDS: haloperidoL 1 MG TABLET 0.5 MG PO (13:54)
--- NOTE | 2021-12-08 14:24 | CM.SWNOTE ---
Addendum entered by Maribeth Patel 12/08/21 16:42: HIM DIRECTOR Note DCR Eri proceeds with NEISHA detainment for patient with accepting facility [facility]. [facility] sets up EMS transport for 1700. [facility] is informed. YURIDIA Lunsford Original Note: HIM DIRECTOR Note Patient was a DCR walk away per DCR [employer], meets criteria for NEISHA bed due to grave disability. Upon returning to HIM DIRECTOR's shift the ED [facility] calls [facility] and it was reported that there are no beds. [facility] called [facility] and there are no beds[facility] called [facility] and it was reported that they can take patient's information and call back. [facility] calls [facility], it is reported they have NEISHA beds and can review patient. [facility] faxes clinicals for review. HIM DIRECTOR speaks with [facility] Monserrat who states that for review Magnesium and CK labs will be needed, HIM DIRECTOR faxes results. [facility] reports that patient is accepted pending NEISHA detainment. Accepting provider is [facility] as soon as possible after patient is detained. HIM DIRECTOR calls [facility] and endorses that patient has accepting bed, HIM DIRECTOR awaiting to hear from DCR. HIM DIRECTOR to update [facility] regarding patient's detainment and when patient can be transported. Plan: Patient to be detained for NEISHA bed at accepting hospital [facility], [facility] to set up transportation upon detainment. YURIDIA Lunsford
--- NOTE | 2021-12-08 14:25 | PC.NURSE ---
Patient expressed concerns about being monitored when given a med by the nurse. This IMPROVEMENT AUDITOR entered room to monitor vitals. Patient stated she didn't ask to be monitored. JBOSS DEVELOPER entered room and gave news about an aoccepting facility and patient started to have involuntary movements. This IMPROVEMENT AUDITOR asked JBOSS DEVELOPER to get the nurse. Patient's involuntary movements stopped right when JBOSS DEVELOPER left the room.
--- NOTE | 2021-12-08 15:37 | PC.NURSE ---
called report to Monserrat at [facility].
[2021-12-08 16:48] VITALS: BP 128/64; PULSE 92; RESP 14; TEMP 36.9; O2SAT 96
== END 2021-12-08 18:51 | disposition short-term general hospital (02) ==
PROVIDERS: Emergency Provider Emergency Medicine; PCP Family Medicine
DX: F41.9 Anxiety disorder, unspecified (principal); F32.A Depression, unspecified; Z20.822 Contact with and (suspected) exposure to COVID-19
CPT/HCPCS: 36415; 80053; 80305; 80320; 80329; 81001; 82550; 83735; 84439; 84443; 85025; 87635; 90792; 93005; 99284; C9803; G0480

== ENCOUNTER → 2022-01-20 16:02 | Outpatient (CLI) | payer MEDICARE, OTHER, SELFPAY ==
[2022-01-20 18:21] LABS: Cancer Antigen 125 7.5 U/mL (0-35)
== END ==
PROVIDERS: PCP Internal Medicine; Referring Provider Obstetrics & Gynecology; Visit Provider Obstetrics & Gynecology
DX: N85.00 Endometrial hyperplasia, unspecified (principal); R19.09 Other intra-abdominal and pelvic swelling, mass and lump; R93.5 Abnormal findings on diagnostic imaging of other abdominal regions, including retroperitoneum
CPT/HCPCS: 36415; 86304

== ENCOUNTER → 2022-03-04 08:15 | Outpatient (CLI) | payer MEDICARE, OTHER, SELFPAY ==
[2022-03-04 09:15] LABS: COVID19 -Nasal RAPID Negative (Negative)
== END ==
PROVIDERS: Family Provider Internal Medicine; PCP Internal Medicine; Visit Provider Obstetrics & Gynecology
DX: Z20.822 Contact with and (suspected) exposure to COVID-19 (principal); Z01.812 Encounter for preprocedural laboratory examination
CPT/HCPCS: 87635

== ENCOUNTER 2022-03-05 06:07 | Day surgery (SDC) | payer MEDICARE, OTHER, SELFPAY ==
[2022-03-03 15:07] VITALS: BMI 18.0
--- NOTE | 2022-03-05 | PATH_ITS ---
[facility] Accession Number: [id number] . 01 Material submitted: . PART A: ovary - LEFT OVARY WITH FALLOPIAN TUBE AND RIGHT FALLOPIAN TUBE PART B: endometrium - ENDOMETRIAL CURETTING . 01 Diagnosis: A. Left Ovary and Left and Right Fallopian Tubes, Oophorectomy and Bilateral Salingectomy: Benign serous cystadenoma of ovary; negative for significant atypia. Two fimbriated fallopian tubes without significant pathologic abnormality. . . B. Endometrium, Curettage: Scant detached inactive appearing endometrial epithelium. Atrophic squamous epithelium. Negative for significant atypia. [facility] 03/10/2022 1532 Local . 01 Electronically signed: . Alice Tang MD, Pathologist NPI- [id number] . 01 Gross description: . A. Received in formalin, labeled with the patient's name and designated 1. Left ovary with fallopian tube and right fallopian tube, are bilateral undesignated fimbriated fallopian tube segments and one detached ovary. The first fallopian tube is 8.0 cm long by 0.4 cm in diameter with a red-ocasio, focally hemorrhagic outer surface and attached ragged, open fimbriae. The second fallopian tube is 5.5 cm long by 0.5 cm in diameter with a red-ocasio, focally hemorrhagic outer surface and attached open fimbriae. The detached ovary is cystic, disrupted, and collapsed, 3.5 x 2.0 x 1.5 cm. The outer surface is yellow-ocasio, smooth, and cystic. Sectioning reveals a multiloculated cystic cut surface with multiple smooth-lined cysts filled with clear watery fluid. No excrescences or uninvolved ovarian parenchyma are grossly identified. No additional lesions are identified. Sieve Repairer sections are submitted as follows: A1: Sieve Repairer first fallopian tube with entire fimbriae. A2: Sieve Repairer second fallopian tube with entire fimbriae. A3: Sieve Repairer ovary. B. Received in formalin, labeled with the patient's name and designated 2. Endometrial curetting, is a 2.0 x 0.5 x 0.2 cm aggregate of mucohemorrhagic material, entirely submitted in cassette B1. ([id number]) /FRR 03/06/2022 1729 Local . 01 Pathologist provided ICD-10: D27.9 . 01 CPT . 139381, [id number] Specimen Comment: A courtesy copy of this report has been sent to [phone] Performed at: 01 [facility] Cyt[facility] [address] [place] [address] Avenue [address], [place], [place] [id number] MD Alonzo Mccray MD Phone: [phone]
[2022-03-05 06:46] VITALS: BP 113/70; PULSE 82; RESP 16; TEMP 36.5; O2SAT 97; BMI 17.4
[2022-03-05] MEDS: LACTATED RINGERS 1,000 ML 42 ML IV (07:04)
[2022-03-05] MEDS: miSOPROStoL 200 MCG TABLET 400 MCG SL (07:09)
--- NOTE | 2022-03-05 07:37 | PM.PREOP ---
Pre-operative Note COVID-19 COVID-19 status: Negative Result date/Date tested (Pos, Neg/Pending): 03/04/22 Criteria for continued procedure: Non-surgical alternatives not available or appropriate per current SOC Interval Note History & Physical reviewed/Exam performed by Physician: Yes Changes to H&P: No
[2022-03-05] MEDS: ACETAMINOPHEN IV 1,000 MG/100 ML VIAL 400 MG IV (08:00)
--- NOTE | 2022-03-05 08:11 | SUR.OPER ---
Lithotomy on padded OR bed. Seaside Pad Positioner under torso. Head on pillow, arms padded and tucked at sides. Legs secured in padded yellow fins stirrups. directed and approved by surgeon
[2022-03-05] MEDS: BUPIVACAINE 0.5% (PF) 30 ML, EPINEPHrine 0.15 MG INJ (08:23)
[2022-03-05 09:14] VITALS: BP 116/52; PULSE 78; RESP 14; TEMP 36; O2SAT 100
[2022-03-05 09:19] VITALS: BP 110/46; PULSE 84; RESP 14; O2SAT 98
--- NOTE | 2022-03-05 09:20 | PM.GYNOP.1 ---
Operative Date/Time/Diagnoses Date of procedure: 03/05/22 Time of procedure: 08:10 Pre-op diagnosis: Left ovarian cyst Endometrial thickening on ultrasound Cervical stenosis Post-op diagnosis: same Procedure & Clinicians Procedure: Procedures Operation Date: 03/05/22 07:45 Actual Procedure Side Surgeon p Dilation & Curettage of the uterus Nj Gomez MD s Laparoscopic left Salpingo-oophorectomy and right salpingectomy Left Nj Gomez MD Indications: Olivia presented originally for evaluation of right ovarian cyst initially noted on abd/pelvic CT performed for dyspepsia at [facility] 11/09/2021 which showed: PELVIS: Pelvic Organs:? There is a 3 cm cyst in the left adnexa.? Uterus is unremarkable.? Bladder:? Unremarkable.? ? Pelvic Nodes: No enlarged lymph nodes.? Miscellaneous: No inguinal hernias are seen. IMPRESSION:? ? 1. No acute abnormalities in abdomen or pelvis. 2. Subtle nodular contour of liver suggesting cirrhosis.? Please correlate with liver function tests. 3. A 3 cm cyst in the left adnexa.? Recommend pelvic ultrasound for follow-up evaluation. 4. Bilateral small renal cortical cysts. 5. Multiple compression fractures in lumbar spine.?? ? Subsequently a pelvic US was performed at [facility] which showed the uterus to be anteverted and small in size at 5.6 x 3.2 x 3.5 cm.? The myometrium is described as homogeneous.? The endometrium measures 16 mm in combined thickness and there is a small amount of anechoic endometrial fluid.? There was also a 2.2 mm echogenic focus involving the endocervical canal which may be related to retained blood products.? The adnexa are unremarkable with the right ovary measuring 1.2 x 1.6 x 1.3 cm with a calculated ovarian volume of 1.3 cc.? The left ovary is 3.5 x 2.2 x 3.4 cm with a calculated ovarian volume of 13.7 cc.? The ovaries have normal sonographic appearance.? Less than 12 follicles can be seen in each ovary.? A 3 cm simple left ovarian cyst with mild superior wall irregularity is noted.? Small simple cysts involve the right ovary as well as the largest measuring 1.1 cm.? There is no pathologic free abdominal or pelvic fluid noted. Attempted endometrial biopsy in the office was unsuccessful due to cervical stenosis and after consideration of all options we are proceeding to hysteroscopy with dilation curettage of the uterus as well as laparoscopic LSO and right salpingectomy.? Patient expresses a strong desire to retain her right ovary if it is normal in appearance.? Patient is aware that leaving the right ovary does exposure to very slight risk of developing ovarian cancer on the right side but she accepts that potential risk.? Patient presents today for her scheduled surgery. Surgeon: Nj Gomez Anesthesia Type: General Operative Notes Findings: Laparoscopic inspection of the pelvis shows the uterus to be small/atrophic and normal in all respects. There were no abnormalities noted in either the anterior posterior cul-de-sac. The right fallopian tube and ovary are normal with the ovary on the right side atrophic and no abnormalities noted on the ovarian surface surface. The left fallopian tube is normal but the left ovary contains a 3 cm unilocular cyst with clear fluid contained within. There were no other abnormalities around the ovary and there was no fluid in the cul-de-sac. The cecum and appendix is visualized laparoscopically are normal. The liver edge on the right lobe is normal and the gallbladder appears normal but does appear to have some scarring around it. Left lobe of the liver is normal in appearance in the hemidiaphragms on both sides appear normal without any lesions of the peritoneal surfaces. The endometrial cavity was not visualized as hysteroscopy could not be performed due to cervical stenosis. The cervix itself is fibrotic and atrophic. Endometrial cavity sounds to a depth of 5 cm. Closure Type: primary Specimen(s): endometrial curettings, right tube and left tube & ovary Estimated blood loss (mL): 25 Blood products transfused: none Procedure in detail: With the patient under satisfactory general anesthesia in the modified dorsal lithotomy position, the perineum, vagina, and abdomen were prepped and draped in the usual manner for laparoscopy and vaginal surgery. A pre-surgical safety time-out was then taken in accordance with [facility] Main OR protocols. The skin of the umbilicus was infiltrated with 0.5% Marcaine with epinephrine and a 1 cm vertical incision was made. A Veress needle was then used to insufflate the abdomen with carbon dioxide. An 11 mm laparoscopic trocar and sleeve were then placed through the umbilical incision and confirmation of the sleeve position and the abdominal cavity was confirmed with the laparoscoped. A 2nd and 3rd laparoscopic port was placed in the left and right mid quadrants using a 5 mm trocar and sleeve after infiltration of the skin and subcutaneous tissues with 0.5% Marcaine with epinephrine. Using a 3 puncture technique the pelvis and abdomen were inspected carefully and the findings documented photographically. A grasping forcep was used to elevate the distal fallopian tube on the left side and a power seal device was used to coagulate and divide 1st the infundibulopelvic ligament with the dissection carried across the mesosalpinx to the cornua where the utero-ovarian ligament and the proximal fallopian tube were coagulated and divided with power seal device. The specimen was secured for subsequent retrieval. Attention was then turned to the right adnexa and given that the right ovary was completely normal to visual inspection, salpingectomy was performed using the power seal device on the right-hand side and the specimen was retrieved through 1 of the 5 mm ports. An Endo-Catch bag was then introduced through the umbilical port and the ovary and tube from the left side were retrieved with the use bag. The specimen was obtained and submitted along with the right fallopian tubes aggregate specimen for pathologic examination. Pelvis was inspected for any evidence of bleeding or other abnormalities and none were found. The pneumoperitoneum was then vented and the sleeves removed from the abdominal cavity. Port incisions were then closed with 0 Vicryl interrupted on the fascia of the umbilical incision followed by closure of skin on all port incisions with 4-0 Monocryl using inverted interrupted stitches. Skin glue was applied and appropriate dressings were applied after skin dried. Attention was then turned to the planned hysteroscopy with D&C. Vaginal canal was quite narrow and the cervix is atrophic with some deviation to the left side. The cervix was identified and grasped carefully with a single-tooth tenaculum. Gradual dilation of the endocervical canal could be accomplished only 2 or mm and therefore hysteroscopy could not be performed. The uterus was sounded to 5 cm and sharp curettage of the uterus was then carried out with scant amounts of endometrial curettings obtained and submitted for pathologic evaluation. The tenaculum was then removed from the cervix and there was no significant bleeding noted. The speculum was removed from the vagina and the procedure terminated. Patient was awakened and then transferred to the PACU for a period of observation and recovery. Having tolerated procedure well. Complications: none Post-operative Condition: stable Disposition: PACU Plan for aftercare: Routine postoperative care. Follow-up will be in 2 weeks or as needed.
[2022-03-05 09:24] VITALS: BP 103/44; PULSE 81; RESP 16; O2SAT 99
[2022-03-05 09:28] VITALS: BP 114/45; PULSE 80; RESP 16; TEMP 36.3; O2SAT 99
[2022-03-05 09:35] VITALS: BP 122/62; PULSE 78; RESP 16; TEMP 36.7; O2SAT 100
== END 2022-03-05 10:05 | disposition home or self-care (01) ==
PROVIDERS: Family Provider Internal Medicine; PCP Internal Medicine; Referring Provider Obstetrics & Gynecology; Visit Provider Obstetrics & Gynecology
PROC: 0UDB8ZZ Extraction of Endometrium, Via Natural or Artificial Opening Endoscopic (ICD-10-PCS; CPT 58558; principal; 2022-03-05 07:45)
PROC: (CPT 58661; 2022-03-05 07:45)
DX: D27.1 Benign neoplasm of left ovary (principal); N88.2 Stricture and stenosis of cervix uteri; R93.89 Abnormal findings on diagnostic imaging of other specified body structures; K21.9 Gastro-esophageal reflux disease without esophagitis; F32.A Depression, unspecified; F41.9 Anxiety disorder, unspecified; G47.33 Obstructive sleep apnea (adult) (pediatric)
CPT/HCPCS: 58661; 58120; 82962; J0131; J0171; J1100; J2250; J2405; J2704; J3010; S0191

== ENCOUNTER → 2022-04-20 11:31 | Outpatient (CLI) | payer MEDICARE, OTHER, SELFPAY | PROVIDERS: Family Provider Internal Medicine; PCP Internal Medicine; Referring Provider Internal Medicine; Visit Provider Internal Medicine | DX: M81.0 Age-related osteoporosis without current pathological fracture (principal); Z13.820 Encounter for screening for osteoporosis; Z78.0 Asymptomatic menopausal state; Z87.311 Personal history of (healed) other pathological fracture | CPT/HCPCS: 77080 ==

== ENCOUNTER → 2022-05-03 12:46 | Outpatient (CLI) | payer MEDICARE, OTHER, SELFPAY ==
--- NOTE | 2022-05-03 | DI.MG.S_ITS ---
BILATERAL DIGITAL SCREENING MAMMOGRAM 3D/2D WITH CAD: 05/03/2022 CLINICAL: Routine screening. Family history of breast cancer. Comparison is made to exams dated: 05/02/2021 mammogram, 04/26/2020 mammogram, and 05/05/2018 mammogram - [facility]. There are scattered areas of fibroglandular density in both breasts (category b / 25%-50% glandular tissue). Current study was also evaluated with a Computer Aided Detection (CAD) system. There is a possible 0.4 cm oval equal density focal asymmetry in the right breast at 11 o'clock anterior depth. This is more prominent and increased in size. No other significant masses, calcifications, or other findings are seen in either breast. IMPRESSION: INCOMPLETE: NEEDS ADDITIONAL IMAGING EVALUATION The possible 0.4 cm oval equal density focal asymmetry in the right breast resembles a cyst and is indeterminate. Additional views with possible ultrasound are recommended. Based on the Tyrer Cuzick model (a risk assessment model) the patient's lifetime risk is 10.0% and her 10 year risk is 5.6%. According to the ACR, ACS, and NCCN guidelines, an annual breast MRI exam along with mammogram is recommended if the patient's lifetime risk is 20% or greater. This exam was interpreted at Station ID: [id number]. NOTE: For mammograms, a report in lay terms will be sent to the patient. Approximately 15% of breast malignancies will not be visualized mammographically. In the management of a palpable breast mass, a negative mammogram must not discourage biopsy of a clinically suspicious lesion. Electronically Signed By: Reinaldo lewis/jodie:05/03/2022 16:19:59 copy to: WILLIAM BROWN [employer], ph: [phone], fax: [phone] letter sent: Additional Imaging Needed ACR BI-RADS Category 0: Incomplete 3340F
== END ==
PROVIDERS: Family Provider Internal Medicine; PCP Internal Medicine; Referring Provider Internal Medicine; Visit Provider Internal Medicine
DX: Z12.31 Encounter for screening mammogram for malignant neoplasm of breast (principal); Z80.3 Family history of malignant neoplasm of breast; N64.89 Other specified disorders of breast
CPT/HCPCS: 77063; 77067

== ENCOUNTER → 2022-05-11 09:48 | Outpatient (CLI) | payer MEDICARE, OTHER, SELFPAY ==
--- NOTE | 2022-05-11 | DI.US.S_ITS ---
ULTRASOUND OF RIGHT BREAST: 05/11/2022 CLINICAL: Patient returns today to evaluate a focal asymmetry in the right breast. Comparison is made to exams dated: 05/11/2022 mammogram, 05/03/2022 mammogram, and 05/02/2021 mammogram - [facility]. Color flow and real-time ultrasound of the right breast were performed. Rehman scale images of the real-time examination were reviewed. There is a 0.4 cm x 0.2 cm x 0.3 cm oval cluster of microcysts in the right breast at 11 o'clock anterior depth. This cluster of microcysts is hypoechoic. This correlates with mammography findings. Color flow imaging demonstrates that there is no vascularity present. IMPRESSION: PROBABLY BENIGN The 0.4 cm x 0.2 cm x 0.3 cm oval cluster of microcysts in the right breast is probably benign. A follow-up right mammogram and a right ultrasound in 6 months is recommended to demonstrate stability. Findings and recommendations were conveyed to the patient during today's evaluation. This exam was interpreted at Station ID: [id number]. Electronically Signed By: Reinaldo Lora M.D. aty/:05/11/2022 11:14:54 copy to: WILLIAM BROWN [employer], ph: [phone], fax: [phone] letter sent: Followup Recommended Ultrasound BI-RADS: 3 Probably benign
--- NOTE | 2022-05-11 | DI.MG.S_ITS ---
UNILATERAL RIGHT DIGITAL DIAGNOSTIC MAMMOGRAM 3D/2D WITH ADDITIONAL VIEWS: 05/11/2022 CLINICAL: Additional evaluation requested from prior study. Comparison is made to exams dated: 05/02/2021 mammogram, 04/26/2020 mammogram, and 05/05/2018 mammogram - [facility]. There are scattered areas of fibroglandular density in the right breast (category b / 25%-50% glandular tissue). Redemonstration of previously described possible 0.6 cm oval equal density focal asymmetry in the right breast at 12 o'clock anterior depth. This is not definitively confirmed in today's additional views and it is less prominent. No other significant masses or calcifications are seen in the breast. IMPRESSION: INCOMPLETE: NEEDS ADDITIONAL IMAGING EVALUATION The possible 0.6 cm oval equal density focal asymmetry in the right breast resembles a cyst or ectactic duct and is indeterminate. An ultrasound is recommended for further evaluation and is scheduled to immediately follow this examination. Based on the Tyrer Cuzick model (a risk assessment model) the patient's lifetime risk is 10.0% and her 10 year risk is 5.6%. According to the ACR, ACS, and NCCN guidelines, an annual breast MRI exam along with mammogram is recommended if the patient's lifetime risk is 20% or greater. This exam was interpreted at Station ID: [id number]. NOTE: For mammograms, a report in lay terms will be sent to the patient. Approximately 15% of breast malignancies will not be visualized mammographically. In the management of a palpable breast mass, a negative mammogram must not discourage biopsy of a clinically suspicious lesion. Electronically Signed By: Reinaldo Lora M.D. aty/:05/11/2022 10:10:11 copy to: WILLIAM BROWN [employer], ph: [phone], fax: [phone] ACR BI-RADS Category 0: Incomplete 3340L
== END ==
PROVIDERS: Family Provider Internal Medicine; PCP Internal Medicine; Referring Provider Internal Medicine; Visit Provider Internal Medicine
DX: R92.8 Other abnormal and inconclusive findings on diagnostic imaging of breast (principal); N64.89 Other specified disorders of breast; N60.01 Solitary cyst of right breast
CPT/HCPCS: 76642; 77065; G0279

== ENCOUNTER 2022-05-19 14:30 | Outpatient (RCR) | payer MEDICARE, OTHER, SELFPAY ==
--- NOTE | 2022-02-26 20:25 | PT.OIE ---
Current Diagnoses Unspecified urinary incontinence (02/26/22) Past Medical History (Last Updated 02/08/22 @ 16:21 by Francis Cruz MD) Abnormal endometrial ultrasound Abnormal Pap smear of cervix (~1998) Ankle fracture (~2014) Anxiety (~2003) Benign essential tremor Cervical somatic dysfunction Chicken pox Chronic left shoulder pain Chronic pain of left elbow Colon polyps (~2014) Depression, major, recurrent Endometrial thickening on ultrasound GERD (gastroesophageal reflux disease) GERD without esophagitis Hemorrhoid IT band syndrome Left ovarian cyst Measles Mumps Osteopenia Osteoporosis Plantar warts Postmenopausal atrophic vaginitis Scoliosis Tinnitus Upper extremity somatic dysfunction Urinary incontinence Visit Care Team Role Provider Type Francis Cruz MD Attending Provider Physician Family Provider Primary Care Provider Referring Provider Specialty: Internal Medicine Address: [address] [place] [address], [facility] Email: [email or web address] Physical Therapy Initial Evaluation PT-OP-A Visit Information Start: 02/25/22 16:04 Freq: Status: Active Protocol: Document 02/26/22 09:45 AMB (Rec: 02/28/22 21:14 AMB [id number]) Out-Patient Physical Therapy Visit Information Visit Information Visit Type Initial Evaluation Visit Note before KX Visit Start Time 09:45 Visit Stop Time 10:30 Total Visit Minutes 45 Visit Number 1 PT-OP-B Current Condition Start: 02/25/22 16:04 Freq: Status: Active Protocol: Document 02/26/22 09:53 AMB (Rec: 02/26/22 10:32 AMB [id number]) Current Condition History of Current Condition Onset Date A few months Current Complaints Urinary leaking History of Current Condition Small leak of urine, seems intermittent throughout the day, sometimes with movement sometimes Was doing better after previous physical therapy, but then leaking started again. Using panti liners. Not really sure what causes leaking, can't always feel it but notices moisture. Personal Factors Other Personal Factors That May Effect Prior history of depression, Therapy/Recovery osteoporosis with lumbar compression fractures PT-OP-C Subjective Start: 02/25/22 16:04 Freq: Status: Active Protocol: Document 02/26/22 09:45 AMB (Rec: 02/26/22 12:49 AMB [id number]) Patient Questionnaires Pelvic Pain and Urgency/Frequency Patient Symptom Scale Pelvic Pain Score 9 PT-OP-I Pelvic Floor Start: 02/25/22 16:04 Freq: Status: Active Protocol: Document 02/26/22 09:45 AMB (Rec: 02/28/22 21:28 AMB [id number]) Pelvic Floor Assessment Urine Urinary Symptoms Urge Sensation,Prolapse Leakage Size Small Leakage Cause Urge Urine Pad Type Panty Liner Prolapse Urethrocele Grade 2 SEMG (uV) Baseline 2 Quick Contraction 23.6 10 Second Contraction 12 Recruitment Pattern Good Relaxation Good Holding Good Stability of Hold Fair SEMG Stability of Rest Good Contraction Ability Voluntary Contraction Moderate Voluntary Relaxation Moderate Manual Muscle Testing Left 2 Manual Muscle Testing Right 2 Manual Muscle Testing Anterior 2 Manual Muscle Testing Posterior 2 Muscle Endurance (Seconds) 5 Number of Quick Contractions In 10 5 Seconds PT-OP-T Assessment and Plan Start: 02/25/22 16:04 Freq: Status: Active Protocol: Document 02/26/22 09:45 AMB (Rec: 03/01/22 07:30 AMB [id number]) Physical Therapy Assessment Rehab Potential Rehabilitation Potential Good Evaluation Complexity Number of Personal Factors/Comorbidities 1-2 Number of Body Systems Impaired 1-2 Clinical Presentation at Evaluation Stable Impairments Impairments Functional Activities,Strength Goals Two Impairment Pelvic floor strength Short Term Goal (STG) Brie show improved pelvic floor strength by holding a 10 second contraction in standing. STG Duration 4 weeks Handle Sewer Goal (LTG) Eview will be consistent and independent with a pelvic floor strengthening HEP. LTG Duration 8 weeks One Impairment Continence Short Term Goal (STG) Brie will move from sit to stand without leaking urine. STG Duration 4 weeks Handle Sewer Goal (LTG) Brie will walk to the bathroom without urgency. LTG Duration 8 weeks Physical Therapy Plan Frequency and Duration Frequency of Treatment 1x/Week Duration of Treatment 8 weeks Plan of Care Start Date 02/26/22 Plan of Care End Date 04/23/22 Therapeutic Interventions Therapeutic Interventions Home Exercise Program,Manual Therapy,Neuromuscular Re- education,Self-Care/Home Management,Therapeutic Activities,Therapeutic Exercises Modalities Biofeedback,Electric Stimulation Next Visit Focus/Plan Next Note Type Treatment Note Next Visit Plan Progress HEP
--- NOTE | 2022-02-26 20:30 | PT.OPPOC ---
Addendum entered and electronically signed by Mariah Thurston, PT 03/03/22 20:30: MD signature needed Original Note: Physical, Occupational & Speech Therapy At [facility] Current Diagnoses Unspecified urinary incontinence (02/26/22) Visit Care Team Role Provider Type Francis Cruz MD Attending Provider Physician Family Provider Primary Care Provider Referring Provider Specialty: Internal Medicine Address: [address] [place] [address], [facility] Email: [email or web address] Plan Of Care PT-OP-T Assessment and Plan Start: 02/25/22 16:04 Freq: Status: Active Protocol: Document 02/26/22 09:45 AMB (Rec: 03/01/22 07:30 AMB [id number]) Physical Therapy Assessment Rehab Potential Rehabilitation Potential Good Evaluation Complexity Number of Personal Factors/Comorbidities 1-2 Number of Body Systems Impaired 1-2 Clinical Presentation at Evaluation Stable Impairments Impairments Functional Activities,Strength Goals Two Impairment Pelvic floor strength Short Term Goal (STG) Brie show improved pelvic floor strength by holding a 10 second contraction in standing. STG Duration 4 weeks [facility] Goal (LTG) Eview will be consistent and independent with a pelvic floor strengthening HEP. LTG Duration 8 weeks One Impairment Continence Short Term Goal (STG) Brie will move from sit to stand without leaking urine. STG Duration 4 weeks Busher Helper Goal (LTG) Brie will walk to the bathroom without urgency. LTG Duration 8 weeks Physical Therapy Plan Frequency and Duration Frequency of Treatment 1x/Week Duration of Treatment 8 weeks Plan of Care Start Date 02/26/22 Plan of Care End Date 04/23/22 Therapeutic Interventions Therapeutic Interventions Home Exercise Program,Manual Therapy,Neuromuscular Re- education,Self-Care/Home Management,Therapeutic Activities,Therapeutic Exercises Modalities Biofeedback,Electric Stimulation Next Visit Focus/Plan Next Note Type Treatment Note Next Visit Plan Progress HEP Plan of Care Dates Plan of Care Start Date 02/26/22 Plan of Care End Date 04/23/22 Electronically Signed by: Mariah Thurston, PT 03/03/222029 If you are in agreement with this Plan of Care, please return a signed and dated copy. I have reviewed this Plan of Care and certify that the skilled therapy services above are required to meet the patient?s needs. Physician Signature Date Printed Name and Credentials Clinical Instructor Signature Printed Name and Credentials
--- NOTE | 2022-03-18 11:35 | PT.OTN ---
Current Diagnoses Unspecified urinary incontinence (03/18/22) Physical Therapy Treatment Note PT-OP-A Visit Information Start: 02/25/22 16:04 Freq: Status: Active Protocol: Document 03/18/22 10:35 AMB (Rec: 03/18/22 11:10 AMB [id number]) Out-Patient Physical Therapy Visit Information Visit Information Visit Type Treatment Note Visit Note before KX Visit Start Time 10:30 Visit Stop Time 11:15 Total Visit Minutes 45 Visit Number 2 PT-OP-B Current Condition Start: 02/25/22 16:04 Freq: Status: Active Protocol: Document 02/26/22 09:53 AMB (Rec: 02/26/22 10:32 AMB [id number]) Current Condition History of Current Condition Onset Date A few months Current Complaints Urinary leaking History of Current Condition Small leak of urine, seems intermittent throughout the day, sometimes with movement sometimes Was doing better after previous physical therapy, but then leaking started again. Using panti liners. Not really sure what causes leaking, can't always feel it but notices moisture. Personal Factors Other Personal Factors That May Effect Prior history of depression, Therapy/Recovery osteoporosis with lumbar compression fractures PT-OP-C Subjective Start: 02/25/22 16:04 Freq: Status: Active Protocol: Document 03/18/22 10:35 AMB (Rec: 03/18/22 11:10 AMB [id number]) OP-PT Subjective Patient Comments Patient Comments Brie had her surgery and it went well. PT-OP-I Pelvic Floor Start: 02/25/22 16:04 Freq: Status: Active Protocol: Document 02/26/22 09:45 AMB (Rec: 02/28/22 21:28 AMB [id number]) Pelvic Floor Assessment Urine Urinary Symptoms Urge Sensation,Prolapse Leakage Size Small Leakage Cause Urge Urine Pad Type Panty Liner Prolapse Urethrocele Grade 2 SEMG (uV) Baseline 2 Quick Contraction 23.6 10 Second Contraction 12 Recruitment Pattern Good Relaxation Good Holding Good Stability of Hold Fair SEMG Stability of Rest Good Contraction Ability Voluntary Contraction Moderate Voluntary Relaxation Moderate Manual Muscle Testing Left 2 Manual Muscle Testing Right 2 Manual Muscle Testing Anterior 2 Manual Muscle Testing Posterior 2 Muscle Endurance (Seconds) 5 Number of Quick Contractions In 10 5 Seconds PT-OP-Q Treatments Start: 02/25/22 16:05 Freq: Status: Active Protocol: Document 03/18/22 10:35 AMB (Rec: 03/18/22 11:10 AMB [id number]) Therapeutic Exercises Sitting Exercises 1 Sitting Exercise Name roll in roll out Resistance green band Standing Exercises sit to stand Standing Exercise Name long hold Other Exercises quadruped UE ext Reps/Minutes 2x20 Comments long holds PT-OP-T Assessment and Plan Start: 02/25/22 16:04 Freq: Status: Active Protocol: Document 03/18/22 10:35 AMB (Rec: 03/18/22 11:10 AMB [id number]) Physical Therapy Assessment Goals Two Impairment Pelvic floor strength Short Term Goal (STG) Brie show improved pelvic floor strength by holding a 10 second contraction in standing. STG Duration 4 weeks Nursing Home Goal (LTG) Eview will be consistent and independent with a pelvic floor strengthening HEP. LTG Duration 8 weeks One Impairment Continence Short Term Goal (STG) Brie will move from sit to stand without leaking urine. STG Duration 4 weeks Nursing Home Goal (LTG) Brie will walk to the bathroom without urgency. LTG Duration 8 weeks Assessment Summary Assessment Brie was challenged by roll ins, but did well with roll outs. Can use glutes to help with pelvic floor contraction.
--- NOTE | 2022-03-26 15:47 | PT.OTN ---
Current Diagnoses Unspecified urinary incontinence (03/26/22) Physical Therapy Treatment Note PT-OP-A Visit Information Start: 02/25/22 16:04 Freq: Status: Active Protocol: Document 03/26/22 13:02 AMB (Rec: 03/26/22 13:21 AMB [id number]) Out-Patient Physical Therapy Visit Information Visit Information Visit Type Treatment Note Visit Note before KX Visit Start Time 13:00 Visit Stop Time 13:45 Total Visit Minutes 45 Visit Number 1 PT-OP-B Current Condition Start: 02/25/22 16:04 Freq: Status: Active Protocol: Document 02/26/22 09:53 AMB (Rec: 02/26/22 10:32 AMB [id number]) Current Condition History of Current Condition Onset Date A few months Current Complaints Urinary leaking History of Current Condition Small leak of urine, seems intermittent throughout the day, sometimes with movement sometimes Was doing better after previous physical therapy, but then leaking started again. Using panti liners. Not really sure what causes leaking, can't always feel it but notices moisture. Personal Factors Other Personal Factors That May Effect Prior history of depression, Therapy/Recovery osteoporosis with lumbar compression fractures PT-OP-C Subjective Start: 02/25/22 16:04 Freq: Status: Active Protocol: Document 03/26/22 13:02 AMB (Rec: 03/26/22 13:21 AMB [id number]) OP-PT Subjective Patient Comments Patient Comments Brie reports continued leaking with standing PT-OP-I Pelvic Floor Start: 02/25/22 16:04 Freq: Status: Active Protocol: Document 02/26/22 09:45 AMB (Rec: 02/28/22 21:28 AMB [id number]) Pelvic Floor Assessment Urine Urinary Symptoms Urge Sensation,Prolapse Leakage Size Small Leakage Cause Urge Urine Pad Type Panty Liner Prolapse Urethrocele Grade 2 SEMG (uV) Baseline 2 Quick Contraction 23.6 10 Second Contraction 12 Recruitment Pattern Good Relaxation Good Holding Good Stability of Hold Fair SEMG Stability of Rest Good Contraction Ability Voluntary Contraction Moderate Voluntary Relaxation Moderate Manual Muscle Testing Left 2 Manual Muscle Testing Right 2 Manual Muscle Testing Anterior 2 Manual Muscle Testing Posterior 2 Muscle Endurance (Seconds) 5 Number of Quick Contractions In 10 5 Seconds PT-OP-Q Treatments Start: 02/25/22 16:05 Freq: Status: Active Protocol: Document 03/26/22 13:02 AMB (Rec: 03/26/22 13:21 AMB [id number]) Therapeutic Exercises Standing Exercises mini squat Standing Exercise Name with PF control long holds Standing Exercise Name 10x4 Comments WBOS and stride stance. sit to stand Standing Exercise Name long hold Reps/Minutes 2x10 PT-OP-T Assessment and Plan Start: 02/25/22 16:04 Freq: Status: Active Protocol: Document 03/26/22 15:41 AMB (Rec: 03/26/22 15:47 AMB [id number]) Physical Therapy Assessment Goals Two Impairment Pelvic floor strength Short Term Goal (STG) Brie show improved pelvic floor strength by holding a 10 second contraction in standing. STG Duration 4 weeks Skilled Nursing Goal (LTG) [place] will be consistent and independent with a pelvic floor strengthening HEP. LTG Duration 8 weeks One Impairment Continence Short Term Goal (STG) Brie will move from sit to stand without leaking urine. STG Duration 4 weeks Skilled Nursing Goal (LTG) Brie will walk to the bathroom without urgency. LTG Duration 8 weeks Assessment Summary Assessment Brie is continuing to have some incontinence, especially in standing, so started working on HEP in standing. Recheck biofeedback next visit . Physical Therapy Plan Next Visit Focus/Plan Next Note Type Treatment Note Next Visit Plan Progress HEP
--- NOTE | 2022-04-23 12:53 | PT.OTN ---
Current Diagnoses Unspecified urinary incontinence (04/23/22) Physical Therapy Treatment Note PT-OP-A Visit Information Start: 02/25/22 16:04 Freq: Status: Active Protocol: Document 04/23/22 10:31 AMB (Rec: 04/23/22 11:07 AMB [id number]) Out-Patient Physical Therapy Visit Information Visit Information Visit Type Treatment Note Visit Note 18/ before KX Visit Start Time 10:30 Visit Stop Time 11:15 Total Visit Minutes 45 Visit Number 4 PT-OP-B Current Condition Start: 02/25/22 16:04 Freq: Status: Active Protocol: Document 02/26/22 09:53 AMB (Rec: 02/26/22 10:32 AMB [id number]) Current Condition History of Current Condition Onset Date A few months Current Complaints Urinary leaking History of Current Condition Small leak of urine, seems intermittent throughout the day, sometimes with movement sometimes Was doing better after previous physical therapy, but then leaking started again. Using panti liners. Not really sure what causes leaking, can't always feel it but notices moisture. Personal Factors Other Personal Factors That May Effect Prior history of depression, Therapy/Recovery osteoporosis with lumbar compression fractures PT-OP-C Subjective Start: 02/25/22 16:04 Freq: Status: Active Protocol: Document 04/23/22 10:30 AMB (Rec: 04/23/22 12:45 AMB [id number]) OP-PT Subjective Patient Comments Patient Comments Pt deneis any new leaks, has been workingon bessie when more active. PT-OP-I Pelvic Floor Start: 02/25/22 16:04 Freq: Status: Active Protocol: Document 02/26/22 09:45 AMB (Rec: 02/28/22 21:28 AMB [id number]) Pelvic Floor Assessment Urine Urinary Symptoms Urge Sensation,Prolapse Leakage Size Small Leakage Cause Urge Urine Pad Type Panty Liner Prolapse Urethrocele Grade 2 SEMG (uV) Baseline 2 Quick Contraction 23.6 10 Second Contraction 12 Recruitment Pattern Good Relaxation Good Holding Good Stability of Hold Fair SEMG Stability of Rest Good Contraction Ability Voluntary Contraction Moderate Voluntary Relaxation Moderate Manual Muscle Testing Left 2 Manual Muscle Testing Right 2 Manual Muscle Testing Anterior 2 Manual Muscle Testing Posterior 2 Muscle Endurance (Seconds) 5 Number of Quick Contractions In 10 5 Seconds PT-OP-Q Treatments Start: 02/25/22 16:05 Freq: Status: Active Protocol: Document 04/23/22 10:31 AMB (Rec: 04/23/22 11:07 AMB [id number]) Therapeutic Exercises Standing Exercises sit to stand Standing Exercise Name long hold Reps/Minutes 2x10 Neuro Re-Education Treatment Other Activities 1 Details sEMG Reps/Duration quick flicks/long holds Comments Max 23, avg 14. PT-OP-T Assessment and Plan Start: 02/25/22 16:04 Freq: Status: Active Protocol: Document 04/23/22 10:31 AMB (Rec: 04/23/22 11:07 AMB [id number]) Physical Therapy Assessment Goals Two Impairment Pelvic floor strength Short Term Goal (STG) Brie show improved pelvic floor strength by holding a 10 second contraction in standing. STG Duration 4 weeks Nursing Home Goal (LTG) Briew will be consistent and independent with a pelvic floor strengthening HEP. LTG Duration 8 weeks One Impairment Continence Short Term Goal (STG) Brie will move from sit to stand without leaking urine. STG Duration 4 weeks Nursing Home Goal (LTG) Brie will walk to the bathroom without urgency. LTG Duration 8 weeks Assessment Summary Assessment Standing continence has improved,so now Brie is feeling near ready to finish PT, but does have further questions on how to maintain [facility], as she has had prior pelvic PT . Physical Therapy Plan Next Visit Focus/Plan Next Note Type Treatment Note Next Visit Plan Progress HEP
--- NOTE | 2022-05-19 16:00 | PT.OTN ---
Current Diagnoses Unspecified urinary incontinence (05/19/22) Physical Therapy Treatment Note PT-OP-A Visit Information Start: 02/25/22 16:04 Freq: Status: Active Protocol: Document 05/19/22 14:27 AMB (Rec: 05/19/22 15:02 AMB [id number]) Out-Patient Physical Therapy Visit Information Visit Information Visit Type Treatment Note Visit Start Time 14:30 Visit Stop Time 15:15 Total Visit Minutes 45 Visit Number 5 PT-OP-B Current Condition Start: 02/25/22 16:04 Freq: Status: Active Protocol: Document 02/26/22 09:53 AMB (Rec: 02/26/22 10:32 AMB [id number]) Current Condition History of Current Condition Onset Date A few months Current Complaints Urinary leaking History of Current Condition Small leak of urine, seems intermittent throughout the day, sometimes with movement sometimes Was doing better after previous physical therapy, but then leaking started again. Using panti liners. Not really sure what causes leaking, can't always feel it but notices moisture. Personal Factors Other Personal Factors That May Effect Prior history of depression, Therapy/Recovery osteoporosis with lumbar compression fractures PT-OP-C Subjective Start: 02/25/22 16:04 Freq: Status: Active Protocol: Document 04/23/22 10:30 AMB (Rec: 04/23/22 12:45 AMB [id number]) OP-PT Subjective Patient Comments Patient Comments Pt deneis any new leaks, has been workingon bessie when more active. PT-OP-I Pelvic Floor Start: 02/25/22 16:04 Freq: Status: Active Protocol: Document 02/26/22 09:45 AMB (Rec: 02/28/22 21:28 AMB [id number]) Pelvic Floor Assessment Urine Urinary Symptoms Urge Sensation,Prolapse Leakage Size Small Leakage Cause Urge Urine Pad Type Panty Liner Prolapse Urethrocele Grade 2 SEMG (uV) Baseline 2 Quick Contraction 23.6 10 Second Contraction 12 Recruitment Pattern Good Relaxation Good Holding Good Stability of Hold Fair SEMG Stability of Rest Good Contraction Ability Voluntary Contraction Moderate Voluntary Relaxation Moderate Manual Muscle Testing Left 2 Manual Muscle Testing Right 2 Manual Muscle Testing Anterior 2 Manual Muscle Testing Posterior 2 Muscle Endurance (Seconds) 5 Number of Quick Contractions In 10 5 Seconds PT-OP-Q Treatments Start: 02/25/22 16:05 Freq: Status: Active Protocol: Document 05/19/22 13:36 AMB (Rec: 05/27/22 13:39 AMB [id number]) Therapeutic Exercises Sitting Exercises 1 Sitting Exercise Name roll in roll out Resistance green band Standing Exercises mini squat Standing Exercise Name with PF control long holds Standing Exercise Name 10x4 Comments WBOS and stride stance. sit to stand Standing Exercise Name long hold Reps/Minutes 2x10 PT-OP-T Assessment and Plan Start: 02/25/22 16:04 Freq: Status: Active Protocol: Document 05/19/22 14:27 AMB (Rec: 05/19/22 15:02 AMB [id number]) Physical Therapy Assessment Goals Two Impairment Pelvic floor strength Short Term Goal (STG) Brie show improved pelvic floor strength by holding a 10 second contraction in standing. STG Duration MET Glassware Verifier Goal (LTG) Brie will be consistent and independent with a pelvic floor strengthening HEP. LTG Duration MET One Impairment Continence Short Term Goal (STG) Brie will move from sit to stand without leaking urine. STG Duration MET Glassware Verifier Goal (LTG) Brie will walk to the bathroom without urgency. LTG Duration 8 weeks-- progress made Assessment Summary Assessment Pt reports improvement in pelvic floor and urgency. Continues to have mild urgency at times, but not as bothersome. Independent with HEP, feels ready for d/c. Physical Therapy Plan Frequency and Duration Frequency of Treatment 1x/Week Duration of treatment (weeks) 4 Plan of Care Start Date 05/19/22 Plan of Care End Date 06/16/22 Therapeutic Interventions Therapeutic Interventions Home Exercise Program,Manual Therapy,Neuromuscular Re- education,Self-Care/Home Management,Therapeutic Activities,Therapeutic Exercises Modalities Biofeedback,Electric Stimulation Discharge Physical Therapy Discharge Reasons Goals Met Next Visit Focus/Plan Next Note Type Treatment Note Next Visit Plan Progress HEP
== END 2022-05-28 14:50 | disposition home or self-care (01) ==
LOC: PHYS 14:30
PROVIDERS: Family Provider Internal Medicine; PCP Internal Medicine; Referring Provider Internal Medicine; Visit Provider Internal Medicine
DX: R32 Unspecified urinary incontinence (principal)
CPT/HCPCS: 97110; 97112; 97161

== ENCOUNTER → 2022-06-16 10:47 | Outpatient (CLI) | payer MEDICARE, OTHER, SELFPAY ==
[2022-06-16 11:40] LABS: Add Manual Diff / Slide Review NO; Basophils Absolute Auto 0 /uL (0-100); Basophils Percent Auto 0.6 % (0-2); Eosinophils Absolute Auto 100 /uL (0-450); Eosinophils Percent Auto 1.9 % (2-4); Hematocrit 38.2 % (36-46); Hemoglobin 13.2 g/dL (12.0-16.0); Lymphocytes Absolute Auto 1900 /uL (1100-4500); Lymphocytes Percent Auto 33.4 % (25-40); Mean Corpuscular HGB Conc 34.5 % (30-36); Mean Corpuscular Hemoglobin 32.6 PG (26-34); Mean Corpuscular Volume 94.3 fL (80-100); Monocytes Absolute Auto 600 /uL (0-900); Monocytes Percent Auto 10.2 % (3-14); Neutrophils Absolute Auto 3100 /uL (1500-7000); Neutrophils Percent Auto 53.9 % (50-75); Platelet Count 196 X10^3/uL (150-400); Red Blood Cell Count 4.05 X10^6/uL (4.0-5.2); Red Cell Distribution Width 12.8 % (11.6-14.8); White Blood Cell Count 5.7 X10^3/uL (4.5-11.0)
[2022-06-16 12:01] LABS: Alanine Aminotransferase 32 IU/L (<35); Albumin 4.3 g/dL (3.5-5.0); Albumin Globulin Ratio 1.2 (1.0-2.8); Alkaline Phosphatase 76 U/L (38-126); Aspartate Aminotransferase 39 IU/L (14-36); BUN Creatinine Ratio 21.4 (6-22); Bilirubin Total 0.1 mg/dL (0.2-1.3); Blood Urea Nitrogen 15 mg/dL (7-17); Calcium 9.4 mg/dL (8.4-10.2); Carbon Dioxide 29 mmol/L (22-32); Chloride 100 mmol/L (98-107); Estimated Glomerular Filt Rate > 60 mL/min (>60); Globulin 3.6 g/dL (1.7-4.1); Glucose 90 mg/dL (80-110); HEMOLYSIS < 15 (0-50); Potassium 4.3 mmol/L (3.4-5.1); Sodium 138 mmol/L (137-145); Total Protein 7.9 g/dL (6.3-8.2)
[2022-06-16 12:29] LABS: TSH w/ Reflex to FT4 1.45 uIU/mL (0.47-4.68)
== END ==
PROVIDERS: Family Provider Internal Medicine; PCP Internal Medicine; Referring Provider Internal Medicine; Visit Provider Internal Medicine
DX: R53.83 Other fatigue (principal)
CPT/HCPCS: 36415; 80053; 84443; 85025

== ENCOUNTER → 2022-08-06 10:03 | Outpatient (CLI) | payer MEDICARE, OTHER, SELFPAY ==
[2022-08-06 11:50] LABS: Add Manual Diff / Slide Review NO; Basophils Absolute Auto 0 /uL (0-100); Basophils Percent Auto 0.6 % (0-2); Eosinophils Absolute Auto 100 /uL (0-450); Eosinophils Percent Auto 1.4 % (2-4); Hemoglobin 12.3 g/dL (12.0-16.0); Lymphocytes Absolute Auto 1800 /uL (1100-4500); Lymphocytes Percent Auto 25.6 % (25-40); Mean Corpuscular Hemoglobin 32.3 PG (26-34); Monocytes Absolute Auto 600 /uL (0-900); Neutrophils Absolute Auto 4500 /uL (1500-7000); Neutrophils Percent Auto 64.4 % (50-75); Platelet Count 205 X10^3/uL (150-400); Red Blood Cell Count 3.79 X10^6/uL (4.0-5.2); Red Cell Distribution Width 13.4 % (11.6-14.8)
[2022-08-06 12:40] LABS: Alanine Aminotransferase 28 IU/L (<35); Albumin 4.1 g/dL (3.5-5.0); Albumin Globulin Ratio 1.4 (1.0-2.8); Alkaline Phosphatase 79 U/L (38-126); Aspartate Aminotransferase 28 IU/L (14-36); BUN Creatinine Ratio 35.2 (6-22); Bilirubin Total 0.2 mg/dL (0.2-1.3); Blood Urea Nitrogen 25 mg/dL (7-17); Calcium 8.6 mg/dL (8.4-10.2); Carbon Dioxide 29 mmol/L (22-32); Chloride 99 mmol/L (98-107); Estimated Glomerular Filt Rate > 60 mL/min (>60); Globulin 2.9 g/dL (1.7-4.1); Glucose 88 mg/dL (80-110); HEMOLYSIS < 15 (0-50); Potassium 4.2 mmol/L (3.4-5.1); Sodium 133 mmol/L (137-145)
[2022-08-06 12:41] LABS: Iron 137 ug/dL (37-170)
[2022-08-06 12:50] LABS: Percent Iron Saturation 53 % (15-50); Total Iron Binding Capacity 257 ug/dL (265-497)
[2022-08-06 13:01] LABS: Hepatitis B Surface Antigen NEGATIVE s/c (NEGATIVE)
[2022-08-06 13:07] LABS: Ferritin 37 ng/mL (11-264)
[2022-08-06 16:11] LABS: Hep C Virus Ab w/Reflex Quant NEGATIVE s/c (NEGATIVE)
[2022-08-07 07:56] LABS: Ceruloplasmin 26.2 mg/dL (19.0-39.0); Hepatitis A Antibody Total Positive (Negative); Hepatitis B Core Antibody Negative (Negative)
[2022-08-08 10:53] LABS: Anti Mitochondrial ABY IGG <20.0 Units (0.0-20.0)
[2022-08-08 12:40] LABS: Smooth Muscle Antibody 4 Units (0-19)
[2022-08-10 13:17] LABS: ANA Screen, IFA Negative (.)
== END ==
PROVIDERS: Family Provider Internal Medicine; PCP Internal Medicine; Referring Provider Internal Medicine Gastroenterology; Visit Provider Internal Medicine Gastroenterology
DX: R93.5 Abnormal findings on diagnostic imaging of other abdominal regions, including retroperitoneum (principal); K74.60 Unspecified cirrhosis of liver
CPT/HCPCS: 36415; 80053; 82390; 82728; 83516; 83540; 83550; 85025; 86038; 86704; 86708; 86803; 87340

== ENCOUNTER → 2022-09-01 06:44 | Outpatient (CLI) | payer MEDICARE, OTHER, SELFPAY ==
--- NOTE | 2022-09-01 | DI.US.S_ITS ---
PROCEDURE: US ABDOMEN LIMITED INDICATIONS: CIRRHOSIS - LIVER DOPPLER TECHNIQUE: Real-time focused scanning was performed of the abdomen, with image documentation. Color and pulse Doppler interrogation was also performed on the area of interest. COMPARISON: [facility], CT, CT ABDOMEN PELVIS W CON, 11/09/2021, 8:09. FINDINGS: The liver demonstrates normal size and demonstrates a mildly coarsened appearance, with mildly increased overall echogenicity. The main portal vein demonstrates normal size and demonstrates normal appearing, hepatopetal flow. The right and left portal veins are patent. Hepatic artery is patent and unremarkable. The mid, right, and left hepatic veins are likewise patent. The splenic vein is patent. The splenic artery is unremarkable. No splenomegaly. IMPRESSION: Mildly cirrhotic appearing liver. No significant hepatic vascular abnormality can be seen. Dictated by: Armani Kay M.D. on 09/01/2022 at 10:21 Approved by: Armani Kay M.D. on 09/01/2022 at 10:23
== END ==
PROVIDERS: Family Provider Internal Medicine; PCP Internal Medicine; Referring Provider Internal Medicine Gastroenterology; Visit Provider Internal Medicine Gastroenterology
DX: R93.5 Abnormal findings on diagnostic imaging of other abdominal regions, including retroperitoneum (principal); K74.60 Unspecified cirrhosis of liver
CPT/HCPCS: 76705; 93975

== ENCOUNTER → 2022-10-05 16:18 | Outpatient (CLI) | payer MEDICARE, OTHER, SELFPAY ==
--- NOTE | 2022-10-05 16:22 | DI.US.S_ITS ---
PROCEDURE: US PELVIC COMPLETE INDICATIONS: HISTORY OF ENDOMETRIAL THICKENING TECHNIQUE: Real-time scanning was performed of the pelvic organs, with image documentation. Additional endovaginal scanning was necessary due to incomplete visualization of the adnexal and endometrial structures by transabdominal scanning. COMPARISON: None. FINDINGS: Uterus: Uterus is anteverted and normal in size at 5.7 x 3.2 x 2.3 cm. The myometrium is mildly heterogeneous. The endometrium measures 2.7 mm combined thickness. Endometrium is mildly heterogeneous in echotexture. No discrete endometrial mass or fluid. Ovaries: The right ovary measures 1.8 x 1.6 x 1 cm. The left ovary is surgically absent. Less than 12 follicles can be seen in right ovary. Single septated cyst versus 2 adjacent cysts is seen in right ovary measures 1.4 x 1.2 x 1.2 cm in size. No internal vascularity. No adnexal masses are seen. Other: No pathologic free abdominal or pelvic fluid. IMPRESSION: 1. Normal endometrial thickness for patient's age with mildly heterogeneous endometrial echotexture. No endometrial mass or fluid is seen. 2. Mildly heterogeneous myometrial echotexture, no discrete uterine fibroids. 3. Prior left oophorectomy. Right ovary contains a septated cyst versus 2 adjacent cysts as above. No solid appearing ovarian lesion. No adnexal mass. No pelvic free fluid. We strive to produce accurate, complete, and clear reports of imaging services. To assist us in improving patient care, this report was composed using standard report templates and voice recognition software. Therefore, it may contain abnormal punctuation, insertions and/or omissions. Occasional wrong-word or sound-alike substitutions may occur. Though we review the report and make efforts to correct it, we do recommend that the report be read carefully in proper context to recognize any text inaccuracies. Dictated by: Derrick Clayton M.D. on 10/06/2022 at 8:48 Approved by: Derrick Clayton M.D. on 10/06/2022 at 8:54
== END ==
PROVIDERS: Family Provider Internal Medicine; PCP Internal Medicine; Referring Provider Obstetrics & Gynecology; Visit Provider Obstetrics & Gynecology
DX: R93.5 Abnormal findings on diagnostic imaging of other abdominal regions, including retroperitoneum (principal); N83.201 Unspecified ovarian cyst, right side; Z90.721 Acquired absence of ovaries, unilateral
CPT/HCPCS: 76830; 76856

== ENCOUNTER → 2022-11-09 13:23 | Outpatient (CLI) | payer MEDICARE, OTHER, SELFPAY ==
--- NOTE | 2022-11-09 13:24 | DI.MG.S_ITS ---
UNILATERAL RIGHT DIGITAL DIAGNOSTIC MAMMOGRAM 3D/2D: 11/09/2022 CLINICAL: Short follow up. Comparison is made to exams dated: 05/11/2022 mammogram, 05/03/2022 mammogram, and 05/02/2021 mammogram - [facility]. There are scattered areas of fibroglandular density in the right breast (category b / 25%-50% glandular tissue). Redemonstration of previously described possible 0.6 cm oval equal density focal asymmetry in the right breast at 12 o'clock anterior depth. This is not confirmed in additional views and appears less prominent and smaller in size. No other significant masses or calcifications are seen in the breast. IMPRESSION: INCOMPLETE: NEEDS ADDITIONAL IMAGING EVALUATION The possible 0.6 cm oval equal density focal asymmetry in the right breast resembles a cyst and is indeterminate. An ultrasound is recommended for further evaluation and is scheduled to immediately follow this examination. Based on the Tyrer Cuzick model (a risk assessment model) the patient's lifetime risk is 10.0% and her 10 year risk is 5.6%. According to the ACR, ACS, and NCCN guidelines, an annual breast MRI exam along with mammogram is recommended if the patient's lifetime risk is 20% or greater. This exam was interpreted at Station ID: [id number]. NOTE: For mammograms, a report in lay terms will be sent to the patient. Approximately 15% of breast malignancies will not be visualized mammographically. In the management of a palpable breast mass, a negative mammogram must not discourage biopsy of a clinically suspicious lesion. Electronically Signed By: Reinaldo Lora M.D. aty/:11/09/2022 14:20:42 copy to: WILLIAM BROWN [employer], ph: [phone], fax: [phone] ACR BI-RADS Category 0: Incomplete 3340F
--- NOTE | 2022-11-09 13:24 | DI.US.S_ITS ---
ULTRASOUND OF RIGHT BREAST: 11/09/2022 CLINICAL: Patient returns today to evaluate a focal asymmetry in the right breast. Comparison is made to exams dated: 11/09/2022 mammogram, 05/11/2022 ultrasound, 05/11/2022 mammogram, 05/03/2022 mammogram, and 05/02/2021 mammogram - [facility]. Real-time ultrasound of the right breast was performed. Rehman scale images of the real-time examination were reviewed. No significant abnormalities were seen sonographically in the right breast. Previously seen cluster of cysts at the 11 o'clock anterior depth are no longer visualized. IMPRESSION: BENIGN There is no sonographic evidence of malignancy. There is no abnormality seen in the right breast to correspond with the mammography finding. Return to annual mammogram screening schedule is recommended which is due in approximately 6 months. Findings and recommendations were conveyed to the patient during today's evaluation. This exam was interpreted at Station ID: [id number]. Electronically Signed By: Reinaldo Lora M.D. at/:11/09/2022 14:23:26 copy to: WILLIAM BROWN [employer], ph: [phone], fax: [phone] letter sent: Normal Exam Ultrasound BI-RADS: 2 Benign
== END ==
PROVIDERS: Family Provider Internal Medicine; PCP Internal Medicine; Referring Provider Internal Medicine; Visit Provider Internal Medicine
DX: R92.8 Other abnormal and inconclusive findings on diagnostic imaging of breast (principal)
CPT/HCPCS: 76642; 77065; G0279

== ENCOUNTER → 2022-12-21 09:01 | Outpatient (CLI) | payer MEDICARE, OTHER, SELFPAY ==
[2022-12-21 09:58] LABS: Add Manual Diff / Slide Review NO; Basophils Absolute Auto 100 /uL (0-100); Basophils Percent Auto 0.9 % (0-2); Eosinophils Absolute Auto 100 /uL (0-450); Eosinophils Percent Auto 1.3 % (2-4); Hematocrit 37.1 % (36-46); Hemoglobin 12.7 g/dL (12.0-16.0); Lymphocytes Absolute Auto 1500 /uL (1100-4500); Lymphocytes Percent Auto 22.7 % (25-40); Mean Corpuscular HGB Conc 34.3 % (30-36); Mean Corpuscular Hemoglobin 32.5 PG (26-34); Mean Corpuscular Volume 94.6 fL (80-100); Monocytes Absolute Auto 600 /uL (0-900); Monocytes Percent Auto 8.3 % (3-14); Neutrophils Absolute Auto 4600 /uL (1500-7000); Neutrophils Percent Auto 66.8 % (50-75); Platelet Count 186 X10^3/uL (150-400); Red Blood Cell Count 3.92 X10^6/uL (4.0-5.2); Red Cell Distribution Width 12.7 % (11.6-14.8); White Blood Cell Count 6.8 X10^3/uL (4.5-11.0)
[2022-12-21 11:17] LABS: Alanine Aminotransferase 25 IU/L (<35); Albumin 4.1 g/dL (3.5-5.0); Albumin Globulin Ratio 1.5 (1.0-2.8); Alkaline Phosphatase 82 U/L (38-126); Aspartate Aminotransferase 26 IU/L (14-36); BUN Creatinine Ratio 24.2 (6-22); Bilirubin Total 0.4 mg/dL (0.2-1.3); Blood Urea Nitrogen 16 mg/dL (7-17); Calcium 8.8 mg/dL (8.4-10.2); Carbon Dioxide 31 mmol/L (22-32); Chloride 100 mmol/L (98-107); Estimated Glomerular Filt Rate > 60 mL/min (>60); Globulin 2.8 g/dL (1.7-4.1); Glucose 92 mg/dL (80-110); HEMOLYSIS < 15 (0-50); Potassium 4.5 mmol/L (3.4-5.1); Sodium 133 mmol/L (137-145); Total Protein 6.9 g/dL (6.3-8.2)
== END ==
PROVIDERS: Family Provider Internal Medicine; PCP Internal Medicine; Referring Provider Internal Medicine Gastroenterology; Visit Provider Internal Medicine Gastroenterology
DX: K74.60 Unspecified cirrhosis of liver (principal)
CPT/HCPCS: 36415; 80053; 82172; 82247; 82465; 82947; 82977; 83010; 83883; 84450; 84460; 84478; 85025

== ENCOUNTER → 2023-01-07 13:42 | Outpatient (CLI) | payer MEDICARE, OTHER, SELFPAY ==
[2023-01-07 15:48] LABS: BUN Creatinine Ratio 30.3 (6-22); Blood Urea Nitrogen 20 mg/dL (7-17); Calcium 8.5 mg/dL (8.4-10.2); Carbon Dioxide 28 mmol/L (22-32); Chloride 101 mmol/L (98-107); Estimated Glomerular Filt Rate > 60 mL/min (>60); Glucose 86 mg/dL (80-110); HEMOLYSIS < 15 (0-50); Potassium 4.3 mmol/L (3.4-5.1); Sodium 135 mmol/L (137-145)
== END ==
PROVIDERS: Family Provider Internal Medicine; PCP Internal Medicine; Referring Provider Internal Medicine Gastroenterology; Visit Provider Internal Medicine Gastroenterology
DX: K74.60 Unspecified cirrhosis of liver (principal); R10.84 Generalized abdominal pain
CPT/HCPCS: 36415; 80048

== ENCOUNTER → 2023-02-03 06:56 | Outpatient (CLI) | payer MEDICARE, OTHER, SELFPAY ==
[2023-02-03 07:43] LABS: Add Manual Diff / Slide Review NO; Basophils Absolute Auto 100 /uL (0-100); Basophils Percent Auto 1.4 % (0-2); Eosinophils Absolute Auto 100 /uL (0-450); Eosinophils Percent Auto 1.9 % (2-4); Hemoglobin 12.7 g/dL (12.0-16.0); Lymphocytes Absolute Auto 1700 /uL (1100-4500); Lymphocytes Percent Auto 30.2 % (25-40); Mean Corpuscular HGB Conc 34.3 % (30-36); Mean Corpuscular Hemoglobin 32.4 PG (26-34); Mean Corpuscular Volume 94.4 fL (80-100); Monocytes Absolute Auto 500 /uL (0-900); Monocytes Percent Auto 8.3 % (3-14); Neutrophils Absolute Auto 3300 /uL (1500-7000); Neutrophils Percent Auto 58.2 % (50-75); Platelet Count 190 X10^3/uL (150-400); Red Blood Cell Count 3.92 X10^6/uL (4.0-5.2); Red Cell Distribution Width 12.8 % (11.6-14.8); White Blood Cell Count 5.7 X10^3/uL (4.5-11.0)
[2023-02-03 08:06] LABS: Alanine Aminotransferase 28 IU/L (<35); Albumin 4.1 g/dL (3.5-5.0); Albumin Globulin Ratio 1.4 (1.0-2.8); Alkaline Phosphatase 73 U/L (38-126); Aspartate Aminotransferase 33 IU/L (14-36); BUN Creatinine Ratio 28.1 (6-22); Bilirubin Total 0.3 mg/dL (0.2-1.3); Blood Urea Nitrogen 18 mg/dL (7-17); Calcium 8.6 mg/dL (8.4-10.2); Carbon Dioxide 32 mmol/L (22-32); Chloride 101 mmol/L (98-107); Estimated Glomerular Filt Rate > 60 mL/min (>60); Globulin 2.9 g/dL (1.7-4.1); Glucose 101 mg/dL (80-110); HEMOLYSIS < 15 (0-50); Magnesium 2.2 mg/dL (1.6-2.3); Phosphorous 3.4 mg/dL (2.8-4.1); Potassium 3.9 mmol/L (3.4-5.1); Sodium 135 mmol/L (137-145)
[2023-02-03 08:19] LABS: Vitamin D 25 Hydroxy (D3) 67.4 ng/mL (30.0-100.0)
[2023-02-03 08:39] LABS: Ferritin 34 ng/mL (11-264)
[2023-02-03 09:11] LABS: Folate > 20.0 ng/mL (2.76-20.0); Vitamin B12 > 1000 pg/mL (239-931)
[2023-02-04 04:31] LABS: Homocysteine 6.4 umol/L (0.0-17.2)
[2023-02-04 19:07] LABS: Ionized Calcium 4.8 mg/dL (4.5-5.6); t-Transglutaminase IgA <2 U/mL (0-3)
[2023-02-05 08:09] LABS: Parathyroid Hormone Int 26 pg/mL (15-65)
[2023-02-07 19:25] LABS: C-Telopeptide, Serum 48 pg/mL (.)
[2023-02-07 23:07] LABS: Alkaline Phosphatase, Bone Spe 7.3 ug/L (.)
== END ==
PROVIDERS: Family Provider Internal Medicine; PCP Internal Medicine; Referring Provider Family Medicine; Visit Provider Family Medicine
DX: R79.0 Abnormal level of blood mineral (principal); R53.1 Weakness; M81.0 Age-related osteoporosis without current pathological fracture; R79.83 Abnormal findings of blood amino-acid level; R82.994 Hypercalciuria; R53.83 Other fatigue; M25.552 Pain in left hip; M25.551 Pain in right hip; M54.50 Low back pain, unspecified
CPT/HCPCS: 36415; 80053; 82306; 82330; 82523; 82607; 82728; 82746; 83090; 83516; 83735; 83970; 84080; 84100; 84443; 85025

== ENCOUNTER → 2023-02-07 11:38 | Outpatient (CLI) | payer MEDICARE, OTHER, SELFPAY ==
--- NOTE | 2023-02-07 | DI.RAD.S_ITS ---
PROCEDURE: XR HIP W PEL IF DONE FLAQUITO MIN 4V INDICATIONS: Pain TECHNIQUE: AP pelvis with lateral views of each hip. COMPARISON: [facility], CR, XR HIP W PEL IF DONE LT 2V, 03/23/2021, 13:13. FINDINGS: Bones: No acute fractures or dislocations. Pelvic ring appears intact. No suspicious bony lesions. Degenerative changes are seen in the included lumbar spine. Minimal degenerative changes in the hips. Soft tissues: The visualized bowel gas pattern is normal. No suspicious soft tissue calcifications. IMPRESSION: Minimal bilateral hip osteoarthrosis. Degenerative changes are seen in the included lumbar spine. Approved by: Glen Gonzales M.D. on 02/07/2023 at 16:00
--- NOTE | 2023-02-07 | DI.RAD.S_ITS ---
PROCEDURE: XR LUMBAR SPINE 2-3V INDICATIONS: Back pain. TECHNIQUE: 3 views of the lumbar spine were acquired. COMPARISON: [facility], CR, XR LUMBAR SPINE 2-3V, 03/23/2021, 13:13. FINDINGS: Bones: 5 [id number] vertebrae are present. Again noted is moderate rightward curvature of lumbar spine with apex at L3 level. Degenerative endplate changes, loss of disc height and bilateral facet arthrosis throughout lumbar spine is seen. No acute compression fracture or significant spondylolisthesis.. No vertebral body compression fractures. No suspicious bony lesions. Soft tissues: Overlying bowel gas pattern is normal. No suspicious soft tissue calcifications. IMPRESSION: Scoliosis as above. No acute compression fracture or significant spondylolisthesis. Degenerative disc disease throughout lumbar spine. Dictated by: Derrick Clayton M.D. on 02/07/2023 at 19:53 Approved by: Derrick Clayton M.D. on 02/07/2023 at 19:54
== END ==
PROVIDERS: Family Provider Internal Medicine; PCP Internal Medicine; Referring Provider Family Medicine; Visit Provider Family Medicine
DX: M47.816 Spondylosis without myelopathy or radiculopathy, lumbar region (principal); M25.551 Pain in right hip; M25.552 Pain in left hip; M54.50 Low back pain, unspecified
CPT/HCPCS: 72110; 73521

== ENCOUNTER → 2023-02-28 09:07 | Outpatient (CLI) | payer MEDICARE, OTHER, SELFPAY ==
[2023-03-01 10:31] LABS: Calcium, Urine 9.5 mg/dL (Not Estab.); Creatinine, Urine 27.8 mg/dL (Not Estab.); Urine Calcium/Creatinine Ratio 342 mg/g creat (29-442)
== END ==
PROVIDERS: Family Provider Internal Medicine; PCP Internal Medicine; Referring Provider Family Medicine; Visit Provider Family Medicine
DX: M81.0 Age-related osteoporosis without current pathological fracture (principal); R79.0 Abnormal level of blood mineral; R82.994 Hypercalciuria; R79.83 Abnormal findings of blood amino-acid level; R53.1 Weakness; R53.83 Other fatigue; M25.552 Pain in left hip; M25.551 Pain in right hip; M54.50 Low back pain, unspecified
CPT/HCPCS: 82340; 82570

== ENCOUNTER → 2023-04-09 11:28 | Outpatient (CLI) | payer MEDICARE, OTHER, SELFPAY ==
--- NOTE | 2023-04-09 11:31 | DI.RAD.S_ITS ---
PROCEDURE: XR LUMBAR SPINE 2-3V INDICATIONS: Fall TECHNIQUE: 3 views of the lumbar spine were acquired. COMPARISON: [facility], CR, XR LUMBAR SPINE 2-3V, 02/07/2023, 11:52. FINDINGS: Bones: Convex left thoracolumbar scoliosis present. Generalized decreased osseous mineralization. Diffuse disc space narrowing hypertrophic facet joints present without malalignment. Interval L5 compression fracture with 10% anterior height loss. Stable L3 and L4 compression fractures Soft tissues: Overlying bowel gas pattern is normal. No suspicious soft tissue calcifications. IMPRESSION: L5 compression fracture uncertain age but new from the prior exam L3 and L4 compression fractures, stable Osteopenic, degenerative disc disease and thoracolumbar levoscoliosis Approved by: Keegan Yoo M.D. on 04/09/2023 at 12:47
== END ==
PROVIDERS: Family Provider Internal Medicine; PCP Internal Medicine; Referring Provider Internal Medicine; Visit Provider Internal Medicine
DX: M51.36 Other intervertebral disc degeneration, lumbar region (principal); M48.56XA Collapsed vertebra, not elsewhere classified, lumbar region, initial encounter for fracture; M41.9 Scoliosis, unspecified; M54.50 Low back pain, unspecified; M81.0 Age-related osteoporosis without current pathological fracture
CPT/HCPCS: 72100

== ENCOUNTER → 2023-04-20 06:59 | Outpatient (CLI) | payer MEDICARE, OTHER, SELFPAY ==
[2023-04-20 09:05] LABS: Add Manual Diff / Slide Review NO; Basophils Absolute Auto 100 /uL (0-100); Eosinophils Absolute Auto 200 /uL (0-450); Eosinophils Percent Auto 2.9 % (2-4); Hematocrit 37.4 % (36-46); Hemoglobin 12.7 g/dL (12.0-16.0); Lymphocytes Absolute Auto 2000 /uL (1100-4500); Lymphocytes Percent Auto 29.4 % (25-40); Mean Corpuscular Hemoglobin 32.2 PG (26-34); Mean Corpuscular Volume 94.9 fL (80-100); Monocytes Absolute Auto 500 /uL (0-900); Monocytes Percent Auto 6.8 % (3-14); Neutrophils Absolute Auto 4200 /uL (1500-7000); Neutrophils Percent Auto 59.9 % (50-75); Platelet Count 221 X10^3/uL (150-400); Red Blood Cell Count 3.94 X10^6/uL (4.0-5.2); Red Cell Distribution Width 12.9 % (11.6-14.8)
[2023-04-20 09:35] LABS: Alanine Aminotransferase 22 IU/L (<35); Albumin 3.9 g/dL (3.5-5.0); Alkaline Phosphatase 106 U/L (38-126); Aspartate Aminotransferase 29 IU/L (14-36); BUN Creatinine Ratio 21.1 (6-22); Bilirubin Total 0.2 mg/dL (0.2-1.3); Blood Urea Nitrogen 15 mg/dL (7-17); Calcium 8.7 mg/dL (8.4-10.2); Carbon Dioxide 30 mmol/L (22-32); Chloride 100 mmol/L (98-107); Estimated Glomerular Filt Rate > 60 mL/min (>60); Glucose 94 mg/dL (80-110); HEMOLYSIS < 15 (0-50); Potassium 4.1 mmol/L (3.4-5.1); Sodium 136 mmol/L (137-145); Total Protein 6.9 g/dL (6.3-8.2)
[2023-04-20 09:36] LABS: Albumin Globulin Ratio 1.3 (1.0-2.8)
[2023-04-20 09:40] LABS: Vitamin D 25 Hydroxy (D3) 76.6 ng/mL (30.0-100.0)
[2023-04-21 09:36] LABS: Parathyroid Hormone Int 27 pg/mL (15-65)
[2023-04-21 10:41] LABS: Ionized Calcium 4.5 mg/dL (4.5-5.6)
== END ==
PROVIDERS: Family Provider Internal Medicine; PCP Internal Medicine; Referring Provider Family Medicine; Visit Provider Family Medicine
DX: R79.0 Abnormal level of blood mineral (principal); M81.0 Age-related osteoporosis without current pathological fracture; R82.994 Hypercalciuria; R79.83 Abnormal findings of blood amino-acid level; R53.1 Weakness; R53.83 Other fatigue; M25.552 Pain in left hip; M25.551 Pain in right hip; M54.50 Low back pain, unspecified
CPT/HCPCS: 36415; 80053; 82306; 82330; 83970; 85025

== ENCOUNTER → 2023-04-26 06:43 | Outpatient (CLI) | payer MEDICARE, OTHER, SELFPAY ==
[2023-04-26 09:52] LABS: Collection Time Urine 24 Hours; Creatinine 24 Hour Urine 890 mg/day (800-1800); Creatinine Urine Random 33.6 mg/dL; Total Volume Urine 2650 mL
[2023-04-26 10:24] LABS: Calcium 24 Hour Urine 106 mg/day (100-300); Collection Time Urine 24 Hours; Total Volume Urine 2650 mL
--- NOTE | 2023-04-26 14:35 | DI.DEXA.S_ITS ---
Bone Density Report Name: HALLE BARNETT Age: 67 Sex: Female Ethnicity: White Date of : 1955 Indication: postmenopausal osteoporosis; monitoring treatment; prior fracture; Referring Provider: CT BOSS Study: Bone densitometry was performed. Exam Date: April 26, 2023 Accession number: [id number] Bone Density: Region BMD T-score Z-score Classification AP Spine(L1-L4) 0.870 -1.6 0.5 Osteopenia Femoral Neck (Left) 0.523 -2.9 -1.2 Osteoporosis Total Hip (Left) 0.659 -2.3 -0.9 Osteopenia Femoral Neck (Right) 0.562 -2.6 -0.8 Osteoporosis Total Hip (Right) 0.678 -2.2 -0.7 Osteopenia Total Hip Mean 0.669 -2.3 -0.8 Osteopenia World Health Organization criteria for BMD impression classify patients as: Normal (T-score at or above -1.0), Osteopenia (T-score between -1.0 and -2.5), or Osteoporosis (T-score at or below -2.5). 10-year Fracture Risk: FRAX not reported because: Some T-score for Spine Total or Hip Total or Femoral Neck at or below -2.5 Prior hip or vertebral fracture Treated for osteoporosis Previous Exams: -- Region Exam Age BMD T-score BMD Change BMD Change Date g/cm2 vs Baseline vs Previous -- AP Spine (L1-L4) 04/26/2023 67 0.870 -1.6 0.107 (14.1%)# 0.107 (14.1%)# 04/20/2022 66 0.763 -2.6 Total Hip(Left) 04/26/2023 67 0.659 -2.3 0.026 (4.1%)# 0.026 (4.1%)# 04/20/2022 66 0.633 -2.5 Total Hip(Right) 04/26/2023 67 0.678 -2.2 -0.016 (-2.3%)# -0.016 (-2.3%)# 04/20/2022 66 0.694 -2.0 -- *Denotes significance at 95% confidence level, LSC for AP Spine = 0.022 g/cm2, LSC for Total Hip = 0.027 g/cm2 # Denotes dissimilar scan types or analysis methods Impression: The patient has established osteoporosis, based on the Left Femoral Neck T-score and the existence of a prior fracture. The patient has risk factors, including: previous fracture. No significant bone loss was observed. Discussion: PATIENT UNDER TREATMENT WITH NO SIGNIFICANT BMD LOSS SINCE LAST EXAM. In an untreated patient, BMD typically declines with age. A lack of decline or gain is usually a sign that treatment is efficacious and fracture risk is reduced. It is important to ask patients whether they are taking their medications and to encourage continued and appropriate compliance with their osteoporosis therapies to reduce fracture risk. It is also important to review their risk factors and encourage appropriate calcium and vitamin D intakes, exercise, fall prevention and other lifestyle measures. Follow-Up: Consider a repeat BMD and Vertebral Fracture Assessment (VFA) exam in 2 years or sooner if medically necessary, to reassess this patient's status. Reported by: NILESH CABALLERO M.D. on 04/26/2023 2:52:00 PM.
[2023-04-27 05:30] LABS: Calcium, Urine 4.5 mg/dL (Not Estab.); Urine Calcium/Creatinine Ratio 145 mg/g creat (29-442)
== END ==
PROVIDERS: Family Provider Internal Medicine; PCP Internal Medicine; Referring Provider Family Medicine; Visit Provider Family Medicine
DX: M81.0 Age-related osteoporosis without current pathological fracture (principal); Z78.0 Asymptomatic menopausal state; R79.0 Abnormal level of blood mineral; R82.994 Hypercalciuria; R79.83 Abnormal findings of blood amino-acid level; R53.1 Weakness; R53.83 Other fatigue; M25.551 Pain in right hip; M25.552 Pain in left hip; M54.50 Low back pain, unspecified; Z79.83 Long term (current) use of bisphosphonates
CPT/HCPCS: 77080; 82340; 82570

== ENCOUNTER → 2023-05-20 14:02 | Outpatient (CLI) | payer MEDICARE, OTHER, SELFPAY ==
--- NOTE | 2023-05-20 | DI.MG.S_ITS ---
BILATERAL DIGITAL SCREENING MAMMOGRAM 3D/2D WITH CAD: 05/20/2023 CLINICAL: Routine screening. Family history of breast cancer. Comparison is made to exams dated: 05/03/2022 mammogram, 05/02/2021 mammogram, 04/26/2020 mammogram, and 05/05/2018 mammogram - [facility]. There are scattered areas of fibroglandular density in both breasts (category b / 25%-50% glandular tissue). Current study was also evaluated with a Computer Aided Detection (CAD) system. No significant masses, calcifications, or other findings are seen in either breast. There has been no significant interval change. IMPRESSION: NEGATIVE There is no mammographic evidence of malignancy. A 1 year screening mammogram is recommended. Based on the Tyrer Cuzick model (a risk assessment model) the patient's lifetime risk is 9.5% and her 10 year risk is 5.6%. According to the ACR, ACS, and NCCN guidelines, an annual breast MRI exam along with mammogram is recommended if the patient's lifetime risk is 20% or greater. This exam was interpreted at Station ID: [id number]. NOTE: For mammograms, a report in lay terms will be sent to the patient. Approximately 15% of breast malignancies will not be visualized mammographically. In the management of a palpable breast mass, a negative mammogram must not discourage biopsy of a clinically suspicious lesion. Electronically Signed By: Jordan [email or web address]/[email or web address]:05/20/2023 16:40:59 copy to: WILLIAM BROWN [employer], ph: [phone], fax: [phone] letter sent: Normal Exam ACR BI-RADS Category 1: Negative [id number]
== END ==
PROVIDERS: Family Provider Internal Medicine; PCP Internal Medicine; Referring Provider Internal Medicine; Visit Provider Internal Medicine
DX: Z12.31 Encounter for screening mammogram for malignant neoplasm of breast (principal); Z80.3 Family history of malignant neoplasm of breast
CPT/HCPCS: 77063; 77067

== ENCOUNTER → 2023-07-08 09:02 | Outpatient (CLI) | payer MEDICARE, OTHER, SELFPAY ==
[2023-07-08 10:59] LABS: Alanine Aminotransferase 22 IU/L (<35); Albumin 4.1 g/dL (3.5-5.0); Albumin Globulin Ratio 1.3 (1.0-2.8); Alkaline Phosphatase 84 U/L (38-126); Aspartate Aminotransferase 29 IU/L (14-36); BUN Creatinine Ratio 27.5 (6-22); Bilirubin Total 0.4 mg/dL (0.2-1.3); Blood Urea Nitrogen 19 mg/dL (7-17); Calcium 9.4 mg/dL (8.4-10.2); Carbon Dioxide 30 mmol/L (22-32); Chloride 103 mmol/L (98-107); Estimated Glomerular Filt Rate > 60 mL/min (>60); Globulin 3.2 g/dL (1.7-4.1); Glucose 91 mg/dL (80-110); HEMOLYSIS < 15 (0-50); Potassium 4.2 mmol/L (3.4-5.1); Sodium 136 mmol/L (137-145); Total Protein 7.3 g/dL (6.3-8.2)
[2023-07-08 11:09] LABS: Vitamin D 25 Hydroxy (D3) 54.2 ng/mL (30.0-100.0)
[2023-07-09 09:30] LABS: Ionized Calcium 4.6 mg/dL (4.5-5.6)
== END ==
PROVIDERS: Family Provider Internal Medicine; PCP Internal Medicine; Referring Provider Family Medicine; Visit Provider Family Medicine
DX: M81.0 Age-related osteoporosis without current pathological fracture (principal); R79.0 Abnormal level of blood mineral; R82.994 Hypercalciuria; R79.83 Abnormal findings of blood amino-acid level; R53.1 Weakness; R53.83 Other fatigue; M25.552 Pain in left hip; M25.551 Pain in right hip; M54.50 Low back pain, unspecified
CPT/HCPCS: 36415; 80053; 82306; 82330; 82523

== ENCOUNTER → 2023-07-25 11:12 | Outpatient (CLI) | payer MEDICARE, OTHER, SELFPAY ==
[2023-07-25 12:26] LABS: Alanine Aminotransferase 24 IU/L (<35); Albumin 4.1 g/dL (3.5-5.0); Albumin Globulin Ratio 1.3 (1.0-2.8); Alkaline Phosphatase 80 U/L (38-126); Aspartate Aminotransferase 31 IU/L (14-36); Bilirubin Total 0.4 mg/dL (0.2-1.3); Bilirubin Unconjugated 0.2 mg/dL (0.0-1.1); Globulin 3.2 g/dL (1.7-4.1); HEMOLYSIS < 15 (0-50); Total Protein 7.3 g/dL (6.3-8.2)
== END ==
PROVIDERS: Family Provider Internal Medicine; PCP Internal Medicine; Referring Provider Internal Medicine Gastroenterology; Visit Provider Internal Medicine Gastroenterology
DX: K74.60 Unspecified cirrhosis of liver (principal)
CPT/HCPCS: 36415; 80076

== ENCOUNTER → 2023-08-25 15:06 | Outpatient (CLI) | payer MEDICARE, OTHER, SELFPAY ==
--- NOTE | 2023-08-25 | DI.US.S_ITS ---
PROCEDURE: US ABDOMEN LIMITED INDICATIONS: CIRRHOSIS TECHNIQUE: Real-time scanning was performed of the abdominal and retroperitoneal organs, with image documentation. COMPARISON: [facility], , US ABDOMEN LIMITED, 09/01/2022, 7:08. FINDINGS: Liver: The liver measures 14.4 cm in length and demonstrates a slightly coarse echotexture. No focal lesions visualized. IMPRESSION: Coarse hepatic echotexture. No focal sonographic abnormalities. Dictated by: Amber Aburto M.D. on 08/25/2023 at 17:00 Approved by: Amber Aburto M.D. on 08/25/2023 at 17:00
== END ==
LOC: US 15:07
PROVIDERS: Family Provider Internal Medicine; PCP Internal Medicine; Referring Provider Internal Medicine Gastroenterology; Visit Provider Internal Medicine Gastroenterology
DX: K74.60 Unspecified cirrhosis of liver (principal); R10.84 Generalized abdominal pain
CPT/HCPCS: 76705

== ENCOUNTER → 2023-09-30 15:19 | Outpatient (CLI) | payer MEDICARE, OTHER, SELFPAY ==
[2023-09-30 16:27] LABS: Cholesterol 208 mg/dL (140-199); HDL Cholesterol 84 mg/dL (40-60); LDL Cholesterol Calculated 98 mg/dL (<100); Triglycerides 132 mg/dL (35-150)
[2023-09-30 17:17] LABS: Vitamin B12 817 pg/mL (239-931)
== END ==
PROVIDERS: Family Provider Internal Medicine; PCP Internal Medicine; Referring Provider Internal Medicine; Visit Provider Internal Medicine
DX: E78.2 Mixed hyperlipidemia (principal); E53.8 Deficiency of other specified B group vitamins
CPT/HCPCS: 36415; 80061; 82607

== ENCOUNTER → 2024-01-24 14:44 | Outpatient (CLI) | payer MEDICARE, OTHER, SELFPAY ==
[2024-01-24 15:58] LABS: Add Manual Diff / Slide Review NO; Basophils Absolute Auto 0 /uL (0-100); Basophils Percent Auto 0.5 % (0-2); Eosinophils Absolute Auto 100 /uL (0-450); Eosinophils Percent Auto 1.9 % (2-4); Hematocrit 38.2 % (36-46); Lymphocytes Absolute Auto 2200 /uL (1100-4500); Mean Corpuscular HGB Conc 33.9 % (30-36); Mean Corpuscular Hemoglobin 32.1 PG (26-34); Mean Corpuscular Volume 94.8 fL (80-100); Monocytes Absolute Auto 500 /uL (0-900); Monocytes Percent Auto 6.4 % (3-14); Neutrophils Absolute Auto 4300 /uL (1500-7000); Neutrophils Percent Auto 60.2 % (50-75); Platelet Count 201 X10^3/uL (150-400); Red Blood Cell Count 4.03 X10^6/uL (4.0-5.2); Red Cell Distribution Width 12.6 % (11.6-14.8); White Blood Cell Count 7.2 X10^3/uL (4.5-11.0)
[2024-01-24 16:20] LABS: Prothrombin Time 11.7 SECONDS (9.4-12.5)
[2024-01-24 16:36] LABS: Alanine Aminotransferase 19 IU/L (<35); Albumin 4.1 g/dL (3.5-5.0); Albumin Globulin Ratio 1.6 (1.0-2.8); Alkaline Phosphatase 79 U/L (38-126); Aspartate Aminotransferase 26 IU/L (14-36); BUN Creatinine Ratio 26.5 (6-22); Bilirubin Total 0.2 mg/dL (0.2-1.3); Blood Urea Nitrogen 18 mg/dL (7-17); Calcium 8.8 mg/dL (8.4-10.2); Carbon Dioxide 31 mmol/L (22-32); Chloride 103 mmol/L (98-107); Estimated Glomerular Filt Rate > 60 mL/min (>60); Globulin 2.5 g/dL (1.7-4.1); Glucose 168 mg/dL (80-110); HEMOLYSIS < 15 (0-50); Potassium 4.3 mmol/L (3.4-5.1); Sodium 136 mmol/L (137-145); Total Protein 6.6 g/dL (6.3-8.2)
== END ==
PROVIDERS: Internal Medicine Gastroenterology; Family Provider Internal Medicine; PCP Internal Medicine; Referring Provider Internal Medicine Gastroenterology; Visit Provider Internal Medicine Gastroenterology
DX: K74.60 Unspecified cirrhosis of liver (principal)
CPT/HCPCS: 36415; 80053; 85025; 85610

== ENCOUNTER → 2024-03-17 09:55 | Outpatient (CLI) | payer MEDICARE, OTHER, SELFPAY ==
[2024-03-17 10:39] LABS: Add Manual Diff / Slide Review NO; Basophils Absolute Auto 100 /uL (0-100); Basophils Percent Auto 1.5 % (0-2); Eosinophils Absolute Auto 200 /uL (0-450); Hematocrit 39.2 % (36-46); Hemoglobin 13.3 g/dL (12.0-16.0); Lymphocytes Absolute Auto 2100 /uL (1100-4500); Lymphocytes Percent Auto 27.4 % (25-40); Mean Corpuscular HGB Conc 33.9 % (30-36); Mean Corpuscular Hemoglobin 32.3 PG (26-34); Mean Corpuscular Volume 95.2 fL (80-100); Monocytes Absolute Auto 600 /uL (0-900); Monocytes Percent Auto 7.6 % (3-14); Neutrophils Absolute Auto 4600 /uL (1500-7000); Neutrophils Percent Auto 61.5 % (50-75); Platelet Count 189 X10^3/uL (150-400); Red Blood Cell Count 4.12 X10^6/uL (4.0-5.2); Red Cell Distribution Width 12.7 % (11.6-14.8); White Blood Cell Count 7.5 X10^3/uL (4.5-11.0)
[2024-03-17 11:01] LABS: Alanine Aminotransferase 21 IU/L (<35); Albumin 4.1 g/dL (3.5-5.0); Albumin Globulin Ratio 1.5 (1.0-2.8); Alkaline Phosphatase 67 U/L (38-126); Aspartate Aminotransferase 27 IU/L (14-36); BUN Creatinine Ratio 33.3 (6-22); Bilirubin Total 0.4 mg/dL (0.2-1.3); Blood Urea Nitrogen 21 mg/dL (7-17); Calcium 8.5 mg/dL (8.4-10.2); Carbon Dioxide 26 mmol/L (22-32); Chloride 105 mmol/L (98-107); Estimated Glomerular Filt Rate > 60 mL/min (>60); Globulin 2.7 g/dL (1.7-4.1); Glucose 87 mg/dL (80-110); HEMOLYSIS 19 (0-50); Magnesium 2.3 mg/dL (1.6-2.3); Phosphorous 3.6 mg/dL (2.8-4.1); Potassium 4.4 mmol/L (3.4-5.1); Sodium 137 mmol/L (137-145); Total Protein 6.8 g/dL (6.3-8.2)
[2024-03-17 11:16] LABS: Vitamin D 25 Hydroxy (D3) 45.5 ng/mL (30.0-100.0)
[2024-03-17 11:32] LABS: TSH w/ Reflex to FT4 1.35 uIU/mL (0.47-4.68)
[2024-03-17 11:35] LABS: Ferritin 34 ng/mL (11-264)
[2024-03-17 12:07] LABS: Folate 13.2 ng/mL (2.76-20.0); Vitamin B12 485 pg/mL (239-931)
[2024-03-18 09:11] LABS: Ionized Calcium 4.7 mg/dL (4.5-5.6)
[2024-03-18 10:08] LABS: Parathyroid Hormone Int 40 pg/mL (15-65)
[2024-03-20 13:12] LABS: Albumin 3.6 g/dL (2.9-4.4); Alpha 1 Globulin 0.3 g/dL (0.0-0.4); Alpha 2 Globulin 0.8 g/dL (0.4-1.0); Beta 1 Globulin 1.1 g/dL (0.7-1.3); Protein, Total 6.7 g/dL (6.0-8.5)
[2024-03-20 17:08] LABS: t-Transglutaminase IgA <2 U/mL (0-3)
[2024-03-20 18:36] LABS: Free Kappa Lt Chains, Serum 20.5 mg/L (3.3-19.4); Free Lambda Lt Chains,Serum 16.3 mg/L (5.7-26.3)
[2024-03-20 23:08] LABS: Alkaline Phosphatase, Bone Spe 7.5 ug/L (.)
[2024-03-22 23:10] LABS: C-Telopeptide, Serum 37 pg/mL (.)
== END ==
PROVIDERS: Family Provider Internal Medicine; PCP Internal Medicine; Referring Provider Family Medicine; Visit Provider Family Medicine
DX: R79.0 Abnormal level of blood mineral (principal); R53.1 Weakness; M81.0 Age-related osteoporosis without current pathological fracture; R82.994 Hypercalciuria; M25.552 Pain in left hip; M25.551 Pain in right hip; M54.50 Low back pain, unspecified; R79.83 Abnormal findings of blood amino-acid level; R53.83 Other fatigue
CPT/HCPCS: 36415; 80053; 82306; 82330; 82523; 82607; 82728; 82746; 83516; 83735; 83883; 83970; 84080; 84100; 84155; 84165; 84443; 85025

== ENCOUNTER → 2024-04-18 08:29 | Outpatient (CLI) | payer MEDICARE, OTHER, SELFPAY ==
[2024-04-18 15:38] LABS: Calcium 24 Hour Urine 198 mg/day (100-300); Calcium Urine Random 6.2 mg/dL; Collection Time Urine 24 Hours; Total Volume Urine 3200 mL
== END ==
LOC: LAB 08:36
PROVIDERS: Family Provider Internal Medicine; PCP Internal Medicine; Referring Provider Family Medicine; Visit Provider Family Medicine
DX: R82.994 Hypercalciuria (principal)
CPT/HCPCS: 82340

== ENCOUNTER → 2024-05-23 14:16 | Outpatient (CLI) | payer MEDICARE, OTHER, SELFPAY ==
--- NOTE | 2024-05-23 14:17 | DI.MG.S_ITS ---
BILATERAL DIGITAL SCREENING MAMMOGRAM 3D/2D WITH CAD: 05/23/2024 CLINICAL: Routine screening. Family history of breast cancer. Comparison is made to exams dated: 05/20/2023 mammogram, 05/03/2022 mammogram, and 05/02/2021 mammogram - [facility]. There are scattered areas of fibroglandular density (category b / 25%-50% glandular tissue). Current study was also evaluated with a Computer Aided Detection (CAD) system. No significant masses, calcifications, or other findings are seen in either breast. There has been no significant interval change. IMPRESSION: NEGATIVE There is no mammographic evidence of malignancy. A 1 year screening mammogram is recommended. Based on the Tyrer Cuzick model (a risk assessment model) the patient's lifetime risk is 9.0% and her 10 year risk is 5.7%. According to the ACR, ACS, and NCCN guidelines, an annual breast MRI exam along with mammogram is recommended if the patient's lifetime risk is 20% or greater. This exam was interpreted at Station ID: [id number]. NOTE: For mammograms, a report in lay terms will be sent to the patient. Approximately 15% of breast malignancies will not be visualized mammographically. In the management of a palpable breast mass, a negative mammogram must not discourage biopsy of a clinically suspicious lesion. Electronically Signed By: Annika [email or web address]/[email or web address]:05/23/2024 17:15:27 copy to: WILLIAM BROWN [employer], ph: [phone], fax: [phone] letter sent: Normal Exam ACR BI-RADS Category 1: Negative
== END ==
PROVIDERS: Family Provider Internal Medicine; PCP Internal Medicine; Referring Provider Internal Medicine; Visit Provider Internal Medicine
DX: Z12.31 Encounter for screening mammogram for malignant neoplasm of breast (principal); Z80.3 Family history of malignant neoplasm of breast
CPT/HCPCS: 77063; 77067

== ENCOUNTER → 2024-12-18 08:02 | Outpatient (CLI) | payer MEDICARE, OTHER, SELFPAY ==
[2024-12-19 12:36] LABS: C difficie Toxins A and B, EIA Negative (Negative)
== END ==
PROVIDERS: Family Provider Internal Medicine; PCP Internal Medicine; Referring Provider Internal Medicine; Visit Provider Internal Medicine
DX: Z13.88 Encounter for screening for disorder due to exposure to contaminants (principal); A09 Infectious gastroenteritis and colitis, unspecified
CPT/HCPCS: 87045; 87177; 87324

== ENCOUNTER → 2024-12-31 15:01 | Outpatient (CLI) | payer MEDICARE, OTHER, SELFPAY ==
[2024-12-31 15:54] LABS: Alanine Aminotransferase 31 IU/L (<35); Albumin 4.2 g/dL (3.5-5.0); Albumin Globulin Ratio 1.6 (1.0-2.8); Alkaline Phosphatase 87 U/L (38-126); Aspartate Aminotransferase 36 IU/L (14-36); BUN Creatinine Ratio 45.3 (6-22); Bilirubin Total 0.4 mg/dL (0.2-1.3); Blood Urea Nitrogen 29 mg/dL (7-17); Calcium 9.8 mg/dL (8.4-10.2); Carbon Dioxide 30 mmol/L (22-32); Chloride 101 mmol/L (98-107); Estimated Glomerular Filt Rate > 60 mL/min (>60); Globulin 2.7 g/dL (1.7-4.1); Glucose 91 mg/dL (70-99); Sodium 137 mmol/L (137-145); Total Protein 6.9 g/dL (6.3-8.2)
[2024-12-31 15:57] LABS: HEMOLYSIS 51 (0-50); Potassium 4.1 mmol/L (3.4-5.1)
[2025-01-03 14:09] LABS: Free Kappa Lt Chains, Serum 27.9 mg/L (3.3-19.4); Free Lambda Lt Chains,Serum 24.5 mg/L (5.7-26.3)
[2025-01-03 15:41] LABS: Albumin 3.5 g/dL (2.9-4.4); Alpha 1 Globulin 0.3 g/dL (0.0-0.4); Alpha 2 Globulin 0.8 g/dL (0.4-1.0); Gamma Globulin 1.1 g/dL (0.4-1.8); Protein, Total 6.6 g/dL (6.0-8.5)
== END ==
PROVIDERS: Family Provider Internal Medicine; PCP Internal Medicine; Referring Provider Internal Medicine; Visit Provider Family Medicine
DX: R77.9 Abnormality of plasma protein, unspecified (principal); M81.0 Age-related osteoporosis without current pathological fracture; R79.0 Abnormal level of blood mineral; R82.994 Hypercalciuria; R79.83 Abnormal findings of blood amino-acid level; R53.1 Weakness; M25.552 Pain in left hip; M25.551 Pain in right hip; M54.50 Low back pain, unspecified; R53.83 Other fatigue
CPT/HCPCS: 36415; 80053; 83883; 84155; 84165

== ENCOUNTER → 2025-07-10 07:37 | Outpatient (CLI) | payer MEDICARE, OTHER, SELFPAY ==
[2025-07-10 08:19] LABS: Add Manual Diff / Slide Review NO; Hematocrit 39.5 % (36-46); Hemoglobin 13.5 g/dL (12.0-16.0); Lymphocytes Absolute Auto 2200 /uL (1100-4500); Mean Corpuscular HGB Conc 34.2 % (30-36); Mean Corpuscular Hemoglobin 32.0 PG (26-34); Mean Corpuscular Volume 93.3 fL (80-100); Platelet Count 209 X10^3/uL (150-400)
[2025-07-10 09:01] LABS: Alanine Aminotransferase 27 IU/L (<35); Albumin 4.3 g/dL (3.5-5.0); Albumin Globulin Ratio 1.4 (1.0-2.8); Alkaline Phosphatase 78 U/L (38-126); Blood Urea Nitrogen 15 mg/dL (7-17); Calcium 9.2 mg/dL (8.4-10.2); Carbon Dioxide 28 mmol/L (22-32); Chloride 103 mmol/L (98-107); Estimated Glomerular Filt Rate > 60 mL/min (>60); Globulin 3.1 g/dL (1.7-4.1); Glucose 99 mg/dL (70-99); HEMOLYSIS < 15 (0-50); Potassium 4.1 mmol/L (3.4-5.1); Sodium 139 mmol/L (137-145); Total Protein 7.4 g/dL (6.3-8.2)
[2025-07-10 09:07] LABS: Vitamin D 25 Hydroxy (D3) 41.3 ng/mL (30.0-100.0)
[2025-07-11 17:11] LABS: Free Kappa Lt Chains, Serum 18.8 mg/L (3.3-19.4); Free Lambda Lt Chains,Serum 17.7 mg/L (5.7-26.3)
== END ==
PROVIDERS: Family Provider Internal Medicine; PCP Internal Medicine; Referring Provider Internal Medicine; Visit Provider Family Medicine
DX: M25.551 Pain in right hip (principal); M81.0 Age-related osteoporosis without current pathological fracture; M54.50 Low back pain, unspecified; M25.552 Pain in left hip; R53.1 Weakness; R53.83 Other fatigue; R77.9 Abnormality of plasma protein, unspecified; R79.0 Abnormal level of blood mineral; R79.83 Abnormal findings of blood amino-acid level; R82.994 Hypercalciuria
CPT/HCPCS: 36415; 80053; 82306; 82523; 83883; 84155; 84165; 85025

== ENCOUNTER → 2025-07-20 07:06 | Outpatient (CLI) | payer MEDICARE, OTHER, SELFPAY | PROVIDERS: Family Provider Internal Medicine; PCP Internal Medicine; Visit Provider Chiropractor | DX: R30.0 Dysuria (principal) | CPT/HCPCS: 87077; 87086; 87186 ==

== ENCOUNTER → 2025-08-09 11:16 | Outpatient (CLI) | payer MEDICARE, OTHER, SELFPAY ==
--- NOTE | 2025-08-09 11:17 | DI.MG.S_ITS ---
MM screening mammo BI: 08/09/2025. BI-RADS: 1 CLINICAL: 69-year old female for bilateral screening mammogram. Tyrer-Cuzick lifetime risk of 6.7%. Current reported family history of breast cancer: mother. PRIOR EXAMS 05/23/2024, 05/20/2023, 11/09/2022, 05/11/2022. MAMMOGRAPHY TECHNIQUE: 2D and 3D (tomosynthesis) digital mammographic views obtained, with additional images as needed for full coverage. Current study was also evaluated with a Computer Aided Detection (CAD) system. DENSITY C. The breasts are heterogeneously dense, which may obscure small masses. MAMMOGRAPHY FINDINGS Bilateral: No suspicious mass, asymmetry, microcalcification, or other abnormality seen. IMPRESSION: * No evidence of malignancy. RECOMMENDATIONS Bilateral * Annual screening mammography. OVERALL ASSESSMENT CATEGORY BI-RADS-1: Negative. The [employer] recommends annual screening mammography beginning at age 40 for women with average risk of breast cancer. ELECTRONICALLY SIGNED: Mari Bernal M.D. on 08/11/2025 at 10:41:39 PM PT Interpreting Station ID: [id number]
== END ==
LOC: MAMMO 11:17
PROVIDERS: Family Provider Internal Medicine; PCP Internal Medicine; Referring Provider Internal Medicine; Visit Provider Internal Medicine
DX: Z12.31 Encounter for screening mammogram for malignant neoplasm of breast (principal); R92.333 Mammographic heterogeneous density, bilateral breasts; Z80.3 Family history of malignant neoplasm of breast
CPT/HCPCS: 77063; 77067